=== PATIENT | male | born 1960 | race Caucasian/White ===

== ENCOUNTER → 2016-10-21 | Outpatient (CLI) | payer OTHER ==
--- NOTE | 2016-10-21 14:30 | XR ---
EXAMINATION TYPE: XR Hip Complete LT DATE OF EXAM: 10/21/2016 2:24 PM CLINICAL HISTORY: pain TECHNIQUE: AP and frogleg views of the left hip are obtained. COMPARISON: None. FINDINGS: There is no acute fracture/dislocation evident. The joint space appears within normal li mits. The overlying soft tissue appears unremarkable. IMPRESSION: 1. There is no acute fracture or dislocation.ICD 10 NO FRACTURE, INITIAL EVALUATION
--- NOTE | 2016-10-21 14:31 | XR ---
EXAMINATION TYPE: XR sacroiliac joint comp BILAT DATE OF EXAM: 10/21/2016 2:24 PM COMPARISON: NONE HISTORY: SI joint pain TECHNIQUE: 3 views of the sacroiliac joints are submitted. FINDINGS: The sacroiliac joints are patent bilaterally. There is no evidence for abnormal widening or sclerosis. Sacrum is intact. No sacral fractures evident. IMPRESSION: Negative study of the SI joints.
== END | disposition home or self-care (01) ==
LOC: RADXRMAIN 13:59
PROVIDERS: ATTEND Psychiatry & Neurology Neurology
DX: M25.552 Pain in left hip (principal); M53.3 Sacrococcygeal disorders, not elsewhere classified
CPT/HCPCS: 72202; 73502

== ENCOUNTER → 2016-11-18 | Outpatient (CLI) | payer OTHER ==
--- NOTE | 2016-11-21 11:25 | ECHOF ---
Referral Reason:R01.1 systolic murmur MEASUREMENTS -------- HEIGHT: 175.3 cm WEIGHT: 51.3 kg BP: RVIDd: 2.3 cm (< 3.3) IVSd: 1.2 cm (0.6 - 1.1) LVIDd: 4.4 cm (3.9 - 5.3) LVPWd: 0.8 cm (0.6 - 1.1) IVSs: 1.6 cm LVIDs: 2.7 cm LVPWs: 1.4 cm LAESV Index (A-L): 39.84 ml/m Ao Diam: 3.2 cm (2.0 - 3.7) AV Cusp: 1.6 cm (1.5 - 2.6) LA Diam: 3.8 cm (2.7 - 3.8) MV EXCURSION: 33.275 mm (> 18.000) MV EF SLOPE: 91 mm/s (70 - 150) RAP: 5.00 mmHg RVSP: 39.10 mmHg FINDINGS -------- Sinus rhythm. This was a technically good study. There is mild concentric left ventricular hypertrophy. Overall left ventricular systolic function is normal with, an EF between 55 - 60 %. The right ventricle is normal in size. LA is moderately dilated 34-39 ml/m2 The right atrial size is normal. There is mild aortic valve sclerosis. There is no evidence of aortic regurgitation. The mitral valve leaflets are moderate to severely thickened. Severe mitral regurgitation is present. Severe prolapse of the posterior mitral valve leaflet. Mild tricuspid regurgitation present. There is mild pulmonary hypertension. The right ventricular systolic pressure, as measured by Doppler, is 39.10mmHg. There is no pulmonic regurgitation present. The aortic root size is normal. There is no pericardial effusion. CONCLUSIONS -------- 1. There is mild concentric left ventricular hypertrophy. 2. The right ventricular systolic pressure, as measured by Doppler, is 39.10mmHg. 3. Overall left ventricular systolic function is normal with, an EF between 55 - 60 %. 4. LA is moderately dilated 34-39 ml/m2 5. There is mild aortic valve sclerosis. 6. The mitral valve leaflets are moderate to severely thickened. 7. Severe mitral regurgitation is present. 8. Severe prolapse of the posterior mitral valve leaflet. 9. Mild tricuspid regurgitation present. 10. There is mild pulmonary hypertension. [employer] FABRICATION SUPERVISOR: Saba Barahona RDCS
== END | disposition home or self-care (01) ==
LOC: RADECHMAIN 12:56
PROVIDERS: ATTEND Nurse Practitioner Family
DX: I08.3 Combined rheumatic disorders of mitral, aortic and tricuspid valves (principal); I27.2 Other secondary pulmonary hypertension
CPT/HCPCS: 93306

== ENCOUNTER 2018-04-20 10:23 | Observation (INO) | payer OTHER ==
[2018-04-20] MEDS ORDERED: NITROGLYCERIN OINT 1 INCH/GM PACKET TOPICAL STA (10:47)
[2018-04-20] MEDS ORDERED: ASPIRIN 81 MG PO STA (10:47)
--- NOTE | 2018-04-20 10:51 | ED ---
General Adult HPI - General Chief complaint: Chest Pain Stated complaint: chest pain Time Seen by Provider: 04/20/18 10:25 Source: patient, RN notes reviewed Mode of arrival: ambulatory Limitations: no limitations - History of Present Illness Initial comments: This is a 58-year-old male who has a past medical history significant for smoking and family history for heart disease. Patient comes in today because yesterday he started having chest pain difficult to breathing and pain radiating into the right arm. Patient states that lasted for 3-5 minutes and then it resolved but he continued to have chest pressure and states he has chest pressure today. He states he is also still little short of breath. But the severe pain is no longer there. Patient denies headache patient denies numbness weakness. Patient denies any lightheadedness or dizziness. Patient denies any recent fever chills or cough. Patient denies abdominal pain patient denies nausea vomiting diarrhea. Patient denies any leg swelling or calf pain. - Related Data Home Medications Medication Instructions Recorded Confirmed Baclofen 5 mg PO BID 04/20/18 04/20/18 Cholecalciferol (Vitamin D3) 2,000 unit PO DAILY 04/20/18 04/20/18 [Vitamin D3] HYDROcodone/APAP 7.5-325MG [[place] 1 tab PO BID 04/20/18 04/20/18 7.5-325] Meloxicam [Mobic] 15 mg PO DAILY 04/20/18 04/20/18 Allergies Allergy/AdvReac Type Severity Reaction Status Date / Time No Known Allergies Allergy Verified 04/20/18 11:06 Review of Systems ROS Statement: Those systems with pertinent positive or pertinent negative responses have been documented in the HPI. ROS Other: All systems not noted in ROS Statement are negative. Past Medical History Past Medical History: Osteoarthritis (OA) History of Any Multi-Drug Resistant Organisms: None Reported Past Surgical History: Orthopedic Surgery Past Psychological History: No Psychological Hx Reported Smoking Status: Current every day smoker Past Alcohol Use History: Occasional Past Drug Use History: None Reported General Exam - General Exam Comments Initial Comments: GENERAL: Patient is well-developed and well-nourished. Patient is nontoxic and well- hydrated and is in mild distress. ENT: Neck is soft and supple. No significant lymphadenopathy is noted. Oropharynx is clear. Moist mucous membranes. Neck has full range of motion without eliciting any pain. EYES: The sclera were anicteric and conjunctiva were pink and moist. Extraocular movements were intact and pupils were equal round and reactive to light. Eyelids were unremarkable. PULMONARY: Unlabored respirations. Good breath sounds bilaterally. No audible rales rhonchi or wheezing was noted. CARDIOVASCULAR: There is a regular rate and rhythm patient has a 3/6 murmur. ABDOMEN: Soft and nontender with normal bowel sounds. No palpable organomegaly was noted. There is no palpable pulsatile mass. SKIN: Skin is clear with no lesions or rashes and otherwise unremarkable. NEUROLOGIC: Patient is alert and oriented x3. Cranial nerves II through XII are grossly intact. Motor and sensory are also intact. Normal speech, volume and content. Symmetrical smile. MUSCULOSKELETAL: Normal extremities with adequate strength and full range of motion. No lower extremity swelling or edema. No calf tenderness. LYMPHATICS: No significant lymphadenopathy is noted PSYCHIATRIC: Normal psychiatric evaluation. Limitations: no limitations Course Vital Signs 04/20/18 10:26 Temperature 98.2 F Pulse Rate 84 Respiratory 18 Rate Blood Pressure 129/86 O2 Sat by Pulse 99 Oximetry Medical Decision Making - Medical Decision Making EKG shows normal sinus rhythm at 74 bpm ND interval is on a 38 QRS is 90 QT intervals 376 QTC is 417. Patient's EKG shows no ST segment elevation or depression or T wave abnormalities are noted. Chest x-ray shows no acute abnormality. Patient is having unstable angina/started the patient on heparin. I spoke with Dr. kothari and he agreed to admit the patient admitted the patient wrote admitting orders I consult cardiology. I continued heparin Nitropaste and aspirin on the floor. I repeated cardiac and since. - Lab Data Result diagrams: 04/20/18 10:54 04/20/18 10:54 Lab Results 04/20/18 04/20/18 04/20/18 Range/Units 10:54 10:54 10:54 WBC 5.2 (3.8-10.6) k/uL RBC 5.43 (4.30-5.90) m/uL Hgb 16.3 (13.0-17.5) gm/dL Hct 50.9 (39.0-53.0) % MCV 93.8 (80.0-100.0) fL MCH 30.0 (25.0-35.0) pg MCHC 32.0 (31.0-37.0) g/dL RDW 13.8 (11.5-15.5) % Plt Count 184 (150-450) k/uL Neutrophils % 61 % Lymphocytes % 30 % Monocytes % 5 % Eosinophils % 2 % Basophils % 1 % Neutrophils # 3.1 (1.3-7.7) k/uL Lymphocytes # 1.6 (1.0-4.8) k/uL Monocytes # 0.3 (0-1.0) k/uL Eosinophils # 0.1 (0-0.7) k/uL Basophils # 0.0 (0-0.2) k/uL PT (9.0-12.0) sec INR (<1.2) APTT (22.0-30.0) sec Sodium 142 (137-145) mmol/L Potassium 4.7 (3.5-5.1) mmol/L Chloride 108 H (98-107) mmol/L Carbon Dioxide 28 (22-30) mmol/L Anion Gap 6 mmol/L BUN 13 (9-20) mg/dL Creatinine 0.91 (0.66-1.25) mg/dL Est GFR (CKD-EPI)AfAm >90 (>60 ml/min/1.73 sqM) Est GFR (CKD-EPI)NonAf >90 (>60 ml/min/1.73 sqM) Glucose 84 (74-99) mg/dL Calcium 9.7 (8.4-10.2) mg/dL Magnesium 2.0 (1.6-2.3) mg/dL Total Bilirubin 0.9 (0.2-1.3) mg/dL AST 20 (17-59) U/L ALT 23 (21-72) U/L Alkaline Phosphatase 58 (38-126) U/L Total Creatine Kinase 62 (55-170) U/L CK-MB (CK-2) 0.6 (0.0-2.4) ng/mL CK-MB (CK-2) Rel Index 1.0 Troponin I <0.012 (0.000-0.034) ng/mL Total Protein 6.9 (6.3-8.2) g/dL Albumin 4.1 (3.5-5.0) g/dL 04/20/18 Range/Units 11:12 WBC (3.8-10.6) k/uL RBC (4.30-5.90) m/uL Hgb (13.0-17.5) gm/dL Hct (39.0-53.0) % MCV (80.0-100.0) fL MCH (25.0-35.0) pg MCHC (31.0-37.0) g/dL RDW (11.5-15.5) % Plt Count (150-450) k/uL Neutrophils % % Lymphocytes % % Monocytes % % Eosinophils % % Basophils % % Neutrophils # (1.3-7.7) k/uL Lymphocytes # (1.0-4.8) k/uL Monocytes # (0-1.0) k/uL Eosinophils # (0-0.7) k/uL Basophils # (0-0.2) k/uL PT 10.4 (9.0-12.0) sec INR 1.1 (<1.2) APTT 24.3 (22.0-30.0) sec Sodium (137-145) mmol/L Potassium (3.5-5.1) mmol/L Chloride (98-107) mmol/L Carbon Dioxide (22-30) mmol/L Anion Gap mmol/L BUN (9-20) mg/dL Creatinine (0.66-1.25) mg/dL Est GFR (CKD-EPI)AfAm (>60 ml/min/1.73 sqM) Est GFR (CKD-EPI)NonAf (>60 ml/min/1.73 sqM) Glucose (74-99) mg/dL Calcium (8.4-10.2) mg/dL Magnesium (1.6-2.3) mg/dL Total Bilirubin (0.2-1.3) mg/dL AST (17-59) U/L ALT (21-72) U/L Alkaline Phosphatase (38-126) U/L Total Creatine Kinase (55-170) U/L CK-MB (CK-2) (0.0-2.4) ng/mL CK-MB (CK-2) Rel Index Troponin I (0.000-0.034) ng/mL Total Protein (6.3-8.2) g/dL Albumin (3.5-5.0) g/dL Critical Care Time Critical Care Time: Yes Total Critical Care Time: 35 Disposition Clinical Impression: Unstable angina pectoris Disposition: ADMITTED IP TO THIS HOSP Referrals: Sneha Mantilla MD [Primary Care Provider] - 1-2 days Time of Disposition: 12:06
[2018-04-20 11:03] LABS: Basophils % (A) 1 %; Eosinophils # (A) 0.1 k/uL (0-0.7); Eosinophils % (A) 2 %; HCT 50.9 % (39.0-53.0); HGB 16.3 gm/dL (13.0-17.5); Lymphocytes # (A) 1.6 k/uL (1.0-4.8); Lymphocytes % (A) 30 %; MCV 93.8 fL (80.0-100.0); Monocytes # (A) 0.3 k/uL (0-1.0); Monocytes % (A) 5 %; Neutrophils # (A) 3.1 k/uL (1.3-7.7); Neutrophils % (A) 61 %; Platelet Count 184 k/uL (150-450); RBC 5.43 m/uL (4.30-5.90); RDW 13.8 % (11.5-15.5); WBC 5.2 k/uL (3.8-10.6)
[2018-04-20 11:13] LABS: ALT 23 U/L (21-72); AST 20 U/L (17-59); Albumin 4.1 g/dL (3.5-5.0); Alkaline Phosphatase 58 U/L (38-126); Anion Gap 6 mmol/L; Blood Urea Nitrogen 13 mg/dL (9-20); Calcium 9.7 mg/dL (8.4-10.2); Carbon Dioxide 28 mmol/L (22-30); Chloride 108 mmol/L (98-107); Glucose 84 mg/dL (74-99); Potassium 4.7 mmol/L (3.5-5.1); Sodium 142 mmol/L (137-145); Total Bilirubin 0.9 mg/dL (0.2-1.3); Total Protein 6.9 g/dL (6.3-8.2)
--- NOTE | 2018-04-20 11:23 | XR ---
EXAMINATION TYPE: XR chest 2V DATE OF EXAM: 04/20/2018 COMPARISON: 04/16/2015 HISTORY: Shortness of breath TECHNIQUE: Frontal and lateral views of the chest are obtained. FINDINGS: Scattered senescent parenchymal changes noted. Hyperinflation compatible with COPD. No evidence for infiltrate. No evidence for atelectasis. Heart size is stable. Mediastinal structures are stable and grossly unremarkable. No evidence for hilar prominence. Degenerative changes dorsal spine. IMPRESSION: 1. No evidence for acute pulmonary disease.
[2018-04-20 11:24] LABS: Creatine Kinase 62 U/L (55-170)
[2018-04-20 11:36] LABS: Creatine Kinase MB 0.6 ng/mL (0.0-2.4); Troponin I <0.012 ng/mL (0.000-0.034)
[2018-04-20 11:47] LABS: INR 1.1 (<1.2); Partial Thromboplastin Time 24.3 sec (22.0-30.0); Prothrombin Time 10.4 sec (9.0-12.0)
[2018-04-20] MEDS ORDERED: HEPARIN SODIUM,PORCINE 5,000 UNIT/ML 1 ML VIAL IV ONE (12:06)
[2018-04-20] MEDS ORDERED: NITROGLYCERIN SL TABS 0.4 MG TAB SUBLINGUAL PRN (12:06)
[2018-04-20] MEDS ORDERED: HEPARIN SOD,PORK IN 0.45% NACL 25,000 UNIT in 0.45% NACL 1 500ML.BAG IV SCH (12:15)
--- NOTE | 2018-04-20 14:09 | P.HPIM ---
History of Present Illness This is a pleasant 58 years old male with past medical history of osteoarthritis , vitamin D deficiency multiple musculoskeletal surgery chronic joint pain, multiple joints. Presents because of chest pain. As per patient developed chest pain yesterday central undiluted on the right side, nonradiating. Was fairly severe for about 20 minutes but then is down and since then until today he has some heaviness is his chest but not really pain as per patient. Associated with some dyspnea, however patient is not overtly tachypneic. Complain of some chronic coughing and slight right phlegm, patient is currently heavy smoker about 1.5 PPD. In the emergency room patient got aspirin, and was started on heparin drip. Chest x-ray shows no acute process, first cardiac enzyme is negative. CBC and BMP were unremarkable. EKG shows normal sinus rhythm at [address]-T changes Review of Systems CONSTITUTIONAL: No fever, no malaise, no fatigue. HEENT: No recent visual problems or hearing problems. Denied any sore throat. CARDIOVASCULAR: No orthopnea, PND, no palpitations, no syncope. PULMONARY: No shortness of breath, no cough, no hemoptysis. GASTROINTESTINAL: No diarrhea, no nausea, no vomiting, no abdominal pain. Normoactive bowel sounds. NEUROLOGICAL: No headaches, no weakness, no numbness. HEMATOLOGICAL: Denies any bleeding or petechiae. GENITOURINARY: Denies any burning micturition, frequency, or urgency. MUSCULOSKELETAL/RHEUMATOLOGICAL: Denies any joint pain, swelling, or any muscle pain. ENDOCRINE: Denies any polyuria or polydipsia. Past Medical History Past Medical History: Osteoarthritis (OA) Additional Past Medical History / Comment(s): Chronic pain, arthritis in multiple joints, cervical fractures, L clavicle fracture. History of Any Multi-Drug Resistant Organisms: None Reported Past Surgical History: Orthopedic Surgery Additional Past Surgical History / Comment(s): R index finger tendon repair d/t injury, bilateral knee arthroscopic surgery, bilateral hip arthroscopies, bilateral elbow arthroscopies, bilateral shoulder arthroscopies/fracture repair L clavicle, L/S spine surgery (pt cannot recall what was done), facial reconstruction. Past Anesthesia/Blood Transfusion Reactions: No Reported Reaction Smoking Status: Current every day smoker - Past Family History Mother Family Medical History: Liver Disease, Renal Disease Additional Family Medical History / Comment(s): Mother in her 70s from kidney and liver failure. Medications and Allergies Home Medications Medication Instructions Recorded Confirmed Type Cholecalciferol (Vitamin D3) 2,000 unit PO DAILY 04/20/18 04/20/18 History [Vitamin D3] HYDROcodone/APAP 7.5-325MG [[place] 1 tab PO BID 04/20/18 04/20/18 History 7.5-325] Meloxicam [Mobic] 15 mg PO DAILY 04/20/18 04/20/18 History RX: Baclofen 5 mg PO BID 04/20/18 04/20/18 History Allergies Allergy/AdvReac Type Severity Reaction Status Date / Time No Known Allergies Allergy Verified 04/20/18 11:06 Physical Exam Vitals: Vital Signs Temp Pulse Resp BP Pulse Ox 04/20/18 12:16 59 L 16 127/97 99 04/20/18 10:26 98.2 F 84 18 129/86 99 Intake and Output 04/19/18 04/20/18 04/20/18 22:59 06:59 14:59 Other: Weight 56.699 kg GENERAL: The patient is alert and oriented x3, not in any acute distress. Well developed, well nourished. HEENT: Pupils are round and equally reacting to light. EOMI. No scleral icterus. No conjunctival pallor. Normocephalic, atraumatic. No pharyngeal erythema. No thyromegaly. CARDIOVASCULAR: S1 and S2 present. No murmurs, rubs, or gallops. PULMONARY: Chest is clear to auscultation, no wheezing or crackles. ABDOMEN: Soft, nontender, nondistended, normoactive bowel sounds. No palpable organomegaly. MUSCULOSKELETAL: No joint swelling or deformity. EXTREMITIES: No cyanosis, clubbing, or pedal edema. NEUROLOGICAL: Gross neurological examination did not reveal any focal deficits. SKIN: No rashes. Results CBC & Chem 7: 04/20/18 10:54 04/20/18 10:54 Labs: Abnormal Lab Results - Last 24 Hours (Table) 04/20/18 Range/Units 10:54 Chloride 108 H (98-107) mmol/L Thrombosis Risk Factor Assmnt - Choose All That Apply Any of the Below Risk Factors Present?: Yes Each Factor Represents 1 point: Age 41-60 years Other Risk Factors: No Other congenital or acquired thrombophilia - If yes, enter type in comment: No Thrombosis Risk Factor Assessment Total Risk Factor Score: 1 Thrombosis Risk Factor Assessment Level: Low Risk Assessment and Plan Assessment: Chest pain, rule out cardiac cause History of vitamin D deficiency History of multiple joint disease and pain, status post surgeries Plan: This is a pleasant 58 years old male who presents because of chest pain. Continue same treatment. Continue with symptomatic treatment. Patient started on heparin drip on admission. Cardiology consultation. Serial troponins. DVT and GI prophylaxis. Patient is counseled about smoking and he agrees. He agrees to the nicotine patch. Further recommendation is based on the clinical course of the patient DVT prophylaxis: Patient is already on heparin drip GI prophylaxis: Pepcid
[2018-04-20] MEDS: NICOTINE 21MG/24HR PATCH TRANSDERM SCH (15:15)
[2018-04-20 18:42] LABS: Creatine Kinase 48 U/L (55-170)
[2018-04-20 18:55] LABS: Creatine Kinase MB 0.4 ng/mL (0.0-2.4); Troponin I <0.012 ng/mL (0.000-0.034)
[2018-04-20] MEDS: NITROGLYCERIN OINT 1 INCH/GM PACKET TOPICAL SCH (19:06)
[2018-04-20] MEDS: GABAPENTIN 100 MG CAP PO SCH (20:20)
[2018-04-20] MEDS ORDERED: FAMOTIDINE 20 MG/2 ML VIAL IV SCH (21:00)
[2018-04-21] MEDS: ALPRAZolam 0.5 MG TAB PO PRN ×2 (00:29→20:40)
[2018-04-21 00:39] LABS: Creatine Kinase MB 0.5 ng/mL (0.0-2.4); Troponin I 0.021 ng/mL (0.000-0.034)
[2018-04-21] MEDS: NITROGLYCERIN OINT 1 INCH/GM PACKET TOPICAL SCH ×2 (01:18→05:51)
[2018-04-21 06:47] LABS: Cholesterol 204 mg/dL (<200); HDL Cholesterol 78 mg/dL (40-60); LDL Cholesterol,Calculated 116 mg/dL (0-99); Triglycerides 50 mg/dL (<150)
[2018-04-21] MEDS ORDERED: ASPIRIN 325 MG TAB PO SCH (09:00)
--- NOTE | 2018-04-21 11:10 | ECHOF ---
Referral Reason:cp, murmur, MR MEASUREMENTS -------- HEIGHT: 175.3 cm WEIGHT: 50.3 kg BP: IVSd: 0.7 cm (0.6 - 1.1) LVIDd: 4.6 cm (3.9 - 5.3) LVPWd: 1.0 cm (0.6 - 1.1) IVSs: 1.0 cm LVIDs: 3.7 cm LVPWs: 1.0 cm Ao Diam: 3.2 cm (2.0 - 3.7) AV Cusp: 1.6 cm (1.5 - 2.6) LA Diam: 3.4 cm (2.7 - 3.8) MV EXCURSION: 24.599 mm (> 18.000) MV EF SLOPE: 89 mm/s (70 - 150) EPSS: 0.4 cm MV E Hira: 0.84 m/s MV DecT: 197 ms MV A Hira: 0.65 m/s MV E/A Ratio: 1.29 RAP: 5.00 mmHg RVSP: 27.80 mmHg FINDINGS -------- Sinus rhythm. This was a technically good study. LV size, wall thickness and systolic function are normal, with an EF greater than 55%. The left flash tricular size is normal. The right ventricle is normal in size. The left atrial size is normal. The right atrial size is normal. The aortic valve is trileaflet, and appears structurally normal. No aortic stenosis or regurgitation. The mitral valve leaflets are moderately thickened. Severe mitral regurgitation is present. There is severe mitral valve prolapse. Mild tricuspid regurgitation present. Right ventricular systolic pressure is normal at < 35 mmHg. There is no evidence of pulmonary hypertension. There is no pulmonic regurgitation present. The aortic root size is normal. There is no pericardial effusion. CONCLUSIONS -------- 1. LV size, wall thickness and systolic function are normal, with an EF greater than 55%. 2. The left ventricular size is normal. 3. The right ventricle is normal in size. 4. The left atrial size is normal. 5. The right atrial size is normal. 6. The aortic valve is trileaflet, and appears structurally normal. No aortic stenosis or regurgitati on. 7. Severe mitral regurgitation is present. 8. There is severe mitral valve prolapse. 9. Mild tricuspid regurgitation present. 10. Right ventricular systolic pressure is normal at < 35 mmHg. 11. There is no evidence of pulmonary hypertension. 12. There is no pulmonic regurgitation present. 13. The aortic root size is normal. 14. There is no pericardial effusion. ECOLOGY TEACHER: Saba Barahona RDCS
--- NOTE | 2018-04-21 11:21 | P.CRDCN ---
History of Present Illness History of present illness: Mrs. Chacko is a pleasant 58-year-old male past medical history significant for chronic nicotine dependence, daily marijuana use and chronic pain. He denies history of coronary artery disease, hypertension or dyslipidemia. We have been asked to see him in consultation for chest pain. He states Friday evening while driving in the car started feeling a heavy squeezing pain in the mid-sternal region with radiation up into the neck and jaw. He states he was short of breath and mildly dizzy as well. His daughter was in the car with him and told him that his face was drooping on the right side and his speech was slurred. The pain in his chest last approximately 90 seconds and seemed to subside on its own. He also states the facial drooping and slurred speech subsided on its own as well. Through the day yesterday he continued to have intermittent episodes of chest pain off and on with no specific aggravating or alleviating factors. He had no further facial drooping or slurred speech but did feel light headed at times with ongoing shortness of breath. He denies ever having palpitations, nausea, vomiting or diaphoresis. He states he was told to follow up with a farm mechanic apprentice last year for a heart murmur but never made an appointment. Echo obtained last year revealed preserved LV systolic function with EF 55-60%, left ventricular hypertrophy, thickened mitral valve with severe MR, moderately dilated LA and pulmonary hypertension with RVSP 39 mmHg. EKG reveals sinus mechanism with no acute ST or T-wave abnormalities. Chest xray negative for an acute cardiopulmonary process. Laboratory data reviewed, hemoglobin 16.3, platelets 184, sodium 142, potassium 4.7, magnesium 2.0, creatinine 0.91, cardiac enzymes negative 3, LDL 116, HDL 78. He takes no daily cardiac medications. Review of Systems At the time of my exam: CONSTITUTIONAL: Denies fever. Denies chills. EYES: Denies blurred vision. Denies vision changes. Denies eye pain. EARS, NOSE, MOUTH & THROAT: Denies headache. Denies sore throat. Denies ear pain. CARDIOVASCULAR: Denies chest pain. Denies shortness of breath. Denies orthopnea. Denies PND. Denies palpitations. RESPIRATORY: Denies cough. GASTROINTESTINAL: Denies abdominal pain. Denies diarrhea. Denies constipation. Denies nausea. Denies vomiting. MUSCULOSKELETAL: Denies myalgias. INTEGUMENTARY: Denies pruitis. Denies rash. NEUROLOGIC: Denies numbness. Denies tingling. Denies weakness. PSYCHIATRIC: Denies anxiety. Denies depression. ENDOCRINE: Denies fatigue. Denies weight change. Denies polydipsia. Denies polyurina. GENITOURINARY: Denies burning, hematuria or urgency with micturation. HEMATOLOGIC: Denies history of anemia. Denies bleeding. Past Medical History Past Medical History: Osteoarthritis (OA) Additional Past Medical History / Comment(s): Chronic pain, arthritis in multiple joints, cervical fractures, L clavicle fracture. History of Any Multi-Drug Resistant Organisms: None Reported Past Surgical History: Orthopedic Surgery Additional Past Surgical History / Comment(s): R index finger tendon repair d/t injury, bilateral knee arthroscopic surgery, bilateral hip arthroscopies, bilateral elbow arthroscopies, bilateral shoulder arthroscopies/fracture repair L clavicle, L/S spine surgery (pt cannot recall what was done), facial reconstruction. Past Anesthesia/Blood Transfusion Reactions: No Reported Reaction Smoking Status: Current every day smoker - Past Family History Mother Family Medical History: Liver Disease, Renal Disease Additional Family Medical History / Comment(s): Mother in her 70s from kidney and liver failure. Medications and Allergies Home Medications Medication Instructions Recorded Confirmed Type Baclofen 5 mg PO BID 04/20/18 04/20/18 History Cholecalciferol (Vitamin D3) 2,000 unit PO DAILY 04/20/18 04/20/18 History [Vitamin D3] HYDROcodone/APAP 7.5-325MG [[place] 1 tab PO BID 04/20/18 04/20/18 History 7.5-325] Meloxicam [Mobic] 15 mg PO DAILY 04/20/18 04/20/18 History Allergies Allergy/AdvReac Type Severity Reaction Status Date / Time No Known Allergies Allergy Verified 04/20/18 11:06 Physical Exam Vitals: Vital Signs Temp Pulse Pulse Resp BP BP BP 04/21/18 07:53 97.7 F 66 16 117/68 04/21/18 03:45 16 04/21/18 03:43 97.5 F L 57 L 16 107/66 04/20/18 23:45 16 04/20/18 23:40 97.7 F 65 16 114/71 04/20/18 20:01 98 F 69 18 108/73 04/20/18 20:00 98.1 F 61 18 108/71 04/20/18 19:08 63 18 107/63 04/20/18 18:00 66 18 116/61 04/20/18 14:36 69 16 124/73 04/20/18 12:16 59 L 16 127/97 04/20/18 10:26 98.2 F 84 18 129/86 Pulse Ox 04/21/18 07:53 99 04/21/18 03:45 04/21/18 03:43 97 04/20/18 23:45 04/20/18 23:40 96 04/20/18 20:01 99 04/20/18 20:00 99 04/20/18 19:08 98 04/20/18 18:00 98 04/20/18 14:36 98 04/20/18 12:16 99 04/20/18 10:26 99 Intake and Output 04/20/18 04/21/18 04/21/18 22:59 06:59 14:59 Intake Total 91.347 88.967 Balance 91.347 88.967 Intake: Intake, IV Titration 91.347 88.967 Amount Heparin Sod,Pork in 0.45% 91.347 88.967 NaCl 25,000 unit In 0.45 % NaCl 1 500ml.bag @ 12 UNITS/KG/HR 13.6 mls/hr IV .Q24H [facility] Rx#: [id number] Other: Voiding Method Toilet Toilet # Voids 2 Weight 50.8 kg Blood pressure 117/68 heart rate 66 afebrile maintaining oxygen saturation on room air GENERAL: This is a 58-year-old male in no apparent distress at the time of my examination. Frail. HEENT: Head is atraumatic, normocephalic. Pupils are equal, round. Sclerae anicteric. Conjunctivae are clear. Mucous membranes of the mouth are moist. Neck is supple. There is no jugular venous distention. No carotid bruit is heard. LUNGS: Clear to auscultation no wheezes, rales or rhonchi. No chest wall tenderness is noted on palpation or with deep breathing. Diminished bilaterally. HEART: Regular rate and rhythm with holosystolic murmur throughout the precordium, no rubs or gallops. S1 and S2 heard. ABDOMEN: Soft, nontender. Bowel sounds are heard. No organomegaly noted. EXTREMITIES: No evidence of peripheral edema and no calf tenderness noted. VASCULAR: Radial and dorsalis pedis pulses palpated, no evidence of clubbing. NEUROLOGIC: Patient is awake, alert and oriented x3. Results 04/20/18 10:54 04/20/18 10:54 Cardiac Enzymes 04/20/18 04/20/18 04/20/18 Range/Units 10:54 10:54 17:48 AST 20 (17-59) U/L CK-MB (CK-2) 0.6 0.4 (0.0-2.4) ng/mL Troponin I <0.012 <0.012 (0.000-0.034) ng/mL 04/20/18 Range/Units 23:51 AST (17-59) U/L CK-MB (CK-2) 0.5 (0.0-2.4) ng/mL Troponin I 0.021 (0.000-0.034) ng/mL Coagulation 04/20/18 04/20/18 04/20/18 Range/Units 11:12 17:48 23:51 PT 10.4 (9.0-12.0) sec APTT 24.3 43.3 H 44.2 H (22.0-30.0) sec 04/21/18 Range/Units 06:17 PT (9.0-12.0) sec APTT 57.1 H (22.0-30.0) sec Lipids 04/20/18 Range/Units 10:54 Triglycerides 50 (<150) mg/dL Cholesterol 204 H (<200) mg/dL HDL Cholesterol 78 H (40-60) mg/dL CBC 04/20/18 Range/Units 10:54 WBC 5.2 (3.8-10.6) k/uL RBC 5.43 (4.30-5.90) m/uL Hgb 16.3 (13.0-17.5) gm/dL Hct 50.9 (39.0-53.0) % Plt Count 184 (150-450) k/uL Comprehensive Metabolic Panel 04/20/18 Range/Units 10:54 Sodium 142 (137-145) mmol/L Potassium 4.7 (3.5-5.1) mmol/L Chloride 108 H (98-107) mmol/L Carbon Dioxide 28 (22-30) mmol/L BUN 13 (9-20) mg/dL Creatinine 0.91 (0.66-1.25) mg/dL Glucose 84 (74-99) mg/dL Calcium 9.7 (8.4-10.2) mg/dL AST 20 (17-59) U/L ALT 23 (21-72) U/L Alkaline Phosphatase 58 (38-126) U/L Total Protein 6.9 (6.3-8.2) g/dL Albumin 4.1 (3.5-5.0) g/dL Current Medications Generic Name Dose Route Start Last Admin Trade Name Freq PRN Reason Stop Dose Admin Alprazolam 0.5 mg 04/20/18 14:05 04/21/18 00:29 Xanax PO 0.5 mg BID PRN Administration Anxiety Aspirin 325 mg 04/21/18 09:00 Aspirin PO DAILY [facility] Famotidine 20 mg 04/20/18 21:00 04/20/18 20:20 Pepcid IV 20 mg Q12HR [facility] Administration Gabapentin 200 mg 04/20/18 21:00 04/20/18 20:20 Neurontin PO 200 mg BID [facility]EL[facility] Administration Nicotine 1 patch 04/20/18 14:15 04/20/18 15:15 Habitrol 21mg/24hr Patch TRANSDERM 1 patch DAILY [facility] Administration Nitroglycerin 0.4 mg 04/20/18 12:06 Nitrostat SUBLINGUAL Q5M PRN Chest Pain Intake and Output 04/20/18 04/21/18 04/21/18 22:59 06:59 14:59 Intake Total 91.347 88.967 Balance 91.347 88.967 Intake: Intake, IV Titration 91.347 88.967 Amount Heparin Sod,Pork in 0.45% 91.347 88.967 NaCl 25,000 unit In 0.45 % NaCl 1 500ml.bag @ 12 UNITS/KG/HR 13.6 mls/hr IV .Q24H [facility] Rx#: [id number] Other: Voiding Method Toilet Toilet # Voids 2 Weight 50.8 kg 04/20/18 10:54 04/20/18 10:54 Assessment and Plan Assessment: ASSESSMENT Chest pain, atypical. An acute coronary event has been ruled out. Facial drooping and slurred speech, pt will need neurologic evaluation. Mitral regurgitation Pulmonary hypertension, RVSP 39 mmHg Dyslipidemia Chronic nicotine dependence PLAN Obtain 2D echocardiogram and doppler study to assess cardiac structure and function. May require JOSEPH as well. Check d-dimer. Perform stress echocardiogram to assess for stress induced cardiac ischemia. Recommend possibly CT of brain for symptoms of facial drooping and slurred speech. Lifestyle modifications recommended for lowering of LDL cholesterol as well as smoking cessation, tobacco and marijuana. Further recommendations to follow based on clinical course. Thank you kindly for this consultation. Nurse Practitioner note has been reviewed, I agree with a documented findings and plan of care. Patient was seen and examined.
[2018-04-21] MEDS: FAMOTIDINE 20 MG TAB PO SCH ×2 (11:22→20:34)
[2018-04-21] MEDS: NICOTINE 21MG/24HR PATCH TRANSDERM SCH (11:22)
[2018-04-21] MEDS: GABAPENTIN 100 MG CAP PO SCH ×2 (11:22→20:34)
--- NOTE | 2018-04-21 12:21 | ECHOS ---
STRESS ECHOCARDIOGRAM DATE OF SERVICE: 04/21/2018 INDICATIONS: Chest pain. MEDICATIONS: BASELINE HEART RATE: 62 BASELINE BLOOD PRESSURE: 112/76 MAXIMUM HEART RATE: 114 MAXIMUM BLOOD PRESSURE: 175/90 85% MPHR: 139 100% MPHR: 164 METS: 8.6 MAXIMUM STAGE REACHED: III TOTAL EXERCISE TIME: 7 minutes CLINICAL INFORMATION: Patient was exercised for a total period of 7 minutes. A peak heart rate of 114 was achieved. Maximum blood pressure of 175/90 mmHg was noted. Test was terminated because patient got short of breath. The resting EKG shows normal sinus rhythm with normal WA interval and QRS duration and normal ST-T waves. No ST-segment depression suggestive of ischemia is noted. The baseline echocardiographic images reveal a normal left ventricular chamber size with normal left ventricular systolic function. In the immediate postexercise period, normal increase in the wall thickness and contractility is noted. FINAL IMPRESSION: This stress echocardiographic study is inconclusive to diagnose ischemia because only 70% of age predicted heart rate was achieved, however, normal increase in the wall thickness and contractility was noted in the immediate postexercise period. MMODL / IJN: [id number] /
[2018-04-21] MEDS: CHOLECALCIFEROL 1,000 UNIT TAB PO SCH (12:39)
[2018-04-21] MEDS: HYDROcodone/APAP 7.5-325MG 1 EACH TAB PO SCH ×2 (12:40→20:35)
[2018-04-21] MEDS: BACLOFEN 10 MG TAB PO SCH ×2 (12:40→20:35)
--- NOTE | 2018-04-21 13:59 | US ---
EXAMINATION TYPE: US venous doppler duplex LE RT DATE OF EXAM: 04/21/2018 1:50 PM COMPARISON: NONE CLINICAL HISTORY: r/o DVT. Right leg cramps; no prior DVT or PE per patient SIDE PERFORMED: Right TECHNIQUE: The lower extremity deep venous system is examined utilizing real time linear array sonog booker with graded compression, doppler sonography and color-flow sonography. VESSELS IMAGED: Common Femoral Vein Deep Femoral Vein Greater Saphenous Vein * Femoral Vein Popliteal Vein Small Saphenous Vein * Proximal Calf Veins (* superficial vessels) Right Leg: Negative for DVT. Possible hyperechoic valve wall thickening noted upper calf veins and i n upper peroneal vein trunk on images #[id number] and [id number], but veins compress here. Grayscale, color doppler, spectral doppler imaging performed of the deep veins of the right lower ex tremity. There is normal flow, compressibility, vascular waveforms. IMPRESSION: No convincing evidence for acute DVT in the right lower extremity.
--- NOTE | 2018-04-21 14:29 | P.PN ---
Subjective [place]: This is a pleasant 58 years old male with past medical history of osteoarthritis , vitamin D deficiency multiple musculoskeletal surgery chronic joint pain, multiple joints. Presents because of chest pain. As per patient developed chest pain yesterday central undiluted on the right side, nonradiating. Was fairly severe for about 20 minutes but then is down and since then until today he has some heaviness is his chest but not really pain as per patient. Associated with some dyspnea, however patient is not overtly tachypneic. Complain of some chronic coughing and slight right phlegm, patient is currently heavy smoker about 1.5 PPD. In the emergency room patient got aspirin, and was started on heparin drip. Chest x-ray shows no acute process, first cardiac enzyme is negative. CBC and BMP were unremarkable. EKG shows normal sinus rhythm at [address]-T changes 04/21/2018 Patient still have chest heaviness and dyspnea, he denies overt chest pain. No dizziness. Patient has been evaluated by cardiology team and undergone stress test: Not conclusive for ischemia, target heart rate was not achieved. Cartilage team are planning to do a JOSEPH . D-dimer is negative. Patient today gave her statement of last week left facial numbness and drooping, which is resolved now. Also states that certain point he has numbness on his left side of the body. We will do CT of the head and call neurology consult. However it was not noticed for any weakness in his extremities or headache. No slurred speech was noticed. Heparin drip was stopped Patient complains of some pain in his right leg, Doppler study rule out DVT in the right leg and lower extremity. Objective - Vital Signs Vital signs: Vital Signs Temp 98 F 04/21/18 11:58 Pulse 62 04/21/18 11:58 Resp 16 04/21/18 11:58 BP 114/80 04/21/18 11:58 Pulse Ox 99 04/21/18 11:58 Intake & Output 04/20/18 04/21/18 04/21/18 18:59 06:59 18:59 Intake Total 180.314 Balance 180.314 Weight 56.699 kg 50.8 kg Intake: Intake, IV Titration 180.314 Amount Heparin Sod,Pork in 0.45% 180.314 NaCl 25,000 unit In 0.45 % NaCl 1 500ml.bag @ 12 UNITS/KG/HR 13.6 mls/hr IV .Q24H [facility] Rx#: [id number] Other: Voiding Method Toilet Toilet # Voids 2 1 - Exam GENERAL: The patient is alert and oriented x3, not in any acute distress. Thin built male HEENT: Pupils are round and equally reacting to light. EOMI. No scleral icterus. No conjunctival pallor. Normocephalic, atraumatic. No pharyngeal erythema. No thyromegaly. CARDIOVASCULAR: S1 and S2 present. No murmurs, rubs, or gallops. PULMONARY: Chest is clear to auscultation, no wheezing or crackles. ABDOMEN: Soft, nontender, nondistended, normoactive bowel sounds. No palpable organomegaly. MUSCULOSKELETAL: No joint swelling or deformity. EXTREMITIES: No cyanosis, clubbing, or pedal edema. NEUROLOGICAL: Gross neurological examination did not reveal any focal deficits. no facial deviation is noted , no slurred speech, no weakness in ext both upper and lower. SKIN: No rashes. - Labs CBC & Chem 7: 04/20/18 10:54 04/20/18 10:54 Labs: Abnormal Lab Results - Last 24 Hours (Table) 04/20/18 04/20/18 04/20/18 Range/Units 10:54 17:48 17:48 APTT 43.3 H (22.0-30.0) sec Chloride 108 H (98-107) mmol/L Total Creatine Kinase 48 L (55-170) U/L Cholesterol 204 H (<200) mg/dL LDL Cholesterol, Calc 116 H (0-99) mg/dL HDL Cholesterol 78 H (40-60) mg/dL 04/20/18 04/21/18 Range/Units 23:51 06:17 APTT 44.2 H 57.1 H (22.0-30.0) sec Chloride (98-107) mmol/L Total Creatine Kinase (55-170) U/L Cholesterol (<200) mg/dL LDL Cholesterol, Calc (0-99) mg/dL HDL Cholesterol (40-60) mg/dL Assessment and Plan Assessment: Chest pain, rule out cardiac cause History of vitamin D deficiency History of multiple joint disease and pain, status post surgeries Plan: This is a pleasant 58 years old male who presents because of chest pain. Continue same treatment. Continue with symptomatic treatment. Patient started on heparin drip on admission.changed to sc heparin. Cardiology consultation. Serial troponins. Stress echo was inconclusive for ischemia and achieved 70% of the target heart rate. JOSEPH is requested by cardiology. CT of the head and neurology consult . DVT and GI prophylaxis. Patient is counseled about smoking and he agrees. He agrees to the nicotine patch. Further recommendation is based on the clinical course of the patient DVT prophylaxis: Patient is already on heparin drip GI prophylaxis: Pepcid
[2018-04-21 15:14] VITALS: BMI 16.5
--- NOTE | 2018-04-21 16:15 | CT ---
EXAMINATION TYPE: CT brain wo con DATE OF EXAM: 04/21/2018 HISTORY: Facial weakness. Poor historian. CT DLP: 775.5 mGycm. Automated Exposure Control for Dose Reduction was Utilized. TECHNIQUE: CT scan of the head is performed without contrast. COMPARISON: CT brain April 16, 2015. FINDINGS: There is no acute intracranial hemorrhage or midline shift identified. Ventricles and sul ci are within normal limits in size for patient's age. There are mild areas of low-attenuation in t he periventricular white matter redemonstrated most likely on basis of product of chronic small vesse l ischemic change. Mild mucosal thickening involving ethmoid sinuses is significantly improved from p rior. The globes are intact bilaterally. Surgical change at level of left zygoma is redemonstrated. IMPRESSION: No acute intracranial hemorrhage or midline shift. There is mild nonspecific white varun er changes most likely on basis of product of chronic small vessel ischemic change redemonstrated.
--- NOTE | 2018-04-21 16:49 | P.CNNES ---
History of Present Illness Consult date: 04/21/18 Reason for Consult: Patient admitted for left sided numbness and slurred speech. History of Present Illness: This patient is a 58-year-old right-handed white male who was admitted to [facility] for evaluation of chest pain. Patient developed severe chest pain yesterday mostly involving his right side and sternum area. It was nonradiating in nature. He was very severe for about 20 minutes before he felt some relief. The patient also did describe some heaviness in the retrosternal area. He was getting some shortness of breath as well associated with the symptoms. The patient states he suffers from chronic pain and does use marijuana as well as nicotine patches for smoking cessation. He states he does have issues with chronic pain over the years and does use Narco. He follows with pain specialty clinic as well. During his episodes of chest pain he was also experiencing lightheadedness and at some point began showing signs of left-sided facial droop and slurred speech. These findings were suggesting possibility of TIA. Patient is not a very good historian but states he has been worked up for TIA and strokes in the past. As far as he can recollect he has no previous history of stroke. He was evaluated by cardiology during this admission. He has been diagnosed as having atypical chest pain. He is being considered for further cardiac workup including 2-D echocardiogram and JOSEPH procedure which is scheduled to be done tomorrow. Patient denies any focal weakness at this time. We are waiting results of his cardiac workup. We will continue to monitor this patient for any further episodes of slurred speech or facial weakness. Patient states that his left-sided facial droop is related to history of having had major surgery on the left side of his face. This was a very extensive surgery and left him with some residual weakness on the left side of the face. The patient was sent for a computed tomography scan of the brain earlier today and we are waiting the final report. At this time he does not appear to have evidence of an acute stroke but could be TIA symptoms. We will continue close neurological follow-up for the patient during this admission. We will await further recommendations from cardiology regarding his further workup. This patient's overall prognosis at this time remains guarded. Review of Systems Constitutional: Reports as per HPI Eyes: denies blurred vision, denies pain Ears, nose, mouth and throat: Denies headache, Denies sore throat Cardiovascular: Denies chest pain, Denies shortness of breath Respiratory: Denies cough Gastrointestinal: Denies abdominal pain, Denies diarrhea, Denies nausea, Denies vomiting Musculoskeletal: Denies myalgias Integumentary: Denies pruritus, Denies rash Neurological: Reports balance difficulties, Reports change in speech, Reports confusion, Reports tingling, Denies numbness, Denies weakness Psychiatric: Reports confusion, Reports irritability, Reports memory loss, Denies anxiety, Denies depression Endocrine: Denies fatigue, Denies weight change Past Medical History Past Medical History: Osteoarthritis (OA) Additional Past Medical History / Comment(s): Chronic pain, arthritis in multiple joints, cervical fractures, L clavicle fracture. History of Any Multi-Drug Resistant Organisms: None Reported Past Surgical History: Orthopedic Surgery Additional Past Surgical History / Comment(s): R index finger tendon repair d/t injury, bilateral knee arthroscopic surgery, bilateral hip arthroscopies, bilateral elbow arthroscopies, bilateral shoulder arthroscopies/fracture repair L clavicle, L/S spine surgery (pt cannot recall what was done), facial reconstruction. Past Anesthesia/Blood Transfusion Reactions: No Reported Reaction Smoking Status: Current every day smoker - Past Family History Mother Family Medical History: Liver Disease, Renal Disease Additional Family Medical History / Comment(s): Mother in her 70s from kidney and liver failure. Medications and Allergies Home Medications Medication Instructions Recorded Confirmed Type Baclofen 5 mg PO BID 04/20/18 04/20/18 History Cholecalciferol (Vitamin D3) 2,000 unit PO DAILY 04/20/18 04/20/18 History [Vitamin D3] HYDROcodone/APAP 7.5-325MG [Gibson 1 tab PO BID 04/20/18 04/20/18 History 7.5-325] Meloxicam [Mobic] 15 mg PO DAILY 04/20/18 04/20/18 History Allergies Allergy/AdvReac Type Severity Reaction Status Date / Time No Known Allergies Allergy Verified 04/20/18 11:06 Physical Examination - Vital Signs Vital Signs: Vital Signs Temp Pulse Pulse Resp BP BP BP 04/21/18 11:58 98 F 62 16 114/80 04/21/18 07:53 97.7 F 66 16 117/68 04/21/18 03:45 16 09/11/18 03:43 97.5 F L 57 L 16 107/66 04/20/18 23:45 16 04/20/18 23:40 97.7 F 65 16 114/71 04/20/18 20:01 98 F 69 18 108/73 04/20/18 20:00 98.1 F 61 18 108/71 04/20/18 19:08 63 18 107/63 04/20/18 18:00 66 18 116/61 Pulse Ox 04/21/18 11:58 99 04/21/18 07:53 99 04/21/18 03:45 04/21/18 03:43 97 04/20/18 23:45 04/20/18 23:40 96 04/20/18 20:01 99 04/20/18 20:00 99 04/20/18 19:08 98 04/20/18 18:00 98 Intake and Output 04/21/18 04/21/18 04/21/18 06:59 14:59 22:59 Intake Total 88.967 Balance 88.967 Intake: Intake, IV Titration 88.967 Amount Heparin Sod,Pork in 0.45% 88.967 NaCl 25,000 unit In 0.45 % NaCl 1 500ml.bag @ 12 UNITS/KG/HR 13.6 mls/hr IV .Q24H [facility] Rx#: [id number] Other: Voiding Method Toilet Toilet # Voids 2 1 Weight 50.8 kg - Constitutional General appearance: average body habitus, cooperative - EENT EENT: PERRL, mucous membranes moist - Respiratory Respiratory: lungs clear, normal breath sounds - Cardiovascular Cardiovascular: regular rate, normal S1, normal S2 Extremities: no peripheral edema bilaterally - Gastrointestinal Gastrointestinal: normoactive bowel sounds - Integumentary Integumentary: normal - Neurologic Cranial nerve examination: PERRL, EOMI, V1/V2/V3 grossly intact, face symmetric , tongue midline, intact shoulder shrug, intact gag reflex, intact corneal reflex, normal palatal elevation Speech examination: intact Sensorimotor examination: intact Motor examination - right side: 3: biceps, triceps, wrist flexion, wrist extension, marketing and development coordinator, hip flexors, knee extensors, dorsiflexion, toe extension (EHL) , plantarflexion Motor examination - left side: 35: biceps, triceps, wrist flexion, wrist extension, marketing and development coordinator, hip flexors, knee extensors, dorsiflexion, toe extension (EHL) , plantarflexion Detailed sensory examination: intact Reflex and gait examination: intact Reflexes: 1+: ankle, bicep, knee, tricep - Musculoskeletal Musculoskeletal: no pain - Psychiatric Psychiatric: mood/affect appropriate, cooperative Results - Laboratory Findings CBC and BMP: 04/20/18 10:54 04/20/18 10:54 Abnormal Lab Findings: Abnormal Labs 04/20/18 04/20/18 04/20/18 10:54 17:48 17:48 APTT 43.3 H Chloride 108 H Total Creatine Kinase 48 L Cholesterol 204 H LDL Cholesterol, Calc 116 H HDL Cholesterol 78 H 04/20/18 04/21/18 23:51 06:17 APTT 44.2 H 57.1 H Chloride Total Creatine Kinase Cholesterol LDL Cholesterol, Calc HDL Cholesterol Assessment and Plan (1) TIA (transient ischemic attack) Current Visit: Yes Status: Acute Code(s): G45.9 - TRANSIENT CEREBRAL ISCHEMIC ATTACK, UNSPECIFIED SNOMED Code(s): 610949118 (2) Vitamin D deficiency Current Visit: Yes Status: Acute Code(s): E55.9 - VITAMIN D DEFICIENCY, UNSPECIFIED SNOMED Code(s): 29084738 (3) Near syncope Current Visit: Yes Status: Acute Code(s): R55 - SYNCOPE AND COLLAPSE SNOMED Code(s): 057159804 (4) Unstable angina pectoris Current Visit: Yes Status: Acute Code(s): I20.0 - UNSTABLE ANGINA SNOMED Code(s): 2766362 Plan: This patient is a 58-year-old male admitted with symptoms of acute onset of chest pain and angina. He was brought into the emergency room and subsequent admitted to Hospital. He had undergone extensive evaluation for his angina symptoms. Cardiology was consulted and they're monitoring him closely. Patient is being scheduled for JOSEPH procedure tomorrow for further assessment and evaluation. Neurology was consulted for evaluation of left-sided facial numbness and slurred speech. Clinical history is consistent with possible right hemispheric TIA. He underwent a computed tomography scan of the brain today and we're waiting the final result. Would recommend carotid Doppler ultrasound as well as EEG for further evaluation. He is being followed closely by cardiology and is scheduled to undergo JOSEPH procedure tomorrow and we will await those results. This patient's overall prognosis at this time remains very guarded. Time with Patient: Greater than 30
[2018-04-21] MEDS: HEPARIN SODIUM,PORCINE 5,000 UNIT/ML 1 ML VIAL SQ SCH ×2 (17:45→20:36)
[2018-04-22] MEDS ORDERED: ONDANSETRON 4 MG/2 ML VIAL IVP PRN (01:09)
[2018-04-22 07:49] LABS: Basophils % (A) 0 %; Eosinophils # (A) 0.1 k/uL (0-0.7); Eosinophils % (A) 2 %; HCT 47.4 % (39.0-53.0); HGB 14.6 gm/dL (13.0-17.5); Lymphocytes # (A) 1.7 k/uL (1.0-4.8); Lymphocytes % (A) 34 %; MCH 29.6 pg (25.0-35.0); MCHC 30.8 g/dL (31.0-37.0); MCV 96.1 fL (80.0-100.0); Mean Platelet Volume 7.4; Monocytes # (A) 0.3 k/uL (0-1.0); Monocytes % (A) 6 %; Neutrophils # (A) 2.9 k/uL (1.3-7.7); Neutrophils % (A) 56 %; Platelet Count 152 k/uL (150-450); RBC 4.93 m/uL (4.30-5.90); RDW 13.8 % (11.5-15.5); WBC 5.1 k/uL (3.8-10.6)
[2018-04-22 08:02] LABS: Anion Gap 5 mmol/L; Blood Urea Nitrogen 22 mg/dL (9-20); Calcium 9.3 mg/dL (8.4-10.2); Carbon Dioxide 29 mmol/L (22-30); Chloride 107 mmol/L (98-107); Glucose 89 mg/dL (74-99); Potassium 4.4 mmol/L (3.5-5.1); Sodium 141 mmol/L (137-145)
[2018-04-22] MEDS: NICOTINE 21MG/24HR PATCH TRANSDERM SCH (08:09)
[2018-04-22] MEDS: CHOLECALCIFEROL 1,000 UNIT TAB PO SCH (08:09)
[2018-04-22] MEDS: GABAPENTIN 100 MG CAP PO SCH ×2 (08:10→19:42)
[2018-04-22] MEDS: HYDROcodone/APAP 7.5-325MG 1 EACH TAB PO SCH ×2 (08:10→19:42)
[2018-04-22] MEDS: BACLOFEN 10 MG TAB PO SCH ×2 (08:11→19:42)
[2018-04-22] MEDS: FAMOTIDINE 20 MG TAB PO SCH ×2 (08:11→19:42)
[2018-04-22] MEDS: HEPARIN SODIUM,PORCINE 5,000 UNIT/ML 1 ML VIAL SQ SCH ×2 (08:11→19:44)
[2018-04-22 08:31] LABS: Hemoglobin A1C 4.9 % (4.0-6.0)
[2018-04-22] MEDS ORDERED: ASPIRIN 81 MG PO SCH (09:00)
[2018-04-22] MEDS ORDERED: MELOXICAM 7.5 MG TAB PO SCH (09:00)
[2018-04-22] MEDS ORDERED: fentaNYL (PF) 50 MCG/ML 2 ML AMP ONE (10:32)
[2018-04-22] MEDS ORDERED: MIDAZOLAM 2 MG/2 ML VIAL ONE (10:32)
[2018-04-22] MEDS ORDERED: SODIUM CHLORIDE 0.9% 500 ML IV ONE (10:56)
[2018-04-22] MEDS ORDERED: fentaNYL (PF) 50 MCG/ML 2 ML AMP IVP ONE (11:07)
[2018-04-22] MEDS ORDERED: MIDAZOLAM 2 MG/2 ML VIAL IVP ONE (11:07)
[2018-04-22] MEDS ORDERED: BENZOCAINE SPRAY 1 CAN MUCOUS MEM ONE (11:11)
[2018-04-22 11:43] VITALS: RESP 18
[2018-04-22] MEDS: ALPRAZolam 0.5 MG TAB PO PRN (15:20)
--- NOTE | 2018-04-22 16:28 | ECHOT ---
TRANSESOPHAGEAL ECHOCARDIOGRAM This transesophageal echocardiogram was performed to evaluate the patient's mitral regurgitation. The patient was given intravenous sedation with Versed and fentanyl and transesophageal echocardiogram was performed without any complications. The left ventricular chamber is normal in size with normal left ventricular systolic functions. Right ventricle and right atrial chamber is normal in size. Left atrium is mild-to- moderately enlarged. 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 There is evidence of severe eccentric mitral regurgitation. There is a possible reversal of flow noted in the pulmonary veins. There is no evidence of thrombus in left atrial appendage. Interatrial septum is intact. There is no evidence of any PFO. FINAL IMPRESSION: 1. 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 2. There is a severe eccentric mitral regurgitation. 3. The left atrium is moderately enlarged. 4. There is no evidence of PFO or atrial septal defect. 5. There is no evidence of thrombus in left atrial appendage. MMODL / IJN: [id number] /
[2018-04-22 19:56] VITALS: BP 138/80; PULSE 75; TEMP 98.1
--- NOTE | 2018-04-22 21:04 | EEG ---
ELECTROENCEPHALOGRAM REPORT DATE OF EE04/22/2018 REFERRING PHYSICIAN: Dr. Ventura CONSULTING/REFERRING PHYSICIAN: Ness Perea M.D. ELECTROENCEPHALOGRAPHIC EXAMINATION REPORT: INDICATION FOR EXAMINATION: This patient is a 58-year-old male being evaluated for left-sided facial numbness and facial droop. Patient also with symptoms of slurred speech and possible TIA like symptoms. AGE: [age]. EEG FINDINGS: A routine 21 channel awake digital EEG recording was accomplished utilizing the 10-20 international system with bipolar and referential montages. The background activity in the most alert resting state consists of a low to medium amplitude, fairly well- developed and well-sustained 7-8 Hz activity over the posterior head regions. This posterior rhythm attenuates to eye opening. There is a small amount of low amplitude 18-20 Hz beta activity seen maximally over the anterior head regions. Muscle and movement artifact was observed on a few occasions during the tracing. Hyperventilation was not performed. Photic stimulation at flash frequencies of 2-30 Hz produced a minimal occipital driving response. No epileptiform discharges were seen. IMPRESSION: This EEG is within normal limits for the patient's age. The EEG failed to reveal any focal, lateralized, or epileptiform abnormalities. Clinical correlation is recommended. MMODL / IJN: [id number] /
--- NOTE | 2018-05-02 09:32 | P.DS ---
Providers Date of admission: 04/20/18 12:14 Attending physician: Edgar Grubbs MD Consults: 04/20/18 12:06 Consult Physician Urgent Consulting Provider: [facility] Consult Reason/Comments: Unstable angina Do you want consulting provider notified?: Yes 04/21/18 12:42 Consult Physician Routine Consulting Provider: Ness Perea Consult Reason/Comments: left sided numbness/slurred speech Do you want consulting provider notified?: Yes Primary care physician: Sneha [facility] Course: This is a pleasant 58 years old male with past medical history of osteoarthritis , vitamin D deficiency multiple musculoskeletal surgery chronic joint pain, multiple joints. Presents because of chest pain. As per patient developed chest pain yesterday central undiluted on the right side, nonradiating. Was fairly severe for about 20 minutes but then is down and since then until today he has some heaviness is his chest but not really pain as per patient. Associated with some dyspnea, however patient is not overtly tachypneic. Complain of some chronic coughing and slight right phlegm, patient is currently heavy smoker about 1.5 PPD. Patient has been evaluated by sanitizer and he underwent stress test which was inconclusive for ischemia, he had a JOSEPH and it was negative as per staff and cardiology. D-dimer was negative with less than 0.17. Patient showed interval improvement and on the day of discharge his symptoms are completely resolved with no chest pain or coughing. She has been cleared by cardiology for discharge and an appointment for him in the office when which the patient agrees with it and its timing. Patient is counseled to quit smoking and he agrees to have nicotine patch and try to quit. Also patient complains from left side facial droop about one week ago which is resolved. Admission to the hospital. Patient has been evaluated by neurologist. CT of the brain was unremarkable for acute process. EEG was done and results is within normal limits as per report. pt was cleared by neurologist for discharge Problems and management plan was discussed with the patient and he verbalized understanding and agreement Patient is found stable and can be discharged home however he needs follow-up as an outpatient. Patient states he will call and make his on appointments with Dr. jung and the neurologist office. GENERAL: The patient is alert and oriented x3, not in any acute distress. Thin built male HEENT: Pupils are round and equally reacting to light. EOMI. No scleral icterus. No conjunctival pallor. Normocephalic, atraumatic. No pharyngeal erythema. No thyromegaly. CARDIOVASCULAR: S1 and S2 present. No murmurs, rubs, or gallops. PULMONARY: Chest is clear to auscultation, no wheezing or crackles. ABDOMEN: Soft, nontender, nondistended, normoactive bowel sounds. No palpable organomegaly. MUSCULOSKELETAL: No joint swelling or deformity. EXTREMITIES: No cyanosis, clubbing, or pedal edema. NEUROLOGICAL: Gross neurological examination did not reveal any focal deficits. no facial deviation is noted , no slurred speech, no weakness in ext both upper and lower. SKIN: No rashes. Time spent more than 35 minutes Patient Condition at Discharge: Good Plan - Discharge Summary Discharge Rx Participant: No New Discharge Prescriptions: New Aspirin 81 mg PO DAILY #30 chew Continue Baclofen 5 mg PO BID HYDROcodone/APAP 7.5-325MG [Fossil 7.5-325] 1 tab PO BID Cholecalciferol (Vitamin D3) [Vitamin D3] 2,000 unit PO DAILY Discontinued Meloxicam [Mobic] 15 mg PO DAILY Discharge Medication List Baclofen 5 mg PO BID 04/20/18 [History] Cholecalciferol (Vitamin D3) [Vitamin D3] 2,000 unit PO DAILY 04/20/18 [History] HYDROcodone/APAP 7.5-325MG [Fossil 7.5-325] 1 tab PO BID 04/20/18 [History] Aspirin 81 mg PO DAILY #30 chew 04/22/18 [Rx] Follow up Appointment(s)/Referral(s): Sneha Mantilla MD [Primary Care Provider] - 1-2 days Helga Jurado MD [STAFF PHYSICIAN] - 04/30/18 4:15 pm (Advised to bring family with you to the appointment. ) Ness Perea MD [STAFF PHYSICIAN] - 2 Weeks (right TIA ) Activity/Diet/Wound Care/Special Instructions: Cardiac diet Activity is limited till you s ee your doctor Discharge Disposition: HOME SELF-CARE
== END 2018-04-22 20:20 | disposition home or self-care (01) ==
LOC: EC 10:23 → 3OBS 12:14 → INTOOBSV 04-22 14:48 → OBSVTOIN 04-22 14:48 → UNDODISIN 04-22 20:20
PROVIDERS: ADMIT Internal Medicine; ATTEND Internal Medicine
DX: R07.89 Other chest pain (principal); R06.02 Shortness of breath; R06.00 Dyspnea, unspecified; R05 Cough; R42 Dizziness and giddiness; R29.810 Facial weakness; R47.81 Slurred speech; M79.604 Pain in right leg; E55.9 Vitamin D deficiency, unspecified; E78.5 Hyperlipidemia, unspecified; F17.210 Nicotine dependence, cigarettes, uncomplicated; G89.29 Other chronic pain; I27.20 Pulmonary hypertension, unspecified; M19.90 Unspecified osteoarthritis, unspecified site; M25.50 Pain in unspecified joint; I34.0 Nonrheumatic mitral (valve) insufficiency; Z79.1 Long term (current) use of non-steroidal anti-inflammatories (NSAID); Z79.891 Long term (current) use of opiate analgesic; Z82.49 Family history of ischemic heart disease and other diseases of the circulatory system; Z84.1 Family history of disorders of kidney and ureter; Z79.899 Other long term (current) drug therapy
CPT/HCPCS: 96366 ×3; 96372 ×2; 96375; 96376; 96365; 99291; 36415; 95819; 93312; 93320; 93306; 93325; 93351; 97161; 85379; 80061; 80053; 80048; 82550; 82553; 83735; 84484; 85025 ×2; 85610; 85730 ×2; 83036; 71046; 93971; 70450; G0378 ×4; S4990 ×3; J2250; J1644 ×4; J3010

== ENCOUNTER 2018-05-06 10:02 | Day surgery (SDC) | payer OTHER ==
[2018-05-01 13:10] VITALS: BMI 16.7
[~2018-05-06 10:02] MED LIST: ALPRAZolam 0.25 MG TAB PO PRN; ALPRAZolam 0.5 MG TAB PO PRN; ASPIRIN 325 MG TAB PO STA; ATORVASTATIN 80 MG TAB PO STA; NITROGLYCERIN SL TABS 0.4 MG TAB SUBLINGUAL PRN; SODIUM CHLORIDE 0.9% 1,000 ML in EMPTY BAG 1 BAG IV ONE
[2018-05-06] MEDS ORDERED: ASPIRIN 81 MG ONE (10:26)
[2018-05-06 10:29] VITALS: TEMP 97.9
[2018-05-06] MEDS ORDERED: LIDOCAINE 1% INJ 10MG/ML (20 ML MDV) ONE ×2 (11:22→12:07)
[2018-05-06] MEDS ORDERED: MIDAZOLAM 2 MG/2 ML VIAL ONE (11:23)
[2018-05-06] MEDS ORDERED: fentaNYL (PF) 50 MCG/ML 2 ML AMP ONE (11:23)
[2018-05-06] MEDS ORDERED: fentaNYL (PF) 50 MCG/ML 2 ML AMP IV ONE (11:39)
[2018-05-06] MEDS ORDERED: MIDAZOLAM 2 MG/2 ML VIAL IVP ONE (11:39)
[2018-05-06] MEDS ORDERED: LIDOCAINE 1% INJ 10MG/ML (20 ML MDV) SQ ONE ×2 (11:41→12:08)
[2018-05-06] MEDS ORDERED: IOPAMIDOL-370 125ML BTL INJ ONE (12:05)
[2018-05-06] MEDS ORDERED: IOPAMIDOL-370 50ML BTL INJ ONE (12:05)
[2018-05-06] MEDS ORDERED: RX INFO: IV CONTRAST WAS GIVEN 1 EACH MISC MISCELLANE PRN (12:22)
--- NOTE | 2018-05-06 12:48 | CC ---
CARDIAC CATHETERIZATION REPORT Mr. Chacko was recently seen in the hospital with atypical chest pain. Patient was found to have severe mitral regurgitation. Transesophageal echocardiogram revealed most flail posterior mitral leaflet with severe mitral regurgitation. In view of that, the patient was advised cardiac catheterization. PROCEDURE: The right groin was prepped and draped in the usual manner and skin was infiltrated with 2% Xylocaine. The right femoral artery was entered using Seldinger technique. A #6-Serbian sheath was placed in. Multiple attempts were made to selectively cannulate the right femoral vein but the wire could not be advanced and so the right heart catheterization was terminated. Moderate sedation was used. Total sedation time was 40 minutes. SELECTIVE CORONARY ANGIOGRAPHY: Left main coronary artery was normal and patent. LAD is a good caliber blood vessel and gives good size diagonal branch. LAD and its branches are normal. Circumflex coronary artery is small and non dominant and it is normal. The right coronary artery is a large caliber blood vessel and gives rise to a good- sized PLV and PDA branch and it is normal. Left ventriculography was performed in 30-degree CANALES projection. It reveals normal left ventricular systolic functions and there is 4+ mitral regurgitation. FINAL IMPRESSION: This patient has severe mitral regurgitation with flail posterior mitral leaflet. Coronary arteries are normal. RECOMMENDATION: We will get a surgical opinion for mitral valve repair. MMODL / IJN: [id number] /
[2018-05-06] MEDS ORDERED: HYDROcodone/APAP 7.5-325MG 1 EACH TAB ONE (13:26)
[2018-05-06 13:55] VITALS: RESP 18
[2018-05-06 15:31] VITALS: BP 161/82; PULSE 65
== END 2018-05-06 17:30 | disposition home or self-care (01) ==
LOC: CATHCVL 10:02
PROVIDERS: ATTEND Internal Medicine Cardiovascular Disease
DX: I34.0 Nonrheumatic mitral (valve) insufficiency (principal); I34.1 Nonrheumatic mitral (valve) prolapse; R07.89 Other chest pain; I51.7 Cardiomegaly; F17.210 Nicotine dependence, cigarettes, uncomplicated; Z79.2 Long term (current) use of antibiotics; Z79.82 Long term (current) use of aspirin
CPT/HCPCS: 93458; C1760; C1894 ×2; C1769 ×2; J2250; J2001; J3010; Q9967 ×2

== ENCOUNTER 2018-05-08 10:21 | Observation (INO) | payer OTHER ==
--- NOTE | 2018-05-08 11:08 | ED ---
General Adult HPI - General Chief complaint: Extremity Problem,Nontraumatic Stated complaint: POST HEART CATH GROIN PAIN/SWELLING Time Seen by Provider: 05/08/18 10:47 Source: patient, RN notes reviewed Mode of arrival: ambulatory Limitations: no limitations - History of Present Illness Initial comments: patient is a pleasant 58-year-old male presenting to the emergency Department with right groin pain and swelling. Patient did have heart catheterization done 2 days ago. No stents were placed. Patient states he was told he needed to have open procedure for heart valve repair. Patient states this morning when going from sitting to standing position he noticed swelling and discomfort of his right groin region where heart catheterization procedure was initiated. Patient states symptoms have worsened since onset. Patient states no Complication over the past 2 days prior to this. No chest pain or dyspnea. No history of similar symptoms previously. - Related Data Home Medications Medication Instructions Recorded Confirmed Baclofen 10 mg PO BID 04/20/18 05/08/18 Cholecalciferol (Vitamin D3) 2,000 unit PO DAILY 04/20/18 05/08/18 [Vitamin D3] HYDROcodone/APAP 7.5-325MG [Vashon 1 tab PO BID 04/20/18 05/08/18 7.5-325] Previous Rx's Medication Instructions Recorded Aspirin 81 mg PO DAILY #30 chew 04/22/18 Allergies Allergy/AdvReac Type Severity Reaction Status Date / Time No Known Allergies Allergy Verified 05/08/18 10:39 Review of Systems ROS Statement: Those systems with pertinent positive or pertinent negative responses have been documented in the HPI. ROS Other: All systems not noted in ROS Statement are negative. Constitutional: Denies: fever Eyes: Denies: eye pain ENT: Denies: ear pain Respiratory: Denies: cough, dyspnea Cardiovascular: Denies: chest pain Endocrine: Denies: fatigue Gastrointestinal: Denies: abdominal pain Genitourinary: Denies: dysuria Musculoskeletal: Denies: back pain Skin: Denies: rash Neurological: Denies: weakness Past Medical History Past Medical History: Chest Pain / Angina, CVA/TIA, Hyperlipidemia, Osteoarthritis (OA) Additional Past Medical History / Comment(s): JUVENILE ARTHRITIS, Chronic pain, OA Multiple joints, HX Cervical fractures, HX L Clavicle Fracture. STATES STRESSED OUT, NEEDS XANAX RX AND TRYING TO GET RX. NOT ON NICOTINE PATCH YET, SMOKING MORE THAN USUAL D/T STRESS. POSS TIA RECENTLY. VALVE LEAKAGE. History of Any Multi-Drug Resistant Organisms: None Reported Past Surgical History: Heart Catheterization, Orthopedic Surgery Additional Past Surgical History / Comment(s): R index finger tendon repair d/t injury, bilateral knee arthroscopic surgery, bilateral hip arthroscopies, bilateral elbow arthroscopies, bilateral shoulder arthroscopies/fracture repair L clavicle, L/S spine surgery (pt cannot recall what was done), facial reconstruction. JOSEPH. Past Anesthesia/Blood Transfusion Reactions: No Reported Reaction Past Psychological History: Anxiety, Depression Smoking Status: Current every day smoker Past Alcohol Use History: Rare Past Drug Use History: Marijuana - Past Family History Mother Family Medical History: Liver Disease, Renal Disease Additional Family Medical History / Comment(s): Mother in her 70s from kidney and liver failure. Brother(s) Family Medical History: Cancer Additional Family Medical History / Comment(s): MELANOMA General Exam Limitations: no limitations General appearance: alert, in no apparent distress Head exam: Present: atraumatic Eye exam: Present: normal appearance Respiratory exam: Present: normal lung sounds bilaterally Cardiovascular Exam: Present: regular rate, normal rhythm Expanded Peripheral pulses: 2+: Femoral (R), Dorsalis Pedis (R) GI/Abdominal exam: Present: soft. Absent: distended, tenderness Extremities exam: Present: other (lateral to the right inguinal region patient does have area of approximately 5 x 8 of swelling and mild ecchymosis. Femoral pulse is palpable. Mild discomfort on exam.) Neurological exam: Present: alert Psychiatric exam: Present: normal affect, normal mood Skin exam: Present: other (mild ecchymosis right groin) Course Vital Signs 05/08/18 05/08/18 10:24 12:47 Temperature 97.9 F 97.6 F Pulse Rate 85 75 Respiratory 18 18 Rate Blood Pressure 139/99 125/82 O2 Sat by Pulse 97 95 Oximetry Medical Decision Making - Medical Decision Making Patient reevaluated and updated. Case was discussed with Dr. Leigh who recommended calling interventional radiology. Case was discussed with Dr. Green who will consult on patient and perform procedure. He states patient should stay following this. Dr. Murray has been paged for admission for Dr. Lala Murray. - Radiology Data Radiology results: report reviewed (Ultrasound concerning for pseudoaneurysm) Disposition Clinical Impression: Pseudoaneurysm Disposition: ADMITTED IP TO THIS HOSP Is patient prescribed a controlled substance at d/c from ED?: No Referrals: Sneha Mantilla MD [Primary Care Provider] - 1-2 days Decision Time: 13:16
--- NOTE | 2018-05-08 11:40 | US ---
EXAMINATION TYPE: US lower ext pseudo artery RT DATE OF EXAM: 05/08/2018 COMPARISON: NONE CLINICAL HISTORY: Pain. Rt groin heart cath 2 days ago, pain and swelling today EXAM PERFORMED: Grayscale and color Doppler duplex imaging performed of the groin, post cardiac megha ter to assess for pseudoaneurysm. SIDE PERFORMED: Right Color and Waveform Doppler performed to assess for the presence of pseudoaneurysm; Is there ultrasound evidence of a pseudoaneurysm: Yes Is there evidence of AV shunting: No Is there a fluid collection present: No IMPRESSION: There is a probable pseudoaneurysm in the right groin at the patient's incision site measuring 2.9 x 1.4 x 2.7 cm
[2018-05-08] MEDS ORDERED: NALOXONE 0.4 MG/ML 1 ML VIAL IV PRN (13:17)
[2018-05-08] MEDS ORDERED: NICOTINE 14MG/24HR PATCH TRANSDERM STA (13:18)
[2018-05-08] MEDS: BACLOFEN 10 MG TAB PO SCH ×2 (13:42→20:07)
[2018-05-08] MEDS ORDERED: BACLOFEN 10 MG TAB PO STA (13:43)
[2018-05-08] MEDS ORDERED: HYDROcodone/APAP 7.5-325MG 1 EACH TAB PO ONE (13:44)
[2018-05-08] MEDS ORDERED: THROMBIN (BOVINE) 5,000 UNIT VIAL MISCELLANE STA (15:00)
--- NOTE | 2018-05-08 16:17 | US ---
EXAMINATION TYPE: US inj pseudoaneurysm DATE OF EXAM: 05/08/2018 COMPARISON: Ultrasound right lower extremity same date CLINICAL HISTORY: See IR consult for ordering information. Right groin pseudoaneurysm Maximal barrier technique was utilized. Ultrasound was used to sterile technique. After informed consent the skin overlying the pseudoaneurysm was localized in the right groin with ul trasound. Was prepped and draped and lidocaine used for local anesthesia. 25-gauge needle was advance d into the pseudoaneurysm and approximately 50 units of thrombin injected under direct ultrasound obs ervation. Grayscale and color Doppler imaging performed. Following the procedure no pseudoaneurysm is evident. Patient remained in stable condition. Patient is neurovascularly intact distally. No immedi ate application. IMPRESSION: Status post ultrasound-guided pseudoaneurysm injection with thrombin. Follow-up ultrasoun d be performed 05/09/2018. This procedure performed by the undersigned.
[2018-05-08] MEDS ORDERED: BUTALB/APAP/CAFF 50-325-40MG TAB PO PRN (16:57)
[2018-05-08] MEDS ORDERED: ALPRAZolam 0.25 MG TAB PO PRN (18:24)
[2018-05-08] MEDS ORDERED: TEMAZEPAM 15 MG CAP PO PRN (18:24)
[2018-05-08] MEDS: NICOTINE 21MG/24HR PATCH TRANSDERM SCH (20:06)
[2018-05-08] MEDS: HYDROcodone/APAP 7.5-325MG 1 EACH TAB PO SCH (20:06)
--- NOTE | 2018-05-08 20:06 | HP ---
HISTORY AND PHYSICAL DATE OF SERVICE: 05/08/2018 CHIEF COMPLAINTS: Pain and swelling of the right groin. HISTORY OF PRESENT ILLNESS: This 58-year-old gentleman with a past history of TIA, CVA, DJD, history of severe mitral regurgitation, history of transient ischemic attack, history of anxiety, depression being followed by Dr. Sneha Mantilla in the outpatient setting, recently had a cardiac catheterization. Cardiac catheterization showed severe mitral regurgitation with a flat posterior mitral leaflet and carotid artery was normal. The patient was lying in the bed today and the patient suffered sudden onset of severe pain and swelling in the right groin area. Patient was taken to [facility] and pseudoaneurysm was considered. The patient underwent ultrasound-guided compression and thrombin injection. The patient being closely monitored at this time. There is no history of fever, rigors. No headache, loss of consciousness, seizures. PAST MEDICAL HISTORY: History of CVA, TIA, history of DJD, history of mitral valve regurgitation, severe history of DJD, anxiety and depression. MEDICATIONS: Prior to admission: 1. [place] 7.5 b.i.d. 2. Vitamin D3 2000 daily. 3. Baclofen 10 mg t.i.d. 4. Aspirin 81 mg daily. ALLERGIES: None. FAMILY HISTORY: Liver disease, renal disease. SOCIAL HISTORY: History of smoking, history of THC and history of alcohol occasional. REVIEW OF SYSTEMS: ENT: No diminished hearing or vision. CARDIOVASCULAR: As mentioned earlier. RESPIRATORY: No cough or hemoptysis. GI: No nausea. : No dysuria. NERVOUS SYSTEM: As mentioned. ALLERGY/IMMUNOLOGY: No asthma or hay fever. MUSCULOSKELETAL: As mentioned earlier. HEMATOLOGY: No history of anemia. ENDOCRINE: No history of diabetes or hypothyroidism. CONSTITUTIONAL: As mentioned earlier. DERMATOLOGY: Negative. RHEUMATOLOGY: Negative. PSYCHIATRY: As mentioned earlier. PHYSICAL EXAMINATION: Alert and oriented x3. Pulse 69, blood pressure 135/89, respiration 18, temperature 97.9, pulse ox 98% on room air. HEENT: Conjunctivae normal. Oral mucosa moist. Neck is no jugular venous distention. No carotid bruit. No lymph node enlargement. CARDIOVASCULAR: S1, S2. No S3, no S4. RESPIRATORY: Breath sounds diminished in the bases. No rhonchi. No crackles. ABDOMEN: Soft, nontender. No mass palpable. LEGS: No edema, no swelling. NERVOUS SYSTEM: Higher functions mentioned earlier. Moves all 4 limbs. No focal motor or sensory deficit. LYMPHATICS: No lymphadenopathy in the neck, axillae, groin. SKIN: No ulcer, rash, bleeding. Examination of the right groin: Significant hematoma. No pulsatile masses noted. Minimal tenderness. LAB INVESTIGATIONS: Pending at this time. ASSESSMENT: 1. Right femoral pseudoaneurysm, status post compression and thrombin injection. 2. History of recent cardiac cath. 3. Severe mitral regurgitation. 4. Degenerative joint disease. 5. Cerebrovascular accident, transient ischemic attack. 6. Anxiety, depression. 7. Remote history of nicotine dependence. 8. History of nicotine dependence. RECOMMENDATIONS AND DISCUSSION: In this 58-year-old gentleman who presented with multiple complex medical issues, we will monitor the patient closely. Continue the current management and symptomatic treatment. I would recommend to hold the antiplatelet agents and symptomatic treatment. Cardiology consultation. Guarded prognosis because of multiple complex medical issues. Further recommendations to follow. MMODL / CATRACHON: [id number] /
[2018-05-08] MEDS ORDERED: MORPHINE SULFATE 4 MG/ML SYRINGE IVP STA (20:48)
[2018-05-09 07:35] LABS: Basophils % (A) 0 %; Eosinophils # (A) 0.2 k/uL (0-0.7); Eosinophils % (A) 3 %; HCT 48.7 % (39.0-53.0); HGB 15.3 gm/dL (13.0-17.5); Lymphocytes # (A) 1.8 k/uL (1.0-4.8); Lymphocytes % (A) 25 %; MCH 29.8 pg (25.0-35.0); MCHC 31.4 g/dL (31.0-37.0); MCV 95.1 fL (80.0-100.0); Mean Platelet Volume 7.2; Monocytes # (A) 0.5 k/uL (0-1.0); Monocytes % (A) 7 %; Neutrophils # (A) 4.7 k/uL (1.3-7.7); Neutrophils % (A) 64 %; Platelet Count 164 k/uL (150-450); RBC 5.12 m/uL (4.30-5.90); RDW 13.4 % (11.5-15.5); WBC 7.4 k/uL (3.8-10.6)
[2018-05-09 07:48] LABS: Anion Gap 5 mmol/L; Blood Urea Nitrogen 19 mg/dL (9-20); Calcium 9.4 mg/dL (8.4-10.2); Carbon Dioxide 30 mmol/L (22-30); Chloride 103 mmol/L (98-107); Glucose 96 mg/dL (74-99); Potassium 4.2 mmol/L (3.5-5.1); Sodium 138 mmol/L (137-145)
[2018-05-09] MEDS ORDERED: CHOLECALCIFEROL 1,000 UNIT TAB PO SCH (09:00)
[2018-05-09] MEDS: BACLOFEN 10 MG TAB PO SCH (09:10)
[2018-05-09] MEDS: HYDROcodone/APAP 7.5-325MG 1 EACH TAB PO SCH (09:10)
[2018-05-09] MEDS: NICOTINE 21MG/24HR PATCH TRANSDERM SCH (09:11)
[2018-05-09 09:57] VITALS: BMI 16.1
--- NOTE | 2018-05-09 10:16 | US ---
EXAMINATION TYPE: US lower ext pseudo artery RT DATE OF EXAM: 05/09/2018 COMPARISON: Previous study dated 05/08/2018 CLINICAL HISTORY: pseudoaneurysm. Recheck after thrombin injection. EXAM PERFORMED: Grayscale and color Doppler duplex imaging performed of the groin, post cardiac megha ter to assess for pseudoaneurysm. SIDE PERFORMED: right Color and Waveform Doppler performed to assess for the presence of pseudoaneurysm; Is there ultrasound evidence of a pseudoaneurysm: no Is there evidence of AV shunting: no Is there a fluid collection present: anechoic area measures 0.8 x 1.8, no flow seen. IMPRESSION: RESOLUTION OF THE PATIENT'S RIGHT GROIN PSEUDOANEURYSM.
--- NOTE | 2018-05-09 11:13 | CONS ---
CONSULTATION CHIEF COMPLAINT: Right groin pain. Richie is a 58-year-old gentleman with history of mitral regurgitation who recently underwent evaluation by Dr. José Miguel Jurado his primary retail account representative as part of which he underwent a cardiac catheterization that revealed normal coronary arteries and severe mitral regurgitation. He was to undergo mitral valve repair as outpatient. He came to hospital with sudden onset right groin pain and was found to have pseudoaneurysm. He underwent an ultrasound duplex and has had thrombin injection with successful resolution of the pseudoaneurysm. At the time of my evaluation this morning, he appears comfortable at rest. Groin discomfort is improved significantly. PAST MEDICAL HISTORY: Significant for mitral regurgitation. MEDICATIONS: At home include aspirin, vitamin D, and [place]. ALLERGIES: There are no known drug allergies. FAMILY HISTORY: Negative for premature coronary artery disease. SOCIAL HISTORY: Significant for smoking. There is no history of EtOH abuse or drug abuse. REVIEW OF SYSTEMS: HEENT is unremarkable. CARDIAC: As described above. RESPIRATORY: Negative. GI: Negative. GENITOURINARY: Negative. ALLERGY:IMMUNOLOGY: Negative. SKIN: Negative. MUSCULOSKELETAL: Significant for pseudoaneurysm. PSYCHOSOCIAL: Negative. ENDOCRINE: Negative. DERM: Negative. CONSTITUTIONAL: Negative. ONCOLOGICAL: Negative. Rest of the system review is not relevant. PHYSICAL EXAM: Patient is comfortable at rest. There is no jugular venous distention. Carotid upstroke is normal. There is no bruit. Chest exam reveals good air entry bilaterally. Heart exam reveals first and second heart sounds, a grade 4 x 6 systolic murmur at the apex. Abdomen is soft. Exam of extremities did not reveal any edema. Peripheral pulses are felt. Left groin is status post pseudoaneurysm repair with mild discomfort. I do not hear any bruit. There is no hematoma. ASSESSMENT: 1. Pseudoaneurysm, status post thrombin injection. 2. Severe mitral regurgitation. PLAN: Patient will have an ultrasound of the left leg. If this looks normal, he will be discharged home and follow up with Dr. Jurado. He already has an outpatient appointment, which he is going to keep within the next one week. MMODL / IJN: [id number] /
[2018-05-09 12:15] VITALS: BP 98/64; PULSE 89; RESP 18; TEMP 98.1
--- NOTE | 2018-05-09 21:07 | DS ---
DISCHARGE SUMMARY FINAL DIAGNOSES: 1. Right femoral pseudoaneurysm status post compression and thrombin injection. 2. History of recent cardiac cath. 3. Severe mitral regurgitation. 4. Degenerative joint disease. 5. Cerebrovascular accident, transient ischemic attack. 6. Anxiety and depression. 7. Remote history of nicotine dependence. DISCHARGE DISPOSITION: The patient has been discharged in stable condition with guarded prognosis. Discharge cleared by Cardiology. HISTORY OF PRESENT ISSUE: This 58-year-old gentleman with a past medical history of multiple medical problems had a recent cardiac catheterization. Patient admitted with pain and swelling and features of pseudoaneurysm of the right femoral area. The patient underwent compression and thrombin injection by the Radiology. Patient improved significantly. Cardiology saw the patient and cleared the patient for discharge. On exam, vitals signs are stable. CARDIOVASCULAR: S1, S2. ABDOMEN: Soft. NERVOUS SYSTEM: No focal deficits. Exam of the right groin: No pulsatile mass. Some ecchymosis present. LABS: The labs are at this time CBC and BMP normal. The patient has been discharged in stable condition with guarded prognosis. DISCHARGE ADVICE: 1. Diet cardiac. 2. Activity limited until followup. 3. Follow Dr. Sneha Mantilla in 2-3 days. 4. Follow up with Dr. Jurado as recommended. MEDICATIONS: 1. Baclofen 10 mg p.o. b.i.d. 2. Vitamin D3 2000 daily. 3. [place] 7.5 b.i.d. p.r.n. 4. Aspirin 81 mg p.o. daily. 5. Habitrol 21 daily. MMODL / IJN: [id number] / MTDD
== END 2018-05-09 12:17 | disposition home or self-care (01) ==
LOC: EC 10:21 → 3OBS 13:18 → 3SUR 19:26
PROVIDERS: ADMIT Hospitalist; ATTEND Hospitalist
DX: I97.89 Other postprocedural complications and disorders of the circulatory system, not elsewhere classified (principal); I72.4 Aneurysm of artery of lower extremity; I34.0 Nonrheumatic mitral (valve) insufficiency; F32.9 Major depressive disorder, single episode, unspecified; M15.9 Polyosteoarthritis, unspecified; E78.5 Hyperlipidemia, unspecified; M08.90 Juvenile arthritis, unspecified, unspecified site; G89.29 Other chronic pain; F17.200 Nicotine dependence, unspecified, uncomplicated; F41.9 Anxiety disorder, unspecified; Z79.82 Long term (current) use of aspirin; Z79.891 Long term (current) use of opiate analgesic; Z79.899 Other long term (current) drug therapy; Z87.81 Personal history of (healed) traumatic fracture; Z86.73 Personal history of transient ischemic attack (TIA), and cerebral infarction without residual deficits; Z80.8 Family history of malignant neoplasm of other organs or systems; Z84.1 Family history of disorders of kidney and ureter; Z83.79 Family history of other diseases of the digestive system
CPT/HCPCS: 96374; 99285; 80048; 85025; 93975 ×2; 93926 ×2; 36002; G0378 ×2; S4990 ×3; J2270

== ENCOUNTER 2018-08-19 11:48 | Emergency (ER) | payer OTHER ==
[2018-08-19 12:11] VITALS: TEMP 97.8
--- NOTE | 2018-08-19 12:57 | ED ---
Lower Extremity Injury HPI - General Chief Complaint: Extremity Injury, Lower Stated Complaint: Leg Injury Time Seen by Provider: 08/19/18 12:35 Source: patient, RN notes reviewed, old records reviewed Mode of arrival: ambulatory Limitations: no limitations - History of Present Illness Initial Comments: This is a 58-year-old male the ER for evaluation. Patient resents today for evaluation of leg pain. Patient does have significant right extremity right lower extremity pain. He states he went to jump over a puddle and landed on his right leg and experienced significant right leg pain. Pain is worse when he walks. Denies any other injury or trauma MD Complaint: hip injury, knee injury, leg injury, ankle injury, foot injury -: minutes(s) Injury: Hip: Right, Leg: Right, Knee: Right, Ankle: Right Type of Injury: blunt Place: street/outdoors Severity: moderate Severity scale (1-10): 4 Improves With: nothing Worsens With: weight bearing Context: jumping Associated Symptoms: able to partially bear weight - Related Data Home Medications Medication Instructions Recorded Confirmed Baclofen 10 mg PO BID 04/20/18 05/08/18 Cholecalciferol (Vitamin D3) 2,000 unit PO DAILY 04/20/18 05/08/18 [Vitamin D3] HYDROcodone/APAP 7.5-325MG [[place] 1 tab PO BID 04/20/18 05/08/18 7.5-325] Previous Rx's Medication Instructions Recorded Aspirin 81 mg PO DAILY #30 chew 04/22/18 Nicotine 21Mg/24Hr Patch [Habitrol] 1 patch TRANSDERM DAILY #30 patch 05/09/18 Allergies Allergy/AdvReac Type Severity Reaction Status Date / Time No Known Allergies Allergy Verified 05/08/18 10:39 Review of Systems ROS Statement: Those systems with pertinent positive or pertinent negative responses have been documented in the HPI. ROS Other: All systems not noted in ROS Statement are negative. 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 History of Any Multi-Drug Resistant Organisms: None Reported Past Surgical History: Heart Catheterization, Orthopedic Surgery Additional Past Surgical History / Comment(s): 05/06/18 cardiac cath-normal coronaries but severe mitral regurgitation, JOSEPH, R index finger tendon repair d/ t injury, bilateral knee arthroscopic surgery, bilateral hip arthroscopies, bilateral elbow arthroscopies, bilateral shoulder arthroscopies/fracture repair L clavicle, L/S spine surgery (pt cannot recall what was done), facial reconstruction. Past Anesthesia/Blood Transfusion Reactions: No Reported Reaction Past Psychological History: Anxiety, Depression Smoking Status: Current every day smoker Past Alcohol Use History: Occasional Past Drug Use History: Marijuana - Past Family History Mother Family Medical History: Liver Disease, Renal Disease Additional Family Medical History / Comment(s): Mother in her 70s from kidney and liver failure. Brother(s) Family Medical History: Cancer Additional Family Medical History / Comment(s): MELANOMA General Exam Limitations: no limitations General appearance: alert, in no apparent distress Head exam: Present: atraumatic, normocephalic, normal inspection Eye exam: Present: normal appearance, PERRL, EOMI. Absent: scleral icterus, conjunctival injection, periorbital swelling ENT exam: Present: normal exam, mucous membranes moist Neck exam: Present: normal inspection. Absent: tenderness, meningismus, lymphadenopathy Respiratory exam: Present: normal lung sounds bilaterally. Absent: respiratory distress, wheezes, rales, rhonchi, stridor Cardiovascular Exam: Present: regular rate, normal rhythm, normal heart sounds. Absent: systolic murmur, diastolic murmur, rubs, gallop, clicks GI/Abdominal exam: Present: soft, normal bowel sounds. Absent: distended, tenderness, guarding, rebound, rigid Extremities exam: Present: normal inspection, full ROM, normal capillary refill. Absent: tenderness, pedal edema, joint swelling, calf tenderness Back exam: Present: normal inspection Neurological exam: Present: alert, oriented X3, CN II-XII intact Psychiatric exam: Present: normal affect, normal mood Skin exam: Present: warm, dry, intact, normal color. Absent: rash Course Vital Signs 08/19/18 08/19/18 12:09 15:46 Temperature 97.8 F 97.8 F Pulse Rate 73 78 Respiratory 18 16 Rate Blood Pressure 137/81 134/74 O2 Sat by Pulse 98 95 Oximetry - Reevaluation(s) Reevaluation #1: Medical record is reviewed Patient has pain with ambulation will check computed tomography scan Patient has pain control was able to ambulate, can be discharged home Medical Decision Making - Medical Decision Making 38 male the ER for evaluation low mechanism trauma. Right lower extremity pain. Patient is right lower extremity x-rays followed by right lower extremity computed tomography scan which are both negative. Patient can be discharged home - Radiology Data Radiology results: report reviewed (X-ray right lower extremity and computed tomography scan right lower extremity are negative for acute disease), image reviewed Disposition Clinical Impression: Fall, Right hip pain Disposition: HOME SELF-CARE Condition: Good Instructions: Fall Prevention for Older Adults (ED), Hip Pain (ED) Is patient prescribed a controlled substance at d/c from ED?: No Referrals: Sneha Mantilla MD [Primary Care Provider] - 1-2 days
--- NOTE | 2018-08-19 13:46 | XR ---
EXAMINATION TYPE: XR knee limited RT DATE OF EXAM: 08/19/2018 CLINICAL HISTORY: Pain after jumping injury TECHNIQUE: Frontal and lateral views of the right knee were obtained. COMPARISON: None. FINDINGS: There is no acute fracture/dislocation evident in right knee. The tri-compartment joint s paces appear within normal limits. The overlying soft tissue appears unremarkable. IMPRESSION: There is no acute fracture or dislocation in the right knee.
--- NOTE | 2018-08-19 13:51 | XR ---
EXAMINATION TYPE: XR Hip RT and AP Pelvis DATE OF EXAM: 08/19/2018 COMPARISON: Pelvic x-ray April 16, 2015. HISTORY: Pain after jumping injury. TECHNIQUE: A single AP view of the pelvis is obtained. Two views of the right hip are obtained. FINDINGS: There is no acute fracture/dislocation evident in the pelvis. The sacroiliac joints appea r symmetric and unremarkable. Symmetric mild superior joint space loss in both hips is present. The o verlying soft tissue appears unremarkable. Two views of right hip show no acute fracture or dislocation. No focal lytic or sclerotic lesion see n in the proximal right femur. On frog-leg view superior prominence near the head neck junction is ac ggestive of pistol-landscape and yardwork laborer deformity or old pincher type JOSH. The overlying soft tissue is unremarkable. IMPRESSION: There is no acute fracture or dislocation in the pelvis or right hip.
--- NOTE | 2018-08-19 13:52 | XR ---
EXAMINATION TYPE: XR ankle complete RT DATE OF EXAM: 08/19/2018 CLINICAL HISTORY: Pain after jumping injury TECHNIQUE: Frontal, lateral and oblique images of the right ankle are obtained. COMPARISON: None. FINDINGS: There is no acute fracture/dislocation evident in the right ankle. The ankle mortise appe ars within normal limits. The overlying soft tissue appears unremarkable. IMPRESSION: There is no acute fracture or dislocation in the right ankle.
[2018-08-19] MEDS ORDERED: IBUPROFEN 800 MG TAB PO STA (14:35)
[2018-08-19] MEDS ORDERED: HYDROcodone/APAP 5-325MG 1 EACH TAB PO STA (14:35)
--- NOTE | 2018-08-19 15:16 | CT ---
EXAMINATION TYPE: CT lower extremity RT wo con DATE OF EXAM: 08/19/2018 COMPARISON: Right hip and knee x-rays earlier today. HISTORY: Right sided leg pain after jumping over a puddle CT DLP: 376.7 mGycm Automated exposure control for dose reduction was used. FINDINGS: Visualized portion of right hip and nearly entire right femur show no acute fracture or dislocation. Mild to moderate axial joint space loss and right hip is redemonstrated. There is some subchondral cy stic change in the superior acetabulum. No significant spurring is seen. Some subchondral cystic frankel ges seen in the anterior aspect of the right femoral neck. Muscle bulk right thigh is preserved. No suspicious groin adenopathy is seen. No groin hernia is pres ent. Bladder is poorly distended with moderate abnormal wall thickening. Prostate gland is prominent. Christiane elate clinically for outlet obstruction related to BPH. No significant suprapatellar joint effusion is seen. Distal quadriceps tendon is intact. Knee joint i s incompletely imaged. IMPRESSION: NO ACUTE FRACTURE OR DISLOCATION IN RIGHT HIP OR FEMUR.
[2018-08-19 15:48] VITALS: BP 134/74; PULSE 78; RESP 16
== END 2018-08-19 15:49 | disposition home or self-care (01) ==
LOC: EC 11:48
DX: M25.551 Pain in right hip (principal); M79.604 Pain in right leg; M25.561 Pain in right knee; M25.571 Pain in right ankle and joints of right foot; M79.671 Pain in right foot; M08.99 Juvenile arthritis, unspecified, multiple sites; F17.200 Nicotine dependence, unspecified, uncomplicated; Z79.891 Long term (current) use of opiate analgesic; Z79.899 Other long term (current) drug therapy; Z86.79 Personal history of other diseases of the circulatory system; Z95.5 Presence of coronary angioplasty implant and graft; Z98.890 Other specified postprocedural states; X50.9XXA Other and unspecified overexertion or strenuous movements or postures, initial encounter; Y93.39 Activity, other involving climbing, rappelling and jumping off; Y92.89 Other specified places as the place of occurrence of the external cause
CPT/HCPCS: 73502; 99284

== ENCOUNTER → 2019-03-12 | Outpatient (CLI) | payer OTHER ==
--- NOTE | 2019-03-12 16:27 | XR ---
EXAMINATION TYPE: XR chest 2V DATE OF EXAM: 03/12/2019 COMPARISON: Prior chest x-ray dated 04/20/2018 HISTORY: Shortness of breath, smoking history TECHNIQUE: Frontal and lateral views of the chest are obtained. FINDINGS: Biapical pleural thickening, scarring is present as on prior. The heart is small. Aorta is dense. Hyperinflation is suggestive of underlying COPD. Pulmonary vascularity and lamont are unchanged . IMPRESSION: No acute cardiopulmonary process.
== END | disposition home or self-care (01) ==
LOC: RADXRMAIN 15:54
PROVIDERS: ATTEND Psychiatry & Neurology Neurology
DX: R06.02 Shortness of breath (principal); Z87.891 Personal history of nicotine dependence
CPT/HCPCS: 71046

== ENCOUNTER 2020-03-15 21:19 | Emergency (ER) | payer OTHER ==
[2020-03-15 21:39] VITALS: RESP 18; TEMP 98.7
[2020-03-15] MEDS ORDERED: MORPHINE SULFATE 4 MG/ML SYRINGE IM STA (21:46)
--- NOTE | 2020-03-15 22:13 | XR ---
EXAMINATION TYPE: XR ankle complete RT DATE OF EXAM: 03/15/2020 COMPARISON: NONE HISTORY: Fall. Pain. TECHNIQUE: 3 views FINDINGS: There is transverse fracture of the medial malleolus with separation up to 1 cm of the frag ment. There is comminuted transverse fracture through the lateral malleolus. There is 5 mm lateral di splacement of the talus. There is no dislocation. There is soft tissue swelling around the ankle join t. IMPRESSION: Mildly displaced acute transverse fractures of the medial and lateral malleolus. This is a bimalleolar fracture. Soft tissue swelling.
--- NOTE | 2020-03-15 22:14 | XR ---
EXAMINATION TYPE: XR foot complete RT DATE OF EXAM: 03/15/2020 COMPARISON: NONE HISTORY: Pain. TECHNIQUE: 3 views FINDINGS: Metatarsals appear intact. Joint spaces appear normal. There is bimalleolar fracture of the ankle without significant displacement on the oblique view. The toes appear intact. Tarsal bones are intact. IMPRESSION: Acute bimalleolar fracture of the ankle. No evidence of fracture of the foot.
[2020-03-15] MEDS ORDERED: ACET/COD 300 MG/30 MG STARTER PACK 6 TAB BTL PO STA (23:17)
--- NOTE | 2020-03-15 23:18 | ED ---
General Adult HPI - General Chief complaint: Extremity Injury, Lower Stated complaint: R Ankle Injury Time Seen by Provider: 03/15/20 21:42 Source: patient, RN notes reviewed Mode of arrival: wheelchair Limitations: no limitations - History of Present Illness Initial comments: 59-year-old male with a past medical history of chest pain, CVA presents to the emergency department for a chief complaint of right ankle pain. Patient states she [place] walking [place] and the ground was wet. He slipped and fell on his right ankle. States it was stuck out to the side. Patient states his friends carried him out of the [place]. He does not take any blood thinners. He did not have any other injuries. He did not hit his head. Patient has no other comp laints at this time including shortness of breath, chest pain, abdominal pain, nausea or vomiting, headache, or visual changes. - Related Data Home Medications Medication Instructions Recorded Confirmed Baclofen 10 mg PO BID 04/20/18 05/08/18 Cholecalciferol (Vitamin D3) 2,000 unit PO DAILY 04/20/18 05/08/18 [Vitamin D3] HYDROcodone/APAP 7.5-325MG [[place] 1 tab PO BID 04/20/18 05/08/18 7.5-325] Previous Rx's Medication Instructions Recorded Aspirin 81 mg PO DAILY #30 chew 04/22/18 Nicotine 21Mg/24Hr Patch [Habitrol] 1 patch TRANSDERM DAILY #30 patch 05/09/18 HYDROcodone/APAP 5-325MG [[place] 1 tab PO Q6HR PRN #10 tab 03/15/20 5-325] Allergies Allergy/AdvReac Type Severity Reaction Status Date / Time No Known Allergies Allergy Verified 03/15/20 21:38 Review of Systems ROS Statement: Those systems with pertinent positive or pertinent negative responses have been documented in the HPI. ROS Other: All systems not noted in ROS Statement are negative. 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 History of Any Multi-Drug Resistant Organisms: None Reported Past Surgical History: Heart Catheterization, Orthopedic Surgery Additional Past Surgical History / Comment(s): 05/06/18 cardiac cath-normal coronaries but severe mitral regurgitation, JOSEPH, R index finger tendon repair d/t injury, bilateral knee arthroscopic surgery, bilateral hip arthroscopies, bilateral elbow arthroscopies, bilateral shoulder arthroscopies/fracture repair L clavicle, L/S spine surgery (pt cannot recall what was done), facial rec onstruction. Past Anesthesia/Blood Transfusion Reactions: No Reported Reaction Past Psychological History: Anxiety, Depression Smoking Status: Current every day smoker Past Alcohol Use History: Occasional Past Drug Use History: Marijuana - Past Family History Mother Family Medical History: Liver Disease, Renal Disease Additional Family Medical History / Comment(s): Mother in her 70s from kidney and liver failure. Brother(s) Family Medical History: Cancer Additional Family Medical History / Comment(s): MELANOMA General Exam Limitations: no limitations General appearance: alert, in no apparent distress Head exam: Present: atraumatic, normocephalic, normal inspection Eye exam: Present: normal appearance, PERRL, EOMI. Absent: scleral icterus, conjunctival injection, periorbital swelling ENT exam: Present: normal exam, mucous membranes moist Neck exam: Present: normal inspection. Absent: tenderness, meningismus, lymphadenopathy Respiratory exam: Present: normal lung sounds bilaterally. Absent: respiratory distress, wheezes, rales, rhonchi, stridor Cardiovascular Exam: Present: regular rate, normal rhythm, normal heart sounds. Absent: systolic murmur, diastolic murmur, rubs, gallop, clicks GI/Abdominal exam: Present: soft, normal bowel sounds. Absent: distended, tenderness, guarding, rebound, rigid Extremities exam: Present: tenderness (tenderness to both the medial and lateral malleolus of the right ankle.), normal capillary refill (capillary refill less than 2 seconds, DP pulse 2+ in the right lower extremity.), joint swelling (patient does have edema noted over the lateral and medial malleolus.), other (sensation intact in the right lower extremity.). Absent: pedal edema, calf tenderness Course Vital Signs 03/15/20 21:36 Temperature 98.7 F Pulse Rate 80 Respiratory 18 Rate Blood Pressure 107/74 O2 Sat by Pulse 95 Oximetry Procedures - Orthopedic Splinting/Casting Injury #1 Side: right Lower Extremity Injury Location: short leg Lower Extremity Immobilizer: posterior splint Additional Comments: neurovascular status intact after splint applied. Medical Decision Making - Medical Decision Making X-ray of the right ankle shows a mildly displaced acute transverse fracture of the medial and lateral malleolus. This is a bimalleolar fracture. Soft tissue swelling. X-ray of the right foot is negative for acute fracture.I did speak with Poornima Green who is on-call for Dr. Turpin. Patient was placed in a posterior OCL with significant padding including 2 ABD pads.he was discharged home with pain medication. He was discharged home with prescribed crutches and told to remain nonweightbearing. Rest ice and elevate. He'll return here for any worsening symptoms. Disposition Clinical Impression: Bimalleolar fracture of right ankle Disposition: HOME SELF-CARE Condition: Good Instructions (If sedation given, give patient instructions): Ankle Fracture (ED) Additional Instructions: take [place] for pain. Do not drive or operate machinery while taking [place]. Remain nonweightbearing on the right ankle, use crutches. Keep splint dry. Call tomorrow morning to follow-up with orthopedics. If you have worsening symptoms return here to the emergency room. Prescriptions: HYDROcodone/APAP 5-325MG [[place] 5-325] 1 tab PO Q6HR PRN #10 tab PRN Reason: Pain Is patient prescribed a controlled substance at d/c from ED?: No Referrals: Sneha Mantilla MD [Primary Care Provider] - 1-2 days Dami Turpin DO [Doctor of Osteopathic Medicine] - 1-2 days Time of Disposition: 23:15
[2020-03-15 23:32] VITALS: BP 110/72; PULSE 72
== END 2020-03-15 23:31 | disposition home or self-care (01) ==
LOC: EC 21:19
DX: S82.841A Displaced bimalleolar fracture of right lower leg, initial encounter for closed fracture (principal); F17.200 Nicotine dependence, unspecified, uncomplicated; Z86.73 Personal history of transient ischemic attack (TIA), and cerebral infarction without residual deficits; W01.0XXA Fall on same level from slipping, tripping and stumbling without subsequent striking against object, initial encounter; Y93.01 Activity, walking, marching and hiking
CPT/HCPCS: 73610; 73630; 99283; 29515; 96372; J2270

== ENCOUNTER 2020-03-24 11:19 | Day surgery (SDC) | payer OTHER ==
[2020-03-21 16:08] VITALS: BMI 16.8
[~2020-03-24 11:19] MED LIST changes: -ALPRAZolam 0.25 MG TAB PO PRN; -ALPRAZolam 0.5 MG TAB PO PRN; -ASPIRIN 325 MG TAB PO STA; -ATORVASTATIN 80 MG TAB PO STA; +DEXAMETHASONE SOD PHOSPHATE 10 MG/ML 1 ML VIAL IV ONE; +LACTATED RINGERS 1,000 ML IV SCH; +LIDOCAINE 1% (10MG/ML) FOR IV START INTRADERMA PRN; -NITROGLYCERIN SL TABS 0.4 MG TAB SUBLINGUAL PRN; +ONDANSETRON 4 MG/2 ML VIAL IVP ONE; +Pre Op ABX Message 1 EACH MISC MISCELLANE ONE; +SCOPOLAMINE 1.5MG/72HR PATCH TRANSDERM ONE; -SODIUM CHLORIDE 0.9% 1,000 ML in EMPTY BAG 1 BAG IV ONE
[2020-03-24] MEDS ORDERED: ONDANSETRON 4 MG/2 ML VIAL ONE (12:28)
[2020-03-24] MEDS ORDERED: MIDAZOLAM 2 MG/2 ML VIAL IVP ONE (13:16)
--- NOTE | 2020-03-24 13:27 | P.ANPRN ---
Procedure Note - Anesthesia - Nerve Block Performed Right Popliteal Single Date of Procedure: 03/24/20 Procedure Start Time: 13:15 Procedure Stop Time: 13:25 Location of Patient: PreOp Indication: Acute Post-Operative Pain, Analgesia, Dx/Pain Location, Requested by Surgeon Specifically requested for management of pain by DrAbdirashid: Gilbert Holley Sedation Type: Sedate with meaningful contact maintained Preparation: Sterile Prep Position: Left Lateral Catheter: None Needle Types: Pajunk Needle Gauge: 21 Ultrasound used to visualize needle placement: Yes Ultrasound used to observe medication spread: Yes Injectate: 0.5% Ropivacaine (see comment for volume) (30 ml) Blood Aspirated: No Pain Paresthesia on Injection Noted: No Resistance on Injection: Normal Events: Uneventful and Well Tolerated
[2020-03-24] MEDS ORDERED: hydrALAZINE HCL 20 MG/ML 1 ML VIAL ONE (16:25)
[2020-03-24] MEDS ORDERED: LIDOCAINE 1% INJ 10MG/ML (20 ML MDV) ONE (16:25)
[2020-03-24] MEDS ORDERED: SUCCINYLCHOLINE CHLORIDE 100 MG/5 ML SYR IV ONE (16:25)
[2020-03-24] MEDS ORDERED: GLYCOPYRROLATE 0.2 MG/ML 2 ML VIAL ONE (16:25)
[2020-03-24] MEDS ORDERED: fentaNYL (PF) 50 MCG/ML 2 ML AMP ONE (16:25)
[2020-03-24] MEDS ORDERED: ePHEDrine SULFATE/0.9% NACL/PF 50 MG/5 ML SYRINGE IV ONE (16:25)
[2020-03-24] MEDS ORDERED: ETOMIDATE 2 MG/ML 10 ML VIAL ONE (16:25)
[2020-03-24] MEDS ORDERED: ROPIVACAINE 5 MG/ML 30 ML VIAL ONE (16:25)
[2020-03-24] MEDS ORDERED: LACTATED RINGERS 1,000 ML IV ONE (16:53)
[2020-03-24] MEDS ORDERED: ceFAZolin 1,000 MG in SODIUM CHLORIDE 0.9% 1,000 ML IRRIGATION ONE (16:53)
--- NOTE | 2020-03-24 17:46 | P.OP ---
Date of Procedure: 03/24/20 Procedure(s) Performed: PREOPERATIVE DIAGNOSES: 1. Right ankle lateral and medial malleolus fracture, Fagan B bimalleolar fracture POSTOPERATIVE DIAGNOSES: Right ankle lateral and medial malleolus fracture PROCEDURES PERFORMED: 1. Right ankle lateral malleolus fracture open reduction and internal fixation. 2. Right ankle medial malleolus fracture open reduction and internal fixation ANESTHESIA: sales training representative: Poornima Green PA-C (assistance with exposure, hemostasis, retraction, fixation, closure, dressing, splint) COMPLICATIONS: None ESTIMATED BLOOD LOSS: Less than 10 mL. TOURNIQUET: approximately 70 minutes DISPOSITION: To post-anesthesia care unit INDICATIONS: The patient is a 60-year-old male, who presents to the operating room today for fixation of ankle fracture. The fracture is a bimalleolar fracture, with a fracture of the lateral malleolus that is high enough to produce talar instability. I have discussed these issues with the patient, who wishes to proceed with the operative plan. I have explained the details of this surgery thoroughly and also explained the potential risks and complications. These are inclusive of, but not limited to: bleeding, infection, scarring, discomfort, blood vessel and nerve damage, stiffness, weakness, need for further surgery, failure to relieve symptoms, persistence or worsening of problems, , and other risks. The patient is aware of these risks and agrees to proceed with surgery. The consent form has been signed. PROCEDURE: After appropriate consent was obtained, the patient was taken to the operating room and placed supine on the operating table. General anesthesia was initiated. The ankle was removed from the splint and examined for any signs of significant fracture blisters or swelling that would prevent continuation of the surgery. Skin appeared healthy and intact, swellling was moderate but not excessive. The limb was prepped and draped in the usual aseptic fashion with ChloraPrep, and the patient was given IV antibiotics. The tourniquet was then inflated to 350 mmHg after careful exsanguination of the limb. Time out was called, confirming patient identity, side, procedure, and administration of antibiotics. Incision was created laterally, centered over the fracture site, for a length of approximately 6 inches. The incision was carried down through skin and into subcutaneous tissues, and blunt dissection then proceeded down to fascia. Fascia was split in line with the incision and the peroneal muscles were retracted posteriorly. The fracture site was exposed with subperiosteal dissection for as much exposure of the bone as was necessary. Fracture hematoma was evacuated and the interior of the fracture site was meticulously cleansed with irrigation and manual extraction of organizing hematoma and bone debris. The fracture was moderately comminuted and oblique in orientation. The fracture was mobilized using a morales elevator and reduction was accomplished using a bone clamp, which was also used to secure the fracture. Anatomic reduction was accomplished. An interfragmentary screw, anterior to posterior, was unable to be placed due to fairly severe comminution at the fracture site. Next, a precontoured fibular plate from [employer] was selected for size and side. The proximal holes were filled with fully threaded 3.5 mm cortical screws. Distal holes were filled with 4 2.7 mm locking screws. No evidence of joint penetration on the mini-C-arm views was noted. Next, the medial malleolus was evaluated and treated. An incision was created for approximately 1.5 inches on the medial aspect of the ankle, and carried down through skin sharply and then bluntly using a dissecting scissor down to fascia and periosteum. The fracture fragment was able to be mobilized and secured with a [id number] reduction forceps. Subsequently, a guidepin was placed across the fracture site and several adjustments were made of this guidepin so that the position was perfect on C-arm imaging. The outer cortex was reamed, and appropriately sized 4.0 cannulated cancellus screw(s) with long threads were inserted over the guidepin until they were fully deployed. Final C-arm images were then taken, showing anatomic alignment of the mortise and medial malleolar fracture site. The fracture was noted to be in anatomic position and stress testing under C-arm imaging showed no significant migration, shift, or tilt of the talus with external rotation stress, hindfoot inversion or eversion. Screw lengths were noted to be appropriate and the incision was then irrigated thoroughly using normal saline. Tourniquet was deflated and hemostasis was obtained using e lectrocautery. Fascial closure was performed with 0-Vicryl suture, subcutaneous closure with 2-0 Vicryl suture. Skin was closed with kevan. Sterile dressing was applied and well padded, well molded short leg splint was applied with the ankle in neutral. Patient tolerated the procedure well and taken to recovery room in stable condition. Sponge and needle counts were correct.
[2020-03-24] MEDS: HYDROmorphone 0.5 MG/0.5 ML SYRINGE IVP PRN ×3 (18:35→18:45)
[2020-03-24 18:58] VITALS: RESP 16
[2020-03-24] MEDS ORDERED: HYDROcodone/APAP 10-325MG 1 EACH TAB ONE (19:21)
[2020-03-24] MEDS ORDERED: HYDROcodone/APAP 5-325MG 1 EACH TAB PO ONE ×2 (19:23)
[2020-03-24] MEDS ORDERED: HYDROcodone/APAP 10-325MG 1 EACH TAB PO ONE ×2 (19:23)
[2020-03-24 20:31] VITALS: BP 128/80; PULSE 96; TEMP 98.1
--- NOTE | 2020-03-25 05:51 | FL ---
EXAMINATION TYPE: FL guidance operating room, XR ankle limited RT DATE OF EXAM: 03/24/2020 CLINICAL HISTORY: Right ankle fracture. TECHNIQUE: Fluoroscopy. Limited intraoperative views right ankle. COMPARISON: Right ankle x-ray November 13, 2013.. FINDINGS: Fluoroscopic guidance was provided during open reduction internal fixation procedure perfo rmed by Dr. Holley. A total of 17 seconds of fluoroscopic time was utilized during the procedure and 2 spot fluoroscopic intraoperative images are acquired. Fluoroscopic intraoperative images acquired show placement of 2 fixating screws through the displaced medial malleolar fracture and lateral fixating plate through comminuted slightly displaced lateral m alleolar fracture with satisfactory alignment after reduction and fixation. IMPRESSION: As Above.
== END 2020-03-24 21:47 | disposition home or self-care (01) ==
LOC: OR 11:19 → 4SSUR 18:25 → OR 21:47
PROVIDERS: ATTEND Orthopaedic Surgery
DX: S82.841A Displaced bimalleolar fracture of right lower leg, initial encounter for closed fracture (principal); W01.0XXA Fall on same level from slipping, tripping and stumbling without subsequent striking against object, initial encounter; Y93.01 Activity, walking, marching and hiking; Z97.3 Presence of spectacles and contact lenses; Z86.73 Personal history of transient ischemic attack (TIA), and cerebral infarction without residual deficits; I34.0 Nonrheumatic mitral (valve) insufficiency; Z83.3 Family history of diabetes mellitus; Z82.49 Family history of ischemic heart disease and other diseases of the circulatory system; J44.9 Chronic obstructive pulmonary disease, unspecified; K08.109 Complete loss of teeth, unspecified cause, unspecified class; F17.200 Nicotine dependence, unspecified, uncomplicated; Z79.1 Long term (current) use of non-steroidal anti-inflammatories (NSAID); Z79.899 Other long term (current) drug therapy
CPT/HCPCS: 64445; 76942; 73600; 27814; C1713 ×2; J2250; J0360; J1100; J2405; J0690; J2001; J3010; J2795; J0330; J1170

== ENCOUNTER → 2020-11-22 | Outpatient (CLI) | payer OTHER ==
--- NOTE | 2020-11-22 13:51 | US ---
EXAMINATION TYPE: US thyroid st tissue head/neck DATE OF EXAM: 11/22/2020 COMPARISON: NONE CLINICAL HISTORY: R77.8 abnormalities of plasma proteins. low serum thyroglobulin GLAND SIZE: Right Lobe: 4.0 x 1.3 x 1.4 cm Overall Parenchyma: homogenous Left Lobe: 4.1 x 1.4 x 1.2 cm Overall Parenchyma: homogeneous Isthmus Thickness: 0.3 cm NODULES RIGHT: # of nodules measured on right: 0 LEFT: # of nodules measured on left: 0 ISTHMUS: # of nodules measured in the isthmus: 0 Bilateral neck scanned, no evidence of lymphadenopathy. IMPRESSION: 1. Normal thyroid ultrasound 2017 ACR TI-RADS LEVEL: TR-RADS 1 - BENIGN: No FNA *Highest TI-RADS level nodule reported
== END | disposition home or self-care (01) ==
LOC: RADUSWWP 11-20 14:22
PROVIDERS: ATTEND Family Medicine
DX: R77.8 Other specified abnormalities of plasma proteins (principal)
CPT/HCPCS: 76536

== ENCOUNTER 2021-07-09 11:15 | Emergency (ER) | payer OTHER ==
[2021-07-09 11:25] VITALS: RESP 18; TEMP 98.4
[2021-07-09 12:13] LABS: Basophils % (A) 1 %; Eosinophils # (A) 0.2 k/uL (0-0.7); Eosinophils % (A) 3 %; HCT 44.4 % (39.0-53.0); HGB 14.9 gm/dL (13.0-17.5); Lymphocytes # (A) 1.8 k/uL (1.0-4.8); Lymphocytes % (A) 26 %; MCH 30.2 pg (25.0-35.0); MCHC 33.5 g/dL (31.0-37.0); MCV 90.1 fL (80.0-100.0); Mean Platelet Volume 8.8; Monocytes # (A) 0.3 k/uL (0-1.0); Monocytes % (A) 4 %; Neutrophils # (A) 4.5 k/uL (1.3-7.7); Neutrophils % (A) 66 %; Platelet Count 155 k/uL (150-450); RBC 4.92 m/uL (4.30-5.90); RDW 13.7 % (11.5-15.5); WBC 6.9 k/uL (3.8-10.6)
[2021-07-09 12:19] LABS: ALT 9 U/L (4-49); AST 18 U/L (17-59); African American GFR (CKD) >90 (>60 ml/min/1.73 sqM); Albumin 3.7 g/dL (3.5-5.0); Alkaline Phosphatase 60 U/L (38-126); Anion Gap 7 mmol/L; Blood Urea Nitrogen 17 mg/dL (9-20); Calcium 9.2 mg/dL (8.4-10.2); Carbon Dioxide 24 mmol/L (22-30); Chloride 107 mmol/L (98-107); Glucose 126 mg/dL (74-99); Magnesium 1.7 mg/dL (1.6-2.3); Non-African American GFR(CKD) 83 (>60 ml/min/1.73 sqM); Potassium 4.1 mmol/L (3.5-5.1); Sodium 138 mmol/L (137-145); Total Bilirubin 0.5 mg/dL (0.2-1.3); Total Protein 6.5 g/dL (6.3-8.2)
[2021-07-09] MEDS ORDERED: HYDROcodone/APAP 5-325MG 1 EACH TAB PO STA (12:30)
[2021-07-09 12:54] LABS: INR 0.9 (<1.2); Partial Thromboplastin Time 23.4 sec (22.0-30.0)
--- NOTE | 2021-07-09 13:02 | XR ---
EXAMINATION TYPE: XR chest 2V DATE OF EXAM: 07/09/2021 COMPARISON: 03/12/2019 INDICATION: Chest pain TECHNIQUE: Single frontal view of the chest is obtained. FINDINGS: The heart size is normal. The pulmonary vasculature is normal. The lungs are clear. There is hyperinflation and flattening of diaphragms compatible with COPD. IMPRESSION: 1. COPD
[2021-07-09 13:06] VITALS: BP 135/91; PULSE 66
--- NOTE | 2021-07-09 13:28 | ED ---
Chest Pain HPI - General Chief Complaint: Chest Pain Stated Complaint: Chest pain Source: patient Mode of arrival: ambulatory Limitations: no limitations - History of Present Illness Initial Comments: 61-year-old male with past medical history of COPD, CVA presents to the emergency department with right-sided pain. Patient reports its in the right upper quadrant, worse with food intake and intermittent in nature. Pain has been going on for 3 days. States it radiates up into his jaw and he had tingling in his right arm. He has associated nausea and vomiting. Symptoms ex acerbated by food. Denies any palliative factors. No associated shortness of breath. Denies any chest pain. No previous history of heart disease. Patient catheterized in 2018 and found to have severe mitral regurgitation. Patient denies fevers, chills or cough. No changes in his bowel or bladder habits. No other alleviating, presentation marking factors - Related Data Home Medications Medication Instructions Recorded Confirmed Baclofen 10 mg PO BID PRN 04/20/18 07/09/21 Meloxicam [Mobic] 15 mg PO DAILY 03/21/20 07/09/21 Albuterol Sulfate [Proair Hfa] 2 puff INHALATION RT-Q4H 07/09/21 07/09/21 Aspirin EC [Ecotrin Low Dose] 81 mg PO DAILY 07/09/21 07/09/21 Cholecalciferol (Vitamin D3) 75 mcg PO DAILY 07/09/21 07/09/21 [Vitamin D3 (3000 Iu)] Hydrocodone/Acetaminophen [[place] 1 tab PO TID PRN 07/09/21 07/09/21 7.5-325] Pregabalin [Lyrica] 200 mg PO TID 07/09/21 07/09/21 busPIRone HCL 15 mg PO BID 07/09/21 07/09/21 Allergies Allergy/AdvReac Type Severity Reaction Status Date / Time No Known Allergies Allergy Verified 07/09/21 13:02 Review of Systems ROS Statement: Those systems with pertinent positive or pertinent negative responses have been documented in the HPI. ROS Other: All systems not noted in ROS Statement are negative. EKG Findings - EKG Comments: EKG Findings:: EKG answers normal sinus rhythm with a rate of 73. CO interval 138. QRS 84. QTC of 420. No acute ST segment elevations. Inverted T-wave in aVL. 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 History of Any Multi-Drug Resistant Organisms: None Reported Past Surgical History: Heart Catheterization, Orthopedic Surgery Additional Past Surgical History / Comment(s): 05/06/18 cardiac cath-normal coronaries but severe mitral regurgitation, JOSEPH, R index finger tendon repair d/t injury, bilateral knee arthroscopic surgery, bilateral hip arthroscopies, bilateral elbow arthroscopies, bilateral shoulder arthroscopies/fracture repair L clavicle, L/S spine surgery, facial reconstruction. Past Anesthesia/Blood Transfusion Reactions: No Reported Reaction Past Psychological History: Anxiety, Depression Smoking Status: Current every day smoker Past Alcohol Use History: None Reported Past Drug Use History: Marijuana - Past Family History Mother Family Medical History: Liver Disease, Renal Disease Additional Family Medical History / Comment(s): Mother in her 70s from kidney and liver failure. Brother(s) Family Medical History: Cancer Additional Family Medical History / Comment(s): MELANOMA General Exam Limitations: no limitations Course Vital Signs 07/09/21 07/09/21 07/09/21 11:22 13:05 16:03 Temperature 98.4 F 98.4 F Pulse Rate 73 66 66 Respiratory 18 18 18 Rate Blood Pressure 141/87 135/91 135/91 O2 Sat by Pulse 97 97 97 Oximetry Chest Pain MDM - MDM On arrival patient was placed into room 18. Thorough history and physical exam is performed. IV is established and laboratory studies are conducted. Patient is given his morning medications which he missed. Laboratory studies are c onducted and are within normal limits. Chest x-ray demonstrates COPD findings. Gallbladder ultrasound demonstrates mild adenomyomatosis of the gallbladder. 0.2 cm solid-appearing nodule in the right mid renal cortex. Patient is reevaluated and has no active symptoms at this time. I did discuss the diagnosis, differential treatment options. Recommended the patient follow up with his primary care doctor within 2-4 days. Do believe the patient needs a HIDA scan as he does have right upper quadrant pain related to food intake. Patient understood this. Instructed to eat a low-fat diet. He is given Alan's follow-up information. Return to the emergency room for new or worsening symptoms per patient was discharged home in stable condition Disposition Clinical Impression: Right upper quadrant abdominal pain Disposition: HOME SELF-CARE Condition: Stable Instructions (If sedation given, give patient instructions): Acute Abdominal Pain (DC) Additional Instructions: Please follow-up with your primary care doctor or the surgeon for reevaluation. You need a HIDA scan. Please eat foods low in fat. Return to the emergency department for any new or worsening symptoms Is patient prescribed a controlled substance at d/c from ED?: No Referrals: Sneha Mantilla MD [Primary Care Provider] - 1-2 days Kory Phillips MD [STAFF PHYSICIAN] - 1-2 days Time of Disposition: 14:56
[2021-07-09] MEDS ORDERED: BACLOFEN 10 MG TAB PO SCH (14:00)
[2021-07-09] MEDS ORDERED: busPIRone HCl 5 MG TAB PO SCH (14:00)
[2021-07-09] MEDS ORDERED: MELOXICAM 7.5 MG TAB PO SCH (14:00)
--- NOTE | 2021-07-09 14:08 | US ---
EXAMINATION TYPE: US gallbladder DATE OF EXAM: 07/09/2021 COMPARISON: NONE CLINICAL HISTORY: ruq pain. Patient states he recently drank chocolate milk EXAM MEASUREMENTS: Liver Length: 14.5 cm Gallbladder Wall: 0.2 cm CBD: 0.2 cm Right Kidney: 10.4x5.6x4.2 cm Dilated loops of bowel seen mid abdomen in area of pain. Pancreas: wnl Liver: wnl Gallbladder: Slightly contracted. Ringdown artifact suggesting Adenomyomatosis Evidence for sonographic Villanueva's sign: No CBD: wnl Right Kidney: Solid echogenic area in the cortex = 0.2cm IMPRESSION: 1. Mild adenomyomatosis of the gallbladder. 2. There is a 0.2 cm solid-appearing nodule in the right mid renal cortex. Follow-up ultrasound in 3 months is recommended.
== END 2021-07-09 16:05 | disposition home or self-care (01) ==
LOC: EC 11:15
DX: R10.11 Right upper quadrant pain (principal); J44.9 Chronic obstructive pulmonary disease, unspecified; M19.90 Unspecified osteoarthritis, unspecified site; F32.A Depression, unspecified; F41.9 Anxiety disorder, unspecified; F17.200 Nicotine dependence, unspecified, uncomplicated; F12.90 Cannabis use, unspecified, uncomplicated; Z79.1 Long term (current) use of non-steroidal anti-inflammatories (NSAID); Z79.82 Long term (current) use of aspirin; Z79.51 Long term (current) use of inhaled steroids; Z79.899 Other long term (current) drug therapy
CPT/HCPCS: 36415; 71046; 76705; 80053; 83690; 83735; 84484; 85025; 85610; 85730; 93005; 99285

== ENCOUNTER 2023-01-25 10:45 | Observation (INO) | payer OTHER ==
[2023-01-25] MEDS ORDERED: ASPIRIN 81 MG PO STA (11:12)
[2023-01-25] MEDS ORDERED: NITROGLYCERIN OINT 1 INCH/GM PACKET TOPICAL STA (11:12)
--- NOTE | 2023-01-25 11:14 | ED ---
General Adult HPI - General Chief complaint: Chest Pain Stated complaint: chest/back pain Time Seen by Provider: 01/25/23 11:00 Source: patient, RN notes reviewed, old records reviewed Mode of arrival: ambulatory Limitations: no limitations - History of Present Illness Initial comments: This is a 62-year-old male who has a past medical history significant for smoking. Patient states he has a valvular problem that he never got resolved. Patient states he started having chest pain 3 days ago and initially started intermittently and is on the right side of his chest and radiates to his back. Patient states the pain is gotten more constant and so he decided come emergency department. Patient states associated with the pain is shortness of breath.. Patient denies any diaphoretic episodes. Patient denies any nausea. Patient states deep breathing occasionally seems to increase the pain. Patient denies any fever chills or cough per patient denies any abdominal pain. Patient denies any nausea vomiting diarrhea. Patient denies any headache patient denies numbness weakness or lightheadedness. - Related Data Home Medications Medication Instructions Recorded Confirmed Baclofen 10 mg PO BID PRN 04/20/18 07/09/21 Meloxicam [Mobic] 15 mg PO DAILY 03/21/20 07/09/21 Albuterol Sulfate [Proair Hfa] 2 puff INHALATION RT-Q4H 07/09/21 07/09/21 Aspirin EC [Ecotrin Low Dose] 81 mg PO DAILY 07/09/21 07/09/21 Cholecalciferol (Vitamin D3) 75 mcg PO DAILY 07/09/21 07/09/21 [Vitamin D3 (3000 Iu)] Hydrocodone/Acetaminophen [[place] 1 tab PO TID PRN 07/09/21 07/09/21 7.5-325] Pregabalin [Lyrica] 200 mg PO TID 07/09/21 07/09/21 busPIRone HCL 15 mg PO BID 07/09/21 07/09/21 Allergies Allergy/AdvReac Type Severity Reaction Status Date / Time No Known Allergies Allergy Verified 01/25/23 10:52 Review of Systems ROS Statement: Those systems with pertinent positive or pertinent negative responses have been documented in the HPI. ROS Other: All systems not noted in ROS Statement are negative. 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 History of Any Multi-Drug Resistant Organisms: None Reported Past Surgical History: Heart Catheterization, Orthopedic Surgery Additional Past Surgical History / Comment(s): 05/06/18 cardiac cath-normal coronaries but severe mitral regurgitation, JOSEPH, R index finger tendon repair d/t injury, bilateral knee arthroscopic surgery, bilateral hip arthroscopies, bilateral elbow arthroscopies, bilateral shoulder arthroscopies/fracture repair L clavicle, L/S spine surgery, facial reconstruction. Past Anesthesia/Blood Transfusion Reactions: No Reported Reaction Past Psychological History: Anxiety, Depression Smoking Status: Current every day smoker Past Alcohol Use History: None Reported Past Drug Use History: Marijuana - Past Family History Mother Family Medical History: Liver Disease, Renal Disease Additional Family Medical History / Comment(s): Mother in her 70s from kidney and liver failure. Brother(s) Family Medical History: Cancer Additional Family Medical History / Comment(s): MELANOMA General Exam - General Exam Comments Initial Comments: GENERAL: Patient is well-developed and well-nourished. Patient is nontoxic and well- hydrated and is in mild distress. ENT: Neck is soft and supple. No significant lymphadenopathy is noted. Oropharynx is clear. Moist mucous membranes. Neck has full range of motion without eliciting any pain. EYES: The sclera were anicteric and conjunctiva were pink and moist. Extraocular movements were intact and pupils were equal round and reactive to light. Eyelids were unremarkable. PULMONARY: Unlabored respirations. Good breath sounds bilaterally. No audible rales rhonchi or wheezing was noted. CARDIOVASCULAR: There is a regular rate and rhythm without any murmurs gallops or rubs. ABDOMEN: Soft and nontender with normal bowel sounds. SKIN: Skin is clear with no lesions or rashes and otherwise unremarkable. NEUROLOGIC: Patient is alert and oriented x3. Cranial nerves II through XII are grossly intact. Motor and sensory are also intact. Normal speech, volume and content. Symmetrical smile. MUSCULOSKELETAL: Normal extremities with adequate strength and full range of motion. No lower extremity swelling or edema. No calf tenderness. LYMPHATICS: No significant lymphadenopathy is noted PSYCHIATRIC: Normal psychiatric evaluation. Limitations: no limitations Course Vital Signs 01/25/23 01/25/23 10:52 11:36 Temperature 98 F Pulse Rate 73 69 Respiratory 16 18 Rate Blood Pressure 160/83 160/95 O2 Sat by Pulse 99 100 Oximetry Medical Decision Making - Medical Decision Making EKG as interpreted by myself. EKG shows a sinus rhythm at 65 bpm MT interval 246 dresses 81 Q-T intervals 390 QTC is 4. Patient's EKG shows no ST segment elevation or depression. Was pt. sent in by a medical professional or institution (, PA, ERECTING ENGINEER, urgent care, hospital, or custodial...) When possible be specific @ -[No] Did you speak to anyone other than the patient for history (EMS, parent, family, police, friend...)? What history was obtained from this source @ -[No] Did you review nursing and triage notes (agree or disagree)? Why? @ -[I reviewed and agree with nursing and triage notes] Were old charts reviewed (outside hosp., previous admission, EMS record, old EKG, old radiological studies, urgent care reports/EKG's, custodial records)? Report findings @ -I reviewed prior charts and lab work as well as prior radiological studies Differential Diagnosis (chest pain, altered mental status, abdominal pain women, abdominal pain men, vaginal bleeding, weakness, fever, dyspnea, syncope, headache, dizziness, GI bleed, back pain, seizure, CVA, palpatations, mental health, musculoskeletal)? @ -Differential Chest Pain: Stable Angina, Unstable Angina, STEMI, NSTEMI Aortic Dissection, Pneumothorax, Musculoskeletal, Esophageal Spasm GERD, Cholecystitis, Pancreatitis, Zoster, this is not meant to be an all-inclusive list. EKG interpreted by me (3pts min.). @ -[As above] X-rays interpreted by me (1pt min.). @ -Chest x-ray showed no acute abnormality CT interpreted by me (1pt min.). @ -[None done] U/S interpreted by me (1pt. min.). @ -[None done] What testing was considered but not performed or refused? (CT, X-rays, U/S, labs)? Why? @ -[None] What meds were considered but not given or refused? Why? @ -[None] Did you discuss the management of the patient with other professionals (professionals i.e. DrAbdirashid, PA, ERECTING ENGINEER, lab, RT, psych nurse, secondary social studies teacher, dictating machine mechanic, teacher, tactical deception plans officer, medical case worker)? Give summary @ -I spoke with the [facility] hospitalist and they agreed to admit the patient Was smoking cessation discussed for >3mins.? @ -[No] Was critical care preformed (if so, how long)? @ -[No] Were there social determinants of health that impacted care today? How? (Homelessness, low income, unemployed, alcoholism, drug addiction, transportation, low edu. Level, literacy, decrease access to med. care, halfway, rehab)? @ -[No] Was there de-escalation of care discussed even if they declined (Discuss DNR or withdrawal of care, Hospice)? DNR status @ -[No] What co-morbidities impacted this encounter? (DM, HTN, Smoking, COPD, CAD, Cancer, CVA, ARF, Chemo, Hep., AIDS, mental health diagnosis, sleep apnea, morbid obesity)? @ -[None] Was patient admitted / discharged? Hospital course, mention meds given and route, prescriptions, significant lab abnormalities, going to OR and other pertinent info. @ -Patient continued to have intermittent chest pain throughout the ED course. Patient was in agreement to stay. I spoke with [facility] hospitalist and they agreed to admit the patient patient's lab work BACK normal and initially I consulted cardiology Undiagnosed new problem with uncertain prognosis? @ -[No] Drug Therapy requiring intensive monitoring for toxicity (Heparin, Nitro, Insul in, Cardizem)? @ -[No] Were any procedures done? @ -[No] Diagnosis/symptom? @ -Chest pain Acute, or Chronic, or Acute on Chronic? @ -Acute Uncomplicated (without systemic symptoms) or Complicated (systemic symptoms)? @ -Complicated Side effects of treatment? @ -[No] Exacerbation, Progression, or Severe Exacerbation? @ -[No] Poses a threat to life or bodily function? How? (Chest pain, USA, MD, pneumonia, PE, COPD, DKA, ARF, appy, cholecystitis, CVA, Diverticulitis, Homicidal, Suicidal, threat to staff... and all critical care pts) @ -Yes this could lead to MD and this could lead to poor perfusion and end org an dysfunction - Lab Data Result diagrams: 01/25/23 11:29 01/25/23 11:29 Lab Results 01/25/23 01/25/23 01/25/23 Range/Units 11:29 11:29 11:29 WBC 10.5 (3.8-10.6) k/uL RBC 4.82 (4.30-5.90) m/uL Hgb 14.3 (13.0-17.5) gm/dL Hct 43.8 (39.0-53.0) % MCV 91.0 (80.0-100.0) fL MCH 29.8 (25.0-35.0) pg MCHC 32.7 (31.0-37.0) g/dL RDW 14.1 (11.5-15.5) % Plt Count 181 (150-450) k/uL MPV 8.7 Neutrophils % 81 % Lymphocytes % 12 % Monocytes % 6 % Eosinophils % 1 % Basophils % 0 % Neutrophils # 8.5 H (1.3-7.7) k/uL Lymphocytes # 1.3 (1.0-4.8) k/uL Monocytes # 0.6 (0-1.0) k/uL Eosinophils # 0.1 (0-0.7) k/uL Basophils # 0.0 (0-0.2) k/uL PT 9.7 (9.0-12.0) sec INR 0.9 (<1.2) APTT 22.5 (22.0-30.0) sec Sodium 139 (137-145) mmol/L Potassium 4.6 (3.5-5.1) mmol/L Chloride 107 (98-107) mmol/L Carbon Dioxide 26 (22-30) mmol/L Anion Gap 6 mmol/L BUN 21 H (9-20) mg/dL Creatinine 0.83 (0.66-1.25) mg/dL Est GFR (CKD-EPI)AfAm >90 (>60 ml/min/1.73 sqM) Est GFR (CKD-EPI)NonAf >90 (>60 ml/min/1.73 sqM) Glucose 114 H (74-99) mg/dL Calcium 9.7 (8.4-10.2) mg/dL Magnesium 2.0 (1.6-2.3) mg/dL Total Bilirubin 0.6 (0.2-1.3) mg/dL AST 22 (17-59) U/L ALT 12 (4-49) U/L Alkaline Phosphatase 77 (38-126) U/L Troponin I (0.000-0.034) ng/mL Total Protein 6.8 (6.3-8.2) g/dL Albumin 4.1 (3.5-5.0) g/dL 01/25/23 Range/Units 11:29 WBC (3.8-10.6) k/uL RBC (4.30-5.90) m/uL Hgb (13.0-17.5) gm/dL Hct (39.0-53.0) % MCV (80.0-100.0) fL MCH (25.0-35.0) pg MCHC (31.0-37.0) g/dL RDW (11.5-15.5) % Plt Count (150-450) k/uL MPV Neutrophils % % Lymphocytes % % Monocytes % % Eosinophils % % Basophils % % Neutrophils # (1.3-7.7) k/uL Lymphocytes # (1.0-4.8) k/uL Monocytes # (0-1.0) k/uL Eosinophils # (0-0.7) k/uL Basophils # (0-0.2) k/uL PT (9.0-12.0) sec INR (<1.2) APTT (22.0-30.0) sec Sodium (137-145) mmol/L Potassium (3.5-5.1) mmol/L Chloride (98-107) mmol/L Carbon Dioxide (22-30) mmol/L Anion Gap mmol/L BUN (9-20) mg/dL Creatinine (0.66-1.25) mg/dL Est GFR (CKD-EPI)AfAm (>60 ml/min/1.73 sqM) Est GFR (CKD-EPI)NonAf (>60 ml/min/1.73 sqM) Glucose (74-99) mg/dL Calcium (8.4-10.2) mg/dL Magnesium (1.6-2.3) mg/dL Total Bilirubin (0.2-1.3) mg/dL AST (17-59) U/L ALT (4-49) U/L Alkaline Phosphatase (38-126) U/L Troponin I 0.024 (0.000-0.034) ng/mL Total Protein (6.3-8.2) g/dL Albumin (3.5-5.0) g/dL Disposition Clinical Impression: Chest pain Disposition: ADMITTED IP TO THIS HOSP Referrals: Sneha Mantilla MD [Primary Care Provider] - 1-2 days Time of Disposition: 13:50
[2023-01-25 11:37] VITALS: RESP 18
--- NOTE | 2023-01-25 11:54 | XR ---
EXAMINATION TYPE: XR chest 2V DATE OF EXAM: 01/25/2023 11:42 AM COMPARISON: Chest radiographs from 07/09/2021 TECHNIQUE: XR chest 2V Frontal and lateral views of the chest. CLINICAL INDICATION:Male, 62 years old with history of Chest Pain; FINDINGS: Lungs/Pleura: There is flattening of the diaphragm with increased lucency of the lungs. No evidence o f pneumothorax, pleural effusion or focal consolidation. Pulmonary vascularity: Unremarkable. Heart/mediastinum: Cardiomediastinal silhouette is unremarkable. Musculoskeletal: No acute osseous pathology. IMPRESSION: 1. No acute cardiopulmonary disease process. 2. COPD changes.
[2023-01-25 11:55] LABS: Basophils % (A) 0 %; Eosinophils # (A) 0.1 k/uL (0-0.7); Eosinophils % (A) 1 %; HCT 43.8 % (39.0-53.0); HGB 14.3 gm/dL (13.0-17.5); Lymphocytes # (A) 1.3 k/uL (1.0-4.8); Lymphocytes % (A) 12 %; MCH 29.8 pg (25.0-35.0); MCHC 32.7 g/dL (31.0-37.0); Mean Platelet Volume 8.7; Monocytes # (A) 0.6 k/uL (0-1.0); Monocytes % (A) 6 %; Neutrophils # (A) 8.5 k/uL (1.3-7.7); Neutrophils % (A) 81 %; Platelet Count 181 k/uL (150-450); RBC 4.82 m/uL (4.30-5.90); RDW 14.1 % (11.5-15.5); WBC 10.5 k/uL (3.8-10.6)
[2023-01-25 12:12] LABS: ALT 12 U/L (4-49); AST 22 U/L (17-59); African American GFR (CKD) >90 (>60 ml/min/1.73 sqM); Albumin 4.1 g/dL (3.5-5.0); Alkaline Phosphatase 77 U/L (38-126); Anion Gap 6 mmol/L; Blood Urea Nitrogen 21 mg/dL (9-20); Calcium 9.7 mg/dL (8.4-10.2); Carbon Dioxide 26 mmol/L (22-30); Chloride 107 mmol/L (98-107); Glucose 114 mg/dL (74-99); Non-African American GFR(CKD) >90 (>60 ml/min/1.73 sqM); Potassium 4.6 mmol/L (3.5-5.1); Sodium 139 mmol/L (137-145); Total Bilirubin 0.6 mg/dL (0.2-1.3); Total Protein 6.8 g/dL (6.3-8.2)
[2023-01-25 12:26] LABS: INR 0.9 (<1.2); Prothrombin Time 9.7 sec (9.0-12.0)
[2023-01-25 12:27] LABS: Partial Thromboplastin Time 22.5 sec (22.0-30.0)
[2023-01-25] MEDS ORDERED: NITROGLYCERIN SL TABS 0.4 MG TAB SUBLINGUAL PRN (13:50)
[2023-01-25] MEDS ORDERED: ALBUTEROL NEBULIZED 2.5 MG/3 ML INHALATION PRN (14:16)
--- NOTE | 2023-01-25 14:22 | P.HPIM ---
History of Present Illness H&P Date: 01/25/23 History of present illness; patient is 62-year-old gentleman with past medical history significant for COPD, tobacco addiction who presented to the ER because of chest pain. Patient stated that chest pain is right-sided, constant feels like a pressure and has been going on for last 3 days. Denies any shortness of breath on exertion. Denies any aggravating or relieving factors associated with this chest pain. Denies any lightheadedness. Because of this chest pain, patient came to the ER Initial lab work done in the ER showed Wbc was 10.5, hemoglobin 14.3, platelet count 181, sodium 139, potassium 4.6, BUN 21, Chest x-ray done in the ER showed no acute cardiopulmonary process Patient was admitted to internal medicine service for further evaluation and treatment REVIEW OF SYSTEMS: CONSTITUTIONAL: No fever, no malaise, no fatigue. HEENT: No recent visual problems or hearing problems. Denied any sore throat. CARDIOVASCULAR: No orthopnea, PND, no palpitations, no syncope. PULMONARY: No shortness of breath, no cough, no hemoptysis. GASTROINTESTINAL: No diarrhea, no nausea, no vomiting, no abdominal pain. NEUROLOGICAL: No headaches, no weakness, no numbness. HEMATOLOGICAL: Denies any bleeding or petechiae. GENITOURINARY: Denies any burning micturition, frequency, or urgency. MUSCULOSKELETAL/RHEUMATOLOGICAL: Denies any joint pain, swelling, or any muscle pain. ENDOCRINE: Denies any polyuria or polydipsia. The rest of the 14-point review of systems is negative. PHYSICAL EXAMINATION: GENERAL: The patient is alert and oriented x3, not in any acute distress. Well developed, well nourished. HEENT: Pupils are round and equally reacting to light. EOMI. No scleral icterus. No conjunctival pallor. Normocephalic, atraumatic. No pharyngeal erythema. No thyromegaly. CARDIOVASCULAR: S1 and S2 present. No murmurs, rubs, or gallops. PULMONARY: Chest is clear to auscultation, no wheezing or crackles. ABDOMEN: Soft, nontender, nondistended, normoactive bowel sounds. No palpable organomegaly. MUSCULOSKELETAL: No joint swelling or deformity. EXTREMITIES: No cyanosis, clubbing, or pedal edema. NEUROLOGICAL: Gross neurological examination did not reveal any focal deficits. SKIN: No rashes. 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 History of Any Multi-Drug Resistant Organisms: None Reported Past Surgical History: Heart Catheterization, Orthopedic Surgery Additional Past Surgical History / Comment(s): 05/06/18 cardiac cath-normal coronaries but severe mitral regurgitation, JOSEPH, R index finger tendon repair d/t injury, bilateral knee arthroscopic surgery, bilateral hip arthroscopies, bilateral elbow arthroscopies, bilateral shoulder arthroscopies/fracture repair L clavicle, L/S spine surgery, facial reconstruction. Past Anesthesia/Blood Transfusion Reactions: No Reported Reaction Past Psychological History: Anxiety, Depression Smoking Status: Current every day smoker Past Alcohol Use History: None Reported Past Drug Use History: Marijuana - Past Family History Mother Family Medical History: Liver Disease, Renal Disease Additional Family Medical History / Comment(s): Mother in her 70s from kidney and liver failure. Brother(s) Family Medical History: Cancer Additional Family Medical History / Comment(s): MELANOMA Medications and Allergies Home Medications Medication Instructions Recorded Confirmed Type Baclofen 10 mg PO BID PRN 04/20/18 07/09/21 History Meloxicam [Mobic] 15 mg PO DAILY 03/21/20 07/09/21 History Albuterol Sulfate [Proair Hfa] 2 puff INHALATION RT-Q4H 07/09/21 07/09/21 History Aspirin EC [Ecotrin Low Dose] 81 mg PO DAILY 07/09/21 07/09/21 History Cholecalciferol (Vitamin D3) 75 mcg PO DAILY 07/09/21 07/09/21 History [Vitamin D3 (3000 Iu)] Hydrocodone/Acetaminophen [[place] 1 tab PO TID PRN 07/09/21 07/09/21 History 7.5-325] Pregabalin [Lyrica] 200 mg PO TID 07/09/21 07/09/21 History busPIRone HCL 15 mg PO BID 07/09/21 07/09/21 History Allergies Allergy/AdvReac Type Severity Reaction Status Date / Time No Known Allergies Allergy Verified 01/25/23 10:52 Physical Exam Vitals: Vital Signs Temp Pulse Resp BP Pulse Ox 01/25/23 13:30 58 L 18 114/63 98 01/25/23 12:30 61 18 134/72 99 01/25/23 11:36 69 18 160/95 100 01/25/23 10:52 98 F 73 16 160/83 99 Intake and Output 01/24/23 01/25/23 01/25/23 22:59 06:59 14:59 Other: Weight 54.431 kg Results CBC & Chem 7: 01/25/23 11:29 01/25/23 11:29 Labs: Abnormal Lab Results - Last 24 Hours (Table) 01/25/23 01/25/23 Range/Units 11:29 11:29 Neutrophils # 8.5 H (1.3-7.7) k/uL BUN 21 H (9-20) mg/dL Glucose 114 H (74-99) mg/dL
[2023-01-25] MEDS ORDERED: busPIRone HCl 5 MG TAB PO PRN (16:42)
[2023-01-25] MEDS: NITROGLYCERIN OINT 1 INCH/GM PACKET TOPICAL SCH (17:04)
[2023-01-25] MEDS: PREGABALIN 100 MG CAP PO SCH ×2 (17:31→21:59)
[2023-01-25] MEDS: HYDROcodone/APAP 7.5-325MG 1 EACH TAB PO SCH ×2 (17:31→21:58)
[2023-01-25] MEDS: NICOTINE 21MG/24HR PATCH TRANSDERM SCH (17:31)
[2023-01-25] MEDS: CYCLOBENZAPRINE 10 MG TAB PO SCH ×2 (17:31→21:59)
[2023-01-25] MEDS ORDERED: NICOTINE 21MG/24HR PATCH TRANSDERM SCH (18:00)
[2023-01-25] MEDS ORDERED: CYCLOBENZAPRINE 10 MG TAB PO SCH (22:00)
[2023-01-25] MEDS ORDERED: HYDROcodone/APAP 7.5-325MG 1 EACH TAB PO SCH (22:00)
[2023-01-25] MEDS ORDERED: PREGABALIN 100 MG CAP PO SCH (22:00)
[2023-01-26] MEDS: NITROGLYCERIN OINT 1 INCH/GM PACKET TOPICAL SCH ×5 (00:40→23:17)
[2023-01-26] MEDS: CYCLOBENZAPRINE 10 MG TAB PO SCH ×3 (08:44→21:41)
[2023-01-26] MEDS: HYDROcodone/APAP 7.5-325MG 1 EACH TAB PO SCH ×3 (08:44→21:41)
[2023-01-26] MEDS: PREGABALIN 100 MG CAP PO SCH ×3 (08:44→21:41)
[2023-01-26] MEDS: NICOTINE 21MG/24HR PATCH TRANSDERM SCH (08:45)
[2023-01-26] MEDS ORDERED: ASPIRIN 325 MG TAB PO SCH (09:00)
--- NOTE | 2023-01-26 09:58 | P.CRDCN ---
History of Present Illness Consult date: 01/26/23 Chief complaint: Chest discomfort and shortness of breath History of present illness: The patient is a 62-year-old gentleman who currently doesn't follow with any manager finance with a past medical history significant for valvular heart disease and no neck supple test mitral valve and severe mitral regurgitation was diagnosed in 2018 where at that point he underwent transesophageal echocardiogram and that showed evidence off flail mitral valve with severe mitral regurgitation and also he underwent a heart catheterization and that showed normal coronaries. Subsequently the patient was seen by a different manager finance for second opinion he was advised conservative medical approach. This time he presented to the hospital complaining of chest discomfort. He does have history of smoking. He has been experiencing chest discomfort on the right side of the chest as a sharp/dull kind of discomfort with radiation to the back. The discomfort is mainly on the right side. No radiation to the arms or neck or shoulders. No associated symptoms of any presyncope or syncope. Beside that he has been short of breath. He stated that the shortness of breath has been the same. The patient underwent further workup including troponin came in to be unremarkable and EKG showed sinus mechanism was no significant ST or T-wave abnormalities. The chest x-ray did not show any acute abnormalities. The examination is remarkable for pansystolic murmur heard at the right upper sternal border as well as at the apical area. 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 History of Any Multi-Drug Resistant Organisms: None Reported Past Surgical History: Heart Catheterization, Orthopedic Surgery Additional Past Surgical History / Comment(s): 05/06/18 cardiac cath-normal coronaries but severe mitral regurgitation, JOSEPH, R index finger tendon repair d/t injury, bilateral knee arthroscopic surgery, bilateral hip arthroscopies, bilateral elbow arthroscopies, bilateral shoulder arthroscopies/fracture repair L clavicle, L/S spine surgery, facial reconstruction. Past Anesthesia/Blood Transfusion Reactions: No Reported Reaction Past Psychological History: Anxiety, Depression Smoking Status: Current every day smoker Past Alcohol Use History: None Reported Past Drug Use History: Marijuana - Past Family History Mother Family Medical History: Liver Disease, Renal Disease Additional Family Medical History / Comment(s): Mother in her 70s from kidney and liver failure. Brother(s) Family Medical History: Cancer Additional Family Medical History / Comment(s): MELANOMA Medications and Allergies Home Medications Medication Instructions Recorded Confirmed Type Hydrocodone/Acetaminophen [[place] 1 tab PO TID 07/09/21 01/25/23 History 7.5-325] Pregabalin [Lyrica] 200 mg PO TID 07/09/21 01/25/23 History busPIRone HCL 15 mg PO BID PRN 07/09/21 01/25/23 History Metaxalone [Skelaxin] 800 mg PO TID 01/25/23 01/25/23 History Allergies Allergy/AdvReac Type Severity Reaction Status Date / Time No Known Allergies Allergy Verified 01/25/23 15:17 Physical Exam Vitals: Vital Signs Temp Pulse Pulse Resp BP BP Pulse Ox 01/26/23 08:41 98 01/26/23 07:30 98.0 F 68 18 166/85 96 01/26/23 04:00 98.1 F 64 18 161/90 97 01/26/23 01:25 67 18 01/26/23 00:00 97.9 F 67 18 111/56 96 01/25/23 20:00 98.1 F 72 18 136/74 99 01/25/23 14:11 97.8 F 18 173/86 99 01/25/23 13:30 58 L 18 114/63 98 01/25/23 12:30 61 18 134/72 99 01/25/23 11:36 69 18 160/95 100 01/25/23 10:52 98 F 73 16 160/83 99 Intake and Output 01/25/23 01/26/23 01/26/23 22:59 06:59 14:59 Intake Total 680 250 358 Balance 680 250 358 Intake: Oral 680 250 358 Results 01/25/23 11:29 01/25/23 11:29 Cardiac Enzymes 06/17/23 06/17/23 06/17/23 Range/Units 11:29 11:29 14:25 AST 22 (17-59) U/L Troponin I 0.024 0.034 (0.000-0.034) ng/mL 01/25/23 Range/Units 17:42 AST (17-59) U/L Troponin I <0.012 (0.000-0.034) ng/mL Coagulation 01/25/23 Range/Units 11:29 PT 9.7 (9.0-12.0) sec APTT 22.5 (22.0-30.0) sec CBC 01/25/23 Range/Units 11:29 WBC 10.5 (3.8-10.6) k/uL RBC 4.82 (4.30-5.90) m/uL Hgb 14.3 (13.0-17.5) gm/dL Hct 43.8 (39.0-53.0) % Plt Count 181 (150-450) k/uL Comprehensive Metabolic Panel 01/25/23 Range/Units 11:29 Sodium 139 (137-145) mmol/L Potassium 4.6 (3.5-5.1) mmol/L Chloride 107 (98-107) mmol/L Carbon Dioxide 26 (22-30) mmol/L BUN 21 H (9-20) mg/dL Creatinine 0.83 (0.66-1.25) mg/dL Glucose 114 H (74-99) mg/dL Calcium 9.7 (8.4-10.2) mg/dL AST 22 (17-59) U/L ALT 12 (4-49) U/L Alkaline Phosphatase 77 (38-126) U/L Total Protein 6.8 (6.3-8.2) g/dL Albumin 4.1 (3.5-5.0) g/dL Current Medications Generic Name Dose Route Start Last Admin Trade Name Freq PRN Reason Stop Dose Admin Hydrocodone Bitart/Acetaminophen 1 each 01/25/23 16:56 01/26/23 08:44 Hydrocodone/Apap 7.5-325mg 1 Each Tab PO 1 each TID JELANI Administration Albuterol Sulfate 2.5 mg 01/25/23 14:16 Albuterol Nebulized 2.5 Mg/3 Ml INHALATION RT-QID PRN Shortness Of Breath Or Wheezing Aspirin 325 mg 01/26/23 09:00 01/26/23 08:44 Aspirin 325 Mg Tab PO 325 mg DAILY JELANI Administration Buspirone HCl 15 mg 01/25/23 16:42 Buspirone Hcl 5 Mg Tab PO BID PRN Anxiety Cyclobenzaprine HCl 10 mg 01/25/23 16:57 01/26/23 08:44 Cyclobenzaprine 10 Mg Tab PO 10 mg TID [facility] Administration Nicotine 1 patch 01/25/23 17:00 01/26/23 08:45 Nicotine 21mg/24hr Patch TRANSDERM 1 patch DAILY [facility] Administration Nitroglycerin 0.4 mg 01/25/23 13:50 Nitroglycerin Sl Tabs 0.4 Mg Tab SUBLINGUAL Q5M PRN Chest Pain Nitroglycerin 1 inch 01/25/23 18:00 01/26/23 06:36 Nitroglycerin Oint 1 Inch/Gm Packet TOPICAL 1 inch Q6HR [facility] Administration Pregabalin 200 mg 01/25/23 17:00 01/26/23 08:44 Pregabalin 100 Mg Cap PO 200 mg TID [facility] Administration Intake and Output 01/25/23 01/26/23 01/26/23 22:59 06:59 14:59 Intake Total 680 250 358 Balance 680 250 358 Intake: Oral 680 250 358 01/25/23 11:29 01/25/23 11:29
[2023-01-26] MEDS ORDERED: amLODIPine 2.5 MG TAB PO SCH (11:00)
--- NOTE | 2023-01-26 13:37 | P.PN ---
Subjective Progress Note Date: 01/26/23 patient is 62-year-old gentleman with past medical history significant for COPD, tobacco addiction who presented to the ER because of chest pain. Patient stated that chest pain is right-sided, constant feels like a pressure and has been going on for last 3 days. Denies any shortness of breath on exertion. Denies any aggravating or relieving factors associated with this chest pain. Denies any lightheadedness. Because of this chest pain, patient came to the ER Initial lab work done in the ER showed Wbc was 10.5, hemoglobin 14.3, platelet count 181, sodium 139, potassium 4.6, BUN 21, Chest x-ray done in the ER showed no acute cardiopulmonary process Patient was admitted to internal medicine service for further evaluation and treatment 01/26. Patient seen and examined. Denies any further episodes of chest pain. Vital signs stable REVIEW OF SYSTEMS: CONSTITUTIONAL: No fever, no malaise,. CARDIOVASCULAR: No chest pain, no palpitations, no syncope. PULMONARY: No shortness of breath, no cough, GASTROINTESTINAL: No diarrhea, no nausea, no vomiting, no abdominal pain. NEUROLOGICAL: No headaches, no weakness, PHYSICAL EXAMINATION: GENERAL: The patient is alert and oriented x3, not in any acute distress. Well developed, well nourished. HEENT: Pupils are round and equally reacting to light. EOMI. No scleral icterus. No conjunctival pallor. Normocephalic, atraumatic. No pharyngeal erythema. No thyromegaly. CARDIOVASCULAR: S1 and S2 present. No murmurs, rubs, or gallops. PULMONARY: Chest is clear to auscultation, no wheezing or crackles. ABDOMEN: Soft, nontender, nondistended, normoactive bowel sounds. No palpable organomegaly. MUSCULOSKELETAL: No joint swelling or deformity. EXTREMITIES: No cyanosis, clubbing, or pedal edema. NEUROLOGICAL: Gross neurological examination did not reveal any focal deficits. SKIN: No rashes. Assessment and plan Chest pain COPD Tobacco addiction Hypertension Severe Mitral regurg Monitor vital signs Monitor CBC Monitor CMP Continue telemetry monitoring Follow-up on 2-D echo Continue Norvasc and aspirin Nicotine patch ordered Continue rest of treatment for now Cardiology on board DVT prophylaxis: Objective - Vital Signs Vital signs: Vital Signs Temp 98.0 F 01/26/23 11:25 Pulse 68 01/26/23 11:25 Resp 18 01/26/23 11:25 BP 140/76 01/26/23 11:25 Pulse Ox 95 01/26/23 11:25 FiO2 Intake & Output 01/25/23 01/26/23 01/26/23 18:59 06:59 18:59 Intake Total 180 750 358 Balance 180 750 358 Weight 54.431 kg Intake: Oral 180 750 358 - Labs CBC & Chem 7: 01/25/23 11:29 01/25/23 11:29
[2023-01-26 13:45] LABS: LDL Cholesterol,Calculated 144.5 mg/dL (0.0-131.0); VLDL Calculation 14.38 mg/dL (5.00-40.00)
[2023-01-27] MEDS: NITROGLYCERIN OINT 1 INCH/GM PACKET TOPICAL SCH ×2 (05:39→12:20)
[2023-01-27 08:39] VITALS: TEMP 97.7
[2023-01-27] MEDS ORDERED: ASPIRIN 81 MG PO SCH (09:00)
[2023-01-27] MEDS ORDERED: amLODIPine 5 MG TAB PO SCH (09:00)
[2023-01-27] MEDS: NICOTINE 21MG/24HR PATCH TRANSDERM SCH (09:05)
[2023-01-27] MEDS: HYDROcodone/APAP 7.5-325MG 1 EACH TAB PO SCH (09:06)
[2023-01-27] MEDS: CYCLOBENZAPRINE 10 MG TAB PO SCH (09:06)
[2023-01-27] MEDS: PREGABALIN 100 MG CAP PO SCH (09:06)
[2023-01-27 12:17] VITALS: BP 161/92; PULSE 79
--- NOTE | 2023-01-27 13:13 | CA ---
Transthoracic Echo Report Name: Richie Chacko Age: 62 Gender: M : 1960 Exam Date: 01/27/2023 07:52 Exam Location: [facility] Ht (in): 69 Wt (lb): 120 Ordering Physician: Tommy Estrada MD Attending/Referring Phys: Puttying And Calking Supervisor Marj Regalado RDCS Procedure CPT: Indications: Mitral Valve Regurgitation Cardiac Hx: Technical Quality: Good Contrast 1: Total Dose (mL): Contrast 2: Total Dose (mL): MEASUREMENTS (Male / Female) Normal Values 2D ECHO LV Diastolic Diameter PLAX 4.0 cm 4.2 - 5.9 / 3.9 - 5.3 cm LV Systolic Diameter PLAX 2.4 cm IVS Diastolic Thickness 1.1 cm 0.6 - 1.0 / 0.6 - 0.9 cm LVPW Diastolic Thickness 1.2 cm 0.6 - 1.0 / 0.6 - 0.9 cm LV Relative Wall Thickness 0.6 RV Internal Dim ED PLAX 2.8 cm LA Systolic Diameter LX 3.6 cm 3.0 - 4.0 / 2.7 - 3.8 cm LV Diastolic Volume MOD 4C 84.6 cm??? LV Systolic Volume MOD 4C 28.1 cm??? LV Ejection Fraction MOD 4C 66.8 % LV Diastolic Length 4C 8.4 cm LV Systolic Length 4C 6.6 cm LV Diastolic Volume MOD 2C 91.8 cm??? LV Systolic Volume MOD 2C 30.7 cm??? LV Ejection Fraction MOD 2C 66.6 % LV Diastolic Length 2C 8.1 cm LV Systolic Length 2C 6.2 cm LA Volume 57.8 cm??? 18 - 58 / 22 - 52 cm??? M-MODE Aortic Root Diameter MM 3.5 cm MV E Point Septal Separation 0.2 cm AV Cusp Separation MM 2.2 cm DOPPLER AV Peak Velocity 168.7 cm/s AV Peak Gradient 11.4 mmHg MV Area PHT 2.6 cm??? MR Peak Velocity 510.8 cm/s MR Peak Gradient 104.4 mmHg Mitral E Point Velocity 106.3 cm/s Mitral A Point Velocity 102.0 cm/s Mitral E to A Ratio 1.0 MV Deceleration Time 294.1 ms MV E' Velocity 6.9 cm/s Mitral E to MV E' Ratio 15.3 TR Peak Velocity 236.4 cm/s TR Peak Gradient 22.4 mmHg Right Ventricular Systolic Press 27.1 mmHg FINDINGS Left Ventricle Left ventricular ejection fraction is estimated at 60-65 %. Left ventricular cavity size normal. Normal left ventricular wall motion. Right Ventricle Normal right ventricular size and function. Right ventricular systolic pressure within normal limits. Right Atrium Normal right atrial size. Left Atrium Normal left atrial size. 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 Moderate mitral regurgitation. Aortic Valve Trileaflet aortic valve. No aortic valve stenosis or regurgitation. Tricuspid Valve Structurally normal tricuspid valve. Mild tricuspid regurgitation. Pulmonic Valve Structurally normal pulmonic valve. Trace pulmonic regurgitation. Pericardium Normal pericardium. No pericardial effusion. Aorta Normal size aortic root and proximal ascending aorta. CONCLUSIONS Left ventricular ejection fraction 60-65% Prolapse of the posterior mitral valve leaflet with moderate mitral regurgitation which is eccentric, anteriorly directed. Mild tricuspid regurgitation RVSP 27 No pericardial effusion Previewed by: Dr. Dharmesh Hernandez DO (Electronically Signed) Final Date: 27 January 2023 13:12
--- NOTE | 2023-01-27 13:14 | P.DS ---
Providers Date of admission: 01/25/23 13:50 Expected date of discharge: 01/27/23 Attending physician: Aly Michael MD Consults: 01/25/23 13:50 Consult Physician Urgent Consulting Provider: [facility] Consult Reason/Comments: Chest pain Do you want consulting provider notified?: Yes Primary care physician: [facility] Hospital Course: Discharge diagnoses; Chest pain COPD Tobacco addiction Hypertension Severe Mitral regurg Hospital course; patient is 62-year-old gentleman with past medical history significant for COPD, tobacco addiction who presented to the ER because of chest pain. Patient stated that chest pain is right-sided, constant feels like a pressure and has been going on for last 3 days. Denies any shortness of breath on exertion. Denies any aggravating or relieving factors associated with this chest pain. Denies any lightheadedness. Because of this chest pain, patient came to the ER Initial lab work done in the ER showed Wbc was 10.5, hemoglobin 14.3, platelet count 181, sodium 139, potassium 4.6, BUN 21, Chest x-ray done in the ER showed no acute cardiopulmonary process Patient was admitted to internal medicine service for further evaluation and treatment 01/26. Patient seen and examined. Denies any further episodes of chest pain. Vital signs stable . Patient seen and examined. Echocardiogram done showed LVEF of 60-65%, prolapse of the posterior mitral valve leaflet with moderate mitral regurg., cardiology cleared the patient for discharge. Being discharged on aspirin and Norvasc PHYSICAL EXAMINATION: GENERAL: The patient is alert and oriented x3, not in any acute distress. Well developed, well nourished. HEENT: Pupils are round and equally reacting to light. EOMI. No scleral icterus. No conjunctival pallor. Normocephalic, atraumatic. No pharyngeal erythema. No thyromegaly. CARDIOVASCULAR: S1 and S2 present. Pansystolic murmur audible. No, rubs, or gallops. PULMONARY: Chest is clear to auscultation, no wheezing or crackles. ABDOMEN: Soft, nontender, nondistended, normoactive bowel sounds. No palpable organomegaly. MUSCULOSKELETAL: No joint swelling or deformity. EXTREMITIES: No cyanosis, clubbing, or pedal edema. NEUROLOGICAL: Gross neurological examination did not reveal any focal deficits. SKIN: No rashes. Patient Condition at Discharge: Good Plan - Discharge Summary Discharge Rx Participant: Yes New Discharge Prescriptions: New Aspirin 81 mg PO DAILY #30 tab amLODIPine [Norvasc] 5 mg PO DAILY #30 tab Continue Hydrocodone/Acetaminophen [Mckenzie 7.5-325] 1 tab PO TID Pregabalin [Lyrica] 200 mg PO TID busPIRone HCL 15 mg PO BID PRN PRN Reason: Anxiety Metaxalone [Skelaxin] 800 mg PO TID Discharge Medication List Hydrocodone/Acetaminophen [Mckenzie 7.5-325] 1 tab PO TID 07/09/21 [History] Pregabalin [Lyrica] 200 mg PO TID 07/09/21 [History] busPIRone HCL 15 mg PO BID PRN 07/09/21 [History] Metaxalone [Skelaxin] 800 mg PO TID 01/25/23 [History] Aspirin 81 mg PO DAILY #30 tab 01/27/23 [Rx] amLODIPine [Norvasc] 5 mg PO DAILY #30 tab 01/27/23 [Rx] Follow up Appointment(s)/Referral(s): Tommy Estrada MD [STAFF PHYSICIAN] - 1 Week (Spoke to medical office receptionist. Office will call with appointment time) Sneha Mantilla MD [Primary Care Provider] - 1-2 days
[2023-01-27 13:43] VITALS: BMI 17.7
--- NOTE | 2023-01-27 14:06 | P.PN ---
Subjective Progress Note Date: 01/27/23 The patient is a 62-year-old gentleman who currently doesn't follow with any announcer with a past medical history significant for valvular heart disease and no neck supple test mitral valve and severe mitral regurgitation was diagnosed in 2018 where at that point he underwent transesophageal echocardi ogram and that showed evidence off flail mitral valve with severe mitral regurgitation and also he underwent a heart catheterization and that showed normal coronaries. Subsequently the patient was seen by a different announcer for second opinion he was advised conservative medical approach. This time he presented to the hospital complaining of chest discomfort. He does have history of smoking. He has been experiencing chest discomfort on the right side of the chest as a sharp/dull kind of discomfort with radiation to the back. The discomfort is mainly on the right side. No radiation to the arms or neck or shoulders. No associated symptoms of any presyncope or syncope. Beside that he has been short of breath. He stated that the shortness of breath has been the same. The patient underwent further workup including troponin came in to be unremarkable and EKG showed sinus mechanism was no significant ST or T-wave abnormalities. The chest x-ray did not show any acute abnormalities. 01/27 Patient is seen today in follow-up. He is complaining of not feeling well with dizziness and lightheadedness. Telemetry is sinus rhythm. Blood pressure 161/92. Heart rate is in the 70s and 80s, pulse ox 97% on room air. Blood pressure was checked manually and is also elevated. The examination is remarkable for pansystolic murmur heard at the right upper sternal border as well as at the apical area. Assessment Atypical versus noncardiac chest discomfort Severe mitral regurgitation History of smoking Uncontrolled hypertension Plan Acute coronary event was ruled out Patient started on amlodipine Smoking cessation Patient is cleared for discharge from a follow-up with Dr. Estrada in the office. Nurse practitioner note has been reviewed, I agree with the documented findings and plan of care. Patient was seen and examined. Objective - Vital Signs Vital signs: Vital Signs Temp 97.7 F 01/27/23 08:20 Pulse 82 01/27/23 08:20 Resp 18 01/27/23 08:20 BP 160/84 01/27/23 08:20 Pulse Ox 97 01/27/23 08:20 FiO2 Intake & Output 01/26/23 01/27/23 01/27/23 18:59 06:59 18:59 Intake Total 1216 920 360 Balance 1216 920 360 Intake: IV 20 Invasive Line 2 20 Oral 1216 900 360 Other: # Voids 2 - Labs CBC & Chem 7: 01/25/23 11:29 01/25/23 11:29 Labs: Abnormal Lab Results - Last 24 Hours (Table) 01/25/23 Range/Units 11:29 Cholesterol 231.00 H (0.00-200.00) mg/dL LDL Cholesterol, Calc 144.5 H (0.0-131.0) mg/dL HDL Cholesterol 72.10 H (40.00-60.00) mg/dL
== END 2023-01-27 14:24 | disposition home or self-care (01) ==
LOC: EC 10:45 → INTOOBSV 13:50 → OBSVTOIN 13:50 → 3SCARD 13:50 → UNDODISOB 01-27 14:24 → UNDODISIN 01-27 14:24
PROVIDERS: ADMIT Internal Medicine; ATTEND Internal Medicine
DX: R07.89 Other chest pain (principal); J44.9 Chronic obstructive pulmonary disease, unspecified; I34.0 Nonrheumatic mitral (valve) insufficiency; I10 Essential (primary) hypertension; M19.90 Unspecified osteoarthritis, unspecified site; G89.29 Other chronic pain; M08.3 Juvenile rheumatoid polyarthritis (seronegative); M54.50 Low back pain, unspecified; F17.200 Nicotine dependence, unspecified, uncomplicated; F10.21 Alcohol dependence, in remission; F32.A Depression, unspecified; F41.9 Anxiety disorder, unspecified; S82.891A Other fracture of right lower leg, initial encounter for closed fracture; Z79.82 Long term (current) use of aspirin; Z79.1 Long term (current) use of non-steroidal anti-inflammatories (NSAID); Z79.899 Other long term (current) drug therapy; Z86.73 Personal history of transient ischemic attack (TIA), and cerebral infarction without residual deficits; Z87.81 Personal history of (healed) traumatic fracture; Z98.890 Other specified postprocedural states; Z80.8 Family history of malignant neoplasm of other organs or systems; Z84.1 Family history of disorders of kidney and ureter; Z83.79 Family history of other diseases of the digestive system; Z71.6 Tobacco abuse counseling
CPT/HCPCS: 99285; 36415; 94760; 93005; 93306; 85379; 80061; 80053; 83735; 84484; 85025; 85610; 85730; 71046; S4990 ×3

== ENCOUNTER 2023-03-20 05:46 | Day surgery (SDC) | payer OTHER ==
[2023-03-20] MEDS ORDERED: ATORVASTATIN 80 MG TAB PO STA (05:59)
[2023-03-20] MEDS ORDERED: ASPIRIN 325 MG TAB PO STA (05:59)
[2023-03-20] MEDS ORDERED: HEPARIN SODIUM,PORCINE (1 ML) 2,500 UNIT in SODIUM CHLORIDE 0.9% 250 ML IRRIGATION PRN (05:59)
[2023-03-20] MEDS ORDERED: ALPRAZolam 0.25 MG TAB PO PRN (05:59)
[2023-03-20] MEDS ORDERED: SODIUM CHLORIDE 0.9% 1,000 ML in EMPTY BAG 1 BAG IV SCH (05:59)
[2023-03-20] MEDS ORDERED: NITROGLYCERIN SL TABS 0.4 MG TAB SUBLINGUAL PRN (05:59)
[2023-03-20] MEDS ORDERED: HEPARIN SODIUM,PORCINE 10,000 UNIT in SODIUM CHLORIDE 0.9% 1,000 ML IRRIGATION PRN (05:59)
[2023-03-20] MEDS ORDERED: ALPRAZolam 0.5 MG TAB PO PRN (05:59)
[2023-03-20] MEDS ORDERED: SODIUM CHLORIDE 0.9% 1,000 ML IV ONE (06:20)
[2023-03-20 06:45] LABS: Basophils % (A) 0 %; Eosinophils # (A) 0.2 k/uL (0-0.7); Eosinophils % (A) 3 %; HCT 46.6 % (39.0-53.0); HGB 15.4 gm/dL (13.0-17.5); Lymphocytes # (A) 2.6 k/uL (1.0-4.8); Lymphocytes % (A) 30 %; MCH 29.9 pg (25.0-35.0); MCHC 32.9 g/dL (31.0-37.0); MCV 90.9 fL (80.0-100.0); Mean Platelet Volume 8.5; Monocytes # (A) 0.5 k/uL (0-1.0); Monocytes % (A) 6 %; Neutrophils # (A) 5.1 k/uL (1.3-7.7); Neutrophils % (A) 59 %; Platelet Count 170 k/uL (150-450); RBC 5.13 m/uL (4.30-5.90); RDW 13.5 % (11.5-15.5); WBC 8.6 k/uL (3.8-10.6)
[2023-03-20 07:08] LABS: African American GFR (CKD) >90 (>60 ml/min/1.73 sqM); Anion Gap 5 mmol/L; Blood Urea Nitrogen 20 mg/dL (9-20); Calcium 9.3 mg/dL (8.4-10.2); Carbon Dioxide 27 mmol/L (22-30); Chloride 106 mmol/L (98-107); Glucose 83 mg/dL (74-99); Non-African American GFR(CKD) 87 (>60 ml/min/1.73 sqM); Potassium 4.2 mmol/L (3.5-5.1); Sodium 138 mmol/L (137-145)
[2023-03-20] MEDS ORDERED: VERAPAMIL 2.5 MG/ML 2 ML AMP ONE (07:15)
[2023-03-20] MEDS ORDERED: LIDOCAINE 1% INJ 10MG/ML (20 ML MDV) ONE (07:15)
[2023-03-20] MEDS ORDERED: IV FLUID CONTINUATION 1,000 ML IV ONE (07:18)
[2023-03-20 07:30] VITALS: RESP 18; TEMP 98.4
[2023-03-20] MEDS ORDERED: BENZOCAINE SPRAY 1 CAN MUCOUS MEM ONE (07:30)
[2023-03-20] MEDS ORDERED: fentaNYL (PF) 50 MCG/ML 2 ML AMP ONE (07:34)
[2023-03-20] MEDS: MIDAZOLAM 2 MG/2 ML VIAL IVP ONE ×2 (07:37→07:47)
[2023-03-20] MEDS ORDERED: fentaNYL (PF) 50 MCG/ML 2 ML AMP IVP ONE (07:47)
[2023-03-20] MEDS ORDERED: MIDAZOLAM 2 MG/2 ML VIAL IVP ONE (07:54)
[2023-03-20] MEDS ORDERED: LIDOCAINE 1% INJ 10MG/ML (5 ML VIAL-PF) SQ ONE (08:18)
[2023-03-20] MEDS ORDERED: VERAPAMIL SYRINGE (5 MG/10 ML) INTRAARTER ONE (08:20)
[2023-03-20] MEDS ORDERED: HEPARIN SODIUM 1,000 UN/ML (10ML VL) ONE (08:21)
[2023-03-20] MEDS ORDERED: HEPARIN SODIUM 1,000 UN/ML (10ML VL) IV ONE (08:22)
[2023-03-20] MEDS ORDERED: RX INFO: IV CONTRAST WAS GIVEN 1 EACH MISC MISCELLANE PRN (08:32)
[2023-03-20] MEDS ORDERED: IOPAMIDOL-370 200ML BTL INJ ONE (08:36)
--- NOTE | 2023-03-20 08:37 | P.PCN ---
Date of Procedure: 03/20/23 Operative Findings: TRANSESOPHAGEAL ECHOCARDIOGRAM PIG CONVEYOR OPERATOR: JODY CROWE MD, RPVI INDICATION: Mitral regurgitation SEDATION: Conscious sedation COMPLICATION: None LEVEL OF SEDATION Moderate to sedation length of 12 minutes PROCEDURE DESCRIPTION: After obtaining an informed consent, the patient was brought to transesophageal echocardiogram room. Pulse oximetry and heart monitors were attached to the patient. The patient throat was sprayed using lidocaine. The patient was turned into left lateral position. After that a bite guard was placed. After an appropriate conscious sedation was initiated, the transesophageal echocardiogram was advanced through a bite guard into the mid esophagus. A 2-D echocardiogram images, color Doppler images, continuous wave images, pulse-wave images, of various cardiac structure were performed. After that the transesophageal echocardiogram probe was advanced into the stomach and fixed to obtain transgastric view was. The probe was brought into the mid esophagus. Inter-atrial septum was interrogated using 2D images, color Doppler images, and then contrast study. After that transesophageal echocardiogram was withdrawn out and upon withdrawing the descending thoracic aorta all the way up to the arch was evaluated. FINDING: The left ventricular dimension and systolic function appeared to be within normal limits with ejection fraction appears to be in the range of 55-60%. The right ventricle appeared to be mildly dilated. The left atrium appears to be dilated as well. The left atrial appendage appeared to be intact. Interatrial septum appeared to be intact was no evidence of PFO or ASD. The mitral valve is thickened with evidence of flail posterior mitral leaflet and severe mitral regurgitation with eccentric jet directed anteriorly. We did quantitative measurements and the radius of the PISA was more than 1 cm. [id number] tricuspid regurgitation was identified. The aortic valve is trileaflet valve with no stenosis or regurgitation. CONCLUSION: 1. Flail posterior mitral leaflet with severe MR. The MR is eccentric and directed anteriorly. The MR is severe by quantitative measurement. The radius of PISA was 1 cm 2. Normal LV dimension and systolic function 3. Trileaflet aortic valve with no stenosis or regurgitation 4. Lcka-lk-wyhqbehp tricuspid regurgitation 5. Intact interatrial septum 6. No evidence of bradycardia effusion
--- NOTE | 2023-03-20 08:40 | P.PCN ---
Date of Procedure: 03/20/23 Operative Findings: CARDIAC CATHETERIZATION PERFORMING PHYSICIAN: Tommy Estrada MD, RPVI PROCEDURE PERFORMED: 1. Selective right and left coronary angiogram 2. Left heart catheterization 3. Ultrasound guided access of the right radial artery INDICATION: Mitral regurgitation COMPLICATION: None APPROACH: Right radial artery LEVEL OF SEDATION: Moderate with a sedation length of 15 minutes PROCEDURE DESCRIPTION: After obtaining an informed consent, the patient was brought to cardiac microbiology lab assistant. Local anesthesia was performed using lidocaine subcutaneously. The right radial artery was cannulated using Seldinger technique, the guidewire passed easily, following that we advanced a 5-Irish sheath dilator assembly, the wire and dilator were removed and sheath was flushed. Following that, 2 mg of verapamil along with 5000 unit heparin were given. Selective right and left coronary angiogram using a 6-Irish JR4 and JL 3.5 catheters. Following that we did left heart catheterization using 6-Irish pigtail catheter. The procedure was completed there was no complication. SELECTIVE CORONARY ANGIOGRAM: The right coronary artery: Large caliber vessel and a dominant vessel and appeared to be angiographically normal. Left main: Is angiographically normal. Bifurcates into an LCx and LAD The left circumflex: Medium caliber vessel and nondominant vessel appears to be angiographically no rmal. The left anterior descending artery: Large caliber vessel. Its angiographically normal. Gives rise into a diagonal branch which seems to be angiographically normal as well HEMODYNAMICS: The LVEDP was 12 mmHg was no significant gradient across aortic valve CONCLUSION: 1. Normal coronary angiogram 2. Normal left-sided filling pressure POSTPROCEDURE MANAGEMENT: Evaluated the patient for mitral valve repair
[2023-03-20] MEDS ORDERED: SODIUM CHLORIDE 0.9% 1,000 ML IV SCH (08:45)
[2023-03-20 10:44] VITALS: BP 125/61; PULSE 68
== END 2023-03-20 11:42 | disposition home or self-care (01) ==
LOC: CATHCVL 05:46
PROVIDERS: ATTEND Internal Medicine Interventional Cardiology
DX: I34.0 Nonrheumatic mitral (valve) insufficiency (principal); I10 Essential (primary) hypertension; E78.5 Hyperlipidemia, unspecified; R06.02 Shortness of breath
CPT/HCPCS: 93312; 93320; 93325; 93458; 76937; 80048; 85025; C1769 ×2; C1894; J2250; J2001; J3010; J1644; Q9967

== ENCOUNTER → 2023-05-21 | Outpatient (CLI) | payer OTHER ==
[2023-05-21 10:49] LABS: INR 0.9 (<1.2); Partial Thromboplastin Time 23.7 sec (22.0-30.0); Prothrombin Time 9.8 sec (9.0-12.0)
--- NOTE | 2023-05-21 12:44 | US ---
EXAMINATION TYPE: US vein mapping BILAT DATE OF EXAM: 05/21/2023 11:15 AM COMPARISON: NONE CLINICAL INDICATION: Male, 63 years old with history of OPEN HEART; SIDE PERFORMED: Bilateral TECHNIQUE: Lower extremity saphenous vein is examined and measured utilizing real time linear array sonography. DUPLEX FINDINGS: Greater Saphenous: Color flow seen Lesser Saphenous: Color flow seen Measurements in mm: Right Greater Saphenous: Groin: 4.9 x 3.1 mm High Thigh: 4.4 x 3.4 mm Mid Thigh: 3.7 x 2.6 mm Above Knee: 4.4 x 3.3 mm Knee: 4.8 x 3.3 mm Below Knee: 4.1 x 2.7 mm Mid Calf: 4.6 x 3.5 mm At Ankle: 4.3 x 3.0 mm Left Greater Saphenous: Groin: 5.6 x 4.1 mm High Thigh: 4.6 x 3.7 mm Mid Thigh: 4.8 x 3.2 mm Above Knee: 4.6 x 3.2 mm Knee: 4.7 x 3.4 mm Below Knee: 4.4 x 3.3 mm Mid Calf: 4.8 x 2.8 mm At Ankle: 4.4 x 3.2 mm IMPRESSION: 1. Bilateral GSV measurements listed above. 2. Performing surgeon to determine viability as conduit.
[2023-05-21 15:38] LABS: HCT 45.9 % (39.6-50.0); MCH 28.8 pg (27.0-32.0); MCHC 32.7 d/dL (32.0-37.0); MCV 88.1 FL (80.0-97.0); Mean Platelet Volume 11.1 FL (9.5-12.2); NRBC Per 100 WBC 0 X 10*3/uL (0.00-0.01); Platelet Count 191 X 10*3/uL (140-440); RBC 5.21 X 10*6/uL (4.40-5.60); WBC 5.16 X 10*3/uL (4.50-10.00)
--- NOTE | 2023-05-21 16:04 | P.PN ---
Progress Note - Text Progress Note Date: 05/21/23 5 meter walk test completed: #1 3.67 sec #2 3.13 sec #3 3.95 sec
[2023-05-21 16:25] LABS: ALT 9 U/L (10-49); AST 20 U/L (14-35); Albumin 4.3 d/dL (3.8-4.9); Albumin/Globulin Ratio 1.79 Ratio (1.60-3.17); Alkaline Phosphatase 76 U/L (41-126); BUN/Creat Ratio 12.82 Ratio (12.00-20.00); Blood Urea Nitrogen 14.1 mg/dL (9.0-27.0); Calcium 9.6 mg/dL (8.7-10.3); Carbon Dioxide 26.3 mmol/L (21.6-31.8); Chloride 105 mmol/L (96-109); Chol/HDL Ratio 2.89 Ratio; Globulin 2.4 d/dL (1.6-3.3); Glucose 101 mg/dL (70-110); LDL Cholesterol,Calculated 125.8 mg/dL (0.0-131.0); Magnesium 1.8 mg/dL (1.5-2.4); Potassium 4.6 mmol/L (3.5-5.5); Sodium 141 mmol/L (135-145); Total Bilirubin 0.4 mg/dL (0.3-1.2); Total Protein 6.7 d/dL (6.2-8.2); VLDL Calculation 14.22 mg/dL (5.00-40.00)
[2023-05-21 17:04] LABS: Appearance,Urine Clear (Clear); Bilirubin,Urine Negative (Negative); Blood,Urine Negative (Negative); Color,Urine Dark Yellow (Yellow); Ketones,Urine Negative (Negative); Nitrite,Urine Negative (Negative); PH, Urine 6.5
[2023-05-21 20:14] LABS: Hepatitis A Antibody IgM Nonreactive; Hepatitis B Core IgM Nonreactive; Hepatitis B Surface Antigen Nonreactive; Hepatitis C IgG Antibody Nonreactive
[2023-05-26 08:59] LABS: ABG Base Excess -2.8 mmol/L; ABG Glucose Whole Blood 86 mg/dL (75-99); ABG HCO3 23 mmol/L (21-25); ABG Hematocrit 41 % (34.0-46.0); ABG Ionized Calcium 4.7 mg/dL (4.5-5.3); ABG Lactic Acid Whole Blood 0.6 mmol/L (0.5-1.6); ABG PCO2 40 mmHg (35-45); ABG PH 7.36 (7.35-7.45); ABG PO2 263 mmHg (83-108); ABG Potassium Whole Blood 4.6 mmol/L (3.4-4.5); ABG Sodium Whole Blood 138 mmol/L (135-146); ABG TCO2 24 mmol/L (19-24)
[2023-05-26 09:21] LABS: ABG Base Excess -3.1 mmol/L; ABG Glucose Whole Blood 97 mg/dL (75-99); ABG HCO3 23 mmol/L (21-25); ABG Hematocrit 40 % (34.0-46.0); ABG Ionized Calcium 4.7 mg/dL (4.5-5.3); ABG Lactic Acid Whole Blood 0.6 mmol/L (0.5-1.6); ABG PCO2 45 mmHg (35-45); ABG PH 7.32 (7.35-7.45); ABG PO2 254 mmHg (83-108); ABG Potassium Whole Blood 4.8 mmol/L (3.4-4.5); ABG Sodium Whole Blood 138 mmol/L (135-146); ABG TCO2 25 mmol/L (19-24)
[2023-05-26 09:58] LABS: ABG Base Excess 0.8 mmol/L; ABG Glucose Whole Blood 82 mg/dL (75-99); ABG HCO3 25 mmol/L (21-25); ABG Hematocrit 26 % (34.0-46.0); ABG Lactic Acid Whole Blood 0.6 mmol/L (0.5-1.6); ABG PCO2 36 mmHg (35-45); ABG PH 7.45 (7.35-7.45); ABG Sodium Whole Blood 137 mmol/L (135-146); ABG TCO2 26 mmol/L (19-24)
[2023-05-26 10:17] LABS: ABG Base Excess 2.3 mmol/L; ABG Glucose Whole Blood 74 mg/dL (75-99); ABG HCO3 26 mmol/L (21-25); ABG Hematocrit 26 % (34.0-46.0); ABG Lactic Acid Whole Blood 0.6 mmol/L (0.5-1.6); ABG PCO2 38 mmHg (35-45); ABG PH 7.45 (7.35-7.45); ABG Sodium Whole Blood 149 mmol/L (135-146); ABG TCO2 28 mmol/L (19-24)
[2023-05-26 10:39] LABS: ABG Base Excess 2.7 mmol/L; ABG Glucose Whole Blood 79 mg/dL (75-99); ABG HCO3 27 mmol/L (21-25); ABG Hematocrit 25 % (34.0-46.0); ABG Lactic Acid Whole Blood 0.6 mmol/L (0.5-1.6); ABG PCO2 41 mmHg (35-45); ABG PH 7.43 (7.35-7.45); ABG Sodium Whole Blood 142 mmol/L (135-146); ABG TCO2 29 mmol/L (19-24)
[2023-05-26 11:05] LABS: ABG Base Excess -0.6 mmol/L; ABG Glucose Whole Blood 158 mg/dL (75-99); ABG HCO3 26 mmol/L (21-25); ABG Hematocrit 25 % (34.0-46.0); ABG Lactic Acid Whole Blood 0.7 mmol/L (0.5-1.6); ABG PCO2 50 mmHg (35-45); ABG PH 7.32 (7.35-7.45); ABG PO2 406 mmHg (83-108); ABG Potassium Whole Blood 5.4 mmol/L (3.4-4.5); ABG Sodium Whole Blood 143 mmol/L (135-146); ABG TCO2 27 mmol/L (19-24)
[2023-05-26 11:58] LABS: ABG PO2 >420 mmHg (83-108); ABG Potassium Whole Blood >8.0 mmol/L (3.4-4.5)
[2023-05-26 11:59] LABS: ABG Ionized Calcium 3.4 mg/dL (4.5-5.3); ABG Ionized Calcium 3.5 mg/dL (4.5-5.3); ABG PO2 >420 mmHg (83-108); ABG Potassium Whole Blood 6.8 mmol/L (3.4-4.5)
[2023-05-26 12:00] LABS: ABG Ionized Calcium 3.3 mg/dL (4.5-5.3); ABG PO2 >420 mmHg (83-108); ABG Potassium Whole Blood 6.5 mmol/L (3.4-4.5)
[2023-05-26 12:01] LABS: ABG Ionized Calcium 3.5 mg/dL (4.5-5.3)
[2023-05-26 12:25] LABS: ABG Base Excess -1.7 mmol/L; ABG Glucose Whole Blood 59 mg/dL (75-99); ABG HCO3 24 mmol/L (21-25); ABG Hematocrit 31 % (34.0-46.0); ABG Ionized Calcium 4.1 mg/dL (4.5-5.3); ABG PCO2 46 mmHg (35-45); ABG PH 7.34 (7.35-7.45); ABG PO2 234 mmHg (83-108); ABG Potassium Whole Blood 3.9 mmol/L (3.4-4.5); ABG Sodium Whole Blood 144 mmol/L (135-146); ABG TCO2 26 mmol/L (19-24)
== END | disposition home or self-care (01) ==
LOC: LABWHC1 09:40
PROVIDERS: ATTEND Surgery
DX: I34.0 Nonrheumatic mitral (valve) insufficiency (principal)
CPT/HCPCS: 36415; 80053; 80061; 80074; 81003; 83036; 83735; 84443; 85027; 85610; 85730; 86850; 86900; 86901; 86920; 87070; 87086; 93005; 93970

== ENCOUNTER 2023-05-26 05:36 | Inpatient (IN) | payer OTHER ==
[~2023-05-26 05:36] MED LIST changes: +ALBUMIN HUMAN 25% 50 ML IV ONE; +ALBUMIN HUMAN 5% 500 ML IVPB ONE; +ASPIRIN 325 MG TAB PO ONE; +ATORVASTATIN 10 MG TAB PO ONE; +CALCIUM CHLORIDE 100 MG/ML 10 ML SYRINGE IV ONE; +CHLORHEXIDINE GLUCONATE 15 ML CUP MUCOUS MEM ONE; +CLEVIDIPINE BUTYRATE 25 MG in EMPTY BAG 1 BAG IV ONE; -DEXAMETHASONE SOD PHOSPHATE 10 MG/ML 1 ML VIAL IV ONE; +ELECTROLYTE-A SOLUTION 1,000 ML with POTASSIUM CHLORIDE 100 MEQ, MAGNESIUM SULFATE 16 M... IV ONE; +ELECTROLYTE-A SOLUTION 1,000 ML with POTASSIUM CHLORIDE 40 MEQ, MAGNESIUM SULFATE 16 ME... IV ONE; +HEPARIN SODIUM 1,000 UN/ML (10ML VL) IV ONE; +HEPARIN SODIUM,PORCINE (1 ML) 5,000 UNIT in SODIUM CHLORIDE 0.9% 500 ML 500 ML IV ONE; +INSULIN REGULAR 100 UNIT in SODIUM CHLORIDE 0.9% 100 ML IV ONE; +LACTATED RINGERS 1,000 ML IV ONE; -LACTATED RINGERS 1,000 ML IV SCH; -LIDOCAINE 1% (10MG/ML) FOR IV START INTRADERMA PRN; +MAGNESIUM SULFATE 16.24 MEQ in EMPTY SYRINGE 1 SYR IV ONE; +MANNITOL 25% 12.5 GM/50 ML VIAL IV ONE; +METOPROLOL TARTRATE 12.5 MG TAB PO ONE; +NITROGLYCERIN SL TABS 0.4 MG TAB SUBLINGUAL ONE; +NITROGLYCERIN-D5W PMX 25 MG/250 ML BTL IV ONE; +NITROGLYCERIN-D5W PMX 50 MG in DEXTROSE/WATER 1 250ML.BAG IV ONE; +NOREPINEPHRINE 4 MG in SODIUM CHLORIDE 0.9% 250 ML IV ONE; -ONDANSETRON 4 MG/2 ML VIAL IVP ONE; +PAPAVERINE 360 MG in SODIUM CHLORIDE 0.9% 90 ML IV ONE; +PHENYLEPHRINE 10 MG/ML VIAL IV ONE; +PHENYLEPHRINE 40 MG in SODIUM CHLORIDE 0.9% 250 ML IV ONE; +PROTAMINE SULFATE 10 MG/ML 25 ML VIAL IV ONE; +PROTAMINE SULFATE 250 MG in EMPTY BAG 1 BAG IV ONE; -Pre Op ABX Message 1 EACH MISC MISCELLANE ONE; -SCOPOLAMINE 1.5MG/72HR PATCH TRANSDERM ONE; +SODIUM BICARB 8.4% 50 ML SYR (1 MEQ/ML) IV ONE; +SODIUM CHLORIDE 0.9% 1,000 ML IV ONE; +TRANEXAMIC ACID 2,000 MG in SODIUM CHLORIDE 0.9% 80 ML IV ONE; +ceFAZolin 1,000 MG in SODIUM CHLORIDE 0.9% IRRIGATIO 1,000 ML IRRIGATION ONE; +propofoL 1,000 MG/100 ML VIAL IV ONE
[2023-05-26 06:24] LABS: Glucose,Whole Blood 83 mg/dL (70-110)
[2023-05-26] MEDS ORDERED: MIDAZOLAM HCL 10 MG/10 ML VIAL ONE (07:50)
[2023-05-26] MEDS ORDERED: PROTAMINE SULFATE 10 MG/ML 25 ML VIAL IV ONE (07:50)
[2023-05-26] MEDS ORDERED: VECURONIUM 10 MG VIAL IV ONE (07:50)
[2023-05-26] MEDS ORDERED: INSULIN REGULAR 100 UNIT/ML VIAL (IV) ONE (07:50)
[2023-05-26] MEDS ORDERED: PROPOFOL 10 MG/ML 20 ML VIAL IV ONE (07:50)
[2023-05-26] MEDS ORDERED: TRANEXAMIC 1,000 MG/100ML-NACL PREMIX BAG ONE (07:50)
[2023-05-26] MEDS ORDERED: HEPARIN SODIUM,PORCINE 10,000 UNIT/ML 1 ML VIAL ONE (07:50)
[2023-05-26] MEDS ORDERED: fentaNYL (PF) 50 MCG/ML 50 ML VIAL ONE (07:50)
[2023-05-26] MEDS ORDERED: HEPARIN SODIUM,PORCINE 5,000 UNIT/ML 1 ML VIAL ONE (07:50)
--- NOTE | 2023-05-26 10:41 | P.ANPRN ---
Procedure Note - Anesthesia - Invasive Line Right Central Line Time Out Performed: Yes ([id number]) Date of Procedure: 05/26/23 Time of Procedure: 07:35 Location of Patient: PreOp Preparation: Sterile Prep, Sterile Dressing Central Line Location: Internal Jugular (right IJ CORDIS) Ultrasound Used: Yes Purpose - Visualization and Identification of Vasculature: Yes Needle Guage: 18g angio Image Stored and Saved: Yes Narrative: Central line placement per sterile protocol utilized. +sterile protocol +angio +cvp +jwire +uneventful dilation and introduction right IJ cordis. Bled and flushed
--- NOTE | 2023-05-26 10:43 | P.ANPRN ---
Procedure Note - Anesthesia - JOSEPH Intraop Pre Bypass JOSEPH Intraop - Anesthesia Indication: severe mitral regurg Date of Procedure: 05/26/23 Pre-operative Diagnosis: Severe MR Post-operative Diagnosis: same Surgeon: Lazara Gandhi Left Ventricle: wnl Ejection Fraction: Normal Regional Wall Motion Abnormalities: None Left Ventricle Hypertrophy: No R. Ventricle Function: Normal Anatomy: Trileaflet Aortic Stenosis: None Aortic Regurgitation: None Mitral Stenosis: None Mitral Regurgitation: Severe Tricuspid Stenosis: None Tricuspid Regurgitation: None Pulmonic Stenosis: None Pulmonic Regurgitation: None R. Atrial Dilation: No R. Atrial PFO: No L. Atrial Dilation: No Aortic Dissection: No Aortic Calcification: None Plural Effusion: None
[2023-05-26] MEDS: SODIUM CHLORIDE 0.9% 1,000 ML IV SCH (13:15)
[2023-05-26 13:25] LABS: Glucose,Whole Blood 70 mg/dL (70-110)
[2023-05-26] MEDS ORDERED: DEXTROSE 5% IN WATER 100 ML with AMIODARONE 150 MG IV PRN (13:28)
[2023-05-26] MEDS ORDERED: CALCIUM GLUCONATE IN NACL 2 GM in SALINE 1 100ML.BAG IVPB PRN (13:28)
[2023-05-26] MEDS ORDERED: DEXTROSE 50% SYRINGE 50 ML IVP PRN ×2 (13:28)
[2023-05-26] MEDS ORDERED: DEXMEDETOMIDINE/0.9% NACL(PMX) 400 MCG in EMPTY BAG 1 BAG IV SCH (13:28)
[2023-05-26] MEDS ORDERED: Magnesium Replacement Protocol 1 EACH MISC MISCELLANE PRN (13:28)
[2023-05-26] MEDS ORDERED: ONDANSETRON 4 MG/2 ML VIAL IVP PRN (13:28)
[2023-05-26] MEDS ORDERED: AMIODARONE 450 MG in DEXTROSE 5% IN WATER 250 ML IV PRN ×2 (13:28)
[2023-05-26] MEDS ORDERED: Phosphorus Replacement Protoco 1 EACH MISC MISCELLANE PRN (13:28)
[2023-05-26] MEDS ORDERED: BENZOCAINE/MENTHOL LOZENG 1 EACH LOZENGE MUCOUS MEM PRN (13:28)
[2023-05-26] MEDS ORDERED: IPRATROPIUM-ALBUTEROL 3 ML NEB INHALATION PRN (13:28)
[2023-05-26] MEDS ORDERED: Potassium Replacement Protocol 1 EACH MISC MISCELLANE PRN ×2 (13:28→14:54)
[2023-05-26] MEDS ORDERED: AMIODARONE 360 MG in DEXTROSE 5% IN WATER 200 ML IV PRN ×2 (13:28)
[2023-05-26] MEDS ORDERED: METOCLOPRAMIDE 5 MG/ML 2 ML VIAL IVP PRN (13:28)
[2023-05-26] MEDS: CLEVIDIPINE BUTYRATE 25 MG in EMPTY BAG 1 BAG IV SCH ×4 (13:38→21:48)
[2023-05-26 13:48] LABS: Ionized Calcium 4.2 mg/dL (4.5-5.3)
[2023-05-26 13:56] LABS: Basophils % (A) 0 %; Eosinophils # (A) 0.1 k/uL (0-0.7); Eosinophils % (A) 1 %; HCT 29.3 % (39.0-53.0); HGB 9.7 gm/dL (13.0-17.5); Lymphocytes % (A) 12 %; MCH 29.6 pg (25.0-35.0); MCHC 33.2 g/dL (31.0-37.0); MCV 89.3 fL (80.0-100.0); Mean Platelet Volume 9.2; Monocytes # (A) 0.3 k/uL (0-1.0); Monocytes % (A) 3 %; Neutrophils # (A) 7.1 k/uL (1.3-7.7); Neutrophils % (A) 84 %; RBC 3.28 m/uL (4.30-5.90); RDW 14.2 % (11.5-15.5); WBC 8.6 k/uL (3.8-10.6)
[2023-05-26 13:57] LABS: ALT 8 U/L (4-49); AST 33 U/L (17-59); African American GFR (CKD) >90 (>60 ml/min/1.73 sqM); Albumin 2.3 g/dL (3.5-5.0); Alkaline Phosphatase 35 U/L (38-126); Anion Gap 6 mmol/L; Blood Urea Nitrogen 18 mg/dL (9-20); Calcium 6.7 mg/dL (8.4-10.2); Carbon Dioxide 22 mmol/L (22-30); Chloride 114 mmol/L (98-107); Glucose 62 mg/dL (74-99); Magnesium 2.8 mg/dL (1.6-2.3); Non-African American GFR(CKD) >90 (>60 ml/min/1.73 sqM); Potassium 3.8 mmol/L (3.5-5.1); Sodium 142 mmol/L (137-145); Total Bilirubin 0.6 mg/dL (0.2-1.3); Total Protein 3.7 g/dL (6.3-8.2)
[2023-05-26 13:57] LABS: Glucose,Whole Blood 85 mg/dL (70-110)
[2023-05-26 13:58] LABS: Allen Test Performed? Yes
[2023-05-26 13:58] LABS: INR 1.3 (<1.2); Partial Thromboplastin Time 56.7 sec (22.0-30.0)
[2023-05-26 13:59] LABS: ABG PCO2 55 mmHg (35-45); ABG PH 7.25 (7.35-7.45)
[2023-05-26 14:00] LABS: ABG Base Excess -3.1 mmol/L; ABG HCO3 24 mmol/L (21-25); ABG PO2 >400 mmHg (83-108); ABG TCO2 26 mmol/L (19-24)
[2023-05-26] MEDS ORDERED: INSULIN REGULAR 100 UNIT in SODIUM CHLORIDE 0.9% 100 ML IV SCH (14:00)
[2023-05-26] MEDS: ALBUMIN HUMAN 5% 250 ML in EMPTY BAG 1 BAG IVPB PRN (14:07)
[2023-05-26 14:13] LABS: Glucose,Whole Blood 100 mg/dL (70-110)
--- NOTE | 2023-05-26 14:18 | XR ---
EXAMINATION TYPE: XR chest 1V portable DATE OF EXAM: 05/26/2023 COMPARISON: 01/25/2023 INDICATION: Postop cardiac surgery TECHNIQUE: Single frontal view of the chest is obtained. FINDINGS: The heart size is normal. The pulmonary vasculature is normal. There is some left apical thickening. Fluid or scarring could be considered. No pneumothorax is evide nt. There is left-sided chest tube present. A right Bergton-Delta catheter is present with the tip in the michael n pulmonary artery region. Endotracheal tube tip is located 1.4 cm above the oksana. Epicardial leads are evident. IMPRESSION: 1. No acute pulmonary process. 2. Multiple lines and catheters discussed above.
[2023-05-26 15:01] LABS: Platelet Count 72 k/uL (150-450)
[2023-05-26 15:09] LABS: Glucose,Whole Blood 112 mg/dL (70-110)
[2023-05-26] MEDS: POTASSIUM CHLORIDE 10 MEQ in WATER FOR INJECTION 1 100ML.BAG IVPB SCH ×2 (15:28→16:20)
[2023-05-26] MEDS ORDERED: IPRATROPIUM-ALBUTEROL 3 ML NEB INHALATION SCH (16:00)
--- NOTE | 2023-05-26 16:03 | P.CNPUL ---
History of Present Illness Consult date: 05/26/23 Requesting physician: Lazara Gandhi Reason for consult: other (Ventilator/critical care management) Chief complaint: Worsening shortness of breath History of present illness: This is a 63-year-old male patient with a known history of 50 years of smoking, hypertension, COPD, hyperlipidemia. He was also found to have severe mitral regurgitation and was brought in today electively for mitral valve repair. He did undergo mitral valve repair and exclusion of left atrial appendage with a 35 mm Atriclip. He is seen in the postoperative period in the intensive care unit. He is currently intubated on mechanical ventilator with assist control rate of 12, tidal volume 350, FiO2 100% and a PEEP of 5. Blood gases revealed a pO2 greater than 400, pCO2 55 and a pH of 7.25. He has mediastinal chest tube x2, left pleural chest tube. He is atrial paced at a rate of 80. Cardiac output 4.8. Cardiac index 3.0. PA pressures 35/15. CVP of 13. Right IJ [place]-Delta catheter in place. He is currently on clevidipine at 5 mg per hour. Normal saline at 50 MLS per hour. Chest x-ray reveals no acute pulmonary process. Tubes and lines an appropriate place. He remains on bronchodilators. He did receive albumin. Propofol is currently being weaned. White count 8.6. Hemoglobin 9.7. Platelets 72,000. INR 1.3. Sodium 142. Potassium 3.8. Bicarb 22. BUN 18. Creatinine 0.87. Glucose 70. AST 33. ALT 8. Albumin 2.3. Magnesium 2.8. Calcium 6.7. 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 skin melanoma removed, urine urgency. seasonal allergies, osteoporosis History of Any Multi-Drug Resistant Organisms: None Reported Past Surgical History: Heart Catheterization, Orthopedic Surgery Additional Past Surgical History / Comment(s): 05/06/18 cardiac cath-normal coronaries but severe mitral regurgitation, JOSEPH, R index finger tendon repair d/t injury, bilateral knee arthroscopic surgery, bilateral hip arthroscopies, bilateral elbow arthroscopies, bilateral shoulder arthroscopies/fracture repair L clavicle, L/S spine surgery, facial reconstruction-left orbital fx. repair, cervical surgeries Past Anesthesia/Blood Transfusion Reactions: No Reported Reaction Smoking Status: Current every day smoker - Past Family History Mother Family Medical History: Liver Disease, Renal Disease Additional Family Medical History / Comment(s): Mother in her 70s from kidney and liver failure. Brother(s) Family Medical History: Cancer Additional Family Medical History / Comment(s): MELANOMA Medications and Allergies Home Medications Medication Instructions Recorded Confirmed Type Hydrocodone/Acetaminophen [[place] 1 tab PO TID 07/09/21 05/26/23 History 7.5-325] Pregabalin [Lyrica] 200 mg PO TID 07/09/21 05/26/23 History Metaxalone [Skelaxin] 800 mg PO TID PRN 01/25/23 05/26/23 History Aspirin 81 mg PO DAILY #30 tab 01/27/23 05/26/23 Rx Albuterol Inhaler [Ventolin Hfa 1 - 2 puff INHALATION Q6H PRN 05/21/23 05/26/23 History Inhaler] Atorvastatin [Lipitor] 40 mg PO 1200 05/21/23 05/26/23 History Allergies Allergy/AdvReac Type Severity Reaction Status Date / Time No Known Allergies Allergy Verified 05/26/23 05:57 Physical Exam Vitals: Vital Signs Temp Pulse Pulse Resp BP BP BP 05/26/23 15:00 80 18 120/75 05/26/23 14:45 96.8 F L 80 18 120/75 05/26/23 14:30 80 18 117/80 05/26/23 14:20 80 18 05/26/23 14:10 80 18 117/80 05/26/23 14:05 05/26/23 14:00 95.5 F L 80 18 05/26/23 13:50 80 18 144/100 05/26/23 13:40 80 12 05/26/23 13:30 12 05/26/23 13:20 80 12 05/26/23 13:17 05/26/23 13:15 95.4 F L 12 05/26/23 06:23 97.7 F 69 142/86 134/87 Pulse Ox FiO2 05/26/23 15:00 98 50 05/26/23 14:45 98 50 05/26/23 14:30 98 50 05/26/23 14:20 100 05/26/23 14:10 100 05/26/23 14:05 50 05/26/23 14:00 99 50 05/26/23 13:50 05/26/23 13:40 05/26/23 13:30 05/26/23 13:20 05/26/23 13:17 100 05/26/23 13:15 100 100 05/26/23 06:23 98 Intake and Output 05/26/23 05/26/23 05/26/23 06:59 14:59 22:59 Intake Total 100 217.333 351.127 Output Total 900 125 Balance 100 -682.667 226.127 Intake: IV 100 200 329 Albumin Human 5% 250 ml 250 In Empty Bag 1 bag @ 250 mls/hr IVPB Q1HR PRN Rx#: [id number] Cardiac Output (0.9 30 20 Sodium Chloride) Pressure Bag (0.9 Sodium 18 9 Chloride) Sodium Chloride 0.9% 1, 100 50 000 ml @ 50 mls/hr IV . Q20H JELANI Rx#:[id number] Intake, IV Titration 17.333 22.127 Amount Clevidipine Butyrate 25 17.333 9.333 mg In Empty Bag 1 bag @ 1 MG/HR 2 mls/hr IV .Q24H JELANI Rx#:[id number] propofoL 1,000 mg In 12.794 Empty Bag 1 bag @ Titrate IV .Q0M JELANI Rx#: [id number] Output: Chest Tube Drainage 120 65 Chest Tube Bilateral 110 60 Mediastinal Chest Tube Left Lateral 10 5 Chest Urine 430 60 Estimated Blood Loss 350 Other: Weight 49.4 kg ABP, PAP, CO, CI - Last 8 Hours Arterial Blood Pressure 115/59 Arterial Blood Pressure 111/58 Arterial Blood Pressure 113/59 Arterial Blood Pressure 115/61 Arterial Blood Pressure 117/62 Arterial Blood Pressure 115/64 Arterial Blood Pressure 166/88 Arterial Blood Pressure 151/85 Arterial Blood Pressure 141/82 Arterial Blood Pressure 139/83 Arterial Blood Pressure 134/81 Pulmonary Artery Pressure 34/14 Pulmonary Artery Pressure 35/15 Pulmonary Artery Pressure 34/15 Pulmonary Artery Pressure 35/16 Pulmonary Artery Pressure 34/15 Pulmonary Artery Pressure 33/17 Pulmonary Artery Pressure 35/19 Pulmonary Artery Pressure 29/15 Pulmonary Artery Pressure 25/14 Pulmonary Artery Pressure 25/16 Pulmonary Artery Pressure 25/15 Cardiac Output 4.8 Cardiac Output 2.7 Cardiac Index 3 Cardiac Index 1.7 GENERAL EXAM: Intubated, sedated 63-year-old male patient on the mechanical ventilator, comfortable in no apparent distress. HEAD: Normocephalic. EYES: Sluggish reaction of pupils, equal size. NOSE: Clear with pink turbinates. THROAT: No erythema or exudates. NECK: Oral endotracheal and gastric tube secured in place No masses, no JVD. CHEST: Sternal dressing dry and intact. Heart Hugger in place. Mediastinal and left pleural chest tubes in place. Pacer wires in place. LUNGS: Equal air entry with no crackles, wheeze, rhonchi or dullness. CVS: S1 and S2 normal with no audible murmur, regular rhythm. ABDOMEN: No hepatosplenomegaly, normal bowel sounds, no guarding or rigidity. SPINE: No scoliosis or deformity SKIN: No rashes CENTRAL NERVOUS SYSTEM: No focal deficits, tone is normal in all 4 extremities. EXTREMITIES: There is no peripheral edema. No clubbing, no cyanosis. Peripheral pulses are intact. Results - Laboratory Findings CBC and BMP: 05/26/23 13:24 05/26/23 13:24 ABG ABG pH 7.25 (7.35-7.45) L 05/26/23 13:38 ABG pCO2 55 mmHg (35-45) H 05/26/23 13:38 ABG pO2 >400 mmHg (83-108) H 05/26/23 13:38 ABG O2 Saturation 100.0 % (94-97) H 05/26/23 13:38 PT/INR, D-dimer PT 14.0 sec (10.0-12.5) H 05/26/23 13:24 INR 1.3 (<1.2) H 05/26/23 13:24 Abnormal lab findings: Abnormal Labs 05/21/23 05/26/23 05/26/23 09:43 13:24 13:24 RBC 3.28 L Hgb 9.7 L Hct 29.3 L Plt Count 72 L PT 14.0 H INR 1.3 H APTT 56.7 H ABG pH ABG pCO2 ABG pO2 ABG Total CO2 ABG O2 Saturation Chloride Glucose POC Glucose (mg/dL) Calcium Ionized Calcium Miah Magnesium Alkaline Phosphatase Total Protein Albumin Crossmatch See Detail 05/26/23 05/26/23 05/26/23 13:24 13:38 15:07 RBC Hgb Hct Plt Count PT INR APTT ABG pH 7.25 L ABG pCO2 55 H ABG pO2 >400 H ABG Total CO2 26 H ABG O2 Saturation 100.0 H Chloride 114 H Glucose 62 L POC Glucose (mg/dL) 112 H Calcium 6.7 L Ionized Calcium Miah 4.2 L Magnesium 2.8 H Alkaline Phosphatase 35 L Total Protein 3.7 L Albumin 2.3 L Crossmatch - Diagnostic Findings Chest x-ray: image reviewed Assessment and Plan Assessment: History of severe mitral regurgitation, status post mitral valve repair. Postoperative day #0 Chronic obstructive pulmonary disease FEV1 value 75% of predicted Chronic and ongoing tobacco dependence of 50 years Hypertension, history of Hyperlipidemia Multiple orthopedic surgeries. Plan: The patient was seen and evaluated Chest x-ray, ABGs, labs and medications reviewed Increase the respiratory rate 18, decrease the FiO2 to 50% Plan for early extubation protocol as tolerated We will continue to monitor closely here in the intensive care unit We will continue to follow and make further recommendations based on his clinical status I have personally seen and examined the patient, performed the documentation and the assessment and plan as written. Number of minutes spent on the visit: 20.
[2023-05-26 16:17] LABS: Glucose,Whole Blood 127 mg/dL (70-110)
[2023-05-26 16:29] LABS: Basophils % (A) 0 %; Eosinophils # (A) 0.1 k/uL (0-0.7); Eosinophils % (A) 1 %; HCT 35.2 % (39.0-53.0); HGB 11.5 gm/dL (13.0-17.5); Lymphocytes # (A) 1.4 k/uL (1.0-4.8); Lymphocytes % (A) 8 %; MCH 29.5 pg (25.0-35.0); MCHC 32.6 g/dL (31.0-37.0); MCV 90.5 fL (80.0-100.0); Monocytes % (A) 6 %; Neutrophils % (A) 84 %; RBC 3.89 m/uL (4.30-5.90); RDW 14.3 % (11.5-15.5); WBC 16.6 k/uL (3.8-10.6)
[2023-05-26 16:42] LABS: Platelet Count 99 k/uL (150-450)
[2023-05-26 17:07] LABS: Glucose,Whole Blood 116 mg/dL (70-110)
[2023-05-26 17:16] LABS: ABG Base Excess -5.3 mmol/L; ABG HCO3 22 mmol/L (21-25); ABG Oxygen Saturation 99.7 % (94-97); ABG PCO2 49 mmHg (35-45); ABG PH 7.26 (7.35-7.45); ABG PO2 225 mmHg (83-108); ABG TCO2 23 mmol/L (19-24); Allen Test Performed? Yes
[2023-05-26] MEDS: HEPARIN SODIUM,PORCINE 5,000 UNIT/ML 1 ML VIAL SQ SCH (17:46)
[2023-05-26] MEDS: ACETAMINOPHEN IVPB SCH ×2 (17:58→23:59)
[2023-05-26 18:08] LABS: Glucose,Whole Blood 114 mg/dL (70-110)
[2023-05-26] MEDS ORDERED: MUPIROCIN 2% OINT 22 GM TUBE NASAL ONE (18:30)
[2023-05-26 18:55] LABS: Glucose,Whole Blood 109 mg/dL (70-110)
[2023-05-26 19:19] LABS: Basophils % (A) 0 %; Eosinophils % (A) 0 %; HCT 36.6 % (39.0-53.0); Lymphocytes # (A) 0.6 k/uL (1.0-4.8); Lymphocytes % (A) 3 %; MCH 29.7 pg (25.0-35.0); MCHC 32.9 g/dL (31.0-37.0); MCV 90.5 fL (80.0-100.0); Mean Platelet Volume 9.5; Monocytes # (A) 0.8 k/uL (0-1.0); Monocytes % (A) 4 %; Neutrophils # (A) 16.9 k/uL (1.3-7.7); Neutrophils % (A) 92 %; RBC 4.05 m/uL (4.30-5.90); RDW 14.3 % (11.5-15.5); WBC 18.3 k/uL (3.8-10.6)
[2023-05-26 19:20] LABS: Platelet Count 91 k/uL (150-450)
--- NOTE | 2023-05-26 19:29 | OP ---
OPERATIVE REPORT DATE OF SERVICE : 05/26/2023 PREOPERATIVE DIAGNOSES: 1. Severe mitral valve regurgitation with prolapse of P2. 2. Hypertension. 3. Hyperlipidemia. 4. Transient ischemic attack. 5. Tobacco abuse. POSTOPERATIVE DIAGNOSES: 1. Severe mitral valve regurgitation with prolapse of P2. 2. Hypertension. 3. Hyperlipidemia. 4. Transient ischemic attack. 5. Tobacco abuse. PROCEDURES PERFORMED: 1. Complex mitral valve repair with construction of 2 pairs of NeoChords to P2, closure of P1-P2 as well as P2-P3 clefts, and posterior annuloplasty using a 34 mm AnnuloFlex. 2. Exclusion of the left atrial appendage using a 35 mm AtriClip. 3. Intraoperative transesophageal echocardiogram and epiaortic scanning. 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 The patient was brought in today for elective mitral valve repair. The risks, benefits, and alternatives were discussed with him as well as the STS risk. He understood them and agreed to proceed. DESCRIPTION OF PROCEDURE: The patient was in supine position. The right internal jugular [place]-Delta catheter and the right radial arterial line were placed in the preoperative holding area. Cardiac index was 1.9, and PA pressure was 20/10. Subsequently, the patient was brought to the operating room, where general endotracheal anesthesia was induced uneventfully. A Larry catheter was inserted. He received 2 g of cefazolin intravenously. The chest, abdomen, and both lower extremities were prepped and draped using ChloraPrep. Ioban was used to cover the skin. 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 Midline sternotomy was performed, and the patient is very thin with a very thin subcutaneous tissue. No bone wax was used. A Susan mitral valve retractor was used. The left pleura was opened and drained with a 19-Luxembourger Melvin drain. Mediastinal fat was transected with the Bovie. Epiaortic scanning revealed no protruding atheroma in the ascending aorta. Pericardium was opened in an inverted T- fashion, and a pericardial cradle was created. Findings included a normal soft aorta and a normal-sized heart. After systemic heparinization and after placement of respective pledgeted pursestring, aortic cannulation with a 21-Luxembourger soft flow cannula, direct SVC cannulation with a right-angle 28-Luxembourger cannula, and IVC cannulation using a 28-Luxembourger cannula via the right atrial appendage were performed. Antegrade as well as retrograde cardioplegia catheters were placed. Cardiopulmonary bypass was initiated, and with the heart empty and beating, we encircled both cava. Subsequently, the aorta was clamped, and during aortic clamping, myocardial protection was achieved with initial dose of 700 mL of antegrade cold blood cardioplegia followed by 300 mL of retrograde cold blood cardioplegia with adequate arrest at around 200 mL. All subsequent doses were given retrograde at 15 minutes interval. The last dose was warm blood via the retrograde route as we were closing the left atriotomy. We started by excluding the left atrial appendage by deploying a 35 mm AtriClip at its base. Subsequently, the interatrial groove was developed, and a standard transverse left atriotomy was performed. Susan mitral retractor was used to achieve excellent visualization of the mitral valve. 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 I started by placing posterior annuloplasty to better open up the valve and examine it using Ti-Cron 2-0 from [id number] posteriorly. A total of 10 sutures were placed. At this point, we were able to assess the mitral valve adequately. The only anomaly was actually a prolapse of the P2 segment, which was thickened. There were no ruptured chords. I elected in view of a definitive P3 to perform a NeoChord repair rather than the resection. Using a [place]-Nehemias 4.0, two pairs of NeoChords were constructed, one from the anterior papillary muscle and the other one from the posterior papillary muscle and placed at the level of the P2 segment. With adjustment, we were able to achieve adequate seal. The mitral valve was measured to 34 mm ring, which was selected. The AnnuloFlex 34 mm ring was used in its posterior band. All sutures were passed in the band that seated in a nice annular level, and the needles were cut, and the sutures were tied using the Cor-Knot device. Testing at this point revealed good seal. However, there appeared to be questionable leak at the level of the clefts between P1-P2 and P2-P3. For that reason, those 2 clefts were closed on each side with an interrupted 5-0 Prolene, and testing at this point revealed excellent seal. At this point, we proceeded at tying the [place]hemias NeoChords with 12 knots. Testing again one more time achieved good seal. CO2 was flowing over the left atrium as long as it was open. Rewarming was started, and we closed the atriotomy in 1 layer using 4-0 Prolene pledgeted on each corner and meeting in the midline. The midline closure, I used a pledget for it. Before fully closing the left atrium, de-airing maneuvers were performed. Warm blood was being given via the retrograde route as we were closing the atriotomy. The patient was placed in Trendelenburg position, and de-airing maneuvers were performed. The patient was given lidocaine and magnesium, and the aorta eventually unclamped with the aortic root vent on maximum. The patient regained spontaneous sinus rhythm, then eventually went into ventricular fibrillation requiring 1 DCC to re- establish a sinus bradycardic rhythm, which was his baseline. Two monopolar atrial pacing wires were affixed to the respective pursing of the right atrium, and one bipolar ventricular pacing wire was driven via the inferior aspect of the right ventricle. After around 10 to 15 minutes of reperfusion and after checking the mitral valve with a JOSEPH showing no mitral valve regurgitation and no MIRIAN and adequate de-airing, we were able to wean off cardiopulmonary bypass without the need of any inotropic or vasopressor support. However, we were atrially paced at 80. I placed an 18-gauge needle via the apex of the left ventricle to aid in de-airing, and that hole was closed with a pledgeted 6-0 Prolene. Test dose and full dose protamine were given after stopping all the suckers. Decannulation followed. Two 19-Luxembourger Melvin drains were left substernally. Pericardium was closed almost completely over the heart and the aorta. After ensuring adequate hemostasis and hemodynamic and after correct sponge, instrument, and needle count, the sternum was closed using 5 [id number] pioneer cable after interposing fibrillar between the sternal edges. Thorough irrigation with cefazolin followed. The rest of the closure proceeded in layers. Skin glue was applied. The patient did not receive any blood bank product, but received 675 mL of Cell Saver blood. He was transferred to the ICU, atrially paced at 80, with good hemodynamics and normal EKG. MMODL / IJN: [id number] /
[2023-05-26 20:04] LABS: Glucose,Whole Blood 128 mg/dL (70-110)
[2023-05-26 21:09] LABS: Glucose,Whole Blood 147 mg/dL (70-110)
[2023-05-26] MEDS: HYDROcodone/APAP 10-325MG 1 EACH TAB PO PRN (21:21)
[2023-05-26] MEDS: IPRATROPIUM-ALBUTEROL 3 ML NEB INHALATION SCH (21:38)
[2023-05-26 22:03] LABS: Glucose,Whole Blood 134 mg/dL (70-110)
[2023-05-26 23:04] LABS: Glucose,Whole Blood 142 mg/dL (70-110)
[2023-05-26 23:51] LABS: Glucose,Whole Blood 128 mg/dL (70-110)
[2023-05-27] MEDS: HEPARIN SODIUM,PORCINE 5,000 UNIT/ML 1 ML VIAL SQ SCH
[2023-05-27 01:05] LABS: Glucose,Whole Blood 125 mg/dL (70-110)
[2023-05-27 03:01] LABS: Glucose,Whole Blood 119 mg/dL (70-110)
[2023-05-27] MEDS: ALBUMIN HUMAN 5% 250 ML in EMPTY BAG 1 BAG IVPB PRN ×2 (03:05→05:45)
[2023-05-27 04:14] LABS: Glucose,Whole Blood 115 mg/dL (70-110)
[2023-05-27 04:27] LABS: Ionized Calcium 4.4 mg/dL (4.5-5.3)
[2023-05-27 04:33] LABS: Basophils % (A) 0 %; Eosinophils % (A) 0 %; HCT 30.5 % (39.0-53.0); HGB 10.1 gm/dL (13.0-17.5); Lymphocytes # (A) 1.4 k/uL (1.0-4.8); Lymphocytes % (A) 12 %; MCH 29.9 pg (25.0-35.0); MCHC 33.2 g/dL (31.0-37.0); Mean Platelet Volume 10.4; Monocytes # (A) 0.7 k/uL (0-1.0); Monocytes % (A) 6 %; Neutrophils # (A) 9.3 k/uL (1.3-7.7); Neutrophils % (A) 81 %; RBC 3.39 m/uL (4.30-5.90); RDW 14.4 % (11.5-15.5); WBC 11.4 k/uL (3.8-10.6)
[2023-05-27 04:35] LABS: ALT 11 U/L (4-49); AST 50 U/L (17-59); African American GFR (CKD) >90 (>60 ml/min/1.73 sqM); Albumin 3.1 g/dL (3.5-5.0); Alkaline Phosphatase 39 U/L (38-126); Anion Gap 7 mmol/L; Blood Urea Nitrogen 15 mg/dL (9-20); Calcium 7.5 mg/dL (8.4-10.2); Carbon Dioxide 20 mmol/L (22-30); Chloride 107 mmol/L (98-107); Glucose 110 mg/dL (74-99); Magnesium 1.8 mg/dL (1.6-2.3); Non-African American GFR(CKD) >90 (>60 ml/min/1.73 sqM); Platelet Count 66 k/uL (150-450); Potassium 4.6 mmol/L (3.5-5.1); Sodium 134 mmol/L (137-145); Total Bilirubin 0.7 mg/dL (0.2-1.3); Total Protein 4.6 g/dL (6.3-8.2)
[2023-05-27] MEDS ORDERED: MAGNESIUM SULFATE-D5W PMX 1 GM in DEXTROSE/WATER 1 100ML.BAG IVPB ONE (04:46)
[2023-05-27] MEDS: CLEVIDIPINE BUTYRATE 25 MG in EMPTY BAG 1 BAG IV SCH (05:47)
[2023-05-27 06:11] LABS: Glucose,Whole Blood 150 mg/dL (70-110)
[2023-05-27 06:58] LABS: Glucose,Whole Blood 145 mg/dL (70-110)
[2023-05-27] MEDS ORDERED: CYCLOBENZAPRINE 10 MG TAB PO PRN (07:27)
--- NOTE | 2023-05-27 07:48 | P.PN ---
Subjective Progress Note Date: 05/27/23 Principal diagnosis: Severe mitral valve regurgitation with prolapse of P2. Past medical history significant for hypertension, hyperlipidemia, transient ischemic attack, COPD with preoperative FEV1 66% of predicted value, osteoarthritis, and chronic ongoing tobacco dependence. POD #1 complex mitral valve repair with construction of P2 pairs of laura-chords to P2, closure of P1P2 as well as P2P3 clefts, and posterior annuloplasty using a 34 mm AnnuloFlex, exclusion of the left atrial appendage using a 35 mm Atriclip, intraoperative transesophageal echocardiogram and epi-aortic scanning. Postoperative acute blood loss anemia, expected given hemodilution and cardiopulmonary bypass. The patient was seen and examined in follow-up today 05/27/2023 at his bedside in the intensive care unit. Currently he is sitting up to the bedside chair, is awake, alert, oriented 3 and is in no acute apparent distress. He denies any complaints of shortness of breath, although he is complaining of some surgical type pain to his chest tube insertion sites and episodes of nausea. He was successfully extubated at 5:23 PM last evening, is currently on room air with oxygen saturation 96% and he is achieving 1250 mL on his incentive spirometry with encouragement. Bedside telemetry showing normal sinus rhythm heart rate 64 BPM. Atrial and ventricular epicardial pacemaker wires remained in place and are connected to a backup bedside pacemaker generator on a VVI 50 BPM. Right IJ Cordis and Wilber-Delta catheter remains in place with current hemodynamic showing a cardiac output of 3.9, cardiac index 2.4, PA pressures 26/11 and CVP 8 mmHg. He is currently on Cleviprex drip at 4 mg per hour for some Hypertension. Mediastinal and left pleural chest tubes remain in place to low continuous wall suction -20 cm H2O. No air leak is present. Draining thin serosanguineous drainage. Mediastinal chest tubes drained 100 mL over the last 8 hours and 450 mL since surgery. Left pleural chest tube drained 200 mL over the last 8 hours and 300 mL output since surgery. Laboratory and chest x-ray results reviewed. Objective - Vital Signs Vital signs: Vital Signs Temp 98.2 F 05/26/23 16:00 Pulse 77 05/27/23 07:00 Resp 24 05/27/23 07:00 BP 133/75 05/27/23 03:00 Pulse Ox 97 05/27/23 07:00 FiO2 50 10/16/23 17:00 Intake & Output 05/26/23 05/27/23 05/27/23 18:59 06:59 18:59 Intake Total 281.435 4216.935 329 Output Total 1600 2390 155 Balance -638.619 -520.065 174 Weight 53.5 kg Intake: IV 896 1248 329 ACETAMINOPHEN IV (For NPO 100 ) 740 mg In Empty Bag 1 bag @ 400 mls/hr IVPB Q6HR JELANI Rx#:[id number] Albumin Human 5% 250 ml 250 250 In Empty Bag 1 bag @ 250 mls/hr IVPB Q1HR PRN Rx#: [id number] Albumin Human 5% 500 ml @ 250 Per Protocol IVPB ONCE ONE Rx#:[id number] Calcium Gluconate in NaCl 100 2 gm In Saline 1 100ml. bag @ 100 mls/hr IVPB ONCE PRN Rx#:[id number] Cardiac Output (0.9 90 140 20 Sodium Chloride) Pressure Bag (0.9 Sodium 54 108 9 Chloride) Sodium Chloride 0.9% 1, 300 600 50 000 ml @ 50 mls/hr IV . Q20H JELANI Rx#:[id number] ceFAZolin 2 gm In Sodium 50 50 Chloride 0.9% 50 ml @ Per Protocol 100 mls/hr IVPB ONCE ONE Rx#:[id number] Intake, IV Titration 65.381 81.935 Amount Clevidipine Butyrate 25 51.333 77.634 mg In Empty Bag 1 bag @ 1 MG/HR 2 mls/hr IV .Q24H JELANI Rx#:[id number] Insulin Regular 100 unit 1.254 4.301 In Sodium Chloride 0.9% 100 ml @ Per Protocol IV .Q0M JELANI Rx#:[id number] propofoL 1,000 mg In 12.794 Empty Bag 1 bag @ Titrate IV .Q0M JELANI Rx#: [id number] Oral 540 Output: Chest Tube Drainage 325 405 80 Chest Tube Bilateral 300 180 0 Mediastinal Chest Tube Left Lateral 25 225 80 Chest Urine 925 1985 75 Estimated Blood Loss 350 Other: Voiding Method Indwelling Catheter Indwelling Catheter ABP, PAP, CO, CI - Last Documented Arterial Blood Pressure 145/48 Pulmonary Artery Pressure 25/4 Cardiac Output 3.9 Cardiac Index 2.4 - Exam CONSTITUTIONAL: Sitting up to the bedside chair in the intensive care unit, appears comfortable, cooperative, no apparent acute distress. HEENT: Neck is supple, no JVD, no lymphadenopathy. Right IJ Cordis and Wilber- Delta catheter in place and functioning. RESPIRATORY: Lungs sounds essentially clear throughout, diminished to his bilateral bases. Respirations are symmetrical and nonlabored. Currently on room air with oxygen saturations 96%. Able to achieve 1250 mL on their incentive spirometry. Strong cough. CARDIOVASCULAR: Regular rhythm and rate. S1 and S2 present, negative for S3, gallop or murmur. Sternum is stable. Palpable peripheral pulses bilaterally, no edema to his bilateral lower extremities. No calf pain or tenderness noted. Heart hugger in place with patient demonstrating appropriate use. Knee-high KIRTI hose and sequential compression devices in place to his bilateral lower extremities. GASTROINTESTINAL: Abdomen soft, nontender, nondistended. Hypoactive bowel sounds present 4 quadrants. Tolerating diet. Denies flatus. No guarding or rigidity. Episodes of nausea. GENITOURINARY: Santos present draining clear, yellow urine. Urine output 980 mL in the last 8 hours. INTEGUMENTARY: Skin is warm and dry with no evidence of clubbing or cyanosis. Midline sternal incision clean dry and well approximated, covered with dry intact dressing. NEUROLOGIC: Cranial nerves II through XII intact. No focal deficits. MUSKULOSKELETAL: Able to move all extremities, strength equal bilaterally. PSYCHIATRIC: Alert and oriented to person place and time, appropriate affect, intact judgment and insight. INVASIVE LINES AND TUBES: Mediastinal/left pleural chest tubes present and connected to low continuous wall suction, no air leaks present. Mediastinal tube with 100 mL of thin serosanguineous drainage overnight, 450 mL output in the last 24 hours. Left pleural chest tube with 200 mL of thin serosanguineous drainage overnight, 300 mL output in the last 24 hours. Atrial and ventricular epicardial pacemaker wires present, connected to generator, VVI backup rate 50 bpm. Right internal jugular Wilber/Cordis, right radial arterial line present. Last CO 3.9, CI 2.4, PA 26/11 and CVP 8 mmHg. - Allied health notes Allied health notes reviewed: nursing - Labs CBC & Chem 7: 05/27/23 04:15 05/27/23 04:15 Labs: Abnormal Lab Results - Last 24 Hours (Table) 05/21/23 05/26/23 05/26/23 Range/Units 09:43 13:24 13:24 WBC (3.8-10.6) k/uL RBC 3.28 L (4.30-5.90) m/uL Hgb 9.7 L (13.0-17.5) gm/dL Hct 29.3 L (39.0-53.0) % Plt Count 72 L (150-450) k/uL Neutrophils # (1.3-7.7) k/uL Lymphocytes # (1.0-4.8) k/uL PT 14.0 H (10.0-12.5) sec INR 1.3 H (<1.2) APTT 56.7 H (22.0-30.0) sec ABG pH (7.35-7.45) ABG pCO2 (35-45) mmHg ABG pO2 (83-108) mmHg ABG Total CO2 (19-24) mmol/L ABG O2 Saturation (94-97) % Sodium (137-145) mmol/L Potassium (3.5-5.1) mmol/L Chloride (98-107) mmol/L Carbon Dioxide (22-30) mmol/L Glucose (74-99) mg/dL POC Glucose (mg/dL) (70-110) mg/dL Calcium (8.4-10.2) mg/dL Ionized Calcium Miah (4.5-5.3) mg/dL Magnesium (1.6-2.3) mg/dL Alkaline Phosphatase (38-126) U/L Total Protein (6.3-8.2) g/dL Albumin (3.5-5.0) g/dL Crossmatch See Detail 05/26/23 05/26/23 05/26/23 Range/Units 13:24 13:38 15:07 WBC (3.8-10.6) k/uL RBC (4.30-5.90) m/uL Hgb (13.0-17.5) gm/dL Hct (39.0-53.0) % Plt Count (150-450) k/uL Neutrophils # (1.3-7.7) k/uL Lymphocytes # (1.0-4.8) k/uL PT (10.0-12.5) sec INR (<1.2) APTT (22.0-30.0) sec ABG pH 7.25 L (7.35-7.45) ABG pCO2 55 H (35-45) mmHg ABG pO2 >400 H (83-108) mmHg ABG Total CO2 26 H (19-24) mmol/L ABG O2 Saturation 100.0 H (94-97) % Sodium (137-145) mmol/L Potassium (3.5-5.1) mmol/L Chloride 114 H (98-107) mmol/L Carbon Dioxide (22-30) mmol/L Glucose 62 L (74-99) mg/dL POC Glucose (mg/dL) 112 H (70-110) mg/dL Calcium 6.7 L (8.4-10.2) mg/dL Ionized Calcium Miah 4.2 L (4.5-5.3) mg/dL Magnesium 2.8 H (1.6-2.3) mg/dL Alkaline Phosphatase 35 L (38-126) U/L Total Protein 3.7 L (6.3-8.2) g/dL Albumin 2.3 L (3.5-5.0) g/dL Crossmatch 05/26/23 05/26/23 05/26/23 Range/Units 16:00 16:15 17:06 WBC 16.6 H (3.8-10.6) k/uL RBC 3.89 L (4.30-5.90) m/uL Hgb 11.5 L (13.0-17.5) gm/dL Hct 35.2 L (39.0-53.0) % Plt Count 99 L (150-450) k/uL Neutrophils # 14.0 H (1.3-7.7) k/uL Lymphocytes # (1.0-4.8) k/uL PT (10.0-12.5) sec INR (<1.2) APTT (22.0-30.0) sec ABG pH (7.35-7.45) ABG pCO2 (35-45) mmHg ABG pO2 (83-108) mmHg ABG Total CO2 (19-24) mmol/L ABG O2 Saturation (94-97) % Sodium (137-145) mmol/L Potassium (3.5-5.1) mmol/L Chloride (98-107) mmol/L Carbon Dioxide (22-30) mmol/L Glucose (74-99) mg/dL POC Glucose (mg/dL) 127 H 116 H (70-110) mg/dL Calcium (8.4-10.2) mg/dL Ionized Calcium Miah (4.5-5.3) mg/dL Magnesium (1.6-2.3) mg/dL Alkaline Phosphatase (38-126) U/L Total Protein (6.3-8.2) g/dL Albumin (3.5-5.0) g/dL Crossmatch 05/26/23 05/26/23 05/26/23 Range/Units 17:12 18:07 18:30 WBC 18.3 H (3.8-10.6) k/uL RBC 4.05 L (4.30-5.90) m/uL Hgb 12.0 L (13.0-17.5) gm/dL Hct 36.6 L (39.0-53.0) % Plt Count 91 L (150-450) k/uL Neutrophils # 16.9 H (1.3-7.7) k/uL Lymphocytes # 0.6 L (1.0-4.8) k/uL PT (10.0-12.5) sec INR (<1.2) APTT (22.0-30.0) sec ABG pH 7.26 L (7.35-7.45) ABG pCO2 49 H (35-45) mmHg ABG pO2 225 H (83-108) mmHg ABG Total CO2 (19-24) mmol/L ABG O2 Saturation 99.7 H (94-97) % Sodium (137-145) mmol/L Potassium (3.5-5.1) mmol/L Chloride (98-107) mmol/L Carbon Dioxide (22-30) mmol/L Glucose (74-99) mg/dL POC Glucose (mg/dL) 114 H (70-110) mg/dL Calcium (8.4-10.2) mg/dL Ionized Calcium Miah (4.5-5.3) mg/dL Magnesium (1.6-2.3) mg/dL Alkaline Phosphatase (38-126) U/L Total Protein (6.3-8.2) g/dL Albumin (3.5-5.0) g/dL Crossmatch 05/26/23 05/26/23 05/26/23 Range/Units 18:30 20:03 21:08 WBC (3.8-10.6) k/uL RBC (4.30-5.90) m/uL Hgb (13.0-17.5) gm/dL Hct (39.0-53.0) % Plt Count (150-450) k/uL Neutrophils # (1.3-7.7) k/uL Lymphocytes # (1.0-4.8) k/uL PT (10.0-12.5) sec INR (<1.2) APTT (22.0-30.0) sec ABG pH (7.35-7.45) ABG pCO2 (35-45) mmHg ABG pO2 (83-108) mmHg ABG Total CO2 (19-24) mmol/L ABG O2 Saturation (94-97) % Sodium (137-145) mmol/L Potassium 5.5 H (3.5-5.1) mmol/L Chloride (98-107) mmol/L Carbon Dioxide (22-30) mmol/L Glucose (74-99) mg/dL POC Glucose (mg/dL) 128 H 147 H (70-110) mg/dL Calcium (8.4-10.2) mg/dL Ionized Calcium Miah (4.5-5.3) mg/dL Magnesium (1.6-2.3) mg/dL Alkaline Phosphatase (38-126) U/L Total Protein (6.3-8.2) g/dL Albumin (3.5-5.0) g/dL Crossmatch 05/26/23 05/26/23 05/26/23 Range/Units 22:01 23:03 23:50 WBC (3.8-10.6) k/uL RBC (4.30-5.90) m/uL Hgb (13.0-17.5) gm/dL Hct (39.0-53.0) % Plt Count (150-450) k/uL Neutrophils # (1.3-7.7) k/uL Lymphocytes # (1.0-4.8) k/uL PT (10.0-12.5) sec INR (<1.2) APTT (22.0-30.0) sec ABG pH (7.35-7.45) ABG pCO2 (35-45) mmHg ABG pO2 (83-108) mmHg ABG Total CO2 (19-24) mmol/L ABG O2 Saturation (94-97) % Sodium (137-145) mmol/L Potassium (3.5-5.1) mmol/L Chloride (98-107) mmol/L Carbon Dioxide (22-30) mmol/L Glucose (74-99) mg/dL POC Glucose (mg/dL) 134 H 142 H 128 H (70-110) mg/dL Calcium (8.4-10.2) mg/dL Ionized Calcium Miah (4.5-5.3) mg/dL Magnesium (1.6-2.3) mg/dL Alkaline Phosphatase (38-126) U/L Total Protein (6.3-8.2) g/dL Albumin (3.5-5.0) g/dL Crossmatch 05/27/23 05/27/23 05/27/23 Range/Units 01:04 03:00 04:12 WBC (3.8-10.6) k/uL RBC (4.30-5.90) m/uL Hgb (13.0-17.5) gm/dL Hct (39.0-53.0) % Plt Count (150-450) k/uL Neutrophils # (1.3-7.7) k/uL Lymphocytes # (1.0-4.8) k/uL PT (10.0-12.5) sec INR (<1.2) APTT (22.0-30.0) sec ABG pH (7.35-7.45) ABG pCO2 (35-45) mmHg ABG pO2 (83-108) mmHg ABG Total CO2 (19-24) mmol/L ABG O2 Saturation (94-97) % Sodium (137-145) mmol/L Potassium (3.5-5.1) mmol/L Chloride (98-107) mmol/L Carbon Dioxide (22-30) mmol/L Glucose (74-99) mg/dL POC Glucose (mg/dL) 125 H 119 H 115 H (70-110) mg/dL Calcium (8.4-10.2) mg/dL Ionized Calcium Miah (4.5-5.3) mg/dL Magnesium (1.6-2.3) mg/dL Alkaline Phosphatase (38-126) U/L Total Protein (6.3-8.2) g/dL Albumin (3.5-5.0) g/dL Crossmatch 05/27/23 05/27/23 05/27/23 Range/Units 04:15 04:15 06:10 WBC 11.4 H (3.8-10.6) k/uL RBC 3.39 L (4.30-5.90) m/uL Hgb 10.1 L (13.0-17.5) gm/dL Hct 30.5 L (39.0-53.0) % Plt Count 66 L (150-450) k/uL Neutrophils # 9.3 H (1.3-7.7) k/uL Lymphocytes # (1.0-4.8) k/uL PT (10.0-12.5) sec INR (<1.2) APTT (22.0-30.0) sec ABG pH (7.35-7.45) ABG pCO2 (35-45) mmHg ABG pO2 (83-108) mmHg ABG Total CO2 (19-24) mmol/L ABG O2 Saturation (94-97) % Sodium 134 L (137-145) mmol/L Potassium (3.5-5.1) mmol/L Chloride (98-107) mmol/L Carbon Dioxide 20 L (22-30) mmol/L Glucose 110 H (74-99) mg/dL POC Glucose (mg/dL) 150 H (70-110) mg/dL Calcium 7.5 L (8.4-10.2) mg/dL Ionized Calcium Miah 4.4 L (4.5-5.3) mg/dL Magnesium (1.6-2.3) mg/dL Alkaline Phosphatase (38-126) U/L Total Protein 4.6 L (6.3-8.2) g/dL Albumin 3.1 L (3.5-5.0) g/dL Crossmatch 05/27/23 Range/Units 06:56 WBC (3.8-10.6) k/uL RBC (4.30-5.90) m/uL Hgb (13.0-17.5) gm/dL Hct (39.0-53.0) % Plt Count (150-450) k/uL Neutrophils # (1.3-7.7) k/uL Lymphocytes # (1.0-4.8) k/uL PT (10.0-12.5) sec INR (<1.2) APTT (22.0-30.0) sec ABG pH (7.35-7.45) ABG pCO2 (35-45) mmHg ABG pO2 (83-108) mmHg ABG Total CO2 (19-24) mmol/L ABG O2 Saturation (94-97) % Sodium (137-145) mmol/L Potassium (3.5-5.1) mmol/L Chloride (98-107) mmol/L Carbon Dioxide (22-30) mmol/L Glucose (74-99) mg/dL POC Glucose (mg/dL) 145 H (70-110) mg/dL Calcium (8.4-10.2) mg/dL Ionized Calcium Miah (4.5-5.3) mg/dL Magnesium (1.6-2.3) mg/dL Alkaline Phosphatase (38-126) U/L Total Protein (6.3-8.2) g/dL Albumin (3.5-5.0) g/dL Crossmatch - Imaging and Cardiology Chest x-ray: report reviewed, image reviewed Assessment and Plan Assessment: Severe mitral valve regurgitation with prolapse of P2, status post complex mitral valve repair using a 34 mm AnnuloFlex Hypertension Hyperlipidemia History of transient ischemic attack COPD with a preoperative FEV1 66% of predicted value Osteoarthritis Chronic ongoing tobacco dependence Postoperative acute blood loss anemia, expected given hemodilution and cardiopulmonary bypass Plan: Continue to maximize medical therapy with low-dose aspirin, statin, Plavix. Continue metoprolol tartrate 12.5 mg by mouth twice a day with hold parameters. Wean Cleviprex drip, start Cozaar 25 mg by mouth daily with hold parameters. Discontinue subcu heparin as the patient's platelets are 66 this a.m. and we will start Arixtra 2.5 mg subcu daily. Wean O2 as tolerated. Encourage incentive spirometry 10 times every hour while awake. Bronchodilators per pulmonology. Start Pulmicort 0.5 mg inhalation twice a day. We will monitor daily labs and chest x-rays. Electrolyte replacement per protocol. 1 g of calcium gluconate IV piggyback 1 now. Increase activity, ambulate as tolerated. PT/OT/cardiac rehab consulted. GI/DVT prophylaxis. Pain control with current medication regimen. Home dose of Lyrica and Skelaxin restarted. No Toradol at this time due to his platelets. Insulin management per internal medicine. Patient should remain on insulin drip for 48 hours for tight blood sugar control, then SQ insulin per protocol. Preoperative hemoglobin A1c was 5.2%. Remove right IJ Wilber-Delta catheter, keep right IJ Cordis and placed to continuous CVP monitoring. Keep mediastinal and left pleural chest tubes in place to low continuous wall suction -20 cm H2O. Keep atrial and ventricular epicardial pacemaker wires in place, currently on VVI backup. Continue santos for another 24 hours for strict accurate intake and output. More recommendations to follow based on patient's clinical course. Time with Patient: Greater than 30
--- NOTE | 2023-05-27 07:52 | P.CRDCN ---
History of Present Illness Consult date: 05/27/23 History of present illness: History of Present Illness: The patient is a 63-year-old male who is followed by Dr. Estrada, underwent mitral valve repair yesterday for severe mitral regurgitation. He is extubated, sitting up in the chair, complaining of mild dyspnea and soreness. He is in sinus mechanism. Hemodynamically he is stable otherwise. He has a long- standing history of mitral valve prolapse and severe mitral regurgitation documented in 2018. He presented again with symptoms few months ago and underwent cardiac catheterization that showed no evidence of obstructive coronary artery disease. He underwent mitral valve repair with posterior annuloplasty with size 34 mm ring. He also had closure of his left atrial appendage. The patient has a known history of chronic tobacco use. He has no history of diabetes or documented hypertension. Medications: As outpatient Lyrica, Lipitor 40 mg daily, aspirin once a day Review of Systems: Respiratory: He has a history of chronic tobacco use and chronic dyspnea on exertion GI: No nausea or vomiting . No history of peptic ulcer disease. No recent GI bleed. : No hematuria or dysuria. Nervous System: prior history of TIA, no seizure. Physical Examination: 63-year-old male, alert, sitting up in the chair in no apparent distress ,Blood pressure 145/50, Heart rate 70 Head: Normocephalic. Eyes: Sclerae nonicteric. Neck: Good carotid upstroke, no bruit, no jugular venous distention. [place]-Delta catheter noted in the right IJ Lungs: Few crackles at the base Heart: Regular rate and rhythm, S1-S2, no S3, plus rub. No murmur. Abdomen: Soft nontender, positive bowel sounds no organomegaly. Extremities: No edema, intact distal pulses. Labs: Hemoglobin 10.1, BUN 15, creatinine 0.9, potassium 4.6 EKG: Pending Impression: 1. Status post mitral valve repair for severe mitral regurgitation 2. History of chronic tobacco use 3. Hyperlipidemia 4. Chronic obstructive lung disease Plan: 1. Continue present therapy 2. Incentive spirometry 3. Follow blood pressure and adjust treatment as needed 4. 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 skin melanoma removed, urine urgency. seasonal allergies, osteoporosis History of Any Multi-Drug Resistant Organisms: None Reported Past Surgical History: Heart Catheterization, Orthopedic Surgery Additional Past Surgical History / Comment(s): 05/06/18 cardiac cath-normal coronaries but severe mitral regurgitation, JOSEPH, R index finger tendon repair d/t injury, bilateral knee arthroscopic surgery, bilateral hip arthroscopies, bilateral elbow arthroscopies, bilateral shoulder arthroscopies/fracture repair L clavicle, L/S spine surgery, facial reconstruction-left orbital fx. repair, cervical surgeries Past Anesthesia/Blood Transfusion Reactions: No Reported Reaction Smoking Status: Current every day smoker - Past Family History Mother Family Medical History: Liver Disease, Renal Disease Additional Family Medical History / Comment(s): Mother in her 70s from kidney and liver failure. Brother(s) Family Medical History: Cancer Additional Family Medical History / Comment(s): MELANOMA Medications and Allergies Home Medications Medication Instructions Recorded Confirmed Type Hydrocodone/Acetaminophen [Sullivan 1 tab PO TID 07/09/21 05/26/23 History 7.5-325] Pregabalin [Lyrica] 200 mg PO TID 07/09/21 05/26/23 History Metaxalone [Skelaxin] 800 mg PO TID PRN 01/25/23 05/26/23 History Aspirin 81 mg PO DAILY #30 tab 01/27/23 05/26/23 Rx Albuterol Inhaler [Ventolin Hfa 1 - 2 puff INHALATION Q6H PRN 05/21/23 05/26/23 History Inhaler] Atorvastatin [Lipitor] 40 mg PO 1200 05/21/23 05/26/23 History Allergies Allergy/AdvReac Type Severity Reaction Status Date / Time No Known Allergies Allergy Verified 05/26/23 05:57 Physical Exam Vitals: Vital Signs Temp Pulse Resp BP Pulse Ox FiO2 05/27/23 07:00 77 24 97 05/27/23 06:45 67 24 95 05/27/23 06:30 64 17 93 L 10/17/23 06:15 71 21 98 05/27/23 06:00 60 18 97 05/27/23 05:45 63 17 98 05/27/23 05:30 70 19 98 05/27/23 05:15 69 24 96 05/27/23 05:00 65 17 97 05/27/23 04:45 63 21 96 05/27/23 04:30 64 16 96 05/27/23 04:15 60 15 97 05/27/23 04:00 64 14 97 05/27/23 03:45 60 15 97 05/27/23 03:30 61 16 96 05/27/23 03:15 65 16 96 05/27/23 03:00 62 17 133/75 97 05/27/23 02:45 64 11 L 133/75 96 05/27/23 02:30 64 16 97 05/27/23 02:15 66 13 96 05/27/23 02:00 63 11 L 96 05/27/23 01:45 64 13 96 05/27/23 01:30 65 12 96 05/27/23 01:15 64 12 97 05/27/23 01:00 68 21 96 05/27/23 00:45 65 12 96 05/27/23 00:30 64 13 96 05/27/23 00:15 67 14 133/75 97 05/27/23 00:00 66 13 97 05/26/23 23:45 64 14 97 05/26/23 23:30 67 13 97 05/26/23 23:15 68 16 97 05/26/23 23:06 65 12 96 05/26/23 23:00 66 9 L 97 05/26/23 22:45 62 10 L 96 05/26/23 22:30 65 14 95 05/26/23 22:15 66 11 L 95 05/26/23 22:00 66 14 95 05/26/23 21:52 65 05/26/23 21:45 62 11 L 100 05/26/23 21:39 62 05/26/23 21:30 62 10 L 96 05/26/23 21:15 55 L 15 98 05/26/23 21:00 56 L 14 98 05/26/23 20:45 80 10 L 96 05/26/23 20:30 80 10 L 99 05/26/23 20:15 91 9 L 98 05/26/23 20:00 82 11 L 126/78 97 05/26/23 19:45 80 9 L 97 05/26/23 19:30 80 15 98 05/26/23 19:15 80 19 96 05/26/23 19:00 80 10 L 155/92 96 05/26/23 18:45 80 15 94 L 05/26/23 18:30 80 10 L 93 L 05/26/23 18:15 80 10 L 93 L 05/26/23 18:00 80 14 94 L 05/26/23 17:45 80 13 97 05/26/23 17:30 80 13 98 05/26/23 17:28 98 05/26/23 17:15 80 19 148/86 99 05/26/23 17:00 80 15 127/83 100 50 05/26/23 16:40 14 50 05/26/23 16:30 80 19 117/72 99 05/26/23 16:21 80 05/26/23 16:04 80 05/26/23 16:00 98.2 F 80 18 121/77 100 50 05/26/23 15:30 80 18 121/75 100 05/26/23 15:00 80 18 120/75 98 50 05/26/23 14:45 96.8 F L 80 18 120/75 98 50 05/26/23 14:30 80 18 117/80 98 50 05/26/23 14:20 80 18 100 05/26/23 14:10 80 18 117/80 100 05/26/23 14:05 50 05/26/23 14:00 95.5 F L 80 18 99 50 05/26/23 13:50 80 18 144/100 05/26/23 13:40 80 12 05/26/23 13:30 12 05/26/23 13:20 80 12 05/26/23 13:17 100 05/26/23 13:15 95.4 F L 12 100 100 Intake and Output 05/26/23 05/27/23 05/27/23 22:59 06:59 14:59 Intake Total 1614.938 999.045 329 Output Total 1806 1284 155 Balance -191.062 -284.955 174 Intake: IV 992 952 329 ACETAMINOPHEN IV (For NPO 100 ) 740 mg In Empty Bag 1 bag @ 400 mls/hr IVPB Q6HR [facility] Rx#:[id number] Albumin Human 5% 250 ml 250 250 In Empty Bag 1 bag @ 250 mls/hr IVPB Q1HR PRN Rx#: [id number] Albumin Human 5% 500 ml @ 250 Per Protocol IVPB ONCE ONE Rx#:[id number] Calcium Gluconate in NaCl 100 2 gm In Saline 1 100ml. bag @ 100 mls/hr IVPB ONCE PRN Rx#:[id number] Cardiac Output (0.9 120 80 20 Sodium Chloride) Pressure Bag (0.9 Sodium 72 72 9 Chloride) Sodium Chloride 0.9% 1, 400 400 50 000 ml @ 50 mls/hr IV . Q20H [facility] Rx#:[id number] ceFAZolin 2 gm In Sodium 50 50 Chloride 0.9% 50 ml @ Per Protocol 100 mls/hr IVPB ONCE ONE Rx#:[id number] Intake, IV Titration 82.938 47.045 Amount Clevidipine Butyrate 25 67.501 44.133 mg In Empty Bag 1 bag @ 1 MG/HR 2 mls/hr IV .Q24H [facility] Rx#:[id number] Insulin Regular 100 unit 2.643 2.912 In Sodium Chloride 0.9% 100 ml @ Per Protocol IV .Q0M [facility] Rx#:[id number] propofoL 1,000 mg In 12.794 Empty Bag 1 bag @ Titrate IV .Q0M [facility] Rx#: [id number] Oral 540 Output: Chest Tube Drainage 306 304 80 Chest Tube Bilateral 270 100 0 Mediastinal Chest Tube Left Lateral 36 204 80 Chest Urine 1500 980 75 Other: Voiding Method Indwelling Catheter Indwelling Catheter Weight 53.5 kg ABP, PAP, CO, CI - Last 8 Hours Arterial Blood Pressure 145/48 Arterial Blood Pressure 128/51 Arterial Blood Pressure 119/48 Arterial Blood Pressure 114/47 Arterial Blood Pressure 116/43 Arterial Blood Pressure 127/47 Arterial Blood Pressure 117/42 Arterial Blood Pressure 130/48 Arterial Blood Pressure 131/51 Arterial Blood Pressure 123/49 Arterial Blood Pressure 124/50 Arterial Blood Pressure 120/50 Arterial Blood Pressure 133/53 Arterial Blood Pressure 119/49 Arterial Blood Pressure 108/47 Arterial Blood Pressure 135/53 Arterial Blood Pressure 106/46 Arterial Blood Pressure 113/47 Arterial Blood Pressure 120/50 Arterial Blood Pressure 111/48 Arterial Blood Pressure 105/46 Arterial Blood Pressure 111/48 Arterial Blood Pressure 107/47 Arterial Blood Pressure 147/64 Arterial Blood Pressure 106/45 Arterial Blood Pressure 109/49 Arterial Blood Pressure 156/66 Arterial Blood Pressure 125/55 Arterial Blood Pressure 131/55 Pulmonary Artery Pressure 25/4 Pulmonary Artery Pressure 24/6 Pulmonary Artery Pressure 22/7 Pulmonary Artery Pressure 23/10 Pulmonary Artery Pressure 23/5 Pulmonary Artery Pressure 19/3 Pulmonary Artery Pressure 31/13 Pulmonary Artery Pressure 30/9 Pulmonary Artery Pressure 29/10 Pulmonary Artery Pressure 30/8 Pulmonary Artery Pressure 31/11 Pulmonary Artery Pressure 32/10 Pulmonary Artery Pressure 30/10 Pulmonary Artery Pressure 28/8 Pulmonary Artery Pressure 31/9 Pulmonary Artery Pressure 25/5 Pulmonary Artery Pressure 27/6 Pulmonary Artery Pressure 24/6 Pulmonary Artery Pressure 29/8 Pulmonary Artery Pressure 26/6 Pulmonary Artery Pressure 26/7 Pulmonary Artery Pressure 27/7 Pulmonary Artery Pressure 26/7 Pulmonary Artery Pressure 32/12 Pulmonary Artery Pressure 28/9 Pulmonary Artery Pressure 29/9 Pulmonary Artery Pressure 29/9 Pulmonary Artery Pressure 27/8 Pulmonary Artery Pressure 30/9 Cardiac Output 3.9 Cardiac Output 4.5 Cardiac Output 3.9 Cardiac Index 2.4 Cardiac Index 2.8 Cardiac Index 2.4 Results 05/27/23 04:15 05/27/23 04:15 Cardiac Enzymes 05/26/23 05/27/23 Range/Units 13:24 04:15 AST 33 50 (17-59) U/L Coagulation 05/26/23 Range/Units 13:24 PT 14.0 H (10.0-12.5) sec APTT 56.7 H (22.0-30.0) sec CBC 05/26/23 05/26/23 05/26/23 Range/Units 13:24 16:00 18:30 WBC 8.6 16.6 H 18.3 H (3.8-10.6) k/uL RBC 3.28 L 3.89 L 4.05 L (4.30-5.90) m/uL Hgb 9.7 L 11.5 L 12.0 L (13.0-17.5) gm/dL Hct 29.3 L 35.2 L 36.6 L (39.0-53.0) % Plt Count 72 L 99 L 91 L (150-450) k/uL 05/27/23 Range/Units 04:15 WBC 11.4 H (3.8-10.6) k/uL RBC 3.39 L (4.30-5.90) m/uL Hgb 10.1 L (13.0-17.5) gm/dL Hct 30.5 L (39.0-53.0) % Plt Count 66 L (150-450) k/uL Comprehensive Metabolic Panel 05/26/23 05/26/23 05/27/23 Range/Units 13:24 18:30 04:15 Sodium 142 134 L (137-145) mmol/L Potassium 3.8 5.5 H 4.6 (3.5-5.1) mmol/L Chloride 114 H 107 (98-107) mmol/L Carbon Dioxide 22 20 L (22-30) mmol/L BUN 18 15 (9-20) mg/dL Creatinine 0.87 0.90 (0.66-1.25) mg/dL Glucose 62 L 110 H (74-99) mg/dL Calcium 6.7 L 7.5 L (8.4-10.2) mg/dL AST 33 50 (17-59) U/L ALT 8 11 (4-49) U/L Alkaline Phosphatase 35 L 39 (38-126) U/L Total Protein 3.7 L 4.6 L (6.3-8.2) g/dL Albumin 2.3 L 3.1 L (3.5-5.0) g/dL Current Medications Generic Name Dose Route Start Last Admin Trade Name Freq PRN Reason Stop Dose Admin Hydrocodone Bitart/Acetaminophen 1 each 05/27/23 01:14 Hydrocodone/Apap 5-325mg 1 Each Tab PO Q4HR PRN Moderate Pain (Scale 4 to 6) Hydrocodone Bitart/Acetaminophen 1 each 05/26/23 13:28 05/26/23 21:21 Hydrocodone/Apap 10-325mg 1 Each Tab PO 1 each Q4HR PRN Administration Severe Pain (Scale 7 to 10) Albuterol/Ipratropium 3 ml 05/26/23 13:28 Ipratropium-Albuterol 3 Ml Neb INHALATION RT-Q2H PRN Shortness Of Breath Or Wheezing Albuterol/Ipratropium 3 ml 05/26/23 20:00 05/26/23 21:38 Ipratropium-Albuterol 3 Ml Neb INHALATION 3 ml RT-QID [facility] Administration Aspirin 81 mg 05/27/23 09:00 Aspirin 81 Mg PO DAILY [facility] Atorvastatin Calcium 40 mg 05/27/23 09:00 Atorvastatin 40 Mg Tab PO DAILY [facility] Benzocaine/Menthol 1 each 05/26/23 13:28 Benzocaine/Menthol Lozeng 1 Each Lozenge MUCOUS MEM Q2H PRN Sore Throat Bisacodyl 10 mg 05/27/23 09:00 Bisacodyl 10 Mg Supp RECTAL DAILY PRN Constipation Budesonide 0.5 mg 05/27/23 08:00 Budesonide 0.5 Mg/2 Ml Nebu INHALATION RT-BID [facility] Clopidogrel Bisulfate 75 mg 05/27/23 09:00 Clopidogrel 75 Mg Tab PO DAILY [facility] Cyclobenzaprine HCl 10 mg 05/27/23 07:27 Cyclobenzaprine 10 Mg Tab PO TID PRN Muscle Spasm Dextrose/Water 25 ml 05/26/23 13:28 Dextrose 50% Syringe 50 Ml IVP PER PROTOCOL PRN Hypoglycemia Protocol Dextrose/Water 50 ml 05/26/23 13:28 Dextrose 50% Syringe 50 Ml IVP PER PROTOCOL PRN Hypoglycemia Protocol Fondaparinux 2.5 mg 05/27/23 09:00 Fondaparinux 2.5 Mg/0.5 Ml Syringe SQ DAILY [facility] Clevidipine 25 mg/ IV Solution 50 mls @ 2 mls/hr 05/26/23 13:28 05/27/23 0 5:47 IV 4 mg/hr .Q24H [facility] 8 mls/hr Administration Protocol 1 MG/HR Albumin Human 250 ml/ IV 250 mls @ 250 mls/hr 05/26/23 13:28 05/27/23 05:45 Solution IVPB 05/28/23 13:29 250 mls/hr Q1HR PRN Administration For Volume Protocol Amiodarone HCl 150 mg/ 103 mls @ 618 mls/hr 05/26/23 13:28 Dextrose/Water IV .Q10M PRN A.FIB/FLUTTER Protocol Amiodarone HCl 360 mg/ 207.2 mls @ 34.533 mls/hr 05/26/23 13:28 Dextrose/Water IV .Q6H PRN A.FIB/FLUTTER Protocol 1 MG/MIN Amiodarone HCl 450 mg/ 250 mls @ 16.667 mls/hr 05/26/23 13:28 Dextrose/Water IV .Q15H PRN A.FIB/FLUTTER Protocol 0.5 MG/MIN Cefazolin Sodium 1,000 mg/ 50 mls @ 100 mls/hr 05/26/23 16:00 05/26/23 23:56 Sodium Chloride IVPB 05/27/23 08:29 100 mls/hr Q8HR [facility] Administration Protocol Insulin Human Regular 100 unit 101 mls @ 0 mls/hr 05/26/23 14:00 05/27/23 06:11 / Sodium Chloride IV 1 unit/hr .Q0M [facility] 1.01 mls/hr Titration Protocol Per Protocol Sodium Chloride 1,000 mls @ 20 mls/hr 05/26/23 13:15 05/26/23 13:15 Saline 0.9% IV 50 mls/hr .Q24H [facility] Administration Calcium Gluconate/Sodium 100 mls @ 100 mls/hr 05/27/23 08:00 Chloride 1 gm/ IV Solution IVPB 05/27/23 08:59 ONCE ONE Losartan Potassium 25 mg 05/27/23 09:00 Losartan 25 Mg Tab PO DAILY [facility] Magnesium Hydroxide 2,400 mg 05/27/23 09:00 Magnesium Hydroxide 2,400 Mg/30 Ml Cup PO BID PRN Constipation Metoclopramide HCl 10 mg 05/26/23 13:28 05/27/23 06:44 Metoclopramide 5 Mg/Ml 2 Ml Vial IVP 10 mg Q4H PRN Administration Nausea And Vomiting Metoprolol Tartrate 12.5 mg 05/27/23 09:00 Metoprolol Tartrate 12.5 Mg Tab PO BID [facility] Miscellaneous Information 1 each 05/26/23 13:28 Magnesium Replacement Protocol 1 Each Misc MISCELLANE DAILY PRN Per Protocol Protocol Miscellaneous Information 1 each 05/26/23 13:28 Potassium Replacement Protocol 1 Each Misc MISCELLANE DAILY PRN Per Protocol Protocol Miscellaneous Information 1 each 05/26/23 13:28 Phosphorus Replacement Protoco 1 Each Misc MISCELLANE DAILY PRN Per Protocol Protocol Miscellaneous Information 1 each 05/26/23 14:54 Potassium Replacement Protocol 1 Each Misc MISCELLANE DAILY PRN Per Protocol Protocol Ondansetron HCl 4 mg 05/26/23 13:28 05/27/23 05:10 Ondansetron 4 Mg/2 Ml Vial IVP 4 mg Q6HR PRN Administration Nausea And Vomiting Pantoprazole Sodium 40 mg 05/27/23 09:00 Pantoprazole 40 Mg/10 Ml Vial IVP DAILY [facility] Pregabalin 200 mg 05/27/23 09:00 Pregabalin 100 Mg Cap PO TID [facility] Senna/Docusate Sodium 2 each 05/27/23 21:00 Sennosides-Docusate Sodium 1 Each Tab PO HS [facility] Sodium Chloride 10 ml 05/26/23 21:00 05/26/23 20:49 Sodium Chloride 0.9% Flush 10 Ml Syringe IV 10 ml BID [facility] Administration Intake and Output 05/26/23 05/27/23 05/27/23 22:59 06:59 14:59 Intake Total 1614.938 999.045 329 Output Total 1806 1284 155 Balance -191.062 -284.955 174 Intake: IV 992 952 329 ACETAMINOPHEN IV (For NPO 100 ) 740 mg In Empty Bag 1 bag @ 400 mls/hr IVPB Q6HR [facility] Rx#:[id number] Albumin Human 5% 250 ml 250 250 In Empty Bag 1 bag @ 250 mls/hr IVPB Q1HR PRN Rx#: [id number] Albumin Human 5% 500 ml @ 250 Per Protocol IVPB ONCE ONE Rx#:[id number] Calcium Gluconate in NaCl 100 2 gm In Saline 1 100ml. bag @ 100 mls/hr IVPB ONCE PRN Rx#:[id number] Cardiac Output (0.9 120 80 20 Sodium Chloride) Pressure Bag (0.9 Sodium 72 72 9 Chloride) Sodium Chloride 0.9% 1, 400 400 50 000 ml @ 50 mls/hr IV . Q20H [facility] Rx#:[id number] ceFAZolin 2 gm In Sodium 50 50 Chloride 0.9% 50 ml @ Per Protocol 100 mls/hr IVPB ONCE ONE Rx#:[id number] Intake, IV Titration 82.938 47.045 Amount Clevidipine Butyrate 25 67.501 44.133 mg In Empty Bag 1 bag @ 1 MG/HR 2 mls/hr IV .Q24H [facility] Rx#:[id number] Insulin Regular 100 unit 2.643 2.912 In Sodium Chloride 0.9% 100 ml @ Per Protocol IV .Q0M [facility] Rx#:[id number] propofoL 1,000 mg In 12.794 Empty Bag 1 bag @ Titrate IV .Q0M [facility] Rx#: [id number] Oral 540 Output: Chest Tube Drainage 306 304 80 Chest Tube Bilateral 270 100 0 Mediastinal Chest Tube Left Lateral 36 204 80 Chest Urine 1500 980 75 Other: Voiding Method Indwelling Catheter Indwelling Catheter Weight 53.5 kg 05/27/23 04:15 05/27/23 04:15
[2023-05-27] MEDS ORDERED: CALCIUM GLUCONATE IN NACL 1 GM in SALINE 1 100ML.BAG IVPB ONE (08:00)
--- NOTE | 2023-05-27 08:09 | XR ---
EXAMINATION TYPE: XR chest 1V portable DATE OF EXAM: 05/27/2023 5:21 AM COMPARISON: Chest radiographs from 05/26/2023 TECHNIQUE: XR chest 1V portable Portable AP radiograph of the chest. CLINICAL INDICATION:Male, 63 years old with history of Post Operative Cardiac Surgery; FINDINGS: Lungs/Pleura: Blunting of the right costophrenic angle. Left apical pleural thickening. No sizable pn eumothorax. Pulmonary vascularity: Unremarkable. Heart/mediastinum: Cardiomediastinal silhouette is stable. Atherosclerotic calcifications are seen i n the aorta. Left atrial appendage occlusion devices present. Musculoskeletal: No acute osseous pathology. Midline sternotomy wires are noted and stable. Other findings: None Lines/Tubes: Stable left chest tube. Stable right IJ [place]-Delta catheter. Stable mediastinal drain. Interval remova l of endotracheal tube. IMPRESSION: 1. Small right pleural effusion. 2. Interval removal of endotracheal tube. Remaining lines and tubes are stable.
[2023-05-27 08:25] LABS: Glucose,Whole Blood 145 mg/dL (70-110)
[2023-05-27] MEDS: PREGABALIN 100 MG CAP PO SCH ×3 (08:41→22:16)
[2023-05-27] MEDS: CLOPIDOGREL 75 MG TAB PO SCH (08:41)
[2023-05-27] MEDS: ATORVASTATIN 40 MG TAB PO SCH (08:41)
[2023-05-27] MEDS: METOPROLOL TARTRATE 12.5 MG TAB PO SCH ×2 (08:41→20:02)
[2023-05-27] MEDS: ASPIRIN 81 MG PO SCH (08:42)
[2023-05-27] MEDS: FONDAPARINUX 2.5 MG/0.5 ML SYRINGE SQ SCH (08:43)
[2023-05-27] MEDS: LOSARTAN 25 MG TAB PO SCH (08:43)
[2023-05-27] MEDS: IPRATROPIUM-ALBUTEROL 3 ML NEB INHALATION SCH ×4 (08:56→21:34)
[2023-05-27] MEDS: BUDESONIDE 0.5 MG/2 ML NEBU INHALATION SCH ×2 (08:56→21:34)
[2023-05-27] MEDS ORDERED: PANTOPRAZOLE 40 MG/10 ML VIAL IVP SCH (09:00)
[2023-05-27] MEDS ORDERED: ASPIRIN 325 MG TAB PO SCH (09:00)
[2023-05-27] MEDS ORDERED: bisacodyL 10 MG SUPP RECTAL PRN (09:00)
[2023-05-27 09:21] LABS: Glucose,Whole Blood 159 mg/dL (70-110)
[2023-05-27 10:19] LABS: Glucose,Whole Blood 138 mg/dL (70-110)
--- NOTE | 2023-05-27 10:27 | P.CONS ---
History of Present Illness - Reason for Consult Mitral valve replacement - History of Present Illness Patient is a pleasant 63-year-old male admitted for mitral valve replacement successfully underwent surgery patient is status post extubation patient has 2 mediastinal left chest tube. Patient is presently on insulin drip was started diabetic. Patient was on amiodarone briefly. Patient has an atrial appendage that was clipped as well. REVIEW OF SYSTEMS: CONSTITUTIONAL: No fever, no malaise, no fatigue. HEENT: No recent visual problems or hearing problems. Denied any sore throat. CARDIOVASCULAR: No chest pain, orthopnea, PND, no palpitations, no syncope. PULMONARY: No shortness of breath, no cough, no hemoptysis. GASTROINTESTINAL: No diarrhea, no nausea, no vomiting, no abdominal pain. NEUROLOGICAL: No headaches, no weakness, no numbness. HEMATOLOGICAL: Denies any bleeding or petechiae. GENITOURINARY: Denies any burning micturition, frequency, or urgency. MUSCULOSKELETAL/RHEUMATOLOGICAL: Denies any joint pain, swelling, or any muscle pain. ENDOCRINE: Denies any polyuria or polydipsia. The rest of the 14-point review of systems is negative. PHYSICAL EXAMINATION: GENERAL: The patient is alert and oriented x3, not in any acute distress. Thin built HEENT: Pupils are round and equally reacting to light. EOMI. No scleral icterus. No conjunctival pallor. Normocephalic, atraumatic. No pharyngeal erythema. No thyromegaly. CARDIOVASCULAR: S1 and S2 present. No murmurs, rubs, or gallops. PULMONARY: Chest is clear to auscultation, no wheezing or crackles. Chest tubes as mentioned above ABDOMEN: Soft, nontender, nondistended, normoactive bowel sounds. No palpable or ganomegaly. MUSCULOSKELETAL: No joint swelling or deformity. EXTREMITIES: No cyanosis, clubbing, or pedal edema. NEUROLOGICAL: Gross neurological examination did not reveal any focal deficits. SKIN: No rashes. Assessment and plan -Status post mitral valve repair, patient is extubated still has chest tubes as mentioned above management as per primary service -IV insulin drip: Can be discontinued as patient is not diabetic and doesn't have any elevated blood sugars -Nicotine use possible COPD without any acute exacerbation at this time -Hyperlipidemia -Hyponatremia: Secondary to hypovolemia -Leukocytosis secondary to surgery which is improving and patient is on perioperative antibiotics. 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 skin melanoma [place], urine urgency. seasonal allergies, osteoporosis History of Any Multi-Drug Resistant Organisms: None Reported Past Surgical History: Heart Catheterization, Orthopedic Surgery Additional Past Surgical History / Comment(s): 05/06/18 cardiac cath-normal coronaries but severe mitral regurgitation, JOSEPH, R index finger tendon repair d/t injury, bilateral knee arthroscopic surgery, bilateral hip arthroscopies, bilateral elbow arthroscopies, bilateral shoulder arthroscopies/fracture repair L clavicle, L/S spine surgery, facial reconstruction-left orbital fx. repair, cervical surgeries Past Anesthesia/Blood Transfusion Reactions: No Reported Reaction Smoking Status: Current every day smoker - Past Family History Mother Family Medical History: Liver Disease, Renal Disease Additional Family Medical History / Comment(s): Mother in her 70s from kidney and liver failure. Brother(s) Family Medical History: Cancer Additional Family Medical History / Comment(s): MELANOMA Medications and Allergies Home Medications Medication Instructions Recorded Confirmed Type Hydrocodone/Acetaminophen [[place] 1 tab PO TID 07/09/21 05/26/23 History 7.5-325] Pregabalin [Lyrica] 200 mg PO TID 07/09/21 05/26/23 History Metaxalone [Skelaxin] 800 mg PO TID PRN 01/25/23 05/26/23 History Aspirin 81 mg PO DAILY #30 tab 01/27/23 05/26/23 Rx Albuterol Inhaler [Ventolin Hfa 1 - 2 puff INHALATION Q6H PRN 05/21/23 05/26/23 History Inhaler] Atorvastatin [Lipitor] 40 mg PO 1200 05/21/23 05/26/23 History Allergies Allergy/AdvReac Type Severity Reaction Status Date / Time No Known Allergies Allergy Verified 05/26/23 05:57 Physical Exam Vitals: Vital Signs Temp Pulse Resp BP Pulse Ox FiO2 10/17/23 09:45 70 15 99 05/27/23 09:15 71 20 96 05/27/23 09:12 72 05/27/23 09:00 70 21 99 05/27/23 08:58 70 95 05/27/23 08:45 68 23 96 05/27/23 08:30 67 18 97 05/27/23 08:15 67 22 97 05/27/23 08:00 98.6 F 66 12 98 05/27/23 07:45 66 21 97 05/27/23 07:30 65 16 97 05/27/23 07:15 66 16 98 05/27/23 07:00 77 24 97 05/27/23 06:45 67 24 95 05/27/23 06:30 64 17 93 L 05/27/23 06:15 71 21 98 05/27/23 06:00 60 18 97 05/27/23 05:45 63 17 98 05/27/23 05:30 70 19 98 05/27/23 05:15 69 24 96 05/27/23 05:00 65 17 97 05/27/23 04:45 63 21 96 05/27/23 04:30 64 16 96 05/27/23 04:15 60 15 97 05/27/23 04:00 64 14 97 05/27/23 03:45 60 15 97 05/27/23 03:30 61 16 96 05/27/23 03:15 65 16 96 05/27/23 03:00 62 17 133/75 97 05/27/23 02:45 64 11 L 133/75 96 05/27/23 02:30 64 16 97 05/27/23 02:15 66 13 96 05/27/23 02:00 63 11 L 96 05/27/23 01:45 64 13 96 05/27/23 01:30 65 12 96 05/27/23 01:15 64 12 97 05/27/23 01:00 68 21 96 05/27/23 00:45 65 12 96 05/27/23 00:30 64 13 96 05/27/23 00:15 67 14 133/75 97 05/27/23 00:00 66 13 97 05/26/23 23:45 64 14 97 05/26/23 23:30 67 13 97 05/26/23 23:15 68 16 97 05/26/23 23:06 65 12 96 05/26/23 23:00 66 9 L 97 05/26/23 22:45 62 10 L 96 05/26/23 22:30 65 14 95 05/26/23 22:15 66 11 L 95 05/26/23 22:00 66 14 95 05/26/23 21:52 65 05/26/23 21:45 62 11 L 100 05/26/23 21:39 62 05/26/23 21:30 62 10 L 96 05/26/23 21:15 55 L 15 98 05/26/23 21:00 56 L 14 98 05/26/23 20:45 80 10 L 96 05/26/23 20:30 80 10 L 99 05/26/23 20:15 91 9 L 98 05/26/23 20:00 82 11 L 126/78 97 05/26/23 19:45 80 9 L 97 05/26/23 19:30 80 15 98 05/26/23 19:15 80 19 96 05/26/23 19:00 80 10 L 155/92 96 05/26/23 18:45 80 15 94 L 05/26/23 18:30 80 10 L 93 L 05/26/23 18:15 80 10 L 93 L 05/26/23 18:00 80 14 94 L 05/26/23 17:45 80 13 97 05/26/23 17:30 80 13 98 05/26/23 17:28 98 05/26/23 17:15 80 19 148/86 99 05/26/23 17:00 80 15 127/83 100 50 05/26/23 16:40 14 50 05/26/23 16:30 80 19 117/72 99 05/26/23 16:21 80 05/26/23 16:04 80 05/26/23 16:00 98.2 F 80 18 121/77 100 50 05/26/23 15:30 80 18 121/75 100 05/26/23 15:00 80 18 120/75 98 50 05/26/23 14:45 96.8 F L 80 18 120/75 98 50 05/26/23 14:30 80 18 117/80 98 50 05/26/23 14:20 80 18 100 05/26/23 14:10 80 18 117/80 100 05/26/23 14:05 50 10/16/23 14:00 95.5 F L 80 18 99 50 05/26/23 13:50 80 18 144/100 05/26/23 13:40 80 12 05/26/23 13:30 12 05/26/23 13:20 80 12 05/26/23 13:17 100 05/26/23 13:15 95.4 F L 12 100 100 Intake and Output 05/26/23 05/27/23 05/27/23 22:59 06:59 14:59 Intake Total 1614.938 999.045 605.816 Output Total 1806 1284 335 Balance -191.062 -284.955 270.816 Intake: IV 992 952 567 ACETAMINOPHEN IV (For NPO 100 ) 740 mg In Empty Bag 1 bag @ 400 mls/hr IVPB Q6HR JELANI Rx#:[id number] Albumin Human 5% 250 ml 250 250 In Empty Bag 1 bag @ 250 mls/hr IVPB Q1HR PRN Rx#: [id number] Albumin Human 5% 500 ml @ 250 Per Protocol IVPB ONCE ONE Rx#:[id number] Calcium Gluconate in NaCl 100 100 2 gm In Saline 1 100ml. bag @ 100 mls/hr IVPB ONCE PRN Rx#:[id number] Cardiac Output (0.9 120 80 40 Sodium Chloride) Pressure Bag (0.9 Sodium 72 72 27 Chloride) Sodium Chloride 0.9% 1, 400 400 150 000 ml @ 20 mls/hr IV . Q24H JELANI Rx#:[id number] ceFAZolin 2 gm In Sodium 50 50 Chloride 0.9% 50 ml @ Per Protocol 100 mls/hr IVPB ONCE ONE Rx#:[id number] Intake, IV Titration 82.938 47.045 38.816 Amount Clevidipine Butyrate 25 67.501 44.133 33.067 mg In Empty Bag 1 bag @ 1 MG/HR 2 mls/hr IV .Q24H JELANI Rx#:[id number] Insulin Regular 100 unit 2.643 2.912 5.749 In Sodium Chloride 0.9% 100 ml @ Per Protocol IV .Q0M JELANI Rx#:[id number] propofoL 1,000 mg In 12.794 Empty Bag 1 bag @ Titrate IV .Q0M JELANI Rx#: [id number] Oral 540 Output: Chest Tube Drainage 306 304 140 Chest Tube Bilateral 270 100 0 Mediastinal Chest Tube Left Lateral 36 204 140 Chest Urine 1500 980 195 Other: Voiding Method Indwelling Catheter Indwelling Catheter Indwelling Catheter Weight 53.5 kg ABP, PAP, CO, CI - Last 8 Hours Arterial Blood Pressure 130/48 Arterial Blood Pressure 136/56 Arterial Blood Pressure 141/51 Arterial Blood Pressure 127/48 Arterial Blood Pressure 145/54 Arterial Blood Pressure 130/50 Arterial Blood Pressure 125/57 Arterial Blood Pressure 122/50 Arterial Blood Pressure 128/49 Arterial Blood Pressure 145/48 Arterial Blood Pressure 128/51 Arterial Blood Pressure 119/48 Arterial Blood Pressure 114/47 Arterial Blood Pressure 116/43 Arterial Blood Pressure 127/47 Arterial Blood Pressure 117/42 Arterial Blood Pressure 130/48 Arterial Blood Pressure 131/51 Arterial Blood Pressure 123/49 Arterial Blood Pressure 124/50 Arterial Blood Pressure 120/50 Arterial Blood Pressure 133/53 Arterial Blood Pressure 119/49 Arterial Blood Pressure 108/47 Arterial Blood Pressure 135/53 Arterial Blood Pressure 106/46 Arterial Blood Pressure 113/47 Pulmonary Artery Pressure 23/4 Pulmonary Artery Pressure 23/5 Pulmonary Artery Pressure 25/6 Pulmonary Artery Pressure 25/8 Pulmonary Artery Pressure 24/7 Pulmonary Artery Pressure 21/3 Pulmonary Artery Pressure 25/4 Pulmonary Artery Pressure 24/6 Pulmonary Artery Pressure 22/7 Pulmonary Artery Pressure 23/10 Pulmonary Artery Pressure 23/5 Pulmonary Artery Pressure 19/3 Pulmonary Artery Pressure 31/13 Pulmonary Artery Pressure 30/9 Pulmonary Artery Pressure 29/10 Pulmonary Artery Pressure 30/8 Pulmonary Artery Pressure 31/11 Pulmonary Artery Pressure 32/10 Pulmonary Artery Pressure 30/10 Pulmonary Artery Pressure 28/8 Pulmonary Artery Pressure 31/9 Pulmonary Artery Pressure 25/5 Pulmonary Artery Pressure 27/6 Pulmonary Artery Pressure 24/6 Cardiac Output 4 Cardiac Output 4 Cardiac Output 3.9 Cardiac Output 3.9 Cardiac Output 4.5 Cardiac Output 3.9 Cardiac Index 2.5 Cardiac Index 2.5 Cardiac Index 2.4 Cardiac Index 2.4 Cardiac Index 2.8 Cardiac Index 2.4 Results CBC & Chem 7: 05/27/23 04:15 05/27/23 04:15 Labs: Abnormal Lab Results - Last 24 Hours (Table) 05/21/23 05/26/23 05/26/23 Range/Units 09:43 13:24 13:24 WBC (3.8-10.6) k/uL RBC 3.28 L (4.30-5.90) m/uL Hgb 9.7 L (13.0-17.5) gm/dL Hct 29.3 L (39.0-53.0) % Plt Count 72 L (150-450) k/uL Neutrophils # (1.3-7.7) k/uL Lymphocytes # (1.0-4.8) k/uL PT 14.0 H (10.0-12.5) sec INR 1.3 H (<1.2) APTT 56.7 H (22.0-30.0) sec ABG pH (7.35-7.45) ABG pCO2 (35-45) mmHg ABG pO2 (83-108) mmHg ABG Total CO2 (19-24) mmol/L ABG O2 Saturation (94-97) % Sodium (137-145) mmol/L Potassium (3.5-5.1) mmol/L Chloride (98-107) mmol/L Carbon Dioxide (22-30) mmol/L Glucose (74-99) mg/dL POC Glucose (mg/dL) (70-110) mg/dL Calcium (8.4-10.2) mg/dL Ionized Calcium Miah (4.5-5.3) mg/dL Magnesium (1.6-2.3) mg/dL Alkaline Phosphatase (38-126) U/L Total Protein (6.3-8.2) g/dL Albumin (3.5-5.0) g/dL Crossmatch See Detail 05/26/23 05/26/23 05/26/23 Range/Units 13:24 13:38 15:07 WBC (3.8-10.6) k/uL RBC (4.30-5.90) m/uL Hgb (13.0-17.5) gm/dL Hct (39.0-53.0) % Plt Count (150-450) k/uL Neutrophils # (1.3-7.7) k/uL Lymphocytes # (1.0-4.8) k/uL PT (10.0-12.5) sec INR (<1.2) APTT (22.0-30.0) sec ABG pH 7.25 L (7.35-7.45) ABG pCO2 55 H (35-45) mmHg ABG pO2 >400 H (83-108) mmHg ABG Total CO2 26 H (19-24) mmol/L ABG O2 Saturation 100.0 H (94-97) % Sodium (137-145) mmol/L Potassium (3.5-5.1) mmol/L Chloride 114 H (98-107) mmol/L Carbon Dioxide (22-30) mmol/L Glucose 62 L (74-99) mg/dL POC Glucose (mg/dL) 112 H (70-110) mg/dL Calcium 6.7 L (8.4-10.2) mg/dL Ionized Calcium Miah 4.2 L (4.5-5.3) mg/dL Magnesium 2.8 H (1.6-2.3) mg/dL Alkaline Phosphatase 35 L (38-126) U/L Total Protein 3.7 L (6.3-8.2) g/dL Albumin 2.3 L (3.5-5.0) g/dL Crossmatch 05/26/23 05/26/23 05/26/23 Range/Units 16:00 16:15 17:06 WBC 16.6 H (3.8-10.6) k/uL RBC 3.89 L (4.30-5.90) m/uL Hgb 11.5 L (13.0-17.5) gm/dL Hct 35.2 L (39.0-53.0) % Plt Count 99 L (150-450) k/uL Neutrophils # 14.0 H (1.3-7.7) k/uL Lymphocytes # (1.0-4.8) k/uL PT (10.0-12.5) sec INR (<1.2) APTT (22.0-30.0) sec ABG pH (7.35-7.45) ABG pCO2 (35-45) mmHg ABG pO2 (83-108) mmHg ABG Total CO2 (19-24) mmol/L ABG O2 Saturation (94-97) % Sodium (137-145) mmol/L Potassium (3.5-5.1) mmol/L Chloride (98-107) mmol/L Carbon Dioxide (22-30) mmol/L Glucose (74-99) mg/dL POC Glucose (mg/dL) 127 H 116 H (70-110) mg/dL Calcium (8.4-10.2) mg/dL Ionized Calcium Miah (4.5-5.3) mg/dL Magnesium (1.6-2.3) mg/dL Alkaline Phosphatase (38-126) U/L Total Protein (6.3-8.2) g/dL Albumin (3.5-5.0) g/dL Crossmatch 05/26/23 05/26/23 05/26/23 Range/Units 17:12 18:07 18:30 WBC 18.3 H (3.8-10.6) k/uL RBC 4.05 L (4.30-5.90) m/uL Hgb 12.0 L (13.0-17.5) gm/dL Hct 36.6 L (39.0-53.0) % Plt Count 91 L (150-450) k/uL Neutrophils # 16.9 H (1.3-7.7) k/uL Lymphocytes # 0.6 L (1.0-4.8) k/uL PT (10.0-12.5) sec INR (<1.2) APTT (22.0-30.0) sec ABG pH 7.26 L (7.35-7.45) ABG pCO2 49 H (35-45) mmHg ABG pO2 225 H (83-108) mmHg ABG Total CO2 (19-24) mmol/L ABG O2 Saturation 99.7 H (94-97) % Sodium (137-145) mmol/L Potassium (3.5-5.1) mmol/L Chloride (98-107) mmol/L Carbon Dioxide (22-30) mmol/L Glucose (74-99) mg/dL POC Glucose (mg/dL) 114 H (70-110) mg/dL Calcium (8.4-10.2) mg/dL Ionized Calcium Miah (4.5-5.3) mg/dL Magnesium (1.6-2.3) mg/dL Alkaline Phosphatase (38-126) U/L Total Protein (6.3-8.2) g/dL Albumin (3.5-5.0) g/dL Crossmatch 05/26/23 05/26/23 05/26/23 Range/Units 18:30 20:03 21:08 WBC (3.8-10.6) k/uL RBC (4.30-5.90) m/uL Hgb (13.0-17.5) gm/dL Hct (39.0-53.0) % Plt Count (150-450) k/uL Neutrophils # (1.3-7.7) k/uL Lymphocytes # (1.0-4.8) k/uL PT (10.0-12.5) sec INR (<1.2) APTT (22.0-30.0) sec ABG pH (7.35-7.45) ABG pCO2 (35-45) mmHg ABG pO2 (83-108) mmHg ABG Total CO2 (19-24) mmol/L ABG O2 Saturation (94-97) % Sodium (137-145) mmol/L Potassium 5.5 H (3.5-5.1) mmol/L Chloride (98-107) mmol/L Carbon Dioxide (22-30) mmol/L Glucose (74-99) mg/dL POC Glucose (mg/dL) 128 H 147 H (70-110) mg/dL Calcium (8.4-10.2) mg/dL Ionized Calcium Miah (4.5-5.3) mg/dL Magnesium (1.6-2.3) mg/dL Alkaline Phosphatase (38-126) U/L Total Protein (6.3-8.2) g/dL Albumin (3.5-5.0) g/dL Crossmatch 05/26/23 05/26/23 05/26/23 Range/Units 22:01 23:03 23:50 WBC (3.8-10.6) k/uL RBC (4.30-5.90) m/uL Hgb (13.0-17.5) gm/dL Hct (39.0-53.0) % Plt Count (150-450) k/uL Neutrophils # (1.3-7.7) k/uL Lymphocytes # (1.0-4.8) k/uL PT (10.0-12.5) sec INR (<1.2) APTT (22.0-30.0) sec ABG pH (7.35-7.45) ABG pCO2 (35-45) mmHg ABG pO2 (83-108) mmHg ABG Total CO2 (19-24) mmol/L ABG O2 Saturation (94-97) % Sodium (137-145) mmol/L Potassium (3.5-5.1) mmol/L Chloride (98-107) mmol/L Carbon Dioxide (22-30) mmol/L Glucose (74-99) mg/dL POC Glucose (mg/dL) 134 H 142 H 128 H (70-110) mg/dL Calcium (8.4-10.2) mg/dL Ionized Calcium Miah (4.5-5.3) mg/dL Magnesium (1.6-2.3) mg/dL Alkaline Phosphatase (38-126) U/L Total Protein (6.3-8.2) g/dL Albumin (3.5-5.0) g/dL Crossmatch 05/27/23 05/27/23 05/27/23 Range/Units 01:04 03:00 04:12 WBC (3.8-10.6) k/uL RBC (4.30-5.90) m/uL Hgb (13.0-17.5) gm/dL Hct (39.0-53.0) % Plt Count (150-450) k/uL Neutrophils # (1.3-7.7) k/uL Lymphocytes # (1.0-4.8) k/uL PT (10.0-12.5) sec INR (<1.2) APTT (22.0-30.0) sec ABG pH (7.35-7.45) ABG pCO2 (35-45) mmHg ABG pO2 (83-108) mmHg ABG Total CO2 (19-24) mmol/L ABG O2 Saturation (94-97) % Sodium (137-145) mmol/L Potassium (3.5-5.1) mmol/L Chloride (98-107) mmol/L Carbon Dioxide (22-30) mmol/L Glucose (74-99) mg/dL POC Glucose (mg/dL) 125 H 119 H 115 H (70-110) mg/dL Calcium (8.4-10.2) mg/dL Ionized Calcium Miah (4.5-5.3) mg/dL Magnesium (1.6-2.3) mg/dL Alkaline Phosphatase (38-126) U/L Total Protein (6.3-8.2) g/dL Albumin (3.5-5.0) g/dL Crossmatch 05/27/23 05/27/23 05/27/23 Range/Units 04:15 04:15 06:10 WBC 11.4 H (3.8-10.6) k/uL RBC 3.39 L (4.30-5.90) m/uL Hgb 10.1 L (13.0-17.5) gm/dL Hct 30.5 L (39.0-53.0) % Plt Count 66 L (150-450) k/uL Neutrophils # 9.3 H (1.3-7.7) k/uL Lymphocytes # (1.0-4.8) k/uL PT (10.0-12.5) sec INR (<1.2) APTT (22.0-30.0) sec ABG pH (7.35-7.45) ABG pCO2 (35-45) mmHg ABG pO2 (83-108) mmHg ABG Total CO2 (19-24) mmol/L ABG O2 Saturation (94-97) % Sodium 134 L (137-145) mmol/L Potassium (3.5-5.1) mmol/L Chloride (98-107) mmol/L Carbon Dioxide 20 L (22-30) mmol/L Glucose 110 H (74-99) mg/dL POC Glucose (mg/dL) 150 H (70-110) mg/dL Calcium 7.5 L (8.4-10.2) mg/dL Ionized Calcium Miah 4.4 L (4.5-5.3) mg/dL Magnesium (1.6-2.3) mg/dL Alkaline Phosphatase (38-126) U/L Total Protein 4.6 L (6.3-8.2) g/dL Albumin 3.1 L (3.5-5.0) g/dL Crossmatch 05/27/23 05/27/23 05/27/23 Range/Units 06:56 08:24 09:20 WBC (3.8-10.6) k/uL RBC (4.30-5.90) m/uL Hgb (13.0-17.5) gm/dL Hct (39.0-53.0) % Plt Count (150-450) k/uL Neutrophils # (1.3-7.7) k/uL Lymphocytes # (1.0-4.8) k/uL PT (10.0-12.5) sec INR (<1.2) APTT (22.0-30.0) sec ABG pH (7.35-7.45) ABG pCO2 (35-45) mmHg ABG pO2 (83-108) mmHg ABG Total CO2 (19-24) mmol/L ABG O2 Saturation (94-97) % Sodium (137-145) mmol/L Potassium (3.5-5.1) mmol/L Chloride (98-107) mmol/L Carbon Dioxide (22-30) mmol/L Glucose (74-99) mg/dL POC Glucose (mg/dL) 145 H 145 H 159 H (70-110) mg/dL Calcium (8.4-10.2) mg/dL Ionized Calcium Miah (4.5-5.3) mg/dL Magnesium (1.6-2.3) mg/dL Alkaline Phosphatase (38-126) U/L Total Protein (6.3-8.2) g/dL Albumin (3.5-5.0) g/dL Crossmatch 05/27/23 Range/Units 10:18 WBC (3.8-10.6) k/uL RBC (4.30-5.90) m/uL Hgb (13.0-17.5) gm/dL Hct (39.0-53.0) % Plt Count (150-450) k/uL Neutrophils # (1.3-7.7) k/uL Lymphocytes # (1.0-4.8) k/uL PT (10.0-12.5) sec INR (<1.2) APTT (22.0-30.0) sec ABG pH (7.35-7.45) ABG pCO2 (35-45) mmHg ABG pO2 (83-108) mmHg ABG Total CO2 (19-24) mmol/L ABG O2 Saturation (94-97) % Sodium (137-145) mmol/L Potassium (3.5-5.1) mmol/L Chloride (98-107) mmol/L Carbon Dioxide (22-30) mmol/L Glucose (74-99) mg/dL POC Glucose (mg/dL) 138 H (70-110) mg/dL Calcium (8.4-10.2) mg/dL Ionized Calcium Miah (4.5-5.3) mg/dL Magnesium (1.6-2.3) mg/dL Alkaline Phosphatase (38-126) U/L Total Protein (6.3-8.2) g/dL Albumin (3.5-5.0) g/dL Crossmatch
[2023-05-27] MEDS ORDERED: DEXTROSE 50% SYRINGE 50 ML IVP PRN ×2 (10:32)
[2023-05-27] MEDS: HYDROcodone/APAP 10-325MG 1 EACH TAB PO PRN ×5 (12:02→23:19)
[2023-05-27 12:20] LABS: Glucose,Whole Blood 139 mg/dL (70-110)
--- NOTE | 2023-05-27 12:28 | P.PN ---
Subjective Progress Note Date: 05/27/23 This is a 63-year-old male patient with a known history of 50 years of smoking, hypertension, COPD, hyperlipidemia. He was also found to have severe mitral regurgitation and was brought in today electively for mitral valve repair. He did undergo mitral valve repair and exclusion of left atrial appendage with a 35 mm Atriclip. He is seen in the postoperative period in the intensive care unit. He is currently intubated on mechanical ventilator with assist control rate of 12, tidal volume 350, FiO2 100% and a PEEP of 5. Blood gases revealed a pO2 greater than 400, pCO2 55 and a pH of 7.25. He has mediastinal chest tube x2, left pleural chest tube. He is atrial paced at a rate of 80. Cardiac output 4.8. Cardiac index 3.0. PA pressures 35/15. CVP of 13. Right IJ [place]-Delta catheter in place. He is currently on clevidipine at 5 mg per hour. Normal saline at 50 MLS per hour. Chest x-ray reveals no acute pulmonary process. Tubes and lines an appropriate place. He remains on bronchodilators. He did receive albumin. Propofol is currently being weaned. White count 8.6. Hemoglobin 9.7. Platelets 72,000. INR 1.3. Sodium 142. Potassium 3.8. Bicarb 22. BUN 18. Creatinine 0.87. Glucose 70. AST 33. ALT 8. Albumin 2.3. Magnesium 2.8. Calcium 6.7. The patient is seen today 05/27/2023 in follow-up in the intensive care unit. He is currently sitting up in a chair at the bedside. Awake and alert in no acute distress. He is maintaining good O2 saturations in the 90s on 2 L/m per nasal cannula. He is in normal sinus rhythm. Cardiac output 4.0. Cardiac index 2.5. CVP of 9. He is requiring Cleviprex at 3 mg/h. Insulin drip at 2 units per hour. Normal saline at 50 MLS per hour. Chest x-ray shows a small right pleural effusion. Chest tubes remain in place. White count 11.4. Hemoglobin 10.1. Platelets 66,000. Sodium 134. Potassium 4.6. Bicarb 20. BUN 15. Creatinine 0.9. Glucose 139. AST 50. ALT 11. He remains on DuoNeb inhalations. Working well with the incentive spirometer. Anticoagulated with Arixtra.` Objective - Vital Signs Vital signs: Vital Signs Temp 98.6 F 05/27/23 08:00 Pulse 64 05/27/23 12:07 Resp 15 05/27/23 11:00 BP 133/75 05/27/23 03:00 Pulse Ox 97 05/27/23 11:00 FiO2 50 05/26/23 17:00 Intake & Output 05/26/23 05/27/23 05/27/23 18:59 06:59 18:59 Intake Total 389.434 7205.935 832.816 Output Total 1600 2390 445 Balance -638.619 -520.065 387.816 Weight 53.5 kg Intake: IV 896 1248 794 ACETAMINOPHEN IV (For NPO 100 ) 740 mg In Empty Bag 1 bag @ 400 mls/hr IVPB Q6HR JELANI Rx#:[id number] Albumin Human 5% 250 ml 250 250 In Empty Bag 1 bag @ 250 mls/hr IVPB Q1HR PRN Rx#: [id number] Albumin Human 5% 500 ml @ 250 Per Protocol IVPB ONCE ONE Rx#:[id number] Calcium Gluconate in NaCl 100 100 2 gm In Saline 1 100ml. bag @ 100 mls/hr IVPB ONCE PRN Rx#:[id number] Cardiac Output (0.9 90 140 40 Sodium Chloride) Pressure Bag (0.9 Sodium 54 108 54 Chloride) Sodium Chloride 0.9% 1, 300 600 300 000 ml @ 20 mls/hr IV . Q24H JELANI Rx#:[id number] ceFAZolin 1,000 mg In 50 Sodium Chloride 0.9% 50 ml @ 100 mls/hr IVPB Q8HR JELANI Rx#:[id number] ceFAZolin 2 gm In Sodium 50 50 Chloride 0.9% 50 ml @ Per Protocol 100 mls/hr IVPB ONCE ONE Rx#:[id number] Intake, IV Titration 65.381 81.935 38.816 Amount Clevidipine Butyrate 25 51.333 77.634 33.067 mg In Empty Bag 1 bag @ 1 MG/HR 2 mls/hr IV .Q24H JELANI Rx#:[id number] Insulin Regular 100 unit 1.254 4.301 5.749 In Sodium Chloride 0.9% 100 ml @ Per Protocol IV .Q0M JELANI Rx#:[id number] propofoL 1,000 mg In 12.794 Empty Bag 1 bag @ Titrate IV .Q0M JELANI Rx#: [id number] Oral 540 Output: Chest Tube Drainage 325 405 170 Chest Tube Bilateral 300 180 10 Mediastinal Chest Tube Left Lateral 25 225 160 Chest Urine 925 1985 275 Estimated Blood Loss 350 Other: Voiding Method Indwelling Catheter Indwelling Catheter Indwelling Catheter ABP, PAP, CO, CI - Last Documented Arterial Blood Pressure 107/57 Pulmonary Artery Pressure 23/4 Cardiac Output 4 Cardiac Index 2.5 - Exam GENERAL EXAM: Alert, pleasant 63-year-old male, up in a chair, on 2 L, fairly comfortable in no apparent distress. HEAD: Normocephalic. EYES: Normal reaction of pupils, equal size. NOSE: Clear with pink turbinates. THROAT: No erythema or exudates. NECK: No masses, no JVD. CHEST: Sternum stable. Heart Hugger in place. Chest tubes in place. LUNGS: Equal air entry with few scattered rhonchi. CVS: S1 and S2 normal with no audible murmur, regular rhythm. ABDOMEN: No hepatosplenomegaly, normal bowel sounds, no guarding or rigidity. SPINE: No scoliosis or deformity SKIN: No rashes CENTRAL NERVOUS SYSTEM: No focal deficits, tone is normal in all 4 extremities. EXTREMITIES: There is no peripheral edema. No clubbing, no cyanosis. Peripheral pulses are intact. - Labs CBC & Chem 7: 05/27/23 04:15 05/27/23 04:15 Labs: Abnormal Lab Results - Last 24 Hours (Table) 05/21/23 05/26/23 05/26/23 Range/Units 09:43 13:24 13:24 WBC (3.8-10.6) k/uL RBC 3.28 L (4.30-5.90) m/uL Hgb 9.7 L (13.0-17.5) gm/dL Hct 29.3 L (39.0-53.0) % Plt Count 72 L (150-450) k/uL Neutrophils # (1.3-7.7) k/uL Lymphocytes # (1.0-4.8) k/uL PT 14.0 H (10.0-12.5) sec INR 1.3 H (<1.2) APTT 56.7 H (22.0-30.0) sec ABG pH (7.35-7.45) ABG pCO2 (35-45) mmHg ABG pO2 (83-108) mmHg ABG Total CO2 (19-24) mmol/L ABG O2 Saturation (94-97) % Sodium (137-145) mmol/L Potassium (3.5-5.1) mmol/L Chloride (98-107) mmol/L Carbon Dioxide (22-30) mmol/L Glucose (74-99) mg/dL POC Glucose (mg/dL) (70-110) mg/dL Calcium (8.4-10.2) mg/dL Ionized Calcium Miah (4.5-5.3) mg/dL Magnesium (1.6-2.3) mg/dL Alkaline Phosphatase (38-126) U/L Total Protein (6.3-8.2) g/dL Albumin (3.5-5.0) g/dL Crossmatch See Detail 05/26/23 05/26/23 05/26/23 Range/Units 13:24 13:38 15:07 WBC (3.8-10.6) k/uL RBC (4.30-5.90) m/uL Hgb (13.0-17.5) gm/dL Hct (39.0-53.0) % Plt Count (150-450) k/uL Neutrophils # (1.3-7.7) k/uL Lymphocytes # (1.0-4.8) k/uL PT (10.0-12.5) sec INR (<1.2) APTT (22.0-30.0) sec ABG pH 7.25 L (7.35-7.45) ABG pCO2 55 H (35-45) mmHg ABG pO2 >400 H (83-108) mmHg ABG Total CO2 26 H (19-24) mmol/L ABG O2 Saturation 100.0 H (94-97) % Sodium (137-145) mmol/L Potassium (3.5-5.1) mmol/L Chloride 114 H (98-107) mmol/L Carbon Dioxide (22-30) mmol/L Glucose 62 L (74-99) mg/dL POC Glucose (mg/dL) 112 H (70-110) mg/dL Calcium 6.7 L (8.4-10.2) mg/dL Ionized Calcium Miah 4.2 L (4.5-5.3) mg/dL Magnesium 2.8 H (1.6-2.3) mg/dL Alkaline Phosphatase 35 L (38-126) U/L Total Protein 3.7 L (6.3-8.2) g/dL Albumin 2.3 L (3.5-5.0) g/dL Crossmatch 05/26/23 05/26/23 05/26/23 Range/Units 16:00 16:15 17:06 WBC 16.6 H (3.8-10.6) k/uL RBC 3.89 L (4.30-5.90) m/uL Hgb 11.5 L (13.0-17.5) gm/dL Hct 35.2 L (39.0-53.0) % Plt Count 99 L (150-450) k/uL Neutrophils # 14.0 H (1.3-7.7) k/uL Lymphocytes # (1.0-4.8) k/uL PT (10.0-12.5) sec INR (<1.2) APTT (22.0-30.0) sec ABG pH (7.35-7.45) ABG pCO2 (35-45) mmHg ABG pO2 (83-108) mmHg ABG Total CO2 (19-24) mmol/L ABG O2 Saturation (94-97) % Sodium (137-145) mmol/L Potassium (3.5-5.1) mmol/L Chloride (98-107) mmol/L Carbon Dioxide (22-30) mmol/L Glucose (74-99) mg/dL POC Glucose (mg/dL) 127 H 116 H (70-110) mg/dL Calcium (8.4-10.2) mg/dL Ionized Calcium Miah (4.5-5.3) mg/dL Magnesium (1.6-2.3) mg/dL Alkaline Phosphatase (38-126) U/L Total Protein (6.3-8.2) g/dL Albumin (3.5-5.0) g/dL Crossmatch 05/26/23 05/26/23 05/26/23 Range/Units 17:12 18:07 18:30 WBC 18.3 H (3.8-10.6) k/uL RBC 4.05 L (4.30-5.90) m/uL Hgb 12.0 L (13.0-17.5) gm/dL Hct 36.6 L (39.0-53.0) % Plt Count 91 L (150-450) k/uL Neutrophils # 16.9 H (1.3-7.7) k/uL Lymphocytes # 0.6 L (1.0-4.8) k/uL PT (10.0-12.5) sec INR (<1.2) APTT (22.0-30.0) sec ABG pH 7.26 L (7.35-7.45) ABG pCO2 49 H (35-45) mmHg ABG pO2 225 H (83-108) mmHg ABG Total CO2 (19-24) mmol/L ABG O2 Saturation 99.7 H (94-97) % Sodium (137-145) mmol/L Potassium (3.5-5.1) mmol/L Chloride (98-107) mmol/L Carbon Dioxide (22-30) mmol/L Glucose (74-99) mg/dL POC Glucose (mg/dL) 114 H (70-110) mg/dL Calcium (8.4-10.2) mg/dL Ionized Calcium Miah (4.5-5.3) mg/dL Magnesium (1.6-2.3) mg/dL Alkaline Phosphatase (38-126) U/L Total Protein (6.3-8.2) g/dL Albumin (3.5-5.0) g/dL Crossmatch 05/26/23 05/26/23 05/26/23 Range/Units 18:30 20:03 21:08 WBC (3.8-10.6) k/uL RBC (4.30-5.90) m/uL Hgb (13.0-17.5) gm/dL Hct (39.0-53.0) % Plt Count (150-450) k/uL Neutrophils # (1.3-7.7) k/uL Lymphocytes # (1.0-4.8) k/uL PT (10.0-12.5) sec INR (<1.2) APTT (22.0-30.0) sec ABG pH (7.35-7.45) ABG pCO2 (35-45) mmHg ABG pO2 (83-108) mmHg ABG Total CO2 (19-24) mmol/L ABG O2 Saturation (94-97) % Sodium (137-145) mmol/L Potassium 5.5 H (3.5-5.1) mmol/L Chloride (98-107) mmol/L Carbon Dioxide (22-30) mmol/L Glucose (74-99) mg/dL POC Glucose (mg/dL) 128 H 147 H (70-110) mg/dL Calcium (8.4-10.2) mg/dL Ionized Calcium Miah (4.5-5.3) mg/dL Magnesium (1.6-2.3) mg/dL Alkaline Phosphatase (38-126) U/L Total Protein (6.3-8.2) g/dL Albumin (3.5-5.0) g/dL Crossmatch 05/26/23 05/26/23 05/26/23 Range/Units 22:01 23:03 23:50 WBC (3.8-10.6) k/uL RBC (4.30-5.90) m/uL Hgb (13.0-17.5) gm/dL Hct (39.0-53.0) % Plt Count (150-450) k/uL Neutrophils # (1.3-7.7) k/uL Lymphocytes # (1.0-4.8) k/uL PT (10.0-12.5) sec INR (<1.2) APTT (22.0-30.0) sec ABG pH (7.35-7.45) ABG pCO2 (35-45) mmHg ABG pO2 (83-108) mmHg ABG Total CO2 (19-24) mmol/L ABG O2 Saturation (94-97) % Sodium (137-145) mmol/L Potassium (3.5-5.1) mmol/L Chloride (98-107) mmol/L Carbon Dioxide (22-30) mmol/L Glucose (74-99) mg/dL POC Glucose (mg/dL) 134 H 142 H 128 H (70-110) mg/dL Calcium (8.4-10.2) mg/dL Ionized Calcium Miah (4.5-5.3) mg/dL Magnesium (1.6-2.3) mg/dL Alkaline Phosphatase (38-126) U/L Total Protein (6.3-8.2) g/dL Albumin (3.5-5.0) g/dL Crossmatch 05/27/23 05/27/23 05/27/23 Range/Units 01:04 03:00 04:12 WBC (3.8-10.6) k/uL RBC (4.30-5.90) m/uL Hgb (13.0-17.5) gm/dL Hct (39.0-53.0) % Plt Count (150-450) k/uL Neutrophils # (1.3-7.7) k/uL Lymphocytes # (1.0-4.8) k/uL PT (10.0-12.5) sec INR (<1.2) APTT (22.0-30.0) sec ABG pH (7.35-7.45) ABG pCO2 (35-45) mmHg ABG pO2 (83-108) mmHg ABG Total CO2 (19-24) mmol/L ABG O2 Saturation (94-97) % Sodium (137-145) mmol/L Potassium (3.5-5.1) mmol/L Chloride (98-107) mmol/L Carbon Dioxide (22-30) mmol/L Glucose (74-99) mg/dL POC Glucose (mg/dL) 125 H 119 H 115 H (70-110) mg/dL Calcium (8.4-10.2) mg/dL Ionized Calcium Miah (4.5-5.3) mg/dL Magnesium (1.6-2.3) mg/dL Alkaline Phosphatase (38-126) U/L Total Protein (6.3-8.2) g/dL Albumin (3.5-5.0) g/dL Crossmatch 05/27/23 05/27/23 05/27/23 Range/Units 04:15 04:15 06:10 WBC 11.4 H (3.8-10.6) k/uL RBC 3.39 L (4.30-5.90) m/uL Hgb 10.1 L (13.0-17.5) gm/dL Hct 30.5 L (39.0-53.0) % Plt Count 66 L (150-450) k/uL Neutrophils # 9.3 H (1.3-7.7) k/uL Lymphocytes # (1.0-4.8) k/uL PT (10.0-12.5) sec INR (<1.2) APTT (22.0-30.0) sec ABG pH (7.35-7.45) ABG pCO2 (35-45) mmHg ABG pO2 (83-108) mmHg ABG Total CO2 (19-24) mmol/L ABG O2 Saturation (94-97) % Sodium 134 L (137-145) mmol/L Potassium (3.5-5.1) mmol/L Chloride (98-107) mmol/L Carbon Dioxide 20 L (22-30) mmol/L Glucose 110 H (74-99) mg/dL POC Glucose (mg/dL) 150 H (70-110) mg/dL Calcium 7.5 L (8.4-10.2) mg/dL Ionized Calcium Miah 4.4 L (4.5-5.3) mg/dL Magnesium (1.6-2.3) mg/dL Alkaline Phosphatase (38-126) U/L Total Protein 4.6 L (6.3-8.2) g/dL Albumin 3.1 L (3.5-5.0) g/dL Crossmatch 05/27/23 05/27/23 05/27/23 Range/Units 06:56 08:24 09:20 WBC (3.8-10.6) k/uL RBC (4.30-5.90) m/uL Hgb (13.0-17.5) gm/dL Hct (39.0-53.0) % Plt Count (150-450) k/uL Neutrophils # (1.3-7.7) k/uL Lymphocytes # (1.0-4.8) k/uL PT (10.0-12.5) sec INR (<1.2) APTT (22.0-30.0) sec ABG pH (7.35-7.45) ABG pCO2 (35-45) mmHg ABG pO2 (83-108) mmHg ABG Total CO2 (19-24) mmol/L ABG O2 Saturation (94-97) % Sodium (137-145) mmol/L Potassium (3.5-5.1) mmol/L Chloride (98-107) mmol/L Carbon Dioxide (22-30) mmol/L Glucose (74-99) mg/dL POC Glucose (mg/dL) 145 H 145 H 159 H (70-110) mg/dL Calcium (8.4-10.2) mg/dL Ionized Calcium Miah (4.5-5.3) mg/dL Magnesium (1.6-2.3) mg/dL Alkaline Phosphatase (38-126) U/L Total Protein (6.3-8.2) g/dL Albumin (3.5-5.0) g/dL Crossmatch 05/27/23 05/27/23 Range/Units 10:18 12:19 WBC (3.8-10.6) k/uL RBC (4.30-5.90) m/uL Hgb (13.0-17.5) gm/dL Hct (39.0-53.0) % Plt Count (150-450) k/uL Neutrophils # (1.3-7.7) k/uL Lymphocytes # (1.0-4.8) k/uL PT (10.0-12.5) sec INR (<1.2) APTT (22.0-30.0) sec ABG pH (7.35-7.45) ABG pCO2 (35-45) mmHg ABG pO2 (83-108) mmHg ABG Total CO2 (19-24) mmol/L ABG O2 Saturation (94-97) % Sodium (137-145) mmol/L Potassium (3.5-5.1) mmol/L Chloride (98-107) mmol/L Carbon Dioxide (22-30) mmol/L Glucose (74-99) mg/dL POC Glucose (mg/dL) 138 H 139 H (70-110) mg/dL Calcium (8.4-10.2) mg/dL Ionized Calcium Miah (4.5-5.3) mg/dL Magnesium (1.6-2.3) mg/dL Alkaline Phosphatase (38-126) U/L Total Protein (6.3-8.2) g/dL Albumin (3.5-5.0) g/dL Crossmatch Assessment and Plan Assessment: History of severe mitral regurgitation, status post mitral valve repair. P ostoperative day #1 Chronic obstructive pulmonary disease FEV1 value 75% of predicted Chronic and ongoing tobacco dependence of 50 years Hypertension, history of Hyperlipidemia Multiple orthopedic surgeries. Plan: The patient was seen and evaluated Chest x-ray, labs and medications reviewed Currently stable and on 2 L nasal cannula Working well with the incentive spirometer Titrate down the FiO2 as tolerated Increase his activity as tolerated We will continue to follow I have personally seen and examined the patient, performed the documentation and the assessment and plan as written. Number of minutes spent on the visit: 10.
[2023-05-27] MEDS: INSULIN ASPART (NovoLOG) 100 UNIT/ML VIAL SQ SCH ×3 (13:24→21:31)
[2023-05-27] MEDS: SODIUM CHLORIDE 0.9% 1,000 ML IV SCH (13:24)
[2023-05-27 16:57] LABS: Glucose,Whole Blood 138 mg/dL (70-110)
[2023-05-27] MEDS ORDERED: hydrALAZINE HCL 20 MG/ML 1 ML VIAL IVP PRN (20:31)
[2023-05-27] MEDS ORDERED: METOPROLOL TARTRATE 12.5 MG TAB PO STA (20:33)
[2023-05-27 20:55] LABS: Glucose,Whole Blood 169 mg/dL (70-110)
[2023-05-27] MEDS: SENNOSIDES-DOCUSATE SODIUM 1 EACH TAB PO SCH (21:32)
[2023-05-28 04:12] LABS: Basophils % (A) 0 %; Eosinophils # (A) 0.1 k/uL (0-0.7); Eosinophils % (A) 1 %; HCT 28.9 % (39.0-53.0); HGB 9.6 gm/dL (13.0-17.5); Lymphocytes # (A) 1.5 k/uL (1.0-4.8); Lymphocytes % (A) 11 %; MCH 29.9 pg (25.0-35.0); MCHC 33.4 g/dL (31.0-37.0); MCV 89.7 fL (80.0-100.0); Mean Platelet Volume 11.1; Monocytes # (A) 0.7 k/uL (0-1.0); Monocytes % (A) 5 %; Neutrophils # (A) 11.4 k/uL (1.3-7.7); Neutrophils % (A) 83 %; Platelet Count 60 k/uL (150-450); RBC 3.22 m/uL (4.30-5.90); RDW 14.5 % (11.5-15.5); WBC 13.8 k/uL (3.8-10.6)
[2023-05-28 04:17] LABS: Ionized Calcium 4.8 mg/dL (4.5-5.3)
[2023-05-28 04:30] LABS: ALT 11 U/L (4-49); AST 40 U/L (17-59); African American GFR (CKD) >90 (>60 ml/min/1.73 sqM); Albumin 2.9 g/dL (3.5-5.0); Alkaline Phosphatase 45 U/L (38-126); Anion Gap 4 mmol/L; Blood Urea Nitrogen 18 mg/dL (9-20); Calcium 8.1 mg/dL (8.4-10.2); Carbon Dioxide 23 mmol/L (22-30); Chloride 104 mmol/L (98-107); Glucose 128 mg/dL (74-99); Non-African American GFR(CKD) 82 (>60 ml/min/1.73 sqM); Potassium 4.7 mmol/L (3.5-5.1); Sodium 131 mmol/L (137-145); Total Bilirubin 0.9 mg/dL (0.2-1.3); Total Protein 4.8 g/dL (6.3-8.2)
[2023-05-28] MEDS: HYDROcodone/APAP 10-325MG 1 EACH TAB PO PRN ×4 (05:58→19:35)
[2023-05-28 06:46] LABS: Glucose,Whole Blood 136 mg/dL (70-110)
[2023-05-28] MEDS: LOSARTAN 25 MG TAB PO SCH (06:49)
[2023-05-28] MEDS: INSULIN ASPART (NovoLOG) 100 UNIT/ML VIAL SQ SCH ×4 (06:50→21:10)
[2023-05-28] MEDS: PANTOPRAZOLE 40 MG TABLET PO SCH (07:18)
--- NOTE | 2023-05-28 07:55 | P.PN ---
Subjective Progress Note Date: 05/28/23 PROGRESS NOTE The patient is a 63-year-old male who is followed by Dr. Estrada, underwent mitral valve repair yesterday for severe mitral regurgitation. He is extubated, sitting up in the chair, complaining of mild dyspnea and soreness. He is in sinus mechanism. Hemodynamically he is stable otherwise. He has a long- standing history of mitral valve prolapse and severe mitral regurgitation documented in 2018. He presented again with symptoms few months ago and underwent cardiac catheterization that showed no evidence of obstructive coronary artery disease. He underwent mitral valve repair with posterior annuloplasty with size 34 mm ring. He also had closure of his left atrial appendage. The patient has a known history of chronic tobacco use. He has no history of diabetes or documented hypertension. May 28: The patient is feeling well this morning, sitting up in chair. Continues to be in sinus mechanism. Has mild soreness in the chest. Denies any dizziness or palpitation, no nausea or vomiting. Hemodynamically stable. He has no evidence of atrial fibrillation or ventricular ectopic activity. He is using his incentive spirometry. Medications: Lipitor 40 mg daily, aspirin once a day, metoprolol 12.5 mg twice a day PHYSICAL EXAMINATION: Blood pressure 142/60 heart rate 70 LUNGS: Mild decrease in the breath sounds at the base HEART: Regular rate and rhythm, S1, S2. No S3. Systolic ejection murmur at the base, plus rub ABDOMEN: Soft, nontender, no organomegaly EXTREMETIES: No edema LAB: Hemoglobin 9.6, BUN 18, creatinine 0.99, potassium 4.7 IMPRESSION: 1. Status post mitral valve repair 2. Hyperlipidemia 3. History of chronic tobacco use 4. Chronic obstructive lung disease PLAN: 1. Continue medical therapy 2. Increase physical activity 3. Follow blood pressure and if elevated start DARREL inhibitor 4. Depending on his progress further recommendations will be made Objective - Vital Signs Vital signs: Vital Signs Temp 98.1 F 05/28/23 04:00 Pulse 76 05/28/23 07:00 Resp 19 05/28/23 07:00 BP 164/84 05/28/23 07:00 Pulse Ox 94 L 05/28/23 07:00 FiO2 2 05/28/23 00:00 Intake & Output 05/27/23 05/28/23 05/28/23 18:59 06:59 18:59 Intake Total 951.816 312 26 Output Total 685 1395 355 Balance 266.816 -1083 -329 Weight 53.5 kg 55.4 kg Intake: IV 913 312 26 Albumin Human 5% 250 ml 250 In Empty Bag 1 bag @ 250 mls/hr IVPB Q1HR PRN Rx#: [id number] Calcium Gluconate in NaCl 100 2 gm In Saline 1 100ml. bag @ 100 mls/hr IVPB ONCE PRN Rx#:[id number] Cardiac Output (0.9 40 Sodium Chloride) Pressure Bag (0.9 Sodium 93 72 6 Chloride) Sodium Chloride 0.9% 1, 380 240 20 000 ml @ 20 mls/hr IV . Q24H JELANI Rx#:[id number] ceFAZolin 1,000 mg In 50 Sodium Chloride 0.9% 50 ml @ 100 mls/hr IVPB Q8HR JELANI Rx#:[id number] Intake, IV Titration 38.816 Amount Clevidipine Butyrate 25 33.067 mg In Empty Bag 1 bag @ 1 MG/HR 2 mls/hr IV .Q24H JELANI Rx#:[id number] Insulin Regular 100 unit 5.749 In Sodium Chloride 0.9% 100 ml @ Per Protocol IV .Q0M JELANI Rx#:[id number] Output: Chest Tube Drainage 210 320 300 Chest Tube Bilateral 20 210 200 Mediastinal Chest Tube Left Lateral 190 110 100 Chest Urine 475 1075 55 Other: Voiding Method Indwelling Catheter Indwelling Catheter ABP, PAP, CO, CI - Last Documented Arterial Blood Pressure 142/60 Pulmonary Artery Pressure 23/4 Cardiac Output 4 Cardiac Index 2.5 - Labs CBC & Chem 7: 05/28/23 03:54 05/28/23 03:54 Labs: Abnormal Lab Results - Last 24 Hours (Table) 05/27/23 05/27/23 05/27/23 Range/Units 08:24 09:20 10:18 WBC (3.8-10.6) k/uL RBC (4.30-5.90) m/uL Hgb (13.0-17.5) gm/dL Hct (39.0-53.0) % Plt Count (150-450) k/uL Neutrophils # (1.3-7.7) k/uL Sodium (137-145) mmol/L Glucose (74-99) mg/dL POC Glucose (mg/dL) 145 H 159 H 138 H (70-110) mg/dL Calcium (8.4-10.2) mg/dL Total Protein (6.3-8.2) g/dL Albumin (3.5-5.0) g/dL 05/27/23 05/27/23 05/27/23 Range/Units 12:19 16:56 20:54 WBC (3.8-10.6) k/uL RBC (4.30-5.90) m/uL Hgb (13.0-17.5) gm/dL Hct (39.0-53.0) % Plt Count (150-450) k/uL Neutrophils # (1.3-7.7) k/uL Sodium (137-145) mmol/L Glucose (74-99) mg/dL POC Glucose (mg/dL) 139 H 138 H 169 H (70-110) mg/dL Calcium (8.4-10.2) mg/dL Total Protein (6.3-8.2) g/dL Albumin (3.5-5.0) g/dL 05/28/23 05/28/23 05/28/23 Range/Units 03:54 03:54 06:44 WBC 13.8 H (3.8-10.6) k/uL RBC 3.22 L (4.30-5.90) m/uL Hgb 9.6 L (13.0-17.5) gm/dL Hct 28.9 L (39.0-53.0) % Plt Count 60 L (150-450) k/uL Neutrophils # 11.4 H (1.3-7.7) k/uL Sodium 131 L (137-145) mmol/L Glucose 128 H (74-99) mg/dL POC Glucose (mg/dL) 136 H (70-110) mg/dL Calcium 8.1 L (8.4-10.2) mg/dL Total Protein 4.8 L (6.3-8.2) g/dL Albumin 2.9 L (3.5-5.0) g/dL Microbiology - Last 24 Hours (Table) 05/26/23 17:10 Gram Stain - Preliminary Sputum
--- NOTE | 2023-05-28 08:18 | XR ---
EXAMINATION TYPE: XR chest 1V portable DATE OF EXAM: 05/28/2023 Comparison: 05/27/2023 Clinical History: 63-year-old male Post Operative Cardiac Surgery Findings: Right IJ sheath remains in place with interval removal of [place]-Delta catheter. Mediastinal drain in pl [place]. Retained epicardial pacer leads. Left-sided chest tube slightly repositioned. A trace left apica l pneumothorax is suspected. Interstitial prominence persists. Ongoing small bilateral pleural effusi ons with patchy bibasilar opacities, slightly increased in the interval. Median sternotomy wires are post surgical changes. Impression: 1. Left chest tube in place, slightly repositioned in the interval. Suspect a trace left apical pneum othorax. 2. COPD with interstitial pulmonary edema. Small bilateral pleural effusions with adjacent atelectasi s and/or consolidation. Both similar to slightly worsened in the interval.
[2023-05-28] MEDS: ATORVASTATIN 40 MG TAB PO SCH (08:49)
[2023-05-28] MEDS: FONDAPARINUX 2.5 MG/0.5 ML SYRINGE SQ SCH (08:49)
[2023-05-28] MEDS: ASPIRIN 81 MG PO SCH (08:49)
[2023-05-28] MEDS: PREGABALIN 100 MG CAP PO SCH ×3 (08:49→21:09)
[2023-05-28] MEDS: METOPROLOL TARTRATE 12.5 MG TAB PO SCH (08:49)
[2023-05-28] MEDS: CLOPIDOGREL 75 MG TAB PO SCH (08:49)
[2023-05-28] MEDS: BUDESONIDE 0.5 MG/2 ML NEBU INHALATION SCH ×2 (09:18→20:30)
[2023-05-28] MEDS: IPRATROPIUM-ALBUTEROL 3 ML NEB INHALATION SCH ×4 (09:18→20:30)
[2023-05-28] MEDS: SODIUM CHLORIDE 0.9% 1,000 ML IV SCH (09:59)
[2023-05-28 10:47] LABS: Glucose,Whole Blood 184 mg/dL (70-110)
--- NOTE | 2023-05-28 12:37 | P.PN ---
Subjective Progress Note Date: 05/28/23 This is a 63-year-old male patient with a known history of 50 years of smoking, hypertension, COPD, hyperlipidemia. He was also found to have severe mitral regurgitation and was brought in today electively for mitral valve repair. He did undergo mitral valve repair and exclusion of left atrial appendage with a 35 mm Atriclip. He is seen in the postoperative period in the intensive care unit. He is currently intubated on mechanical ventilator with assist control rate of 12, tidal volume 350, FiO2 100% and a PEEP of 5. Blood gases revealed a pO2 greater than 400, pCO2 55 and a pH of 7.25. He has mediastinal chest tube x2, left pleural chest tube. He is atrial paced at a rate of 80. Cardiac output 4.8. Cardiac index 3.0. PA pressures 35/15. CVP of 13. Right IJ Ludowici-Delta catheter in place. He is currently on clevidipine at 5 mg per hour. Normal saline at 50 MLS per hour. Chest x-ray reveals no acute pulmonary process. Tubes and lines an appropriate place. He remains on bronchodilators. He did receive albumin. Propofol is currently being weaned. White count 8.6. Hemoglobin 9.7. Platelets 72,000. INR 1.3. Sodium 142. Potassium 3.8. Bicarb 22. BUN 18. Creatinine 0.87. Glucose 70. AST 33. ALT 8. Albumin 2.3. Magnesium 2.8. Calcium 6.7. The patient is seen today 05/27/2023 in follow-up in the intensive care unit. He is currently sitting up in a chair at the bedside. Awake and alert in no acute distress. He is maintaining good O2 saturations in the 90s on 2 L/m per nasal cannula. He is in normal sinus rhythm. Cardiac output 4.0. Cardiac index 2.5. CVP of 9. He is requiring Cleviprex at 3 mg/h. Insulin drip at 2 units per hour. Normal saline at 50 MLS per hour. Chest x-ray shows a small right pleural effusion. Chest tubes remain in place. White count 11.4. Hemoglobin 10.1. Platelets 66,000. Sodium 134. Potassium 4.6. Bicarb 20. BUN 15. Creatinine 0.9. Glucose 139. AST 50. ALT 11. He remains on DuoNeb inhalations. Working well with the incentive spirometer. Anticoagulated with Arixtra.` The patient is seen today 05/28/2023 in follow-up in the intensive care unit. He sitting up in chair at the bedside. Awake and alert in no acute distress. Continue good O2 saturations in the 90s on 2 L/m per nasal cannula. He has normal saline at KVO. Chest x-ray reveals left chest tube in place. Suspected trace left apical pneumothorax. There is evidence of COPD with interstitial pulmonary edema and small bilateral pleural effusions. He is encouraged to increase the use of his incentive spirometer and cough and deep breathing exercises. White count 13.8. Hemoglobin 9.6. Platelets 60,000. Sodium 131. Potassium 4.7. Bicarb 23. BUN 18. Creatinine 0.99. Glucose 128. Ionized calcium 4.8. Albumin 2.9. Magnesium 2.0. Remains on Arixtra. Continue bronchodilators. Objective - Vital Signs Vital signs: Vital Signs Temp 98.4 F 05/28/23 12:00 Pulse 84 05/28/23 12:00 Resp 27 H 05/28/23 12:00 BP 138/81 05/28/23 12:00 Pulse Ox 94 L 05/28/23 12:00 FiO2 2 05/28/23 00:00 Intake & Output 05/27/23 05/28/23 05/28/23 18:59 06:59 18:59 Intake Total 951.816 312 130 Output Total 685 1395 885 Balance 266.816 -1083 -755 Weight 53.5 kg 55.4 kg Intake: IV 913 312 130 Albumin Human 5% 250 ml 250 In Empty Bag 1 bag @ 250 mls/hr IVPB Q1HR PRN Rx#: [id number] Calcium Gluconate in NaCl 100 2 gm In Saline 1 100ml. bag @ 100 mls/hr IVPB ONCE PRN Rx#:[id number] Cardiac Output (0.9 40 Sodium Chloride) Pressure Bag (0.9 Sodium 93 72 30 Chloride) Sodium Chloride 0.9% 1, 380 240 100 000 ml @ 20 mls/hr IV . Q24H JELANI Rx#:[id number] ceFAZolin 1,000 mg In 50 Sodium Chloride 0.9% 50 ml @ 100 mls/hr IVPB Q8HR JELANI Rx#:[id number] Intake, IV Titration 38.816 Amount Clevidipine Butyrate 25 33.067 mg In Empty Bag 1 bag @ 1 MG/HR 2 mls/hr IV .Q24H JELANI Rx#:[id number] Insulin Regular 100 unit 5.749 In Sodium Chloride 0.9% 100 ml @ Per Protocol IV .Q0M JELANI Rx#:[id number] Output: Chest Tube Drainage 210 320 410 Chest Tube Bilateral 20 210 290 Mediastinal Chest Tube Left Lateral 190 110 120 Chest Urine 475 1075 475 Other: Voiding Method Indwelling Catheter Indwelling Catheter Indwelling Catheter ABP, PAP, CO, CI - Last Documented Arterial Blood Pressure 102/55 Pulmonary Artery Pressure 23/4 Cardiac Output 4 Cardiac Index 2.5 - Exam GENERAL EXAM: Alert, oriented 63-year-old male, on 2 L nasal cannula, comfortable in no apparent distress. HEAD: Normocephalic. EYES: Normal reaction of pupils, equal size. NOSE: Clear with pink turbinates. THROAT: No erythema or exudates. NECK: No masses, no JVD. CHEST: Sternum stable. Heart Hugger in place. Chest tubes in place. LUNGS: Equal air entry with few scattered rhonchi. CVS: S1 and S2 normal with no audible murmur, regular rhythm. ABDOMEN: No hepatosplenomegaly, normal bowel sounds, no guarding or rigidity. SPINE: No scoliosis or deformity SKIN: No rashes CENTRAL NERVOUS SYSTEM: No focal deficits, tone is normal in all 4 extremities. EXTREMITIES: There is no peripheral edema. No clubbing, no cyanosis. Peripheral pulses are intact. - Labs CBC & Chem 7: 05/28/23 03:54 05/28/23 03:54 Labs: Abnormal Lab Results - Last 24 Hours (Table) 05/27/23 05/27/23 05/28/23 Range/Units 16:56 20:54 03:54 WBC 13.8 H (3.8-10.6) k/uL RBC 3.22 L (4.30-5.90) m/uL Hgb 9.6 L (13.0-17.5) gm/dL Hct 28.9 L (39.0-53.0) % Plt Count 60 L (150-450) k/uL Neutrophils # 11.4 H (1.3-7.7) k/uL Sodium (137-145) mmol/L Glucose (74-99) mg/dL POC Glucose (mg/dL) 138 H 169 H (70-110) mg/dL Calcium (8.4-10.2) mg/dL Total Protein (6.3-8.2) g/dL Albumin (3.5-5.0) g/dL 05/28/23 05/28/23 05/28/23 Range/Units 03:54 06:44 10:46 WBC (3.8-10.6) k/uL RBC (4.30-5.90) m/uL Hgb (13.0-17.5) gm/dL Hct (39.0-53.0) % Plt Count (150-450) k/uL Neutrophils # (1.3-7.7) k/uL Sodium 131 L (137-145) mmol/L Glucose 128 H (74-99) mg/dL POC Glucose (mg/dL) 136 H 184 H (70-110) mg/dL Calcium 8.1 L (8.4-10.2) mg/dL Total Protein 4.8 L (6.3-8.2) g/dL Albumin 2.9 L (3.5-5.0) g/dL Microbiology - Last 24 Hours (Table) 05/26/23 17:10 Gram Stain - Final Sputum Sputum Culture - Final Assessment and Plan Assessment: History of severe mitral regurgitation, status post mitral valve repair. Postoperative day #2 Chronic obstructive pulmonary disease FEV1 value 75% of predicted Chronic and ongoing tobacco dependence of 50 years Hypertension, history of Hyperlipidemia Multiple orthopedic surgeries Plan: The patient was seen and evaluated Chest x-ray, labs and medications reviewed Encouraged the increased use of the incentive spirometer Titrate down the FiO2 as tolerated We will continue to follow I have personally seen and examined the patient, performed the documentation and the assessment and plan as written. Number of minutes spent on the visit: 10.
--- NOTE | 2023-05-28 14:29 | P.PN ---
Subjective Progress Note Date: 05/28/23 Principal diagnosis: Severe mitral valve regurgitation with prolapse of P2. Past medical history significant for hypertension, hyperlipidemia, transient ischemic attack, COPD with preoperative FEV1 66% of predicted value, osteoarthritis, and chronic ongoing tobacco dependence. POD #2 complex mitral valve repair with construction of P2 pairs of laura-chords to P2, closure of P1P2 as well as P2P3 clefts, and posterior annuloplasty using a 34 mm AnnuloFlex, exclusion of the left atrial appendage using a 35 mm Atriclip, intraoperative transesophageal echocardiogram and epi-aortic scanning. Postoperative acute blood loss anemia, expected given hemodilution and cardiopulmonary bypass. The patient was seen and examined in follow-up today 05/28/2023 at his bedside in the intensive care unit. He is currently sitting up to the bedside chair, is awake, alert, oriented 3 and is in no acute apparent distress. He denies any complaints of shortness of breath, although he is complaining of pain to his left chest tube insertion site. He is currently rating his pain 5-6 out of 10 on the pain scale. Oxygen saturations are 94% on 2 L nasal cannula and he is achieving 1000 mL on his incentive spirometry with encouragement. Bedside telemetry showing normal sinus rhythm heart rate 76 BPM. He remains hemodynamically stable and is currently on no inotropic pressor support. Right IJ cordis remains in place with continuous CVP monitoring, current CVP pressure 9 mmHg. Mediastinal and left pleural chest tubes remain in place to low continuous wall suction -20 cm H2O. No air leak is present. Draining thin serosanguineous drainage. Mediastinal chest tubes drained 90 mL output in the last 8 hours and 250 mL output in the last 24 hours. Left pleural chest tube drained 100 mL output in the last 8 hours and 240 mL output in the last 24 hours. Bedside telemetry showing normal sinus rhythm heart rate 76 BPM. Laboratory and chest x-ray results reviewed. Objective - Vital Signs Vital signs: Vital Signs Temp 98.4 F 05/28/23 12:00 Pulse 79 05/28/23 13:00 Resp 19 05/28/23 13:00 BP 134/77 05/28/23 13:00 Pulse Ox 95 05/28/23 13:00 FiO2 2 05/28/23 00:00 Intake & Output 10/17/23 10/18/23 10/18/23 18:59 06:59 18:59 Intake Total 951.816 312 130 Output Total 685 1395 985 Balance 327.815 -2613 -855 Weight 53.5 kg 55.4 kg Intake: IV 913 312 130 Albumin Human 5% 250 ml 250 In Empty Bag 1 bag @ 250 mls/hr IVPB Q1HR PRN Rx#: [id number] Calcium Gluconate in NaCl 100 2 gm In Saline 1 100ml. bag @ 100 mls/hr IVPB ONCE PRN Rx#:[id number] Cardiac Output (0.9 40 Sodium Chloride) Pressure Bag (0.9 Sodium 93 72 30 Chloride) Sodium Chloride 0.9% 1, 380 240 100 000 ml @ 20 mls/hr IV . Q24H JELANI Rx#:[id number] ceFAZolin 1,000 mg In 50 Sodium Chloride 0.9% 50 ml @ 100 mls/hr IVPB Q8HR JELANI Rx#:[id number] Intake, IV Titration 38.816 Amount Clevidipine Butyrate 25 33.067 mg In Empty Bag 1 bag @ 1 MG/HR 2 mls/hr IV .Q24H JELANI Rx#:[id number] Insulin Regular 100 unit 5.749 In Sodium Chloride 0.9% 100 ml @ Per Protocol IV .Q0M JELANI Rx#:[id number] Output: Chest Tube Drainage 210 320 410 Chest Tube Bilateral 20 210 290 Mediastinal Chest Tube Left Lateral 190 110 120 Chest Urine 475 1075 575 Other: Voiding Method Indwelling Catheter Indwelling Catheter Indwelling Catheter ABP, PAP, CO, CI - Last Documented Arterial Blood Pressure 102/55 Pulmonary Artery Pressure 23/4 Cardiac Output 4 Cardiac Index 2.5 - Exam CONSTITUTIONAL: Sitting up to the bedside chair in the intensive care unit, appears comfortable, cooperative, no apparent acute distress. HEENT: Neck is supple, no JVD, no lymphadenopathy. Right IJ Cordis in place and functioning. RESPIRATORY: Lungs sounds essentially clear throughout, diminished to his bilateral bases. Respirations are symmetrical and nonlabored. Currently on 2 L nasal cannula with oxygen saturations 94%. Able to achieve 1000 mL on their incentive spirometry. Strong cough. CARDIOVASCULAR: Regular rhythm and rate. S1 and S2 present, negative for S3, gallop or murmur. Sternum is stable. Palpable peripheral pulses bilaterally, no edema to his bilateral lower extremities. No calf pain or tenderness noted. Heart hugger in place with patient demonstrating appropriate use. Knee-high KIRTI hose and sequential compression devices in place to his bilateral lower extremities. GASTROINTESTINAL: Abdomen soft, nontender, nondistended. Hypoactive bowel sounds present 4 quadrants. Tolerating diet. Passing flatus. No guarding or rigidity. GENITOURINARY: Larry present draining clear, yellow urine. Urine output 825 mL in the last 8 hours. INTEGUMENTARY: Skin is warm and dry with no evidence of clubbing or cyanosis. Midline sternal incision clean dry and well approximated, covered with dry intact dressing. NEUROLOGIC: Cranial nerves II through XII intact. No focal deficits. MUSKULOSKELETAL: Able to move all extremities, strength equal bilaterally. PSYCHIATRIC: Alert and oriented to person place and time, appropriate affect, intact judgment and insight. INVASIVE LINES AND TUBES: Mediastinal/left pleural chest tubes present and connected to low continuous wall suction, no air leaks present. Mediastinal tube with 90 mL of thin serosanguineous drainage overnight, 250 mL output in the last 24 hours. Left pleural chest tube with 100 mL of thin serosanguineous drainage overnight, 240 mL output in the last 24 hours. Atrial and ventricular epicardial pacemaker wires present, connected to generator, VVI backup rate 50 bpm. Right internal jugular Cordis, right radial arterial line present. Last biopsy whichCVP 9 mmHg. - Allied health notes Allied health notes reviewed: nursing - Labs CBC & Chem 7: 05/28/23 03:54 05/28/23 03:54 Labs: Abnormal Lab Results - Last 24 Hours (Table) 05/27/23 05/27/23 05/28/23 Range/Units 16:56 20:54 03:54 WBC 13.8 H (3.8-10.6) k/uL RBC 3.22 L (4.30-5.90) m/uL Hgb 9.6 L (13.0-17.5) gm/dL Hct 28.9 L (39.0-53.0) % Plt Count 60 L (150-450) k/uL Neutrophils # 11.4 H (1.3-7.7) k/uL Sodium (137-145) mmol/L Glucose (74-99) mg/dL POC Glucose (mg/dL) 138 H 169 H (70-110) mg/dL Calcium (8.4-10.2) mg/dL Total Protein (6.3-8.2) g/dL Albumin (3.5-5.0) g/dL 05/28/23 05/28/23 05/28/23 Range/Units 03:54 06:44 10:46 WBC (3.8-10.6) k/uL RBC (4.30-5.90) m/uL Hgb (13.0-17.5) gm/dL Hct (39.0-53.0) % Plt Count (150-450) k/uL Neutrophils # (1.3-7.7) k/uL Sodium 131 L (137-145) mmol/L Glucose 128 H (74-99) mg/dL POC Glucose (mg/dL) 136 H 184 H (70-110) mg/dL Calcium 8.1 L (8.4-10.2) mg/dL Total Protein 4.8 L (6.3-8.2) g/dL Albumin 2.9 L (3.5-5.0) g/dL Microbiology - Last 24 Hours (Table) 05/26/23 17:10 Gram Stain - Final Sputum Sputum Culture - Final - Imaging and Cardiology Chest x-ray: report reviewed, image reviewed Assessment and Plan Assessment: Severe mitral valve regurgitation with prolapse of P2, status post complex mitral valve repair using a 34 mm AnnuloFlex Hypertension Hyperlipidemia History of transient ischemic attack COPD with a preoperative FEV1 66% of predicted value Osteoarthritis Chronic ongoing tobacco dependence Postoperative acute blood loss anemia, expected given hemodilution and cardiopulmonary bypass Plan: Continue to maximize medical therapy with low-dose aspirin, statin, Plavix. Increase metoprolol tartrate to 25 mg by mouth twice a day with hold parameters. Increase Cozaar to 50 mg by mouth daily with hold parameters. Continue Arixtra 2.5 mg subcu daily. Platelet count 60 today. Wean O2 as tolerated. Encourage incentive spirometry 10 times every hour while awake. Bronchodilators per pulmonology. Continue Pulmicort 0.5 mg inhalation twice a day. We will monitor daily labs and chest x-rays. Electrolyte replacement per protocol. Increase activity, ambulate as tolerated. PT/OT/cardiac rehab following. GI/DVT prophylaxis. Pain control with current medication regimen. Continue home dose of Lyrica and Skelaxin restarted. No Toradol at this time due to his platelets. Insulin management per internal medicine. Patient should remain on insulin drip for 48 hours for tight blood sugar control, then SQ insulin per protocol. Preoperative hemoglobin A1c was 5.2%. Remove right IJ Cordis. Remove mediastinal chest tubes and keep left pleural chest tube in place to low continuous wall suction -20 cm H2O. Keep atrial and ventricular epicardial pacemaker wires in place, pacemaker wires grounded. Remove Larry catheter. Continue to record strict inaccurate I's and O's area to me bladder scan every 6 hours and when necessary residual. More recommendations to follow based on patient's clinical course. Time with Patient: Greater than 30
[2023-05-28 16:00] LABS: Glucose,Whole Blood 127 mg/dL (70-110)
[2023-05-28 20:12] LABS: Glucose,Whole Blood 173 mg/dL (70-110)
[2023-05-28] MEDS: METOPROLOL TARTRATE 25 MG TAB PO SCH (21:09)
[2023-05-28] MEDS: SENNOSIDES-DOCUSATE SODIUM 1 EACH TAB PO SCH (21:09)
--- NOTE | 2023-05-29 06:02 | P.PN ---
Subjective Progress Note Date: 05/28/23 - Reason for Consult Mitral valve replacement - History of Present Illness Patient is a pleasant 63-year-old male admitted for mitral valve replacement s uccessfully underwent surgery patient is status post extubation patient has 2 mediastinal left chest tube. Patient is presently on insulin drip was started diabetic. Patient was on amiodarone briefly. Patient has an atrial appendage that was clipped as well. 05/28/2023 Patient is seen and evaluated and follow-up continues in the ICU with chest tubes noted and is currently maintained on 2 L via nasal cannula. Patient reports her oxygen outpatient. Patient likely to have mediastinal tube and Cordis cath removed. Patient has been up and walking today and per nursing staff did well. Recommend Larry catheter removal and continued physical therapy. Hemoglobin is stable above 9 and other labs reviewed within normal limits. Sodium is 130 and will follow-up with repeat labs. Patient reports is not a diabetic and is continued on Accu-Cheks with sliding scale. Insulin drip has been discontinued. Review of systems: Constitutional: No reports of fatigue, fever, or chills Cardiovascular: No reports of chest pain or palpitations, reports chest wall pain by the chest tubes Respiratory: No reports of shortness of breath or cough GI: No reports of nausea, vomiting, or diarrhea : No reports of dysuria or retention Neurovascular: reports of generalized weakness All medications have been reviewed PHYSICAL EXAMINATION: GENERAL: The patient is alert and oriented x3, not in any acute distress. Thin built HEENT: Pupils are round and equally reacting to light. EOMI. No scleral icterus. No conjunctival pallor. Normocephalic, atraumatic. No pharyngeal erythema. No thyromegaly. CARDIOVASCULAR: S1 and S2 present. No murmurs, rubs, or gallops. PULMONARY: Chest is clear to auscultation, no wheezing or crackles. Chest tubes as mentioned above ABDOMEN: Soft, nontender, nondistended, normoactive bowel sounds. No palpable organomegaly. MUSCULOSKELETAL: No joint swelling or deformity. EXTREMITIES: No cyanosis, clubbing, or pedal edema. NEUROLOGICAL: Gross neurological examination did not reveal any focal deficits. SKIN: No rashes. Assessment: -Status post mitral valve repair -Continued ongoing Nicotine use -COPD without any acute exacerbation at this time -Hyperlipidemia -Hyponatremia: Secondary to hypovolemia -Leukocytosis secondary to surgery, no signs of active infection at this time -DVT prophylaxis: As per primary service -GI prophylaxis -Full code Plan: Patient is continued in ICU with multiple medical consultations following Plans for Cordis cath and mediastinal tube the chest to be removed today Patient has been up and walking and encouraged frequent walking as tolerated and physical therapy Encouraged incentive spirometer at least 10 times every hour while awake Continue with Accu-Cheks before meals and at bedtime and if needed and sliding scale for tight glycemic control to promote healing. Patient is not a diabetic Wean FiO2 as tolerated Follow-up labs in the a.m. ordered along with chest x-ray Chest x-ray reviewed showing bilateral pleural effusions and atelectasis We will continue to follow with cardiothoracic surgery during hospitalization. Thank you kindly for this consultation The impression and plan of care has been dictated by Katey Shaw, Nurse Practitioner as directed. Dr. Javad MD I have performed a history and examination and MDM of this patient, discussed the same with the dictator, and agree with the dictator's assessment and plan as written ,documented as a scribe. Based on total visit time, I have performed more than 50% of the visit. Objective - Vital Signs Vital signs: Vital Signs Temp 98.1 F 05/28/23 08:00 Pulse 82 05/28/23 09:20 Resp 20 05/28/23 09:00 BP 142/78 05/28/23 09:00 Pulse Ox 95 05/28/23 09:20 FiO2 2 05/28/23 00:00 Intake & Output 05/27/23 05/28/23 05/28/23 18:59 06:59 18:59 Intake Total 951.816 312 78 Output Total 685 1395 450 Balance 266.816 -1083 -372 Weight 53.5 kg 55.4 kg Intake: IV 913 312 78 Albumin Human 5% 250 ml 250 In Empty Bag 1 bag @ 250 mls/hr IVPB Q1HR PRN Rx#: [id number] Calcium Gluconate in NaCl 100 2 gm In Saline 1 100ml. bag @ 100 mls/hr IVPB ONCE PRN Rx#:[id number] Cardiac Output (0.9 40 Sodium Chloride) Pressure Bag (0.9 Sodium 93 72 18 Chloride) Sodium Chloride 0.9% 1, 380 240 60 000 ml @ 20 mls/hr IV . Q24H JELANI Rx#:[id number] ceFAZolin 1,000 mg In 50 Sodium Chloride 0.9% 50 ml @ 100 mls/hr IVPB Q8HR JELNAI Rx#:[id number] Intake, IV Titration 38.816 Amount Clevidipine Butyrate 25 33.067 mg In Empty Bag 1 bag @ 1 MG/HR 2 mls/hr IV .Q24H JELANI Rx#:[id number] Insulin Regular 100 unit 5.749 In Sodium Chloride 0.9% 100 ml @ Per Protocol IV .Q0M JELANI Rx#:[id number] Output: Chest Tube Drainage 210 320 300 Chest Tube Bilateral 20 210 200 Mediastinal Chest Tube Left Lateral 190 110 100 Chest Urine 475 1075 150 Other: Voiding Method Indwelling Catheter Indwelling Catheter Indwelling Catheter ABP, PAP, CO, CI - Last Documented Arterial Blood Pressure 147/66 Pulmonary Artery Pressure 23/4 Cardiac Output 4 Cardiac Index 2.5 - Labs CBC & Chem 7: 05/28/23 03:54 05/28/23 03:54 Labs: Abnormal Lab Results - Last 24 Hours (Table) 05/27/23 05/27/23 05/27/23 Range/Units 10: 12:19 16:56 WBC (3.8-10.6) k/uL RBC (4.30-5.90) m/uL Hgb (13.0-17.5) gm/dL Hct (39.0-53.0) % Plt Count (150-450) k/uL Neutrophils # (1.3-7.7) k/uL Sodium (137-145) mmol/L Glucose (74-99) mg/dL POC Glucose (mg/dL) 138 H 139 H 138 H (70-110) mg/dL Calcium (8.4-10.2) mg/dL Total Protein (6.3-8.2) g/dL Albumin (3.5-5.0) g/dL 05/27/23 05/28/23 05/28/23 Range/Units 20:54 03:54 03:54 WBC 13.8 H (3.8-10.6) k/uL RBC 3.22 L (4.30-5.90) m/uL Hgb 9.6 L (13.0-17.5) gm/dL Hct 28.9 L (39.0-53.0) % Plt Count 60 L (150-450) k/uL Neutrophils # 11.4 H (1.3-7.7) k/uL Sodium 131 L (137-145) mmol/L Glucose 128 H (74-99) mg/dL POC Glucose (mg/dL) 169 H (70-110) mg/dL Calcium 8.1 L (8.4-10.2) mg/dL Total Protein 4.8 L (6.3-8.2) g/dL Albumin 2.9 L (3.5-5.0) g/dL 05/28/23 Range/Units 06:44 WBC (3.8-10.6) k/uL RBC (4.30-5.90) m/uL Hgb (13.0-17.5) gm/dL Hct (39.0-53.0) % Plt Count (150-450) k/uL Neutrophils # (1.3-7.7) k/uL Sodium (137-145) mmol/L Glucose (74-99) mg/dL POC Glucose (mg/dL) 136 H (70-110) mg/dL Calcium (8.4-10.2) mg/dL Total Protein (6.3-8.2) g/dL Albumin (3.5-5.0) g/dL Microbiology - Last 24 Hours (Table) 05/26/23 17:10 Gram Stain - Final Sputum Sputum Culture - Final
[2023-05-29 06:08] LABS: Basophils % (A) 0 %; Eosinophils # (A) 0.1 k/uL (0-0.7); Eosinophils % (A) 0 %; HCT 27.6 % (39.0-53.0); HGB 9.1 gm/dL (13.0-17.5); Lymphocytes # (A) 1.2 k/uL (1.0-4.8); Lymphocytes % (A) 8 %; MCH 29.6 pg (25.0-35.0); MCHC 33.1 g/dL (31.0-37.0); MCV 89.6 fL (80.0-100.0); Mean Platelet Volume 11.9; Monocytes % (A) 7 %; Neutrophils # (A) 12.4 k/uL (1.3-7.7); Neutrophils % (A) 84 %; RBC 3.08 m/uL (4.30-5.90); RDW 14.7 % (11.5-15.5); WBC 14.8 k/uL (3.8-10.6)
[2023-05-29 06:11] LABS: ALT 21 U/L (4-49); AST 47 U/L (17-59); African American GFR (CKD) >90 (>60 ml/min/1.73 sqM); Albumin 2.6 g/dL (3.5-5.0); Alkaline Phosphatase 95 U/L (38-126); Anion Gap 8 mmol/L; Blood Urea Nitrogen 20 mg/dL (9-20); Calcium 8.2 mg/dL (8.4-10.2); Carbon Dioxide 22 mmol/L (22-30); Chloride 102 mmol/L (98-107); Glucose 110 mg/dL (74-99); Non-African American GFR(CKD) >90 (>60 ml/min/1.73 sqM); Potassium 4.4 mmol/L (3.5-5.1); Sodium 132 mmol/L (137-145); Total Bilirubin 0.7 mg/dL (0.2-1.3); Total Protein 4.5 g/dL (6.3-8.2)
[2023-05-29 06:15] LABS: Platelet Count 58 k/uL (150-450)
[2023-05-29 06:59] LABS: Glucose,Whole Blood 106 mg/dL (70-110)
[2023-05-29] MEDS: INSULIN ASPART (NovoLOG) 100 UNIT/ML VIAL SQ SCH ×4 (07:09→20:40)
--- NOTE | 2023-05-29 07:33 | P.PN ---
Subjective Progress Note Date: 05/29/23 PROGRESS NOTE The patient is a 63-year-old male who is followed by Dr. Estrada, underwent mitral valve repair yesterday for severe mitral regurgitation. He is extubated, sitting up in the chair, complaining of mild dyspnea and soreness. He is in sinus mechanism. Hemodynamically he is stable otherwise. He has a long- standing history of mitral valve prolapse and severe mitral regurgitation documented in 2018. He presented again with symptoms few months ago and underwent cardiac catheterization that showed no evidence of obstructive coronary artery disease. He underwent mitral valve repair with posterior annuloplasty with size 34 mm ring. He also had closure of his left atrial appendage. The patient has a known history of chronic tobacco use. He has no history of diabetes or documented hypertension. May 28: The patient is feeling well this morning, sitting up in chair. Continues to be in sinus mechanism. Has mild soreness in the chest. Denies any dizziness or palpitation, no nausea or vomiting. Hemodynamically stable. He has no evidence of atrial fibrillation or ventricular ectopic activity. He is using his incentive spirometry. May 29: The patient is doing well this morning, he had soreness in the chest yesterday, better today. He continues to be in sinus mechanism. He denies any dizziness or palpitations. His breathing has been stable. He has been ambulating. He has no nausea or vomiting. Medications: Lipitor 40 mg daily, aspirin once a day, metoprolol 25 mg twice a day, Plavix 75 mg daily PHYSICAL EXAMINATION: Blood pressure 142/76 heart rate 80 LUNGS: Mild decrease in the breath sounds at the base HEART: Regular rate and rhythm, S1, S2. No S3. Systolic ejection murmur at the base, plus rub ABDOMEN: Soft, nontender, no organomegaly EXTREMETIES: No edema LAB: Hemoglobin 9.1, BUN 20, creatinine 0.77, potassium 4.4 IMPRESSION: 1. Status post mitral valve repair 2. Hyperlipidemia 3. History of chronic tobacco use 4. Chronic obstructive lung disease PLAN: 1. Continue medical therapy 2. Increase physical activity 3. Start low dose DARREL inhibitor 4. Depending on his progress further recommendations will be made Objective - Vital Signs Vital signs: Vital Signs Temp 98.6 F 05/29/23 00:00 Pulse 80 05/29/23 03:00 Resp 17 05/29/23 03:00 BP 142/76 05/29/23 03:00 Pulse Ox 94 L 05/29/23 03:00 FiO2 2 05/28/23 00:00 Intake & Output 05/28/23 05/29/23 05/29/23 18:59 06:59 18:59 Intake Total 130 Output Total 1144 815 650 Balance -1015 -815 -650 Weight 55.1 kg Intake: IV 130 Pressure Bag (0.9 Sodium 30 Chloride) Sodium Chloride 0.9% 1, 100 000 ml @ 20 mls/hr IV . Q24H [facility] Rx#:[id number] Output: Chest Tube Drainage 430 300 300 Chest Tube Bilateral 290 Mediastinal Chest Tube Left Lateral 140 300 300 Chest Urine 715 515 350 Other: Voiding Method Urinal Urinal # Voids 1 ABP, PAP, CO, CI - Last Documented Arterial Blood Pressure 102/55 Pulmonary Artery Pressure 23/4 Cardiac Output 4 Cardiac Index 2.5 - Labs CBC & Chem 7: 05/29/23 04:13 05/29/23 04:13 Labs: Abnormal Lab Results - Last 24 Hours (Table) 05/28/23 05/28/23 05/28/23 Range/Units 10:46 15:59 20:10 WBC (3.8-10.6) k/uL RBC (4.30-5.90) m/uL Hgb (13.0-17.5) gm/dL Hct (39.0-53.0) % Plt Count (150-450) k/uL Neutrophils # (1.3-7.7) k/uL Sodium (137-145) mmol/L Glucose (74-99) mg/dL POC Glucose (mg/dL) 184 H 127 H 173 H (70-110) mg/dL Calcium (8.4-10.2) mg/dL Total Protein (6.3-8.2) g/dL Albumin (3.5-5.0) g/dL 05/29/23 05/29/23 Range/Units 04:13 04:13 WBC 14.8 H (3.8-10.6) k/uL RBC 3.08 L (4.30-5.90) m/uL Hgb 9.1 L (13.0-17.5) gm/dL Hct 27.6 L (39.0-53.0) % Plt Count 58 L (150-450) k/uL Neutrophils # 12.4 H (1.3-7.7) k/uL Sodium 132 L (137-145) mmol/L Glucose 110 H (74-99) mg/dL POC Glucose (mg/dL) (70-110) mg/dL Calcium 8.2 L (8.4-10.2) mg/dL Total Protein 4.5 L (6.3-8.2) g/dL Albumin 2.6 L (3.5-5.0) g/dL Microbiology - Last 24 Hours (Table) 05/26/23 17:10 Gram Stain - Final Sputum Sputum Culture - Final
[2023-05-29] MEDS: PANTOPRAZOLE 40 MG TABLET PO SCH (07:42)
--- NOTE | 2023-05-29 07:52 | XR ---
EXAMINATION TYPE: XR chest 1V portable DATE OF EXAM: 05/29/2023 5:56 AM CLINICAL INDICATION:Male, 63 years old with history of Post op MVR; COMPARISON: Chest radiographs from 05/28/2023. TECHNIQUE: XR chest 1V portable Frontal view of the chest. FINDINGS: Lungs/Pleura: There is no evidence of left pleural effusion, focal consolidation, or pneumothorax. B lunting of the right costophrenic angle. Basilar atelectasis bilaterally. Pulmonary vascularity: Unremarkable. Heart/mediastinum: Cardiomediastinal silhouette is unremarkable. Post valve repair changes. Left atr ial appendage occlusion device is present. Musculoskeletal: No acute osseous pathology. Midline sternotomy wires are noted. Other findings: None IMPRESSION: 1. Postsurgical changes with right pleural effusion. 2. Interval removal of left thoracotomy tube without evidence of pneumothorax.
[2023-05-29] MEDS: BUDESONIDE 0.5 MG/2 ML NEBU INHALATION SCH ×2 (07:59→19:47)
[2023-05-29] MEDS: IPRATROPIUM-ALBUTEROL 3 ML NEB INHALATION SCH ×4 (07:59→19:47)
[2023-05-29] MEDS ORDERED: LOSARTAN 50 MG TAB PO SCH (09:00)
[2023-05-29] MEDS: ASPIRIN 81 MG PO SCH (09:08)
[2023-05-29] MEDS: CLOPIDOGREL 75 MG TAB PO SCH (09:08)
[2023-05-29] MEDS: PREGABALIN 100 MG CAP PO SCH ×3 (09:08→20:36)
[2023-05-29] MEDS: METOPROLOL TARTRATE 25 MG TAB PO SCH (09:09)
[2023-05-29] MEDS: guaiFENesin 600 MG TABLET.ER PO SCH ×2 (09:09→20:34)
[2023-05-29] MEDS: ATORVASTATIN 40 MG TAB PO SCH (09:09)
[2023-05-29] MEDS: FONDAPARINUX 2.5 MG/0.5 ML SYRINGE SQ SCH (09:09)
[2023-05-29] MEDS ORDERED: FUROSEMIDE 10 MG/ML 2 ML VIAL IV ONE (09:43)
[2023-05-29] MEDS ORDERED: POTASSIUM CHLORIDE ER 10 MEQ TAB.ER.PRT PO STA (09:43)
[2023-05-29] MEDS: HYDROcodone/APAP 10-325MG 1 EACH TAB PO PRN ×2 (10:12→15:23)
[2023-05-29] MEDS: TAMSULOSIN 0.4 MG CAP.ER.24H PO SCH (10:14)
[2023-05-29] MEDS ORDERED: METOPROLOL TARTRATE 25 MG TAB PO STA (11:01)
--- NOTE | 2023-05-29 11:07 | P.PN ---
Subjective Progress Note Date: 05/29/23 Principal diagnosis: Severe mitral valve regurgitation with prolapse of P2. Past medical history significant for hypertension, hyperlipidemia, transient ischemic attack, COPD with preoperative FEV1 66% of predicted value, osteoarthritis, and chronic ongoing tobacco dependence. POD #3 complex mitral valve repair with construction of P2 pairs of laura-chords to P2, closure of P1P2 as well as P2P3 clefts, and posterior annuloplasty using a 34 mm AnnuloFlex, exclusion of the left atrial appendage using a 35 mm Atriclip, intraoperative transesophageal echocardiogram and epi-aortic scanning. Postoperative acute blood loss anemia, expected given hemodilution and cardiopulmonary bypass. The patient was seen and examined in follow-up today 05/29/2023 at his bedside in the intensive care unit. Currently the patient is sitting up to bedside chair, is awake, oriented 3 and is in no acute distress. He denies any complaints of shortness of breath at this time, although is complaining of some pain to his chest tube insertion site, currently rating his pain 4-5 out of 10 o n the pain scale. He is also stating that he has a productive cough with gomez colored sputum. Oxygen saturation are 95% on room air and he is achieving 1250 mL on his incentive spirometry with encouragement. Bedside telemetry showing normal sinus rhythm heart rate 90 BPM. Left pleural chest tube remains in place to low continuous wall suction -20 cm H2O. No air leak is present. Draining thin serosanguineous drainage with 300 mL output in the last 8 hours and 550 mL output in the last 24 hours. The patient has been up ambulating in the intensive care unit hallway with standby assistance with nursing staff. Atrial and ventricular epicardial pacemaker wires in place under grounded. He remains hemodynamically stable and is currently on no on appropriate pressure support. Laboratory and chest x-ray results reviewed. Objective - Vital Signs Vital signs: Vital Signs Temp 98.4 F 05/29/23 08:00 Pulse 82 05/29/23 10:51 Resp 23 05/29/23 10:00 BP 142/87 05/29/23 10:00 Pulse Ox 94 L 05/29/23 10:00 FiO2 2 05/28/23 00:00 Intake & Output 05/28/23 05/29/23 05/29/23 18:59 06:59 18:59 Intake Total 130 200 Output Total 6416 711 2400 Balance -1015 -815 -3410 Weight 55.1 kg Intake: IV 130 Pressure Bag (0.9 Sodium 30 Chloride) Sodium Chloride 0.9% 1, 100 000 ml @ 20 mls/hr IV . Q24H [facility] Rx#:[id number] Oral 200 Output: Chest Tube Drainage 430 300 580 Chest Tube Bilateral 290 Mediastinal Chest Tube Left Lateral 140 300 580 Chest Urine 715 515 750 Other: Voiding Method Urinal Urinal Urinal # Voids 1 ABP, PAP, CO, CI - Last Documented Arterial Blood Pressure 102/55 Pulmonary Artery Pressure 23/4 Cardiac Output 4 Cardiac Index 2.5 - Exam CONSTITUTIONAL: Sitting up to the bedside chair in the intensive care unit, appears comfortable, cooperative, no apparent acute distress. HEENT: Neck is supple, no JVD, no lymphadenopathy. RESPIRATORY: Lungs sounds essentially clear throughout, diminished to his bilateral bases. Respirations are symmetrical and nonlabored. Currently on room air with oxygen saturations 95%. Able to achieve 1250 mL on their incentive spirometry. Strong cough. CARDIOVASCULAR: Regular rhythm and rate. S1 and S2 present, negative for S3, gallop or murmur. Sternum is stable. Palpable peripheral pulses bilaterally, no edema to his bilateral lower extremities. No calf pain or tenderness noted. Heart hugger in place with patient demonstrating appropriate use. Knee-high KIRTI hose and sequential compression devices in place to his bilateral lower extremit ies. GASTROINTESTINAL: Abdomen soft, nontender, nondistended. Active bowel sounds present 4 quadrants. Tolerating diet. Passing flatus. No guarding or rigidity. GENITOURINARY: Continues to void, some urinary retention requiring straight catheterization. Urine output 500 mL in the last 8 hours. INTEGUMENTARY: Skin is warm and dry with no evidence of clubbing or cyanosis. Midline sternal incision clean dry and well approximated, covered with dry intact dressing. NEUROLOGIC: Cranial nerves II through XII intact. No focal deficits. MUSKULOSKELETAL: Able to move all extremities, strength equal bilaterally. PSYCHIATRIC: Alert and oriented to person place and time, appropriate affect, intact judgment and insight. INVASIVE LINES AND TUBES: Left pleural chest tube present and connected to low continuous wall suction, no air leaks present. Left pleural chest tube with 300 mL of thin serosanguineous drainage overnight, 550 mL output in the last 24 hours. Atrial and ventricular epicardial pacemaker wires present, and are grounded - Allied health notes Allied health notes reviewed: nursing - Labs CBC & Chem 7: 05/29/23 04:13 05/29/23 04:13 Labs: Abnormal Lab Results - Last 24 Hours (Table) 05/28/23 05/28/23 05/29/23 Range/Units 15:59 20:10 04:13 WBC 14.8 H (3.8-10.6) k/uL RBC 3.08 L (4.30-5.90) m/uL Hgb 9.1 L (13.0-17.5) gm/dL Hct 27.6 L (39.0-53.0) % Plt Count 58 L (150-450) k/uL Neutrophils # 12.4 H (1.3-7.7) k/uL Sodium (137-145) mmol/L Glucose (74-99) mg/dL POC Glucose (mg/dL) 127 H 173 H (70-110) mg/dL Calcium (8.4-10.2) mg/dL Total Protein (6.3-8.2) g/dL Albumin (3.5-5.0) g/dL 05/29/23 Range/Units 04:13 WBC (3.8-10.6) k/uL RBC (4.30-5.90) m/uL Hgb (13.0-17.5) gm/dL Hct (39.0-53.0) % Plt Count (150-450) k/uL Neutrophils # (1.3-7.7) k/uL Sodium 132 L (137-145) mmol/L Glucose 110 H (74-99) mg/dL POC Glucose (mg/dL) (70-110) mg/dL Calcium 8.2 L (8.4-10.2) mg/dL Total Protein 4.5 L (6.3-8.2) g/dL Albumin 2.6 L (3.5-5.0) g/dL Microbiology - Last 24 Hours (Table) 05/26/23 17:10 Gram Stain - Final Sputum Sputum Culture - Final - Imaging and Cardiology Chest x-ray: report reviewed, image reviewed Assessment and Plan Assessment: Severe mitral valve regurgitation with prolapse of P2, status post complex mitral valve repair using a 34 mm AnnuloFlex Hypertension Hyperlipidemia History of transient ischemic attack COPD with a preoperative FEV1 66% of predicted value Osteoarthritis Chronic ongoing tobacco dependence Postoperative acute blood loss anemia, expected given hemodilution and cardiopulmonary bypass Plan: Continue to maximize medical therapy with low-dose aspirin, statin, Plavix. Increase metoprolol tartrate to 50 mg by mouth twice a day with hold parameters. Continue Cozaar to 50 mg by mouth daily with hold parameters. Continue Arixtra 2.5 mg subcu daily. Platelet count 58 today. Wean O2 as tolerated. Encourage incentive spirometry 10 times every hour while awake. Bronchodilators per pulmonology. Continue Pulmicort 0.5 mg inhalation twice a day. We will monitor daily labs and chest x-rays. Electrolyte replacement per protocol. Increase activity, ambulate as tolerated. PT/OT/cardiac rehab following. GI/DVT prophylaxis. Pain control with current medication regimen. Continue home dose of Lyrica and Skelaxin restarted. No Toradol at this time due to his platelets. Insulin management per internal medicine. Patient should remain on insulin drip for 48 hours for tight blood sugar control, then SQ insulin per protocol. Preoperative hemoglobin A1c was 5.2%. Keep left pleural chest tube in place to low continuous wall suction -20 cm H2O. Keep atrial and ventricular epicardial pacemaker wires in place, pacemaker wires grounded. Continue to record strict inaccurate I's and O's area to me bladder scan every 6 hours and when necessary residual. Lasix 20 mg IV 1 now and potassium chloride 10 mEq by mouth 1 now. Start Mucinex 1200 mg by mouth twice a day. More recommendations to follow based on patient's clinical course. Time with Patient: Greater than 30
[2023-05-29 11:51] LABS: Glucose,Whole Blood 186 mg/dL (70-110)
--- NOTE | 2023-05-29 12:16 | P.PN ---
Subjective Progress Note Date: 05/29/23 This is a 63-year-old male patient with a known history of 50 years of smoking, hypertension, COPD, hyperlipidemia. He was also found to have severe mitral regurgitation and was brought in today electively for mitral valve repair. He did undergo mitral valve repair and exclusion of left atrial appendage with a 35 mm Atriclip. He is seen in the postoperative period in the intensive care unit. He is currently intubated on mechanical ventilator with assist control rate of 12, tidal volume 350, FiO2 100% and a PEEP of 5. Blood gases revealed a pO2 greater than 400, pCO2 55 and a pH of 7.25. He has mediastinal chest tube x2, left pleural chest tube. He is atrial paced at a rate of 80. Cardiac output 4.8. Cardiac index 3.0. PA pressures 35/15. CVP of 13. Right IJ [place] catheter in place. He is currently on clevidipine at 5 mg per hour. Normal saline at 50 MLS per hour. Chest x-ray reveals no acute pulmonary process. Tubes and lines an appropriate place. He remains on bronchodilators. He did receive albumin. Propofol is currently being weaned. White count 8.6. Hemoglobin 9.7. Platelets 72,000. INR 1.3. Sodium 142. Potassium 3.8. Bicarb 22. BUN 18. Creatinine 0.87. Glucose 70. AST 33. ALT 8. Albumin 2.3. Magnesium 2.8. Calcium 6.7. The patient is seen today 05/27/2023 in follow-up in the intensive care unit. He is currently sitting up in a chair at the bedside. Awake and alert in no acute distress. He is maintaining good O2 saturations in the 90s on 2 L/m per nasal cannula. He is in normal sinus rhythm. Cardiac output 4.0. Cardiac index 2.5. CVP of 9. He is requiring Cleviprex at 3 mg/h. Insulin drip at 2 units per hour. Normal saline at 50 MLS per hour. Chest x-ray shows a small right pleural effusion. Chest tubes remain in place. White count 11.4. Hemoglobin 10.1. Platelets 66,000. Sodium 134. Potassium 4.6. Bicarb 20. BUN 15. Creatinine 0.9. Glucose 139. AST 50. ALT 11. He remains on DuoNeb inhalations. Working well with the incentive spirometer. Anticoagulated with Arixtra.` The patient is seen today 05/28/2023 in follow-up in the intensive care unit. He sitting up in chair at the bedside. Awake and alert in no acute distress. Continue good O2 saturations in the 90s on 2 L/m per nasal cannula. He has normal saline at KVO. Chest x-ray reveals left chest tube in place. Suspected trace left apical pneumothorax. There is evidence of COPD with interstitial pulmonary edema and small bilateral pleural effusions. He is encouraged to increase the use of his incentive spirometer and cough and deep breathing exercises. White count 13.8. Hemoglobin 9.6. Platelets 60,000. Sodium 131. Potassium 4.7. Bicarb 23. BUN 18. Creatinine 0.99. Glucose 128. Ionized calcium 4.8. Albumin 2.9. Magnesium 2.0. Remains on Arixtra. Continue bronchodilators. The patient is seen today 05/29/2023 in follow-up in the intensive care unit. He is resting comfortably in bed. Awake and alert in no acute distress. Postoperative day #3. He is maintaining good O2 saturations in the 90s on 2 L/m per nasal cannula. No IV fluids. White count 14.8. Hemoglobin 9.1. Platelets 58,000. Sodium 132. Potassium 4.4. Bicarb 22. BUN 20. Creatinine 0.77. Glucose 110. Chest x-ray review reveals right pleural effusion. Interval removal of left thoracotomy tube without evidence of pneumothorax. He continues working well with the incentive spirometer. Objective - Vital Signs Vital signs: Vital Signs Temp 98.4 F 05/29/23 08:00 Pulse 117 H 05/29/23 11:00 Resp 29 H 05/29/23 11:00 BP 148/96 05/29/23 11:00 Pulse Ox 94 L 05/29/23 11:00 FiO2 2 05/28/23 00:00 Intake & Output 05/28/23 05/29/23 05/29/23 18:59 06:59 18:59 Intake Total 130 200 Output Total 0005 285 4221 Balance -0642 -929 -5692 Weight 55.1 kg Intake: IV 130 Pressure Bag (0.9 Sodium 30 Chloride) Sodium Chloride 0.9% 1, 100 000 ml @ 20 mls/hr IV . Q24H [facility] Rx#:[id number] Oral 200 Output: Chest Tube Drainage 430 300 580 Chest Tube Bilateral 290 Mediastinal Chest Tube Left Lateral 140 300 580 Chest Urine 343 331 5965 Other: Voiding Method Urinal Urinal Urinal # Voids 1 ABP, PAP, CO, CI - Last Documented Arterial Blood Pressure 102/55 Pulmonary Artery Pressure 23/4 Cardiac Output 4 Cardiac Index 2.5 - Exam GENERAL EXAM: Alert, 63-year-old male, resting in bed, on 2 L nasal cannula, comfortable in no apparent distress. HEAD: Normocephalic. EYES: Normal reaction of pupils, equal size. NOSE: Clear with pink turbinates. THROAT: No erythema or exudates. NECK: No masses, no JVD. CHEST: Sternum stable. Heart Hugger in place. Chest tubes removed. LUNGS: Equal air entry with few scattered rhonchi. CVS: S1 and S2 normal with no audible murmur, regular rhythm. ABDOMEN: No hepatosplenomegaly, normal bowel sounds, no guarding or rigidity. SPINE: No scoliosis or deformity SKIN: No rashes CENTRAL NERVOUS SYSTEM: No focal deficits, tone is normal in all 4 extremities. EXTREMITIES: There is no peripheral edema. No clubbing, no cyanosis. Peripheral pulses are intact. - Labs CBC & Chem 7: 05/29/23 04:13 05/29/23 04:13 Labs: Abnormal Lab Results - Last 24 Hours (Table) 05/28/23 05/28/23 05/29/23 Range/Units 15:59 20:10 04:13 WBC 14.8 H (3.8-10.6) k/uL RBC 3.08 L (4.30-5.90) m/uL Hgb 9.1 L (13.0-17.5) gm/dL Hct 27.6 L (39.0-53.0) % Plt Count 58 L (150-450) k/uL Neutrophils # 12.4 H (1.3-7.7) k/uL Sodium (137-145) mmol/L Glucose (74-99) mg/dL POC Glucose (mg/dL) 127 H 173 H (70-110) mg/dL Calcium (8.4-10.2) mg/dL Total Protein (6.3-8.2) g/dL Albumin (3.5-5.0) g/dL 05/29/23 05/29/23 Range/Units 04:13 11:49 WBC (3.8-10.6) k/uL RBC (4.30-5.90) m/uL Hgb (13.0-17.5) gm/dL Hct (39.0-53.0) % Plt Count (150-450) k/uL Neutrophils # (1.3-7.7) k/uL Sodium 132 L (137-145) mmol/L Glucose 110 H (74-99) mg/dL POC Glucose (mg/dL) 186 H (70-110) mg/dL Calcium 8.2 L (8.4-10.2) mg/dL Total Protein 4.5 L (6.3-8.2) g/dL Albumin 2.6 L (3.5-5.0) g/dL Assessment and Plan Assessment: History of severe mitral regurgitation, status post mitral valve repair. Postoperative day #3 Chronic obstructive pulmonary disease FEV1 value 75% of predicted Chronic and ongoing tobacco dependence of 50 years Hypertension, history of Hyperlipidemia Multiple orthopedic surgeries Plan: The patient was seen and evaluated Chest x-ray, labs and medications reviewed Titrate down the FiO2 as tolerated Increase his activity as tolerated We will continue to follow I have personally seen and examined the patient, performed the documentation and the assessment and plan as written. Number of minutes spent on the visit: 10.
[2023-05-29 17:09] LABS: Glucose,Whole Blood 130 mg/dL (70-110)
[2023-05-29] MEDS: HYDROcodone/APAP 5-325MG 1 EACH TAB PO PRN (20:34)
[2023-05-29] MEDS: AMIODARONE 200 MG TAB PO SCH (20:35)
[2023-05-29] MEDS: SENNOSIDES-DOCUSATE SODIUM 1 EACH TAB PO SCH (20:35)
[2023-05-29] MEDS: LOSARTAN 50 MG TAB PO SCH (20:36)
[2023-05-29] MEDS: METOPROLOL TARTRATE 50 MG TAB PO SCH (20:36)
[2023-05-29 20:40] LABS: Glucose,Whole Blood 141 mg/dL (70-110)
[2023-05-30] MEDS: HYDROcodone/APAP 10-325MG 1 EACH TAB PO PRN ×2 (02:31→22:01)
[2023-05-30 05:29] LABS: HCT 25.5 % (39.0-53.0); HGB 8.7 gm/dL (13.0-17.5); MCH 30.2 pg (25.0-35.0); MCHC 34.1 g/dL (31.0-37.0); MCV 88.6 fL (80.0-100.0); Mean Platelet Volume 12.5; Platelet Count 63 k/uL (150-450); RBC 2.87 m/uL (4.30-5.90); RDW 14.7 % (11.5-15.5); WBC 12.9 k/uL (3.8-10.6)
[2023-05-30 05:34] LABS: ALT 25 U/L (4-49); AST 39 U/L (17-59); African American GFR (CKD) >90 (>60 ml/min/1.73 sqM); Albumin 2.5 g/dL (3.5-5.0); Alkaline Phosphatase 102 U/L (38-126); Anion Gap 6 mmol/L; Blood Urea Nitrogen 24 mg/dL (9-20); Calcium 8.1 mg/dL (8.4-10.2); Carbon Dioxide 25 mmol/L (22-30); Chloride 101 mmol/L (98-107); Glucose 106 mg/dL (74-99); Magnesium 1.6 mg/dL (1.6-2.3); Non-African American GFR(CKD) >90 (>60 ml/min/1.73 sqM); Potassium 4.2 mmol/L (3.5-5.1); Sodium 132 mmol/L (137-145); Total Bilirubin 0.8 mg/dL (0.2-1.3); Total Protein 4.4 g/dL (6.3-8.2)
--- NOTE | 2023-05-30 05:35 | P.PN ---
Subjective Progress Note Date: 05/29/23 - Reason for Consult Mitral valve replacement - History of Present Illness Patient is a pleasant 63-year-old male admitted for mitral valve replacement s uccessfully underwent surgery patient is status post extubation patient has 2 mediastinal left chest tube. Patient is presently on insulin drip was started diabetic. Patient was on amiodarone briefly. Patient has an atrial appendage that was clipped as well. 05/28/2023 Patient is seen and evaluated and follow-up continues in the ICU with chest tubes noted and is currently maintained on 2 L via nasal cannula. Patient reports her oxygen outpatient. Patient likely to have mediastinal tube and Cordis cath removed. Patient has been up and walking today and per nursing staff did well. Recommend Larry catheter removal and continued physical therapy. Hemoglobin is stable above 9 and other labs reviewed within normal limits. Sodium is 130 and will follow-up with repeat labs. Patient reports is not a diabetic and is continued on Accu-Cheks with sliding scale. Insulin drip has been discontinued. 05/29/2023 Patient is seen and evaluated in follow-up this morning continues in the ICU being closely monitored. Patient had mediastinal chest tube removed along with Cordis cath and Larry catheter. Patient is voiding and has been up and walking. Encouraged increase activity sitting up out of bed more often. Patient reports the chair is uncomfortable and hurts is positive in his back and prefers laying in the bed and walking frequently. Nursing staff has been assisting with wal yoana the unit multiple times. White count is slightly elevated will follow-up with repeat labs, most likely reactive there is no active signs of infection at this time. Patient is afebrile denies chest pains or palpitations. Patient did have a brief episode of A. fib and is given amiodarone bolus and continued on telemetry monitoring. Patient is tolerating diet with no reported nausea or vomiting noted. Review of systems: Constitutional: No reports of fatigue, fever, or chills Cardiovascular: No reports of chest pain or palpitations, reports chest wall pain by the chest tubes Respiratory: No reports of shortness of breath or cough GI: No reports of nausea, vomiting, or diarrhea : No reports of dysuria or retention Neurovascular: reports of generalized weakness All medications have been reviewed PHYSICAL EXAMINATION: GENERAL: The patient is alert and oriented x3, not in any acute distress. Thin built HEENT: Pupils are round and equally reacting to light. EOMI. No scleral icterus. No conjunctival pallor. Normocephalic, atraumatic. No pharyngeal erythema. No thyromegaly. CARDIOVASCULAR: S1 and S2 present. No murmurs, rubs, or gallops. PULMONARY: Chest is clear to auscultation, no wheezing or crackles. one Chest tube remains ABDOMEN: Soft, nontender, nondistended, normoactive bowel sounds. No palpable organomegaly. MUSCULOSKELETAL: No joint swelling or deformity. EXTREMITIES: No cyanosis, clubbing, or pedal edema. NEUROLOGICAL: Gross neurological examination did not reveal any focal deficits. SKIN: No rashes. Assessment: -Status post mitral valve repair -Continued ongoing Nicotine use -COPD without any acute exacerbation at this time -Hyperlipidemia -Hyponatremia: Secondary to hypovolemia -Leukocytosis secondary to surgery, no signs of active infection at this time -DVT prophylaxis: As per primary service -GI prophylaxis -Full code Plan: Patient is continued in ICU with multiple medical consultations following Patient has had mediastinal chest tube removed along with Larry and Cordis cath with one chest tube remaining, possible removal tomorrow. Chest x-ray stable Patient has been up and walking and encouraged frequent walking as tolerated and physical therapy Encouraged incentive spirometer at least 10 times every hour while awake Continue with Accu-Cheks before meals and at bedtime and if needed and sliding scale for tight glycemic control to promote healing. Patient is not a diabetic Wean FiO2 as tolerated Follow-up labs in the a.m. ordered We will continue to follow with cardiothoracic surgery during hospitalization. Thank you kindly for this consultation The impression and plan of care has been dictated by Katey Shaw, Nurse Practitioner as directed. Dr. Javad MD I have performed a history and examination and MDM of this patient, discussed the same with the dictator, and agree with the dictator's assessment and plan as written ,documented as a scribe. Based on total visit time, I have performed more than 50% of the visit. Objective - Vital Signs Vital signs: Vital Signs Temp 98.9 F 05/28/23 20:00 Pulse 77 05/28/23 23:00 Resp 17 05/28/23 23:00 BP 106/64 05/28/23 23:00 Pulse Ox 93 L 05/28/23 23:00 FiO2 2 05/28/23 00:00 Intake & Output 05/28/23 05/28/23 05/29/23 06:59 18:59 06:59 Intake Total 312 130 Output Total 1395 1145 515 Balance -1083 -1015 -515 Weight 55.4 kg Intake: IV 312 130 Pressure Bag (0.9 Sodium 72 30 Chloride) Sodium Chloride 0.9% 1, 240 100 000 ml @ 20 mls/hr IV . Q24H [facility] Rx#:[id number] Output: Chest Tube Drainage 320 430 Chest Tube Bilateral 210 290 Mediastinal Chest Tube Left Lateral 110 140 Chest Urine 1075 715 515 Other: Voiding Method Indwelling Catheter Urinal Urinal # Voids 1 ABP, PAP, CO, CI - Last Documented Arterial Blood Pressure 102/55 Pulmonary Artery Pressure 23/4 Cardiac Output 4 Cardiac Index 2.5 - Labs CBC & Chem 7: 05/29/23 04:13 05/29/23 04:13 Labs: Abnormal Lab Results - Last 24 Hours (Table) 05/28/23 05/28/23 05/28/23 Range/Units 06:44 10:46 15:59 POC Glucose (mg/dL) 136 H 184 H 127 H (70-110) mg/dL 05/28/23 Range/Units 20:10 POC Glucose (mg/dL) 173 H (70-110) mg/dL Microbiology - Last 24 Hours (Table) 05/26/23 17:10 Gram Stain - Final Sputum Sputum Culture - Final
[2023-05-30 06:33] LABS: Glucose,Whole Blood 122 mg/dL (70-110)
[2023-05-30] MEDS: INSULIN ASPART (NovoLOG) 100 UNIT/ML VIAL SQ SCH ×4 (07:06→21:53)
[2023-05-30] MEDS: PANTOPRAZOLE 40 MG TABLET PO SCH (07:09)
--- NOTE | 2023-05-30 07:42 | P.PN ---
Subjective Progress Note Date: 05/30/23 PROGRESS NOTE The patient is a 63-year-old male who is followed by Dr. Estrada, underwent mitral valve repair yesterday for severe mitral regurgitation. He is extubated, sitting up in the chair, complaining of mild dyspnea and soreness. He is in sinus mechanism. Hemodynamically he is stable otherwise. He has a long- standing history of mitral valve prolapse and severe mitral regurgitation documented in 2018. He presented again with symptoms few months ago and underwent cardiac catheterization that showed no evidence of obstructive coronary artery disease. He underwent mitral valve repair with posterior annuloplasty with size 34 mm ring. He also had closure of his left atrial appendage. The patient has a known history of chronic tobacco use. He has no history of diabetes or documented hypertension. May 28: The patient is feeling well this morning, sitting up in chair. Continues to be in sinus mechanism. Has mild soreness in the chest. Denies any dizziness or palpitation, no nausea or vomiting. Hemodynamically stable. He has no evidence of atrial fibrillation or ventricular ectopic activity. He is using his incentive spirometry. May 29: The patient is doing well this morning, he had soreness in the chest yesterday, better today. He continues to be in sinus mechanism. He denies any dizziness or palpitations. His breathing has been stable. He has been ambulating. He has no nausea or vomiting. May 30: The patient feels depressed today, does not feel well. He continues to be in sinus mechanism, his blood pressure is stable. He has mild chest soreness. His breathing is stable. He denies any dizziness or palpitations. He has no nausea or vomiting. Hemodynamically stable. Medications: Lipitor 40 mg daily, aspirin once a day, metoprolol 50 mg twice a day, Plavix 75 mg daily, amiodarone 400 mg twice a day, Flomax, losartan 50 mg twice a day PHYSICAL EXAMINATION: Blood pressure 104/60 heart rate 77 LUNGS: Mild decrease in the breath sounds at the base HEART: Regular rate and rhythm, S1, S2. No S3. Systolic ejection murmur at the base, ABDOMEN: Soft, nontender, no organomegaly EXTREMETIES: No edema LAB: Hemoglobin 8.7, BUN 24, creatinine 0.89, potassium 4.2 IMPRESSION: 1. Status post mitral valve repair 2. Hyperlipidemia 3. History of chronic tobacco use 4. Chronic obstructive lung disease PLAN: 1. Continue medical therapy and probably remove chest tube tomorrow 2. Increase physical activity 3. Follow blood pressure 4. Depending on his progress further recommendations will be made Objective - Vital Signs Vital signs: Vital Signs Temp 97.6 F 05/30/23 04:00 Pulse 77 05/30/23 07:00 Resp 18 05/30/23 07:00 BP 104/64 05/30/23 07:00 Pulse Ox 96 05/30/23 07:00 FiO2 2 05/28/23 00:00 Intake & Output 05/29/23 05/30/23 05/30/23 18:59 06:59 18:59 Intake Total 200 150 Output Total 2150 1370 Balance -1950 -1220 Weight 53.9 kg Intake: Oral 200 150 Output: Chest Tube Drainage 600 270 Chest Tube Left Lateral 600 270 Chest Urine 1550 1100 Other: Voiding Method Urinal Urinal # Voids 1 ABP, PAP, CO, CI - Last Documented Arterial Blood Pressure 102/55 Pulmonary Artery Pressure 23/4 Cardiac Output 4 Cardiac Index 2.5 - Labs CBC & Chem 7: 05/30/23 04:37 05/30/23 04:37 Labs: Abnormal Lab Results - Last 24 Hours (Table) 05/29/23 05/29/23 05/29/23 Range/Units 11:49 17:08 20:39 WBC (3.8-10.6) k/uL RBC (4.30-5.90) m/uL Hgb (13.0-17.5) gm/dL Hct (39.0-53.0) % Plt Count (150-450) k/uL Sodium (137-145) mmol/L BUN (9-20) mg/dL Glucose (74-99) mg/dL POC Glucose (mg/dL) 186 H 130 H 141 H (70-110) mg/dL Calcium (8.4-10.2) mg/dL Total Protein (6.3-8.2) g/dL Albumin (3.5-5.0) g/dL 05/30/23 05/30/23 05/30/23 Range/Units 04:37 04:37 06:32 WBC 12.9 H (3.8-10.6) k/uL RBC 2.87 L (4.30-5.90) m/uL Hgb 8.7 L (13.0-17.5) gm/dL Hct 25.5 L (39.0-53.0) % Plt Count 63 L (150-450) k/uL Sodium 132 L (137-145) mmol/L BUN 24 H (9-20) mg/dL Glucose 106 H (74-99) mg/dL POC Glucose (mg/dL) 122 H (70-110) mg/dL Calcium 8.1 L (8.4-10.2) mg/dL Total Protein 4.4 L (6.3-8.2) g/dL Albumin 2.5 L (3.5-5.0) g/dL
--- NOTE | 2023-05-30 08:22 | XR ---
EXAMINATION TYPE: XR chest 1V portable DATE OF EXAM: 05/30/2023 Comparison: 05/29/2023 Clinical History: 63-year-old male Status post MVR Findings: Median sternotomy wires are present. Annuloplasty ring noted. Heart borderline in size. Retained epic ardial pacer leads. Hyperinflation. Ongoing small right pleural effusion and interstitial densities b ut with increasing opacity at the right lower lung. Slight improvement in aeration at the left base. Impression: Postoperative changes. Correlate for COPD with superimposed ongoing pulmonary vascular congestion. Sm all right pleural effusion with worsening adjacent atelectasis and/or consolidation. Some improvement at the left base.
[2023-05-30] MEDS: CLOPIDOGREL 75 MG TAB PO SCH (08:30)
[2023-05-30] MEDS: AMIODARONE 200 MG TAB PO SCH ×2 (08:30→21:53)
[2023-05-30] MEDS: FONDAPARINUX 2.5 MG/0.5 ML SYRINGE SQ SCH (08:31)
[2023-05-30] MEDS: ASPIRIN 81 MG PO SCH (08:31)
[2023-05-30] MEDS: PREGABALIN 100 MG CAP PO SCH ×3 (08:31→21:57)
[2023-05-30] MEDS: guaiFENesin 600 MG TABLET.ER PO SCH ×2 (08:31→21:50)
[2023-05-30] MEDS: ATORVASTATIN 40 MG TAB PO SCH (08:31)
[2023-05-30] MEDS: METOPROLOL TARTRATE 50 MG TAB PO SCH ×2 (08:31→21:53)
[2023-05-30] MEDS: MAGNESIUM SULFATE-D5W PMX 1 GM in DEXTROSE/WATER 1 100ML.BAG IVPB SCH ×2 (08:32→10:09)
[2023-05-30] MEDS: TAMSULOSIN 0.4 MG CAP.ER.24H PO SCH (08:32)
[2023-05-30] MEDS: BUDESONIDE 0.5 MG/2 ML NEBU INHALATION SCH ×2 (08:34→20:00)
[2023-05-30] MEDS: IPRATROPIUM-ALBUTEROL 3 ML NEB INHALATION SCH ×4 (08:34→20:00)
[2023-05-30] MEDS: LOSARTAN 50 MG TAB PO SCH ×2 (08:40→21:53)
[2023-05-30] MEDS: MAGNESIUM HYDROXIDE 2,400 MG/30 ML CUP PO PRN ×2 (08:51→16:43)
[2023-05-30] MEDS ORDERED: POTASSIUM CHLORIDE ER 20 MEQ TAB.ER PO STA (09:35)
[2023-05-30] MEDS ORDERED: FUROSEMIDE 10 MG/ML 4 ML VIAL IV STA (09:35)
[2023-05-30 11:04] VITALS: BMI 17.5
[2023-05-30 11:34] LABS: Glucose,Whole Blood 146 mg/dL (70-110)
--- NOTE | 2023-05-30 12:52 | P.PN ---
Subjective Progress Note Date: 05/30/23 This is a 63-year-old male patient with a known history of 50 years of smoking, hypertension, COPD, hyperlipidemia. He was also found to have severe mitral regurgitation and was brought in today electively for mitral valve repair. He did undergo mitral valve repair and exclusion of left atrial appendage with a 35 mm Atriclip. He is seen in the postoperative period in the intensive care unit. He is currently intubated on mechanical ventilator with assist control rate of 12, tidal volume 350, FiO2 100% and a PEEP of 5. Blood gases revealed a pO2 greater than 400, pCO2 55 and a pH of 7.25. He has mediastinal chest tube x2, left pleural chest tube. He is atrial paced at a rate of 80. Cardiac output 4.8. Cardiac index 3.0. PA pressures 35/15. CVP of 13. Right IJ [place] catheter in place. He is currently on clevidipine at 5 mg per hour. Normal saline at 50 MLS per hour. Chest x-ray reveals no acute pulmonary process. Tubes and lines an appropriate place. He remains on bronchodilators. He did receive albumin. Propofol is currently being weaned. White count 8.6. Hemoglobin 9.7. Platelets 72,000. INR 1.3. Sodium 142. Potassium 3.8. Bicarb 22. BUN 18. Creatinine 0.87. Glucose 70. AST 33. ALT 8. Albumin 2.3. Magnesium 2.8. Calcium 6.7. The patient is seen today 05/27/2023 in follow-up in the intensive care unit. He is currently sitting up in a chair at the bedside. Awake and alert in no acute distress. He is maintaining good O2 saturations in the 90s on 2 L/m per nasal cannula. He is in normal sinus rhythm. Cardiac output 4.0. Cardiac index 2.5. CVP of 9. He is requiring Cleviprex at 3 mg/h. Insulin drip at 2 units per hour. Normal saline at 50 MLS per hour. Chest x-ray shows a small right pleural effusion. Chest tubes remain in place. White count 11.4. Hemoglobin 10.1. Platelets 66,000. Sodium 134. Potassium 4.6. Bicarb 20. BUN 15. Creatinine 0.9. Glucose 139. AST 50. ALT 11. He remains on DuoNeb inhalations. Working well with the incentive spirometer. Anticoagulated with Arixtra.` The patient is seen today 05/28/2023 in follow-up in the intensive care unit. He sitting up in chair at the bedside. Awake and alert in no acute distress. Continue good O2 saturations in the 90s on 2 L/m per nasal cannula. He has normal saline at KVO. Chest x-ray reveals left chest tube in place. Suspected trace left apical pneumothorax. There is evidence of COPD with interstitial pulmonary edema and small bilateral pleural effusions. He is encouraged to increase the use of his incentive spirometer and cough and deep breathing exercises. White count 13.8. Hemoglobin 9.6. Platelets 60,000. Sodium 131. Potassium 4.7. Bicarb 23. BUN 18. Creatinine 0.99. Glucose 128. Ionized calcium 4.8. Albumin 2.9. Magnesium 2.0. Remains on Arixtra. Continue bronchodilators. The patient is seen today 05/29/2023 in follow-up in the intensive care unit. He is resting comfortably in bed. Awake and alert in no acute distress. Postoperative day #3. He is maintaining good O2 saturations in the 90s on 2 L/m per nasal cannula. No IV fluids. White count 14.8. Hemoglobin 9.1. Platelets 58,000. Sodium 132. Potassium 4.4. Bicarb 22. BUN 20. Creatinine 0.77. Glucose 110. Chest x-ray review reveals right pleural effusion. Interval removal of left thoracotomy tube without evidence of pneumothorax. He continues working well with the incentive spirometer. The patient is seen today 05/30/2023 in follow-up in the intensive care unit. He is currently resting comfortably in bed. Awake and alert in no acute distress. Maintaining O2 saturations in the 90s on room air. Postoperative day #4 for mitral valve replacement. Chest tube remains in place with approximate 400 ML's over the past 12 hours. Chest x-ray showed some right lower lobe collapse. He is pulling approximately 9129-7974 ML's on the incentive spirometer. Pacer wires are in place. He did have issues with atrial fibrillation through the night. White count 12.9. Hemoglobin 8.7. Platelets 63,000. Sodium 132. Potassium 4.2. Bicarb 25. BUN 24. Creatinine 0.89. Glucose 106. AST 39. ALT 25. He remains on bronchodilators. Arixtra for anticoagulation. Objective - Vital Signs Vital signs: Vital Signs Temp 97.6 F 05/30/23 04:00 Pulse 75 05/30/23 10:00 Resp 18 05/30/23 10:00 BP 118/63 05/30/23 10:00 Pulse Ox 95 05/30/23 10:00 FiO2 2 05/28/23 00:00 Intake & Output 05/29/23 05/30/23 05/30/23 18:59 06:59 18:59 Intake Total 200 150 350 Output Total 2150 1370 30 Balance -1950 -1220 320 Weight 53.9 kg 53.9 kg Intake: Intake, IV Titration 100 Amount Magnesium Sulfate-D5w Pmx 100 1 gm In Dextrose/Water 1 100ml.bag @ 100 mls/hr IVPB Q1H [facility] Rx#: [id number] Oral 200 150 250 Output: Chest Tube Drainage 600 270 30 Chest Tube Left Lateral 600 270 30 Chest Urine 1550 1100 0 Other: Voiding Method Urinal Urinal Urinal # Voids 1 ABP, PAP, CO, CI - Last Documented Arterial Blood Pressure 102/55 Pulmonary Artery Pressure 23/4 Cardiac Output 4 Cardiac Index 2.5 - Exam GENERAL EXAM: Alert, 63-year-old male, room air, comfortable in no apparent distress. HEAD: Normocephalic. EYES: Normal reaction of pupils, equal size. NOSE: Clear with pink turbinates. THROAT: No erythema or exudates. NECK: No masses, no JVD. CHEST: Sternum stable. Heart Hugger in place. Chest tubes removed. LUNGS: Equal air entry with few scattered rhonchi. CVS: S1 and S2 normal with no audible murmur, regular rhythm. ABDOMEN: No hepatosplenomegaly, normal bowel sounds, no guarding or rigidity. SPINE: No scoliosis or deformity SKIN: No rashes CENTRAL NERVOUS SYSTEM: No focal deficits, tone is normal in all 4 extremities. EXTREMITIES: There is no peripheral edema. No clubbing, no cyanosis. Peripheral pulses are intact. - Labs CBC & Chem 7: 05/30/23 04:37 05/30/23 04:37 Labs: Abnormal Lab Results - Last 24 Hours (Table) 05/29/23 05/29/23 05/30/23 Range/Units 17:08 20:39 04:37 WBC (3.8-10.6) k/uL RBC (4.30-5.90) m/uL Hgb (13.0-17.5) gm/dL Hct (39.0-53.0) % Plt Count (150-450) k/uL Sodium 132 L (137-145) mmol/L BUN 24 H (9-20) mg/dL Glucose 106 H (74-99) mg/dL POC Glucose (mg/dL) 130 H 141 H (70-110) mg/dL Calcium 8.1 L (8.4-10.2) mg/dL Total Protein 4.4 L (6.3-8.2) g/dL Albumin 2.5 L (3.5-5.0) g/dL 05/30/23 05/30/23 05/30/23 Range/Units 04:37 06:32 11:32 WBC 12.9 H (3.8-10.6) k/uL RBC 2.87 L (4.30-5.90) m/uL Hgb 8.7 L (13.0-17.5) gm/dL Hct 25.5 L (39.0-53.0) % Plt Count 63 L (150-450) k/uL Sodium (137-145) mmol/L BUN (9-20) mg/dL Glucose (74-99) mg/dL POC Glucose (mg/dL) 122 H 146 H (70-110) mg/dL Calcium (8.4-10.2) mg/dL Total Protein (6.3-8.2) g/dL Albumin (3.5-5.0) g/dL Assessment and Plan Assessment: History of severe mitral regurgitation, status post mitral valve repair. Postoperative day #4 Chronic obstructive pulmonary disease FEV1 value 75% of predicted Paroxysmal atrial fibrillation, expected outcome of surgery Chronic and ongoing tobacco dependence of 50 years Hypertension, history of Hyperlipidemia Multiple orthopedic surgeries Plan: The patient was seen and evaluated Chest x-ray, labs and medications reviewed Current increased use the incentive spirometer Increase his activity as tolerated We will continue to follow I have personally seen and examined the patient, performed the documentation and the assessment and plan as written. Number of minutes spent on the visit: 10.
--- NOTE | 2023-05-30 12:57 | P.PN ---
Subjective Progress Note Date: 05/30/23 Principal diagnosis: Severe mitral valve regurgitation with prolapse of P2. Past medical history significant for hypertension, hyperlipidemia, transient ischemic attack, COPD with preoperative FEV1 66% of predicted value, osteoarthritis, and chronic ongoing tobacco dependence. POD #4 complex mitral valve repair with construction of P2 pairs of laura-chords to P2, closure of P1P2 as well as P2P3 clefts, and posterior annuloplasty using a 34 mm AnnuloFlex, exclusion of the left atrial appendage using a 35 mm Atriclip, intraoperative transesophageal echocardiogram and epi-aortic scanning. Postoperative acute blood loss anemia, expected given hemodilution and cardiopulmonary bypass. The patient was seen and examined in follow-up today 05/30/2023 at his bedside in the intensive care unit. Currently he is sitting up to the bedside chair, is awake, alert, oriented 3 in no acute apparent distress. Denies any complaints of shortness of breath at this time, although is complaining of some pain with taking a deep breath to his left chest tube insertion site. Oxygen saturation are 93% on room air and he is achieving 4878-8147 mL on his incentive spirometry with encouragement. Remote telemetry showing normal sinus rhythm heart rate 80 BPM. He remains hemodynamically stable and is currently on no inotropic pressor support. Left pleural chest tube remains in place to low continuous wall suction -20 cm H2O. No air leak is present. Draining thin so sinus drainage with 270 mL output in the last 8 hours and 450 mm output in the last 24 hours. The patient reports he has been up ambulating in the intensive care unit hallway with standby assistance from nursing and therapy staff and tolerating well. Atrial and ventricular epicardial pacemaker wires are in place and a ground. Laboratory results and chest x-ray results reviewed. Objective - Vital Signs Vital signs: Vital Signs Temp 98.2 F 05/30/23 12:00 Pulse 72 05/30/23 12:00 Resp 8 L 05/30/23 12:00 BP 116/86 05/30/23 12:00 Pulse Ox 96 05/30/23 12:00 FiO2 2 05/28/23 00:00 Intake & Output 05/29/23 05/30/23 05/30/23 18:59 06:59 18:59 Intake Total 200 150 650 Output Total 2150 1370 710 Balance -1950 -1220 -60 Weight 53.9 kg 53.9 kg Intake: Intake, IV Titration 200 Amount Magnesium Sulfate-D5w Pmx 200 1 gm In Dextrose/Water 1 100ml.bag @ 100 mls/hr IVPB Q1H [facility] Rx#: [id number] Oral 200 150 450 Output: Chest Tube Drainage 600 270 110 Chest Tube Left Lateral 600 270 110 Chest Urine 1550 1100 600 Other: Voiding Method Urinal Urinal Urinal # Voids 1 ABP, PAP, CO, CI - Last Documented Arterial Blood Pressure 102/55 Pulmonary Artery Pressure 23/4 Cardiac Output 4 Cardiac Index 2.5 - Exam CONSTITUTIONAL: Sitting up to the bedside chair in the intensive care unit, appears comfortable, cooperative, no apparent acute distress. HEENT: Neck is supple, no JVD, no lymphadenopathy. RESPIRATORY: Lungs sounds essentially clear throughout, diminished to his bilateral bases. Respirations are symmetrical and nonlabored. Currently on room air with oxygen saturations 93%. Able to achieve 5096-2769 mL on their incent denae spirometry. Strong cough. CARDIOVASCULAR: Regular rhythm and rate. S1 and S2 present, negative for S3, gallop or murmur. Sternum is stable. Palpable peripheral pulses bilaterally, no edema to his bilateral lower extremities. No calf pain or tenderness noted. Heart hugger in place with patient demonstrating appropriate use. Knee-high KIRTI hose and sequential compression devices in place to his bilateral lower extremities. GASTROINTESTINAL: Abdomen soft, nontender, nondistended. Active bowel sounds present 4 quadrants. Tolerating diet. Passing flatus. No guarding or rigidity. GENITOURINARY: Continues to void. Urine output 700 mL in the last 8 hours. INTEGUMENTARY: Skin is warm and dry with no evidence of clubbing or cyanosis. Midline sternal incision clean dry and well approximated, covered with dry intact dressing. NEUROLOGIC: Cranial nerves II through XII intact. No focal deficits. MUSKULOSKELETAL: Able to move all extremities, strength equal bilaterally. PSYCHIATRIC: Alert and oriented to person place and time, appropriate affect, intact judgment and insight. INVASIVE LINES AND TUBES: Left pleural chest tube present and connected to low continuous wall suction, no air leaks present. Left pleural chest tube with 270 mL of thin serosanguineous drainage overnight, 450 mL output in the last 24 hours. Atrial and ventricular epicardial pacemaker wires present, and are grounded - Allied health notes Allied health notes reviewed: nursing - Labs CBC & Chem 7: 05/30/23 04:37 05/30/23 04:37 Labs: Abnormal Lab Results - Last 24 Hours (Table) 05/29/23 05/29/23 05/30/23 Range/Units 17:08 20:39 04:37 WBC (3.8-10.6) k/uL RBC (4.30-5.90) m/uL Hgb (13.0-17.5) gm/dL Hct (39.0-53.0) % Plt Count (150-450) k/uL Sodium 132 L (137-145) mmol/L BUN 24 H (9-20) mg/dL Glucose 106 H (74-99) mg/dL POC Glucose (mg/dL) 130 H 141 H (70-110) mg/dL Calcium 8.1 L (8.4-10.2) mg/dL Total Protein 4.4 L (6.3-8.2) g/dL Albumin 2.5 L (3.5-5.0) g/dL 05/30/23 05/30/23 05/30/23 Range/Units 04:37 06:32 11:32 WBC 12.9 H (3.8-10.6) k/uL RBC 2.87 L (4.30-5.90) m/uL Hgb 8.7 L (13.0-17.5) gm/dL Hct 25.5 L (39.0-53.0) % Plt Count 63 L (150-450) k/uL Sodium (137-145) mmol/L BUN (9-20) mg/dL Glucose (74-99) mg/dL POC Glucose (mg/dL) 122 H 146 H (70-110) mg/dL Calcium (8.4-10.2) mg/dL Total Protein (6.3-8.2) g/dL Albumin (3.5-5.0) g/dL - Imaging and Cardiology Chest x-ray: report reviewed, image reviewed Assessment and Plan Assessment: Severe mitral valve regurgitation with prolapse of P2, status post complex mitral valve repair using a 34 mm AnnuloFlex Hypertension Hyperlipidemia History of transient ischemic attack COPD with a preoperative FEV1 66% of predicted value Osteoarthritis Chronic ongoing tobacco dependence Postoperative acute blood loss anemia, expected given hemodilution and cardiopulmonary bypass Plan: Continue to maximize medical therapy with low-dose aspirin, statin, Plavix. Continue metoprolol tartrate to 50 mg by mouth twice a day with hold parameters. Cozaar increased yesterday to 50 mg by mouth twice a day with hold parameters. Continue Arixtra 2.5 mg subcu daily. Platelet count 63 today. Wean O2 as tolerated. Encourage incentive spirometry 10 times every hour while awake. Bronchodilators per pulmonology. Continue Pulmicort 0.5 mg inhalation twice a day. We will monitor daily labs and chest x-rays. Electrolyte replacement per protocol. Increase activity, ambulate as tolerated. PT/OT/cardiac rehab following. GI/DVT prophylaxis. Pain control with current medication regimen. Continue home dose of Lyrica and Skelaxin restarted. No Toradol at this time due to his platelets. Insulin management per internal medicine. Preoperative hemoglobin A1c was 5.2%. Keep left pleural chest tube in place to low continuous wall suction -20 cm H2O. Remove atrial and ventricular epicardial pacemaker wires, bedrest for 1 hour post pacemaker wire removal. Continue to record strict inaccurate I's and O's area to me bladder scan every 6 hours and when necessary residual. Lasix 40 mg IV 1 now and potassium chloride 20 mEq by mouth 1 now. Continue Mucinex 1200 mg by mouth twice a day. Importance of smoking cessation was discussed with the patient. Transfer orders placed to the third floor cardiac stepdown unit. Transfer when bed available. More recommendations to follow based on patient's clinical course. Time with Patient: Greater than 30
[2023-05-30] MEDS: HYDROcodone/APAP 5-325MG 1 EACH TAB PO PRN (16:44)
--- NOTE | 2023-05-30 16:51 | P.PN ---
Subjective Progress Note Date: 05/30/23 - Reason for Consult Mitral valve replacement - History of Present Illness Patient is a pleasant 63-year-old male admitted for mitral valve replacement s uccessfully underwent surgery patient is status post extubation patient has 2 mediastinal left chest tube. Patient is presently on insulin drip was started diabetic. Patient was on amiodarone briefly. Patient has an atrial appendage that was clipped as well. 05/28/2023 Patient is seen and evaluated and follow-up continues in the ICU with chest tubes noted and is currently maintained on 2 L via nasal cannula. Patient reports her oxygen outpatient. Patient likely to have mediastinal tube and Cordis cath removed. Patient has been up and walking today and per nursing staff did well. Recommend Larry catheter removal and continued physical therapy. Hemoglobin is stable above 9 and other labs reviewed within normal limits. Sodium is 130 and will follow-up with repeat labs. Patient reports is not a diabetic and is continued on Accu-Cheks with sliding scale. Insulin drip has been discontinued. 05/29/2023 Patient is seen and evaluated in follow-up this morning continues in the ICU being closely monitored. Patient had mediastinal chest tube removed along with Cordis cath and Larry catheter. Patient is voiding and has been up and walking. Encouraged increase activity sitting up out of bed more often. Patient reports the chair is uncomfortable and hurts is positive in his back and prefers laying in the bed and walking frequently. Nursing staff has been assisting with wal yoana the unit multiple times. White count is slightly elevated will follow-up with repeat labs, most likely reactive there is no active signs of infection at this time. Patient is afebrile denies chest pains or palpitations. Patient did have a brief episode of A. fib and is given amiodarone bolus and continued on telemetry monitoring. Patient is tolerating diet with no reported nausea or vomiting noted. 05/30/2023 Patient is seen and evaluated in follow-up today continues with chest tube and there is some noted drainage with CT surgery recommending another day with follow-up chest x-ray and monitor for output with possible removal tomorrow. Patient has been up and walking frequently with nursing staff and doing quite well. Patient tolerating diet with no reported nausea or vomiting. WBC is trending down and currently 12.9 today. Hemoglobin is 8.7 and recommend monitor closely and transfuse if less than 7. Platelets being monitored as well and currently 63. Sodium is 132 with a potassium of 4.2 and kidney function stable with a creatinine of 0.89. Blood sugars being monitored and well controlled on current regimen. Magnesium is 1.6 and being replaced per protocol along with potassium and patient was given another dose of 40 mg IV Lasix today. Currently rate controlled on oral amiodarone and continue telemetry monitoring. Patient is continued on Accu-Cheks before meals and at bedtime and sliding scale although has not been requiring coverage. Patient is not a diabetic. Patient is afebrile with no reports of chest pain although does report some chest wall pain and denies palpitations. Patient denies nausea or vomiting. Review of systems: Constitutional: No reports of fatigue, fever, or chills Cardiovascular: No reports of chest pain or palpitations, reports chest wall pain by the chest tubes Respiratory: No reports of shortness of breath or cough GI: No reports of nausea, vomiting, or diarrhea : No reports of dysuria or retention Neurovascular: reports of generalized weakness All medications have been reviewed PHYSICAL EXAMINATION: GENERAL: The patient is alert and oriented x3, not in any acute distress. Thin built HEENT: Pupils are round and equally reacting to light. EOMI. No scleral icterus. No conjunctival pallor. Normocephalic, atraumatic. No pharyngeal erythema. No thyromegaly. CARDIOVASCULAR: S1 and S2 present. No murmurs, rubs, or gallops. PULMONARY: Chest is clear to auscultation, no wheezing or crackles. one Chest tube remains ABDOMEN: Soft, nontender, nondistended, normoactive bowel sounds. No palpable organomegaly. MUSCULOSKELETAL: No joint swelling or deformity. EXTREMITIES: No cyanosis, clubbing, or pedal edema. NEUROLOGICAL: Gross neurological examination did not reveal any focal deficits. SKIN: No rashes. Assessment: -Status post mitral valve repair for severe mitral valve regurgitation with prolapse -Continued ongoing Nicotine use -History of hypertension -COPD without any acute exacerbation at this time -Hyperlipidemia -Hyponatremia: Secondary to hypovolemia -History of TIA -Leukocytosis secondary to surgery, no signs of active infection at this time -DVT prophylaxis: As per primary service -GI prophylaxis -Full code Plan: Patient is continued in ICU with multiple medical consultations following Cardiology evaluated the patient as well and currently rate controlled on oral amiodarone Patient has had mediastinal chest tube removed along with Larry and Cordis cath with one chest tube remaining, possible removal tomorrow. Chest x-ray stable. Pacemaker wires have been removed Magnesium and potassium slightly low and being replaced per protocol. Patient was given a dose of IV Lasix Patient has been up and walking and encouraged frequent walking as tolerated and physical therapy Encouraged incentive spirometer at least 10 times every hour while awake Continue with Accu-Cheks before meals and at bedtime and if needed and sliding scale for tight glycemic control to promote healing. Patient is not a diabetic Wean FiO2 as tolerated Follow-up labs in the a.m. ordered We will continue to follow with cardiothoracic surgery during hospitalization. Thank you kindly for this consultation The impression and plan of care has been dictated by Katey Shaw, Nurse Practitioner as directed. Dr. Javad MD I have performed a history and examination and MDM of this patient, discussed the same with the dictator, and agree with the dictator's assessment and plan as written ,documented as a scribe. Based on total visit time, I have performed more than 50% of the visit. Objective - Vital Signs Vital signs: Vital Signs Temp 98.5 F 05/30/23 15:00 Pulse 71 05/30/23 15:00 Resp 35 H 05/30/23 15:00 BP 102/64 05/30/23 15:00 Pulse Ox 95 05/30/23 15:00 FiO2 2 05/28/23 00:00 Intake & Output 05/29/23 05/30/23 05/30/23 18:59 06:59 18:59 Intake Total 200 150 700 Output Total 2150 1370 760 Balance -1950 -1220 -60 Weight 53.9 kg 53.9 kg Intake: Intake, IV Titration 200 Amount Magnesium Sulfate-D5w Pmx 200 1 gm In Dextrose/Water 1 100ml.bag @ 100 mls/hr IVPB Q1H [facility] Rx#: [id number] Oral 200 150 500 Output: Chest Tube Drainage 600 270 160 Chest Tube Left Lateral 600 270 160 Chest Urine 1550 1100 600 Other: Voiding Method Urinal Urinal Urinal # Voids 1 ABP, PAP, CO, CI - Last Documented Arterial Blood Pressure 102/55 Pulmonary Artery Pressure 23/4 Cardiac Output 4 Cardiac Index 2.5 - Labs CBC & Chem 7: 05/30/23 04:37 05/30/23 04:37 Labs: Abnormal Lab Results - Last 24 Hours (Table) 05/29/23 05/29/23 05/30/23 Range/Units 17:08 20:39 04:37 WBC (3.8-10.6) k/uL RBC (4.30-5.90) m/uL Hgb (13.0-17.5) gm/dL Hct (39.0-53.0) % Plt Count (150-450) k/uL Sodium 132 L (137-145) mmol/L BUN 24 H (9-20) mg/dL Glucose 106 H (74-99) mg/dL POC Glucose (mg/dL) 130 H 141 H (70-110) mg/dL Calcium 8.1 L (8.4-10.2) mg/dL Total Protein 4.4 L (6.3-8.2) g/dL Albumin 2.5 L (3.5-5.0) g/dL 05/30/23 05/30/23 05/30/23 Range/Units 04:37 06:32 11:32 WBC 12.9 H (3.8-10.6) k/uL RBC 2.87 L (4.30-5.90) m/uL Hgb 8.7 L (13.0-17.5) gm/dL Hct 25.5 L (39.0-53.0) % Plt Count 63 L (150-450) k/uL Sodium (137-145) mmol/L BUN (9-20) mg/dL Glucose (74-99) mg/dL POC Glucose (mg/dL) 122 H 146 H (70-110) mg/dL Calcium (8.4-10.2) mg/dL Total Protein (6.3-8.2) g/dL Albumin (3.5-5.0) g/dL
[2023-05-30 17:02] LABS: Glucose,Whole Blood 159 mg/dL (70-110)
[2023-05-30 20:56] LABS: Glucose,Whole Blood 153 mg/dL (70-110)
[2023-05-30] MEDS: SENNOSIDES-DOCUSATE SODIUM 1 EACH TAB PO SCH (21:52)
[2023-05-31 05:21] LABS: HCT 26.3 % (39.0-53.0); HGB 8.6 gm/dL (13.0-17.5); MCH 29.3 pg (25.0-35.0); MCHC 32.9 g/dL (31.0-37.0); MCV 88.9 fL (80.0-100.0); Mean Platelet Volume 11.8; RBC 2.95 m/uL (4.30-5.90); RDW 14.8 % (11.5-15.5); WBC 9.2 k/uL (3.8-10.6)
[2023-05-31 05:25] LABS: Platelet Count 91 k/uL (150-450)
[2023-05-31 05:38] LABS: ALT 31 U/L (4-49); AST 45 U/L (17-59); African American GFR (CKD) 89 (>60 ml/min/1.73 sqM); Albumin 2.4 g/dL (3.5-5.0); Alkaline Phosphatase 139 U/L (38-126); Anion Gap 7 mmol/L; Blood Urea Nitrogen 30 mg/dL (9-20); Calcium 7.9 mg/dL (8.4-10.2); Carbon Dioxide 26 mmol/L (22-30); Chloride 99 mmol/L (98-107); Glucose 124 mg/dL (74-99); Magnesium 2.2 mg/dL (1.6-2.3); Non-African American GFR(CKD) 77 (>60 ml/min/1.73 sqM); Sodium 132 mmol/L (137-145); Total Bilirubin 0.6 mg/dL (0.2-1.3); Total Protein 4.4 g/dL (6.3-8.2)
[2023-05-31] MEDS: PANTOPRAZOLE 40 MG TABLET PO SCH (07:11)
[2023-05-31 07:19] LABS: Glucose,Whole Blood 144 mg/dL (70-110)
[2023-05-31] MEDS: INSULIN ASPART (NovoLOG) 100 UNIT/ML VIAL SQ SCH ×4 (08:08→21:15)
[2023-05-31] MEDS: IPRATROPIUM-ALBUTEROL 3 ML NEB INHALATION SCH ×4 (08:19→19:55)
[2023-05-31] MEDS: BUDESONIDE 0.5 MG/2 ML NEBU INHALATION SCH ×2 (08:19→19:55)
[2023-05-31] MEDS: PREGABALIN 100 MG CAP PO SCH ×3 (08:57→21:13)
[2023-05-31] MEDS: ATORVASTATIN 40 MG TAB PO SCH (08:57)
[2023-05-31] MEDS: CLOPIDOGREL 75 MG TAB PO SCH ×2 (08:57→08:58)
[2023-05-31] MEDS: guaiFENesin 600 MG TABLET.ER PO SCH ×2 (08:57→21:14)
[2023-05-31] MEDS: ASPIRIN 81 MG PO SCH (08:57)
[2023-05-31] MEDS: METOPROLOL TARTRATE 50 MG TAB PO SCH ×2 (08:57→21:13)
[2023-05-31] MEDS: TAMSULOSIN 0.4 MG CAP.ER.24H PO SCH (08:58)
[2023-05-31] MEDS: AMIODARONE 200 MG TAB PO SCH ×2 (08:59→21:12)
[2023-05-31] MEDS: LOSARTAN 50 MG TAB PO SCH ×2 (08:59→21:12)
[2023-05-31] MEDS: FONDAPARINUX 2.5 MG/0.5 ML SYRINGE SQ SCH (09:05)
[2023-05-31] MEDS: HYDROcodone/APAP 5-325MG 1 EACH TAB PO PRN (09:05)
[2023-05-31] MEDS ORDERED: POTASSIUM CHLORIDE ER 10 MEQ TAB.ER.PRT PO STA (09:52)
[2023-05-31] MEDS ORDERED: FUROSEMIDE 10 MG/ML 2 ML VIAL IV STA (09:52)
[2023-05-31 11:21] LABS: Glucose,Whole Blood 143 mg/dL (70-110)
--- NOTE | 2023-05-31 11:25 | P.PN ---
Subjective Progress Note Date: 05/31/23 Patient is a pleasant 63-year-old male admitted for mitral valve replacement successfully underwent surgery patient is status post extubation patient has 2 mediastinal left chest tube. Patient is presently on insulin drip was started diabetic. Patient was on amiodarone briefly. Patient has an atrial appendage that was clipped as well. 05/28/2023 Patient is seen and evaluated and follow-up continues in the ICU with chest tubes noted and is currently maintained on 2 L via nasal cannula. Patient rep orts her oxygen outpatient. Patient likely to have mediastinal tube and Cordis cath removed. Patient has been up and walking today and per nursing staff did well. Recommend Larry catheter removal and continued physical therapy. Hemoglobin is stable above 9 and other labs reviewed within normal limits. Sodium is 130 and will follow-up with repeat labs. Patient reports is not a diabetic and is continued on Accu-Cheks with sliding scale. Insulin drip has been discontinued. 05/29/2023 Patient is seen and evaluated in follow-up this morning continues in the ICU being closely monitored. Patient had mediastinal chest tube removed along with Cordis cath and Larry catheter. Patient is voiding and has been up and walking. Encouraged increase activity sitting up out of bed more often. Patient reports the chair is uncomfortable and hurts is positive in his back and prefers laying in the bed and walking frequently. Nursing staff has been assisting with walking the unit multiple times. White count is slightly elevated will follow- up with repeat labs, most likely reactive there is no active signs of infection at this time. Patient is afebrile denies chest pains or palpitations. Patient did have a brief episode of A. fib and is given amiodarone bolus and continued on telemetry monitoring. Patient is tolerating diet with no reported nausea or vomiting noted. 05/30/2023 Patient is seen and evaluated in follow-up today continues with chest tube and there is some noted drainage with CT surgery recommending another day with follow-up chest x-ray and monitor for output with possible removal tomorrow. Patient has been up and walking frequently with nursing staff and doing quite well. Patient tolerating diet with no reported nausea or vomiting. WBC is trending down and currently 12.9 today. Hemoglobin is 8.7 and recommend monitor closely and transfuse if less than 7. Platelets being monitored as well and currently 63. Sodium is 132 with a potassium of 4.2 and kidney function stable with a creatinine of 0.89. Blood sugars being monitored and well controlled on current regimen. Magnesium is 1.6 and being replaced per protocol along with potassium and patient was given another dose of 40 mg IV Lasix today. Currently rate controlled on oral amiodarone and continue telemetry monitoring. Patient is continued on Accu-Cheks before meals and at bedtime and sliding scale although has not been requiring coverage. Patient is not a diabetic. Patient is afebrile with no reports of chest pain although does report some chest wall pain and denies palpitations. Patient denies nausea or vomiting. 05/31/2023 Patient is evaluated today in the ICU he is currently sitting up in bed. No acute complaints he states pain is on controlled on currently regimen. He had a follow up chest xray today which is still pending reports possible CT removal today per patient. He has some life stressors going on he was anxious when evaluated in the room today. BP noted to be elevated. White count normal 9.2, hgb 8.6. Patient did receive a dose of IV lasix yesterday, sodium again 132 today. Blood glucose in the 140s. He is on 2L of oxygen saturations of 96%. Remains on PO amiodarone. Review of systems: Constitutional: No reports of fatigue, fever, or chills Cardiovascular: No reports of chest pain or palpitations, reports chest wall pain by the chest tubes is improving. Respiratory: No reports of shortness of breath or cough GI: No reports of nausea, vomiting, or diarrhea : No reports of dysuria or retention Neurovascular: reports of generalized weakness All medications have been reviewed PHYSICAL EXAMINATION: GENERAL: The patient is alert and oriented x3, not in any acute distress. Thin built HEENT: Pupils are round and equally reacting to light. EOMI. No scleral icterus. No conjunctival pallor. Normocephalic, atraumatic. No pharyngeal erythema. No thyromegaly. CARDIOVASCULAR: S1 and S2 present. No murmurs, rubs, or gallops. PULMONARY: Chest is clear to auscultation, no wheezing or crackles. one Chest tube remains ABDOMEN: Soft, nontender, nondistended, normoactive bowel sounds. No palpable organomegaly. MUSCULOSKELETAL: No joint swelling or deformity. EXTREMITIES: No cyanosis, clubbing, or pedal edema. NEUROLOGICAL: Gross neurological examination did not reveal any focal deficits. SKIN: No rashes. Assessment: -Status post mitral valve repair for severe mitral valve regurgitation with prolapse -Continued ongoing Nicotine use -History of hypertension -COPD without any acute exacerbation at this time -Hyperlipidemia -Hyponatremia: Secondary to hypovolemia -History of TIA -Leukocytosis secondary to surgery, no signs of active infection at this time -DVT prophylaxis: As per primary service -GI prophylaxis -Full code Plan: Patient is continued in ICU with multiple medical consultations following Cardiology evaluated the patient as well and currently rate controlled on oral amiodarone Patient has had mediastinal chest tube removed along with Larry and Cordis cath with one chest tube remaining, possible removal tomorrow. Chest x-ray stable. Pacemaker wires have been removed Magnesium and potassium slightly low and being replaced per protocol. Patient was given a dose of IV Lasix Patient has been up and walking and encouraged frequent walking as tolerated and physical therapy Encouraged incentive spirometer at least 10 times every hour while awake Continue with Accu-Cheks before meals and at bedtime and if needed and sliding scale for tight glycemic control to promote healing. Patient is not a diabetic Wean FiO2 as tolerated Follow-up labs in the a.m. ordered We will continue to follow with cardiothoracic surgery during hospitalization. Thank you kindly for this consultation The impression and plan of care has been dictated by Gena Dumont, Nurse Practitioner as directed. Dr. Javad MD I have performed a history and physical examination and medical decision making of this patient, discussed the same with the dictator, and agree with the dictators assessment and plan as written, documented as a scribe. Based on total visit time, I have performed more than 50% of this visit. Objective - Vital Signs Vital signs: Vital Signs Temp 98.9 F 05/31/23 08:00 Pulse 86 05/31/23 11:00 Resp 26 H 05/31/23 11:00 BP 117/78 05/31/23 11:00 Pulse Ox 96 05/31/23 11:00 FiO2 2 05/28/23 00:00 Intake & Output 05/30/23 05/31/23 05/31/23 18:59 06:59 18:59 Intake Total 750 350 Output Total 860 885 200 Balance -110 -885 150 Weight 53.9 kg 58.1 kg Intake: Intake, IV Titration 200 Amount Magnesium Sulfate-D5w Pmx 200 1 gm In Dextrose/Water 1 100ml.bag @ 100 mls/hr IVPB Q1H [facility] Rx#: [id number] Oral 550 350 Output: Chest Tube Drainage 160 55 Chest Tube Left Lateral 160 55 Chest Urine 600 830 200 Other 100 Other: Voiding Method Urinal Urinal Urinal # Voids 1 # Bowel Movements 1 1 ABP, PAP, CO, CI - Last Documented Arterial Blood Pressure 102/55 Pulmonary Artery Pressure 23/4 Cardiac Output 4 Cardiac Index 2.5 - Labs CBC & Chem 7: 05/31/23 04:38 05/31/23 04:38 Labs: Abnormal Lab Results - Last 24 Hours (Table) 05/30/23 05/30/23 05/30/23 Range/Units 11:32 17:01 20:54 RBC (4.30-5.90) m/uL Hgb (13.0-17.5) gm/dL Hct (39.0-53.0) % Plt Count (150-450) k/uL Sodium (137-145) mmol/L BUN (9-20) mg/dL Glucose (74-99) mg/dL POC Glucose (mg/dL) 146 H 159 H 153 H (70-110) mg/dL Calcium (8.4-10.2) mg/dL Alkaline Phosphatase (38-126) U/L Total Protein (6.3-8.2) g/dL Albumin (3.5-5.0) g/dL 05/31/23 05/31/23 05/31/23 Range/Units 04:38 04:38 07:17 RBC 2.95 L (4.30-5.90) m/uL Hgb 8.6 L (13.0-17.5) gm/dL Hct 26.3 L (39.0-53.0) % Plt Count 91 L (150-450) k/uL Sodium 132 L (137-145) mmol/L BUN 30 H (9-20) mg/dL Glucose 124 H (74-99) mg/dL POC Glucose (mg/dL) 144 H (70-110) mg/dL Calcium 7.9 L (8.4-10.2) mg/dL Alkaline Phosphatase 139 H (38-126) U/L Total Protein 4.4 L (6.3-8.2) g/dL Albumin 2.4 L (3.5-5.0) g/dL 05/31/23 Range/Units 11:20 RBC (4.30-5.90) m/uL Hgb (13.0-17.5) gm/dL Hct (39.0-53.0) % Plt Count (150-450) k/uL Sodium (137-145) mmol/L BUN (9-20) mg/dL Glucose (74-99) mg/dL POC Glucose (mg/dL) 143 H (70-110) mg/dL Calcium (8.4-10.2) mg/dL Alkaline Phosphatase (38-126) U/L Total Protein (6.3-8.2) g/dL Albumin (3.5-5.0) g/dL Assessment and Plan Time with Patient: Less than 30
--- NOTE | 2023-05-31 11:37 | P.PN ---
Subjective Progress Note Date: 05/31/23 Principal diagnosis: Severe mitral valve regurgitation with prolapse of P2. Past medical history significant for hypertension, hyperlipidemia, transient ischemic attack, COPD with preoperative FEV1 66% of predicted value, osteoarthritis, and chronic ongoing tobacco dependence. POD #5 complex mitral valve repair with construction of P2 pairs of laura-chords to P2, closure of P1P2 as well as P2P3 clefts, and posterior annuloplasty using a 34 mm AnnuloFlex, exclusion of the left atrial appendage using a 35 mm Atriclip, intraoperative transesophageal echocardiogram and epi-aortic scanning. Postoperative acute blood loss anemia, expected given hemodilution and cardiopulmonary bypass. The patient was seen and examined in follow-up today 05/31/2023 at his bedside in the intensive care unit. Currently sitting up to the bedside edge, is awake, alert, oriented 3 and is in no acute distress. He denies any complaints of pain or shortness of breath at this time. He reports he has been up ambulating in the intensive care unit hallway with standby assistance from nursing and therapy staff. Oxygen saturation are 96% on room air and he is achieving 1500 mL on his incentive spirometry with encouragement. Left pleural chest tube remains in place on low continuous wall suction -20 cm H Juan. Draining thin serosanguineous drainage with 55 mL output in the last 8 hours and 160 mL output in the last 24 hours. Urine output is adequate with 580 mL output in the last 8 hours. Chest x-ray and laboratory results reviewed. Epicardial pacemaker wires were removed yesterday without incident. Objective - Vital Signs Vital signs: Vital Signs Temp 98.9 F 05/31/23 08:00 Pulse 86 05/31/23 11:00 Resp 26 H 05/31/23 11:00 BP 117/78 05/31/23 11:00 Pulse Ox 96 05/31/23 11:00 FiO2 2 05/28/23 00:00 Intake & Output 05/30/23 05/31/23 05/31/23 18:59 06:59 18:59 Intake Total 750 350 Output Total 860 885 200 Balance -110 -885 150 Weight 53.9 kg 58.1 kg Intake: Intake, IV Titration 200 Amount Magnesium Sulfate-D5w Pmx 200 1 gm In Dextrose/Water 1 100ml.bag @ 100 mls/hr IVPB Q1H [facility] Rx#: [id number] Oral 550 350 Output: Chest Tube Drainage 160 55 Chest Tube Left Lateral 160 55 Chest Urine 600 830 200 Other 100 Other: Voiding Method Urinal Urinal Urinal # Voids 1 # Bowel Movements 1 1 ABP, PAP, CO, CI - Last Documented Arterial Blood Pressure 102/55 Pulmonary Artery Pressure 23/4 Cardiac Output 4 Cardiac Index 2.5 - Exam CONSTITUTIONAL: Sitting up to the bedside chair in the intensive care unit, appears comfortable, cooperative, no apparent acute distress. HEENT: Neck is supple, no JVD, no lymphadenopathy. RESPIRATORY: Lungs sounds essentially clear throughout, diminished to his bilateral bases. Respirations are symmetrical and nonlabored. Currently on room air with oxygen saturations 96%. Able to achieve 1500 mL on their incentive spirometry. Strong cough. CARDIOVASCULAR: Regular rhythm and rate. S1 and S2 present, negative for S3, gallop or murmur. Sternum is stable. Palpable peripheral pulses bilaterally, no edema to his bilateral lower extremities. No calf pain or tenderness noted. Heart hugger in place with patient demonstrating appropriate use. Knee-high KIRTI hose and sequential compression devices in place to his bilateral lower extremi ties. GASTROINTESTINAL: Abdomen soft, nontender, nondistended. Active bowel sounds present 4 quadrants. Tolerating diet. Passing flatus. No guarding or rigidity. GENITOURINARY: Continues to void. Urine output 580 mL in the last 8 hours. INTEGUMENTARY: Skin is warm and dry with no evidence of clubbing or cyanosis. Midline sternal incision clean dry and well approximated, covered with dry intact dressing. NEUROLOGIC: Cranial nerves II through XII intact. No focal deficits. MUSKULOSKELETAL: Able to move all extremities, strength equal bilaterally. PSYCHIATRIC: Alert and oriented to person place and time, appropriate affect, intact judgment and insight. INVASIVE LINES AND TUBES: Left pleural chest tube present and connected to low continuous wall suction, no air leaks present. Left pleural chest tube with 55 mL of thin serosanguineous drainage overnight, 160 mL output in the last 24 hours. - Allied health notes Allied health notes reviewed: nursing - Labs CBC & Chem 7: 05/31/23 04:38 05/31/23 04:38 Labs: Abnormal Lab Results - Last 24 Hours (Table) 05/30/23 05/30/23 05/30/23 Range/Units 11:32 17:01 20:54 RBC (4.30-5.90) m/uL Hgb (13.0-17.5) gm/dL Hct (39.0-53.0) % Plt Count (150-450) k/uL Sodium (137-145) mmol/L BUN (9-20) mg/dL Glucose (74-99) mg/dL POC Glucose (mg/dL) 146 H 159 H 153 H (70-110) mg/dL Calcium (8.4-10.2) mg/dL Alkaline Phosphatase (38-126) U/L Total Protein (6.3-8.2) g/dL Albumin (3.5-5.0) g/dL 05/31/23 05/31/23 05/31/23 Range/Units 04:38 04:38 07:17 RBC 2.95 L (4.30-5.90) m/uL Hgb 8.6 L (13.0-17.5) gm/dL Hct 26.3 L (39.0-53.0) % Plt Count 91 L (150-450) k/uL Sodium 132 L (137-145) mmol/L BUN 30 H (9-20) mg/dL Glucose 124 H (74-99) mg/dL POC Glucose (mg/dL) 144 H (70-110) mg/dL Calcium 7.9 L (8.4-10.2) mg/dL Alkaline Phosphatase 139 H (38-126) U/L Total Protein 4.4 L (6.3-8.2) g/dL Albumin 2.4 L (3.5-5.0) g/dL 05/31/23 Range/Units 11:20 RBC (4.30-5.90) m/uL Hgb (13.0-17.5) gm/dL Hct (39.0-53.0) % Plt Count (150-450) k/uL Sodium (137-145) mmol/L BUN (9-20) mg/dL Glucose (74-99) mg/dL POC Glucose (mg/dL) 143 H (70-110) mg/dL Calcium (8.4-10.2) mg/dL Alkaline Phosphatase (38-126) U/L Total Protein (6.3-8.2) g/dL Albumin (3.5-5.0) g/dL - Imaging and Cardiology Chest x-ray: report reviewed, image reviewed Assessment and Plan Assessment: Severe mitral valve regurgitation with prolapse of P2, status post complex mitral valve repair using a 34 mm AnnuloFlex Hypertension Hyperlipidemia History of transient ischemic attack COPD with a preoperative FEV1 66% of predicted value Osteoarthritis Chronic ongoing tobacco dependence Postoperative acute blood loss anemia, expected given hemodilution and cardiopulmonary bypass Plan: Continue to maximize medical therapy with low-dose aspirin, statin, Plavix. Continue metoprolol tartrate 50 mg by mouth twice a day with hold parameters. Continue Cozaar 50 mg by mouth twice a day with hold parameters. Continue Arixtra 2.5 mg subcu daily. Platelet count 91 today. Encourage incentive spirometry 10 times every hour while awake. Bronchodilators per pulmonology. Continue Pulmicort 0.5 mg inhalation twice a day. We will monitor daily labs and chest x-rays. Electrolyte replacement per protocol. Increase activity, ambulate as tolerated. PT/OT/cardiac rehab following. GI/DVT prophylaxis. Pain control with current medication regimen. Continue home dose of Lyrica and Skelaxin restarted. No Toradol at this time due to his platelets. Insulin management per internal medicine. Preoperative hemoglobin A1c was 5.2%. Remove left pleural chest tube today. Continue to record strict inaccurate I's and O's area to me bladder scan every 6 hours and when necessary residual. Lasix 20 mg IV 1 now and potassium chloride 10 mEq by mouth 1 now. Continue Mucinex 1200 mg by mouth twice a day. Importance of smoking cessation was discussed with the patient. Transfer orders placed to the third floor cardiac stepdown unit. Transfer when bed available. More recommendations to follow based on patient's clinical course. Time with Patient: Greater than 30
--- NOTE | 2023-05-31 11:42 | XR ---
EXAM: XR chest 1V portable CLINICAL INDICATION:Male, 63 years old with history of Post op MVR; [facility] COMPARISON: 05/30/2023 and before TECHNIQUE: Chest single view. FINDINGS: Lines/tubes/devices: Stable left basilar chest tube. EKG leads and other extrinsic densities over the chest. Cardiomediastinum: Cardiac silhouette appears stable, mildly enlarged. Stable mediastinal silhouette. Left atrial appendage clip, annuloplasty ring, and sternotomy wires re demonstrated. Vasculature: Similar mild congestion. Lungs/pleura: Similar appearance of pleural/parenchymal opacity at the right lung base. No sizable pneumothorax dem onstrated. Bones/soft tissues: Bony thorax appears grossly stable as seen. Remote healed left clavicle fracture and similar appearan ce of widening of the AC joint. Regional soft tissues appear unremarkable. IMPRESSION: 1. Postoperative changes again noted, with mild pulmonary vascular congestion. 2. Similar opacity towards the right lung base, suggestive of small to moderate pleural effusion wit h adjacent atelectasis and/or airspace disease.
--- NOTE | 2023-05-31 11:47 | P.PN ---
Subjective Progress Note Date: 05/31/23 This is a 63-year-old male patient with a known history of 50 years of smoking, hypertension, COPD, hyperlipidemia. He was also found to have severe mitral regurgitation and was brought in today electively for mitral valve repair. He did undergo mitral valve repair and exclusion of left atrial appendage with a 35 mm Atriclip. He is seen in the postoperative period in the intensive care unit. He is currently intubated on mechanical ventilator with assist control rate of 12, tidal volume 350, FiO2 100% and a PEEP of 5. Blood gases revealed a pO2 greater than 400, pCO2 55 and a pH of 7.25. He has mediastinal chest tube x2, left pleural chest tube. He is atrial paced at a rate of 80. Cardiac output 4.8. Cardiac index 3.0. PA pressures 35/15. CVP of 13. Right IJ [place] catheter in place. He is currently on clevidipine at 5 mg per hour. Normal saline at 50 MLS per hour. Chest x-ray reveals no acute pulmonary process. Tubes and lines an appropriate place. He remains on bronchodilators. He did receive albumin. Propofol is currently being weaned. White count 8.6. Hemoglobin 9.7. Platelets 72,000. INR 1.3. Sodium 142. Potassium 3.8. Bicarb 22. BUN 18. Creatinine 0.87. Glucose 70. AST 33. ALT 8. Albumin 2.3. Magnesium 2.8. Calcium 6.7. The patient is seen today 05/27/2023 in follow-up in the intensive care unit. He is currently sitting up in a chair at the bedside. Awake and alert in no acute distress. He is maintaining good O2 saturations in the 90s on 2 L/m per nasal cannula. He is in normal sinus rhythm. Cardiac output 4.0. Cardiac index 2.5. CVP of 9. He is requiring Cleviprex at 3 mg/h. Insulin drip at 2 units per hour. Normal saline at 50 MLS per hour. Chest x-ray shows a small right pleural effusion. Chest tubes remain in place. White count 11.4. Hemoglobin 10.1. Platelets 66,000. Sodium 134. Potassium 4.6. Bicarb 20. BUN 15. Creatinine 0.9. Glucose 139. AST 50. ALT 11. He remains on DuoNeb inhalations. Working well with the incentive spirometer. Anticoagulated with Arixtra.` The patient is seen today 05/28/2023 in follow-up in the intensive care unit. He sitting up in chair at the bedside. Awake and alert in no acute distress. Continue good O2 saturations in the 90s on 2 L/m per nasal cannula. He has normal saline at KVO. Chest x-ray reveals left chest tube in place. Suspected trace left apical pneumothorax. There is evidence of COPD with interstitial pulmonary edema and small bilateral pleural effusions. He is encouraged to increase the use of his incentive spirometer and cough and deep breathing exercises. White count 13.8. Hemoglobin 9.6. Platelets 60,000. Sodium 131. Potassium 4.7. Bicarb 23. BUN 18. Creatinine 0.99. Glucose 128. Ionized calcium 4.8. Albumin 2.9. Magnesium 2.0. Remains on Arixtra. Continue bronchodilators. The patient is seen today 05/29/2023 in follow-up in the intensive care unit. He is resting comfortably in bed. Awake and alert in no acute distress. Postoperative day #3. He is maintaining good O2 saturations in the 90s on 2 L/m per nasal cannula. No IV fluids. White count 14.8. Hemoglobin 9.1. Platelets 58,000. Sodium 132. Potassium 4.4. Bicarb 22. BUN 20. Creatinine 0.77. Glucose 110. Chest x-ray review reveals right pleural effusion. Interval removal of left thoracotomy tube without evidence of pneumothorax. He continues working well with the incentive spirometer. The patient is seen today 05/30/2023 in follow-up in the intensive care unit. He is currently resting comfortably in bed. Awake and alert in no acute distress. Maintaining O2 saturations in the 90s on room air. Postoperative day #4 for mitral valve replacement. Chest tube remains in place with approximate 400 ML's over the past 12 hours. Chest x-ray showed some right lower lobe collapse. He is pulling approximately 4925-0858 ML's on the incentive spirometer. Pacer wires are in place. He did have issues with atrial fibrillation through the night. White count 12.9. Hemoglobin 8.7. Platelets 63,000. Sodium 132. Potassium 4.2. Bicarb 25. BUN 24. Creatinine 0.89. Glucose 106. AST 39. ALT 25. He remains on bronchodilators. Arixtra for anticoagulation. The patient is seen today 05/31/2023 in follow-up in the intensive care unit. Postoperative day #5 for mitral valve repair. He is currently sitting up in bed. Awake and alert in no acute distress. Maintaining O2 saturations in the 90s on 2 L/m per nasal cannula. Chest x-rays continued to show a right lower lobe opacity/atelectasis. He is encouraged again regarding increased use the incentive spirometer. Currently pulling 1500 ML's. Chest tube remains in place. No IV fluids. White count 9.2. Hemoglobin 8.6. Platelets 91,000. Sodium 132. Potassium 4.0. Bicarb 26. BUN 30. Creatinine 1.04. Glucose 124. He remains on bronchodilators. Anticoagulated with Arixtra. Objective - Vital Signs Vital signs: Vital Signs Temp 98.9 F 05/31/23 08:00 Pulse 86 05/31/23 11:00 Resp 26 H 05/31/23 11:00 BP 117/78 05/31/23 11:00 Pulse Ox 96 05/31/23 11:00 FiO2 2 05/28/23 00:00 Intake & Output 05/30/23 05/31/23 05/31/23 18:59 06:59 18:59 Intake Total 750 350 Output Total 860 885 200 Balance -110 -885 150 Weight 53.9 kg 58.1 kg Intake: Intake, IV Titration 200 Amount Magnesium Sulfate-D5w Pmx 200 1 gm In Dextrose/Water 1 100ml.bag @ 100 mls/hr IVPB Q1H [facility] Rx#: [id number] Oral 550 350 Output: Chest Tube Drainage 160 55 Chest Tube Left Lateral 160 55 Chest Urine 600 830 200 Other 100 Other: Voiding Method Urinal Urinal Urinal # Voids 1 # Bowel Movements 1 1 ABP, PAP, CO, CI - Last Documented Arterial Blood Pressure 102/55 Pulmonary Artery Pressure 23/4 Cardiac Output 4 Cardiac Index 2.5 - Exam GENERAL EXAM: Alert, pleasant 63-year-old male, on room air, in no apparent distress. HEAD: Normocephalic. EYES: Normal reaction of pupils, equal size. NOSE: Clear with pink turbinates. THROAT: No erythema or exudates. NECK: No masses, no JVD. CHEST: Sternum stable. Heart Hugger in place. Chest tubes removed. LUNGS: Equal air entry with few scattered rhonchi. CVS: S1 and S2 normal with no audible murmur, regular rhythm. ABDOMEN: No hepatosplenomegaly, normal bowel sounds, no guarding or rigidity. SPINE: No scoliosis or deformity SKIN: No rashes CENTRAL NERVOUS SYSTEM: No focal deficits, tone is normal in all 4 extremities. EXTREMITIES: There is no peripheral edema. No clubbing, no cyanosis. Peripheral pulses are intact. - Labs CBC & Chem 7: 05/31/23 04:38 05/31/23 04:38 Labs: Abnormal Lab Results - Last 24 Hours (Table) 05/30/23 05/30/23 05/31/23 Range/Units 17:01 20:54 04:38 RBC 2.95 L (4.30-5.90) m/uL Hgb 8.6 L (13.0-17.5) gm/dL Hct 26.3 L (39.0-53.0) % Plt Count 91 L (150-450) k/uL Sodium (137-145) mmol/L BUN (9-20) mg/dL Glucose (74-99) mg/dL POC Glucose (mg/dL) 159 H 153 H (70-110) mg/dL Calcium (8.4-10.2) mg/dL Alkaline Phosphatase (38-126) U/L Total Protein (6.3-8.2) g/dL Albumin (3.5-5.0) g/dL 05/31/23 05/31/23 05/31/23 Range/Units 04:38 07:17 11:20 RBC (4.30-5.90) m/uL Hgb (13.0-17.5) gm/dL Hct (39.0-53.0) % Plt Count (150-450) k/uL Sodium 132 L (137-145) mmol/L BUN 30 H (9-20) mg/dL Glucose 124 H (74-99) mg/dL POC Glucose (mg/dL) 144 H 143 H (70-110) mg/dL Calcium 7.9 L (8.4-10.2) mg/dL Alkaline Phosphatase 139 H (38-126) U/L Total Protein 4.4 L (6.3-8.2) g/dL Albumin 2.4 L (3.5-5.0) g/dL Assessment and Plan Assessment: History of severe mitral regurgitation, status post mitral valve repair. Postoperative day #5 Chronic obstructive pulmonary disease FEV1 value 75% of predicted Paroxysmal atrial fibrillation, expected outcome of surgery Chronic and ongoing tobacco dependence of 50 years Hypertension, history of Hyperlipidemia Multiple orthopedic surgeries Plan: The patient was seen and evaluated Chest x-ray, labs and medications reviewed Right lower lobe with opacity/atelectasis/effusion Encouraged the increased use of the incentive spirometer Remains on bronchodilators Increase his activity as tolerated We will continue to follow I have personally seen and examined the patient, performed the documentation and the assessment and plan as written. Number of minutes spent on the visit: 10.
--- NOTE | 2023-05-31 14:18 | P.PN ---
Subjective Progress Note Date: 05/31/23 PROGRESS NOTE The patient is a 63-year-old male who is followed by Dr. Estrada, underwent mitral valve repair yesterday for severe mitral regurgitation. He is extubated, sitting up in the chair, complaining of mild dyspnea and soreness. He is in sinus mechanism. Hemodynamically he is stable otherwise. He has a long- standing history of mitral valve prolapse and severe mitral regurgitation documented in 2018. He presented again with symptoms few months ago and underwent cardiac catheterization that showed no evidence of obstructive coronary artery disease. He underwent mitral valve repair with posterior annuloplasty with size 34 mm ring. He also had closure of his left atrial appendage. The patient has a known history of chronic tobacco use. He has no history of diabetes or documented hypertension. May 28: The patient is feeling well this morning, sitting up in chair. Continues to be in sinus mechanism. Has mild soreness in the chest. Denies any dizziness or palpitation, no nausea or vomiting. Hemodynamically stable. He has no evidence of atrial fibrillation or ventricular ectopic activity. He is using his incentive spirometry. May 29: The patient is doing well this morning, he had soreness in the chest yesterday, better today. He continues to be in sinus mechanism. He denies any dizziness or palpitations. His breathing has been stable. He has been ambulating. He has no nausea or vomiting. May 30: The patient feels depressed today, does not feel well. He continues to be in sinus mechanism, his blood pressure is stable. He has mild chest soreness. His breathing is stable. He denies any dizziness or palpitations. He has no nausea or vomiting. Hemodynamically stable. 05/31/23 Patient is doing well from cardiac vessel standpoint. He is able to ambulate in the room without any difficulty. His chest tube was removed this morning. He is tolerating oral diet. Blood pressure 126/72, heart rate 74 beats a minute, Labs hemoglobin 8.6, platelets 91, BUN 30, creatinine 1.05, sodium 132 Medications: Lipitor 40 mg daily, aspirin once a day, metoprolol 50 mg twice a day, Plavix 75 mg daily, amiodarone 400 mg twice a day, Flomax, losartan 50 mg twice a day PHYSICAL EXAMINATION: LUNGS: Mild decrease in the breath sounds at the base HEART: Regular rate and rhythm, S1, S2. No S3. Systolic ejection murmur at the base, ABDOMEN: Soft, nontender, no organomegaly EXTREMETIES: No edema IMPRESSION: 1. Status post mitral valve repair 2. Hyperlipidemia 3. History of chronic tobacco use 4. Chronic obstructive lung disease PLAN: 1. Continue medical therapy 2. Increase physical activity 3. Follow blood pressure 4. Depending on his progress further recommendations will be made Objective - Vital Signs Vital signs: Vital Signs Temp 98.3 F 05/31/23 12:00 Pulse 70 05/31/23 12:47 Resp 29 H 05/31/23 12:00 BP 126/72 05/31/23 12:00 Pulse Ox 93 L 05/31/23 12:00 FiO2 2 05/28/23 00:00 Intake & Output 05/30/23 05/31/23 05/31/23 18:59 06:59 18:59 Intake Total 750 450 Output Total 860 885 710 Balance -110 -885 -260 Weight 53.9 kg 58.1 kg Intake: Intake, IV Titration 200 Amount Magnesium Sulfate-D5w Pmx 200 1 gm In Dextrose/Water 1 100ml.bag @ 100 mls/hr IVPB Q1H [facility] Rx#: [id number] Oral 550 450 Output: Chest Tube Drainage 160 55 0 Chest Tube Left Lateral 160 55 0 Chest Urine 600 830 710 Other 100 Other: Voiding Method Urinal Urinal Urinal # Voids 1 # Bowel Movements 1 1 ABP, PAP, CO, CI - Last Documented Arterial Blood Pressure 102/55 Pulmonary Artery Pressure 23/4 Cardiac Output 4 Cardiac Index 2.5 - Labs CBC & Chem 7: 05/31/23 04:38 05/31/23 04:38 Labs: Abnormal Lab Results - Last 24 Hours (Table) 05/30/23 05/30/23 05/31/23 Range/Units 17:01 20:54 04:38 RBC 2.95 L (4.30-5.90) m/uL Hgb 8.6 L (13.0-17.5) gm/dL Hct 26.3 L (39.0-53.0) % Plt Count 91 L (150-450) k/uL Sodium (137-145) mmol/L BUN (9-20) mg/dL Glucose (74-99) mg/dL POC Glucose (mg/dL) 159 H 153 H (70-110) mg/dL Calcium (8.4-10.2) mg/dL Alkaline Phosphatase (38-126) U/L Total Protein (6.3-8.2) g/dL Albumin (3.5-5.0) g/dL 05/31/23 05/31/23 05/31/23 Range/Units 04:38 07:17 11:20 RBC (4.30-5.90) m/uL Hgb (13.0-17.5) gm/dL Hct (39.0-53.0) % Plt Count (150-450) k/uL Sodium 132 L (137-145) mmol/L BUN 30 H (9-20) mg/dL Glucose 124 H (74-99) mg/dL POC Glucose (mg/dL) 144 H 143 H (70-110) mg/dL Calcium 7.9 L (8.4-10.2) mg/dL Alkaline Phosphatase 139 H (38-126) U/L Total Protein 4.4 L (6.3-8.2) g/dL Albumin 2.4 L (3.5-5.0) g/dL
[2023-05-31] MEDS: HYDROcodone/APAP 7.5-325MG 1 EACH TAB PO SCH ×2 (15:42→21:12)
[2023-05-31 16:20] LABS: Glucose,Whole Blood 123 mg/dL (70-110)
[2023-05-31 20:29] LABS: Glucose,Whole Blood 130 mg/dL (70-110)
[2023-05-31] MEDS: SENNOSIDES-DOCUSATE SODIUM 1 EACH TAB PO SCH (21:13)
[2023-06-01 05:46] LABS: Basophils % (A) 0 %; Eosinophils # (A) 0.4 k/uL (0-0.7); Eosinophils % (A) 4 %; HCT 25.6 % (39.0-53.0); HGB 8.2 gm/dL (13.0-17.5); Lymphocytes # (A) 1.5 k/uL (1.0-4.8); Lymphocytes % (A) 18 %; MCH 28.9 pg (25.0-35.0); MCHC 32.2 g/dL (31.0-37.0); MCV 89.9 fL (80.0-100.0); Mean Platelet Volume 10.9; Monocytes # (A) 0.6 k/uL (0-1.0); Monocytes % (A) 7 %; Neutrophils # (A) 6.1 k/uL (1.3-7.7); Neutrophils % (A) 69 %; Platelet Count 119 k/uL (150-450); RBC 2.85 m/uL (4.30-5.90); WBC 8.8 k/uL (3.8-10.6)
[2023-06-01 05:58] LABS: African American GFR (CKD) 69 (>60 ml/min/1.73 sqM); Anion Gap 7 mmol/L; Blood Urea Nitrogen 35 mg/dL (9-20); Carbon Dioxide 27 mmol/L (22-30); Chloride 98 mmol/L (98-107); Glucose 85 mg/dL (74-99); Magnesium 2.1 mg/dL (1.6-2.3); Non-African American GFR(CKD) 60 (>60 ml/min/1.73 sqM); Potassium 4.3 mmol/L (3.5-5.1); Sodium 132 mmol/L (137-145)
[2023-06-01 06:35] LABS: Glucose,Whole Blood 118 mg/dL (70-110)
[2023-06-01] MEDS: INSULIN ASPART (NovoLOG) 100 UNIT/ML VIAL SQ SCH ×4 (07:00→21:31)
[2023-06-01] MEDS: PANTOPRAZOLE 40 MG TABLET PO SCH (07:00)
[2023-06-01] MEDS: IPRATROPIUM-ALBUTEROL 3 ML NEB INHALATION SCH ×4 (07:54→19:37)
[2023-06-01] MEDS: BUDESONIDE 0.5 MG/2 ML NEBU INHALATION SCH ×2 (07:54→19:37)
[2023-06-01] MEDS: HYDROcodone/APAP 7.5-325MG 1 EACH TAB PO SCH ×3 (08:44→21:04)
[2023-06-01] MEDS: TAMSULOSIN 0.4 MG CAP.ER.24H PO SCH (08:44)
[2023-06-01] MEDS: guaiFENesin 600 MG TABLET.ER PO SCH (08:44)
[2023-06-01] MEDS: ATORVASTATIN 40 MG TAB PO SCH (08:45)
[2023-06-01] MEDS: FONDAPARINUX 2.5 MG/0.5 ML SYRINGE SQ SCH (08:45)
[2023-06-01] MEDS: AMIODARONE 200 MG TAB PO SCH ×2 (08:45→21:04)
[2023-06-01] MEDS: ASPIRIN 81 MG PO SCH (08:45)
[2023-06-01] MEDS: METOPROLOL TARTRATE 50 MG TAB PO SCH ×2 (08:47→21:05)
[2023-06-01] MEDS: PREGABALIN 100 MG CAP PO SCH ×3 (08:47→21:05)
[2023-06-01] MEDS: LOSARTAN 50 MG TAB PO SCH ×2 (08:47→21:04)
--- NOTE | 2023-06-01 09:09 | XR ---
EXAMINATION TYPE: XR chest 2V DATE OF EXAM: 06/01/2023 5:28 AM CLINICAL INDICATION:Male, 63 years old with history of Postoperative mvr; [facility] COMPARISON: 05/31/2023 and before TECHNIQUE: XR chest 2V Frontal and lateral views of the chest. FINDINGS: Lines/tubes/devices: Left basilar chest tube removed. EKG leads and other extrinsic densities over th e chest. Cardiomediastinum: Cardiac silhouette appears stable, mildly enlarged. Stable mediastinal silhouette. Left atrial occlusion device, faintly seen annuloplasty ring, and ster notomy wires redemonstrated. Vasculature: Similar mild congestion. Lungs/pleura: Similar appearance of pleural/parenchymal opacity at the right lung base. Probable right apical emphy sematous blebs. No visualized pneumothorax. New mild stranding at the left lung base with slight blunting of the costophrenic angle. Bones/soft tissues: Bony thorax appears grossly stable as seen. Remote healed left clavicle fracture and similar appearan ce of widened AC joint. Mild degenerative changes of the spine. Regional soft tissues appear unremark able. IMPRESSION: 1. Postoperative changes, with stable mild pulmonary vascular congestion. 2. Stable right basilar pleural/parenchymal opacity, suggestive of small to moderate pleural effusio n with adjacent atelectasis or airspace disease. 3. Interval removal of the left basilar chest tube. New small left basilar pleural/parenchymal opaci ty, likely atelectasis with possible small pleural effusion. 4. No visualized pneumothorax.
[2023-06-01] MEDS ORDERED: POTASSIUM CHLORIDE ER 10 MEQ TAB.ER.PRT PO STA (09:20)
[2023-06-01] MEDS ORDERED: FUROSEMIDE 10 MG/ML 2 ML VIAL IV ONE (09:30)
--- NOTE | 2023-06-01 10:00 | P.PN ---
Subjective Progress Note Date: 06/01/23 Principal diagnosis: Severe mitral valve regurgitation with prolapse of P2. Past medical history significant for hypertension, hyperlipidemia, transient ischemic attack, COPD with preoperative FEV1 66% of predicted value, osteoarthritis, and chronic ongoing tobacco dependence. POD #6 complex mitral valve repair with construction of P2 pairs of laura-chords to P2, closure of P1P2 as well as P2P3 clefts, and posterior annuloplasty using a 34 mm AnnuloFlex, exclusion of the left atrial appendage using a 35 mm Atriclip, intraoperative transesophageal echocardiogram and epi-aortic scanning. Postoperative acute blood loss anemia, expected given hemodilution and cardiopulmonary bypass. The patient was seen and examined in follow-up today 06/01/2023 at his bedside in the intensive care unit. He is currently awaiting a bed on the third floor cardiac stepdown unit as he is in place. He is currently lying in bed, is awake, alert, oriented 3 and is in no acute distress. Encourage the patient to be sitting up in the chair, although he states due to his skinny structure it hurts his tailbone to be sitting in the chair. The patient has been ambulating in the intensive care unit hallway several times with standby assistance of nursing and therapy staff. Oxygen saturation are 94% on room air and he is achieving 1500 mL on his incentive spirometry with encouragement. Bedside telemetry showing normal sinus rhythm heart rate 68 BPM. His left pleural chest tube was removed yesterday without incident. Laboratory and chest x-ray results reviewed. Objective - Vital Signs Vital signs: Vital Signs Temp 98 F 06/01/23 08:00 Pulse 86 06/01/23 08:07 Resp 16 06/01/23 08:00 BP 124/71 06/01/23 08:00 Pulse Ox 93 L 06/01/23 08:00 FiO2 2 05/28/23 00:00 Intake & Output 05/31/23 06/01/23 06/01/23 18:59 06:59 18:59 Intake Total 850 300 200 Output Total 710 501 Balance 140 -201 200 Weight 54.9 kg Intake: Oral 850 300 200 Output: Chest Tube Drainage 0 Chest Tube Left Lateral 0 Chest Urine 710 500 Stool 1 Other: Voiding Method Urinal Urinal Urinal # Voids 1 1 # Bowel Movements 1 1 ABP, PAP, CO, CI - Last Documented Arterial Blood Pressure 102/55 Pulmonary Artery Pressure 23/4 Cardiac Output 4 Cardiac Index 2.5 - Exam CONSTITUTIONAL: Sitting up in bed in the intensive care unit, appears comfortable, cooperative, no apparent acute distress. HEENT: Neck is supple, no JVD, no lymphadenopathy. RESPIRATORY: Lungs sounds essentially clear throughout, diminished to his bilateral bases. Respirations are symmetrical and nonlabored. Currently on room air with oxygen saturations 94%. Able to achieve 1500 mL on their incentive spirometry. Strong cough. CARDIOVASCULAR: Regular rhythm and rate. S1 and S2 present, negative for S3, gallop or murmur. Sternum is stable. Palpable peripheral pulses bilaterally, no edema to his bilateral lower extremities. No calf pain or tenderness noted. Heart hugger in place with patient demonstrating appropriate use. Knee-high KIRTI hose and sequential compression devices in place to his bilateral lower extremities. GASTROINTESTINAL: Abdomen soft, nontender, nondistended. Active bowel sounds present 4 quadrants. Tolerating diet. Passing flatus. No guarding or rigi dity. GENITOURINARY: Continues to void. Urine output 500 mL in the last 8 hours. INTEGUMENTARY: Skin is warm and dry with no evidence of clubbing or cyanosis. Midline sternal incision clean dry and well approximated, covered with dry intact dressing. NEUROLOGIC: Cranial nerves II through XII intact. No focal deficits. MUSKULOSKELETAL: Able to move all extremities, strength equal bilaterally. PSYCHIATRIC: Alert and oriented to person place and time, appropriate affect, intact judgment and insight. - Allied health notes Allied health notes reviewed: nursing - Labs CBC & Chem 7: 06/01/23 05:06 06/01/23 05:06 Labs: Abnormal Lab Results - Last 24 Hours (Table) 05/31/23 05/31/23 05/31/23 Range/Units 11:20 16:19 20:28 RBC (4.30-5.90) m/uL Hgb (13.0-17.5) gm/dL Hct (39.0-53.0) % Plt Count (150-450) k/uL Sodium (137-145) mmol/L BUN (9-20) mg/dL Creatinine (0.66-1.25) mg/dL POC Glucose (mg/dL) 143 H 123 H 130 H (70-110) mg/dL Calcium (8.4-10.2) mg/dL 06/01/23 06/01/23 06/01/23 Range/Units 05:06 05:06 06:34 RBC 2.85 L (4.30-5.90) m/uL Hgb 8.2 L (13.0-17.5) gm/dL Hct 25.6 L (39.0-53.0) % Plt Count 119 L (150-450) k/uL Sodium 132 L (137-145) mmol/L BUN 35 H (9-20) mg/dL Creatinine 1.28 H (0.66-1.25) mg/dL POC Glucose (mg/dL) 118 H (70-110) mg/dL Calcium 8.0 L (8.4-10.2) mg/dL - Imaging and Cardiology Chest x-ray: report reviewed, image reviewed Assessment and Plan Assessment: Severe mitral valve regurgitation with prolapse of P2, status post complex mitral valve repair using a 34 mm AnnuloFlex Hypertension Hyperlipidemia History of transient ischemic attack COPD with a preoperative FEV1 66% of predicted value Osteoarthritis Chronic ongoing tobacco dependence Postoperative acute blood loss anemia, expected given hemodilution and cardiopulmonary bypass Plan: Continue to maximize medical therapy with low-dose aspirin, statin, Plavix. Continue metoprolol tartrate 50 mg by mouth twice a day with hold parameters. Continue Cozaar 50 mg by mouth twice a day with hold parameters. Continue Arixtra 2.5 mg subcu daily. Platelet count 119 today. Encourage incentive spirometry 10 times every hour while awake. Bronchodilators per pulmonology. Continue Pulmicort 0.5 mg inhalation twice a day. We will monitor daily labs and chest x-rays. Electrolyte replacement per protocol. Increase activity, ambulate as tolerated. PT/OT/cardiac rehab following. GI/DVT prophylaxis. Pain control with current medication regimen. Continue home dose of Lyrica, Gur[place] and Skelaxin restarted. Insulin management per internal medicine. Preoperative hemoglobin A1c was 5.2%. Continue to record strict inaccurate I's and O's Lasix 20 mg IV 1 now and potassium chloride 10 mEq by mouth 1 now. Importance of smoking cessation was discussed with the patient. Transfer orders placed to the third floor cardiac stepdown unit. Transfer when bed available. Anticipate discharge home within the next 24 hours with home health care. More recommendations to follow based on patient's clinical course. Time with Patient: Greater than 30
--- NOTE | 2023-06-01 10:22 | US ---
EXAMINATION TYPE: US chest DATE OF EXAM: 06/01/2023 COMPARISON: CXR CLINICAL INDICATION: Male, 63 years old with history of US right chest with markings pleural effusion ; Effusion TECHNIQUE: Targeted ultrasound of the posterior lower right hemithorax EXAM MEASUREMENTS: Right Pleural Effusion pocket size: 10.7 cm Right skin surface to fluid distance: 3.4 cm Right side marked for possible thoracentesis outside the dept. Pulmonologists are able to review the images in the patient?s EMR. IMPRESSIONS: Large right pleural effusion.
--- NOTE | 2023-06-01 10:50 | P.PN ---
Subjective Progress Note Date: 06/01/23 This is a 63-year-old male patient with a known history of 50 years of smoking, hypertension, COPD, hyperlipidemia. He was also found to have severe mitral regurgitation and was brought in today electively for mitral valve repair. He did undergo mitral valve repair and exclusion of left atrial appendage with a 35 mm Atriclip. He is seen in the postoperative period in the intensive care unit. He is currently intubated on mechanical ventilator with assist control rate of 12, tidal volume 350, FiO2 100% and a PEEP of 5. Blood gases revealed a pO2 greater than 400, pCO2 55 and a pH of 7.25. He has mediastinal chest tube x2, left pleural chest tube. He is atrial paced at a rate of 80. Cardiac output 4.8. Cardiac index 3.0. PA pressures 35/15. CVP of 13. Right IJ Crowell-Delta catheter in place. He is currently on clevidipine at 5 mg per hour. Normal saline at 50 MLS per hour. Chest x-ray reveals no acute pulmonary process. Tubes and lines an appropriate place. He remains on bronchodilators. He did receive albumin. Propofol is currently being weaned. White count 8.6. Hemoglobin 9.7. Platelets 72,000. INR 1.3. Sodium 142. Potassium 3.8. Bicarb 22. BUN 18. Creatinine 0.87. Glucose 70. AST 33. ALT 8. Albumin 2.3. Magnesium 2.8. Calcium 6.7. The patient is seen today 05/27/2023 in follow-up in the intensive care unit. He is currently sitting up in a chair at the bedside. Awake and alert in no acute distress. He is maintaining good O2 saturations in the 90s on 2 L/m per nasal cannula. He is in normal sinus rhythm. Cardiac output 4.0. Cardiac index 2.5. CVP of 9. He is requiring Cleviprex at 3 mg/h. Insulin drip at 2 units per hour. Normal saline at 50 MLS per hour. Chest x-ray shows a small right pleural effusion. Chest tubes remain in place. White count 11.4. Hemoglobin 10.1. Platelets 66,000. Sodium 134. Potassium 4.6. Bicarb 20. BUN 15. Creatinine 0.9. Glucose 139. AST 50. ALT 11. He remains on DuoNeb inhalations. Working well with the incentive spirometer. Anticoagulated with Arixtra.` The patient is seen today 05/28/2023 in follow-up in the intensive care unit. He sitting up in chair at the bedside. Awake and alert in no acute distress. Continue good O2 saturations in the 90s on 2 L/m per nasal cannula. He has normal saline at KVO. Chest x-ray reveals left chest tube in place. Suspected trace left apical pneumothorax. There is evidence of COPD with interstitial pulmonary edema and small bilateral pleural effusions. He is encouraged to increase the use of his incentive spirometer and cough and deep breathing exercises. White count 13.8. Hemoglobin 9.6. Platelets 60,000. Sodium 131. Potassium 4.7. Bicarb 23. BUN 18. Creatinine 0.99. Glucose 128. Ionized calcium 4.8. Albumin 2.9. Magnesium 2.0. Remains on Arixtra. Continue bronchodilators. The patient is seen today 05/29/2023 in follow-up in the intensive care unit. He is resting comfortably in bed. Awake and alert in no acute distress. Postoperative day #3. He is maintaining good O2 saturations in the 90s on 2 L/m per nasal cannula. No IV fluids. White count 14.8. Hemoglobin 9.1. Platelets 58,000. Sodium 132. Potassium 4.4. Bicarb 22. BUN 20. Creatinine 0.77. Glucose 110. Chest x-ray review reveals right pleural effusion. Interval removal of left thoracotomy tube without evidence of pneumothorax. He continues working well with the incentive spirometer. The patient is seen today 05/30/2023 in follow-up in the intensive care unit. He is currently resting comfortably in bed. Awake and alert in no acute distress. Maintaining O2 saturations in the 90s on room air. Postoperative day #4 for mitral valve replacement. Chest tube remains in place with approximate 400 ML's over the past 12 hours. Chest x-ray showed some right lower lobe collapse. He is pulling approximately 0796-1893 ML's on the incentive spirometer. Pacer wires are in place. He did have issues with atrial fibrillation through the night. White count 12.9. Hemoglobin 8.7. Platelets 63,000. Sodium 132. Potassium 4.2. Bicarb 25. BUN 24. Creatinine 0.89. Glucose 106. AST 39. ALT 25. He remains on bronchodilators. Arixtra for anticoagulation. The patient is seen today 05/31/2023 in follow-up in the intensive care unit. Postoperative day #5 for mitral valve repair. He is currently sitting up in bed. Awake and alert in no acute distress. Maintaining O2 saturations in the 90s on 2 L/m per nasal cannula. Chest x-rays continued to show a right lower lobe opacity/atelectasis. He is encouraged again regarding increased use the incentive spirometer. Currently pulling 1500 ML's. Chest tube remains in place. No IV fluids. White count 9.2. Hemoglobin 8.6. Platelets 91,000. Sodium 132. Potassium 4.0. Bicarb 26. BUN 30. Creatinine 1.04. Glucose 124. He remains on bronchodilators. Anticoagulated with Arixtra. The patient is seen today 06/01/2023 in follow-up in the intensive care unit. Postoperative day #6 for mitral valve repair. He is at 3 S. overflow patient. He is currently sitting up in a chair. He is awake and alert in no acute distress. He is maintaining O2 saturations in the 90s on room air. He is pulling approximately 1500 ML's on the incentive spirometer. No IV fluids. Chest x-ray reveals stable right basilar opacity, suggestive of small to moderate pleural effusion with adjacent atelectasis. Interval removal of the left chest tube. Small left basilar opacity possible effusion. No visualized pneumothorax. Ultrasound of the right chest is reveal a 10.7 cm pocket. The patient is continued on Arixtra. White count 8.8. Hemoglobin 8.2. Platelets 119. Sodium 132. Potassium 4.3. Bicarb 27. BUN 35. Creatinine 1.28. Objective - Vital Signs Vital signs: Vital Signs Temp 98 F 06/01/23 08:00 Pulse 86 06/01/23 08:07 Resp 16 06/01/23 08:00 BP 124/71 06/01/23 08:00 Pulse Ox 93 L 06/01/23 08:00 FiO2 2 05/28/23 00:00 Intake & Output 05/31/23 06/01/23 06/01/23 18:59 06:59 18:59 Intake Total 850 300 200 Output Total 710 501 Balance 140 -201 200 Weight 54.9 kg Intake: Oral 850 300 200 Output: Chest Tube Drainage 0 Chest Tube Left Lateral 0 Chest Urine 710 500 Stool 1 Other: Voiding Method Urinal Urinal Urinal # Voids 1 1 # Bowel Movements 1 1 ABP, PAP, CO, CI - Last Documented Arterial Blood Pressure 102/55 Pulmonary Artery Pressure 23/4 Cardiac Output 4 Cardiac Index 2.5 - Exam GENERAL EXAM: Alert, thin 63-year-old male, up in a chair, on room air, in no apparent distress. HEAD: Normocephalic. EYES: Normal reaction of pupils, equal size. NOSE: Clear with pink turbinates. THROAT: No erythema or exudates. NECK: No masses, no JVD. CHEST: Sternum stable. Heart Hugger in place. Chest tubes removed. LUNGS: Equal air entry with few scattered rhonchi, crackles in the right lung base, diminished. CVS: S1 and S2 normal with no audible murmur, regular rhythm. ABDOMEN: No hepatosplenomegaly, normal bowel sounds, no guarding or rigidity. SPINE: No scoliosis or deformity SKIN: No rashes CENTRAL NERVOUS SYSTEM: No focal deficits, tone is normal in all 4 extremities. EXTREMITIES: There is no peripheral edema. No clubbing, no cyanosis. Peripheral pulses are intact. - Labs CBC & Chem 7: 06/01/23 05:06 06/01/23 05:06 Labs: Abnormal Lab Results - Last 24 Hours (Table) 05/31/23 05/31/23 05/31/23 Range/Units 11:20 16:19 20:28 RBC (4.30-5.90) m/uL Hgb (13.0-17.5) gm/dL Hct (39.0-53.0) % Plt Count (150-450) k/uL Sodium (137-145) mmol/L BUN (9-20) mg/dL Creatinine (0.66-1.25) mg/dL POC Glucose (mg/dL) 143 H 123 H 130 H (70-110) mg/dL Calcium (8.4-10.2) mg/dL 06/01/23 06/01/23 06/01/23 Range/Units 05:06 05:06 06:34 RBC 2.85 L (4.30-5.90) m/uL Hgb 8.2 L (13.0-17.5) gm/dL Hct 25.6 L (39.0-53.0) % Plt Count 119 L (150-450) k/uL Sodium 132 L (137-145) mmol/L BUN 35 H (9-20) mg/dL Creatinine 1.28 H (0.66-1.25) mg/dL POC Glucose (mg/dL) 118 H (70-110) mg/dL Calcium 8.0 L (8.4-10.2) mg/dL Assessment and Plan Assessment: History of severe mitral regurgitation, status post mitral valve repair. Postoperative day #6 Right-sided pleural effusion ultrasound revealing a 10.7 cm pocket, currently on Arixtra Chronic obstructive pulmonary disease FEV1 value 75% of predicted Paroxysmal atrial fibrillation, expected outcome of surgery Chronic and ongoing tobacco dependence of 50 years Hypertension, history of Hyperlipidemia Multiple orthopedic surgeries Plan: The patient was seen and evaluated Chest x-ray, ultrasound of the chest labs and medications reviewed Currently stable and on room air Received IV Lasix today Anticoagulated with Arixtra Encouraged the increased use of the incentive spirometer Remains on bronchodilators Increase his activity as tolerated We will continue to follow I have personally seen and examined the patient, performed the documentation and the assessment and plan as written. Number of minutes spent on the visit: 10.
[2023-06-01 11:30] LABS: Glucose,Whole Blood 136 mg/dL (70-110)
--- NOTE | 2023-06-01 14:30 | P.PN ---
Subjective Progress Note Date: 06/01/23 Patient is a pleasant 63-year-old male admitted for mitral valve replacement successfully underwent surgery patient is status post extubation patient has 2 mediastinal left chest tube. Patient is presently on insulin drip was started diabetic. Patient was on amiodarone briefly. Patient has an atrial appendage that was clipped as well. 05/28/2023 Patient is seen and evaluated and follow-up continues in the ICU with chest tubes noted and is currently maintained on 2 L via nasal cannula. Patient rep orts her oxygen outpatient. Patient likely to have mediastinal tube and Cordis cath removed. Patient has been up and walking today and per nursing staff did well. Recommend Larry catheter removal and continued physical therapy. Hemoglobin is stable above 9 and other labs reviewed within normal limits. Sodium is 130 and will follow-up with repeat labs. Patient reports is not a diabetic and is continued on Accu-Cheks with sliding scale. Insulin drip has been discontinued. 05/29/2023 Patient is seen and evaluated in follow-up this morning continues in the ICU being closely monitored. Patient had mediastinal chest tube removed along with Cordis cath and Larry catheter. Patient is voiding and has been up and walking. Encouraged increase activity sitting up out of bed more often. Patient reports the chair is uncomfortable and hurts is positive in his back and prefers laying in the bed and walking frequently. Nursing staff has been assisting with walking the unit multiple times. White count is slightly elevated will follow- up with repeat labs, most likely reactive there is no active signs of infection at this time. Patient is afebrile denies chest pains or palpitations. Patient did have a brief episode of A. fib and is given amiodarone bolus and continued on telemetry monitoring. Patient is tolerating diet with no reported nausea or vomiting noted. 05/30/2023 Patient is seen and evaluated in follow-up today continues with chest tube and there is some noted drainage with CT surgery recommending another day with follow-up chest x-ray and monitor for output with possible removal tomorrow. Patient has been up and walking frequently with nursing staff and doing quite well. Patient tolerating diet with no reported nausea or vomiting. WBC is trending down and currently 12.9 today. Hemoglobin is 8.7 and recommend monitor closely and transfuse if less than 7. Platelets being monitored as well and currently 63. Sodium is 132 with a potassium of 4.2 and kidney function stable with a creatinine of 0.89. Blood sugars being monitored and well controlled on current regimen. Magnesium is 1.6 and being replaced per protocol along with potassium and patient was given another dose of 40 mg IV Lasix today. Currently rate controlled on oral amiodarone and continue telemetry monitoring. Patient is continued on Accu-Cheks before meals and at bedtime and sliding scale although has not been requiring coverage. Patient is not a diabetic. Patient is afebrile with no reports of chest pain although does report some chest wall pain and denies palpitations. Patient denies nausea or vomiting. 05/31/2023 Patient is evaluated today in the ICU he is currently sitting up in bed. No acute complaints he states pain is on controlled on currently regimen. He had a follow up chest xray today which is still pending reports possible CT removal today per patient. He has some life stressors going on he was anxious when evaluated in the room today. BP noted to be elevated. White count normal 9.2, hgb 8.6. Patient did receive a dose of IV lasix yesterday, sodium again 132 today. Blood glucose in the 140s. He is on 2L of oxygen saturations of 96%. Remains on PO amiodarone. 06/01/2023 Patient remains in the intensive care unit. Postoperative mitral valve repair. All lines have been removed; the left pleural chest tube has been removed. He has been up ambulating in the hallways. He is using the IS, he has been weaned to room air. He states the incisional pain and surgical pain is about a 2/10 and controlled. Chest xray today showing stable pulmonary vascular congestion. Stable right basilar pleural/parenchymal opacity. Suggestive of small to moderate pleural effusions with adjacent atelectasis or airspace disease. Creeatinine 1.28 today. He received a dose of IV lasix. Review of systems: Constitutional: No reports of fatigue, fever, or chills Cardiovascular: No reports of chest pain or palpitations Respiratory: No reports of shortness of breath or cough GI: No reports of nausea, vomiting, or diarrhea : No reports of dysuria or retention Neurovascular: reports of generalized weakness All medications have been reviewed PHYSICAL EXAMINATION: GENERAL: The patient is alert and oriented x3, not in any acute distress. Thin built HEENT: Pupils are round and equally reacting to light. EOMI. No scleral icterus. No conjunctival pallor. Normocephalic, atraumatic. No pharyngeal erythema. No thyromegaly. CARDIOVASCULAR: S1 and S2 present. No murmurs, rubs, or gallops. PULMONARY: Chest is clear to auscultation, no wheezing or crackles. Incisions clean dry approximated. ABDOMEN: Soft, nontender, nondistended, normoactive bowel sounds. No palpable organomegaly. MUSCULOSKELETAL: No joint swelling or deformity. EXTREMITIES: No cyanosis, clubbing, or pedal edema. NEUROLOGICAL: Gross neurological examination did not reveal any focal deficits. SKIN: No rashes. Assessment: -Status post mitral valve repair for severe mitral valve regurgitation with prolapse -Continued ongoing Nicotine use -History of hypertension -COPD without any acute exacerbation at this time -Hyperlipidemia -Hyponatremia: Secondary to hypovolemia -History of TIA -Leukocytosis secondary to surgery, no signs of active infection at this time -DVT prophylaxis: As per primary service -GI prophylaxis -Full code Plan: Patient is continued in ICU with multiple medical consultations following he has been down graded to stepdown unit pending bed placement. Cardiology evaluated the patient as well and currently rate controlled on oral amiodarone All lines have been removed; chest xray shos stable vascular congestion patient has been given IV lasix x 1. Patient has been up and walking and encouraged frequent walking as tolerated and physical therapy Encouraged incentive spirometer at least 10 times every hour while awake Continue with Accu-Cheks before meals and at bedtime and if needed and sliding scale for tight glycemic control to promote healing. Patient is not a diabetic Wean FiO2 as tolerated Follow-up labs in the a.m. ordered We will continue to follow with cardiothoracic surgery during hospitalization. Thank you kindly for this consultation Possible D/C home with homecare in the next 24 hours The impression and plan of care has been dictated by Gena Dumont Nurse Practitioner as directed. Dr. Javad MD I have performed a history and physical examination and medical decision making of this patient, discussed the same with the dictator, and agree with the dictators assessment and plan as written, documented as a scribe. Based on total visit time, I have performed more than 50% of this visit. Objective - Vital Signs Vital signs: Vital Signs Temp 98.2 F 06/01/23 12:00 Pulse 69 06/01/23 12:00 Resp 20 06/01/23 12:00 BP 112/66 06/01/23 12:00 Pulse Ox 84 L 06/01/23 12:00 FiO2 2 05/28/23 00:00 Intake & Output 05/31/23 06/01/23 06/01/23 18:59 06:59 18:59 Intake Total 850 300 440 Output Total 710 501 900 Balance 140 -201 -460 Weight 54.9 kg Intake: Oral 850 300 440 Output: Chest Tube Drainage 0 Chest Tube Left Lateral 0 Chest Urine 710 500 900 Stool 1 Other: Voiding Method Urinal Urinal Urinal # Voids 1 1 # Bowel Movements 1 1 ABP, PAP, CO, CI - Last Documented Arterial Blood Pressure 102/55 Pulmonary Artery Pressure 23/4 Cardiac Output 4 Cardiac Index 2.5 - Labs CBC & Chem 7: 06/01/23 05:06 06/01/23 05:06 Labs: Abnormal Lab Results - Last 24 Hours (Table) 05/31/23 05/31/23 06/01/23 Range/Units 16:19 20:28 05:06 RBC 2.85 L (4.30-5.90) m/uL Hgb 8.2 L (13.0-17.5) gm/dL Hct 25.6 L (39.0-53.0) % Plt Count 119 L (150-450) k/uL Sodium (137-145) mmol/L BUN (9-20) mg/dL Creatinine (0.66-1.25) mg/dL POC Glucose (mg/dL) 123 H 130 H (70-110) mg/dL Calcium (8.4-10.2) mg/dL 06/01/23 06/01/23 06/01/23 Range/Units 05:06 06:34 11:28 RBC (4.30-5.90) m/uL Hgb (13.0-17.5) gm/dL Hct (39.0-53.0) % Plt Count (150-450) k/uL Sodium 132 L (137-145) mmol/L BUN 35 H (9-20) mg/dL Creatinine 1.28 H (0.66-1.25) mg/dL POC Glucose (mg/dL) 118 H 136 H (70-110) mg/dL Calcium 8.0 L (8.4-10.2) mg/dL Assessment and Plan Time with Patient: Less than 30
[2023-06-01 16:30] LABS: Glucose,Whole Blood 111 mg/dL (70-110)
[2023-06-01] MEDS ORDERED: CALCIUM CARBONATE 500 MG CHEWABLE PO PRN (17:12)
--- NOTE | 2023-06-01 18:21 | P.PN ---
Subjective Progress Note Date: 06/01/23 PROGRESS NOTE The patient is a 63-year-old male who is followed by Dr. Estrada, underwent mitral valve repair yesterday for severe mitral regurgitation. He is extubated, sitting up in the chair, complaining of mild dyspnea and soreness. He is in sinus mechanism. Hemodynamically he is stable otherwise. He has a long- standing history of mitral valve prolapse and severe mitral regurgitation documented in 2018. He presented again with symptoms few months ago and underwent cardiac catheterization that showed no evidence of obstructive coronary artery disease. He underwent mitral valve repair with posterior annuloplasty with size 34 mm ring. He also had closure of his left atrial appendage. The patient has a known history of chronic tobacco use. He has no history of diabetes or documented hypertension. May 28: The patient is feeling well this morning, sitting up in chair. Continues to be in sinus mechanism. Has mild soreness in the chest. Denies any dizziness or palpitation, no nausea or vomiting. Hemodynamically stable. He has no evidence of atrial fibrillation or ventricular ectopic activity. He is using his incentive spirometry. May 29: The patient is doing well this morning, he had soreness in the chest yesterday, better today. He continues to be in sinus mechanism. He denies any dizziness or palpitations. His breathing has been stable. He has been ambulating. He has no nausea or vomiting. May 30: The patient feels depressed today, does not feel well. He continues to be in sinus mechanism, his blood pressure is stable. He has mild chest soreness. His breathing is stable. He denies any dizziness or palpitations. He has no nausea or vomiting. Hemodynamically stable. 05/31/23 Patient is doing well from cardiac vessel standpoint. He is able to ambulate in the room without any difficulty. His chest tube was removed this morning. He is tolerating oral diet. Blood pressure 126/72, heart rate 74 beats a minute, Labs hemoglobin 8.6, platelets 91, BUN 30, creatinine 1.05, sodium 132 06/01/23 Patient is doing well from cardiac stand point. Hemodynamically stable, no acute overnight events Medications: Lipitor 40 mg daily, aspirin once a day, metoprolol 50 mg twice a day, Plavix 75 mg daily, amiodarone 400 mg twice a day, Flomax, losartan 50 mg twice a day PHYSICAL EXAMINATION: LUNGS: Mild decrease in the breath sounds at the base HEART: Regular rate and rhythm, S1, S2. No S3. Systolic ejection murmur at the base, ABDOMEN: Soft, nontender, no organomegaly EXTREMETIES: No edema IMPRESSION: 1. Status post mitral valve repair 2. Hyperlipidemia 3. History of chronic tobacco use 4. Chronic obstructive lung disease PLAN: 1. Continue medical therapy 2. Increase physical activity 3. Follow blood pressure 4. Depending on his progress further recommendations will be made Objective - Vital Signs Vital signs: Vital Signs Temp 98.2 F 06/01/23 16:00 Pulse 74 06/01/23 16:00 Resp 20 06/01/23 16:00 BP 117/71 06/01/23 16:00 Pulse Ox 94 L 06/01/23 16:00 FiO2 2 05/28/23 00:00 Intake & Output 05/31/23 06/01/23 06/01/23 18:59 06:59 18:59 Intake Total 850 300 440 Output Total 710 501 900 Balance 140 -201 -460 Weight 54.9 kg Intake: Oral 850 300 440 Output: Chest Tube Drainage 0 Chest Tube Left Lateral 0 Chest Urine 710 500 900 Stool 1 Other: Voiding Method Urinal Urinal Urinal # Voids 1 1 # Bowel Movements 1 1 ABP, PAP, CO, CI - Last Documented Arterial Blood Pressure 102/55 Pulmonary Artery Pressure 23/4 Cardiac Output 4 Cardiac Index 2.5 - Labs CBC & Chem 7: 06/01/23 05:06 06/01/23 05:06 Labs: Abnormal Lab Results - Last 24 Hours (Table) 05/31/23 06/01/23 06/01/23 Range/Units 20:28 05:06 05:06 RBC 2.85 L (4.30-5.90) m/uL Hgb 8.2 L (13.0-17.5) gm/dL Hct 25.6 L (39.0-53.0) % Plt Count 119 L (150-450) k/uL Sodium 132 L (137-145) mmol/L BUN 35 H (9-20) mg/dL Creatinine 1.28 H (0.66-1.25) mg/dL POC Glucose (mg/dL) 130 H (70-110) mg/dL Calcium 8.0 L (8.4-10.2) mg/dL 1006/01/23 06/01/23 Range/Units 06:34 11:28 16:28 RBC (4.30-5.90) m/uL Hgb (13.0-17.5) gm/dL Hct (39.0-53.0) % Plt Count (150-450) k/uL Sodium (137-145) mmol/L BUN (9-20) mg/dL Creatinine (0.66-1.25) mg/dL POC Glucose (mg/dL) 118 H 136 H 111 H (70-110) mg/dL Calcium (8.4-10.2) mg/dL
[2023-06-01 21:00] LABS: Glucose,Whole Blood 144 mg/dL (70-110)
[2023-06-01] MEDS: SENNOSIDES-DOCUSATE SODIUM 1 EACH TAB PO SCH (21:05)
[2023-06-02 05:56] LABS: HCT 26.5 % (39.0-53.0); HGB 8.7 gm/dL (13.0-17.5); MCH 29.3 pg (25.0-35.0); MCHC 32.6 g/dL (31.0-37.0); MCV 89.9 fL (80.0-100.0); Mean Platelet Volume 10.5; Platelet Count 157 k/uL (150-450); RBC 2.95 m/uL (4.30-5.90); WBC 11.6 k/uL (3.8-10.6)
[2023-06-02 06:11] LABS: African American GFR (CKD) 83 (>60 ml/min/1.73 sqM); Anion Gap 8 mmol/L; Blood Urea Nitrogen 35 mg/dL (9-20); Calcium 8.4 mg/dL (8.4-10.2); Carbon Dioxide 24 mmol/L (22-30); Chloride 102 mmol/L (98-107); Glucose 107 mg/dL (74-99); Non-African American GFR(CKD) 72 (>60 ml/min/1.73 sqM); Potassium 4.9 mmol/L (3.5-5.1); Sodium 134 mmol/L (137-145)
[2023-06-02] MEDS: PANTOPRAZOLE 40 MG TABLET PO SCH (06:29)
[2023-06-02 06:33] LABS: Glucose,Whole Blood 134 mg/dL (70-110)
[2023-06-02] MEDS: INSULIN ASPART (NovoLOG) 100 UNIT/ML VIAL SQ SCH ×2 (06:34→11:27)
--- NOTE | 2023-06-02 07:40 | XR ---
EXAMINATION TYPE: XR chest 1V portable DATE OF EXAM: 06/02/2023 5:26 AM COMPARISON: Chest radiographs from 05/31/2023 TECHNIQUE: XR chest 1V portable Portable AP radiograph of the chest. CLINICAL INDICATION:Male, 63 years old with history of Post op MVR; FINDINGS: Lungs/Pleura: Blunting of both costophrenic angles. Trace apical left pneumothorax with left chest tu be in place. Patchy left peripheral basilar opacities redemonstrated consistent with atelectasis. Pulmonary vascularity: Unremarkable. Heart/mediastinum: Cardiomediastinal silhouette is stable. Atherosclerotic calcifications are seen i n the aorta. Left atrial appendage occlusion devices present. Musculoskeletal: No acute osseous pathology. Midline sternotomy wires are noted and stable. IMPRESSION: 1. Trace apical left pneumothorax with chest tube in place. 2. Small to moderate size right pleural effusion and small left pleural effusion redemonstrated.
[2023-06-02] MEDS: HYDROcodone/APAP 7.5-325MG 1 EACH TAB PO SCH (08:07)
[2023-06-02] MEDS: AMIODARONE 200 MG TAB PO SCH (08:07)
[2023-06-02] MEDS: PREGABALIN 100 MG CAP PO SCH (08:08)
[2023-06-02] MEDS: ATORVASTATIN 40 MG TAB PO SCH (08:08)
[2023-06-02] MEDS: TAMSULOSIN 0.4 MG CAP.ER.24H PO SCH (08:08)
[2023-06-02] MEDS: ASPIRIN 81 MG PO SCH (08:08)
[2023-06-02] MEDS: CLOPIDOGREL 75 MG TAB PO SCH (08:08)
[2023-06-02] MEDS: METOPROLOL TARTRATE 50 MG TAB PO SCH (08:08)
[2023-06-02] MEDS: LOSARTAN 50 MG TAB PO SCH (08:09)
[2023-06-02] MEDS: FONDAPARINUX 2.5 MG/0.5 ML SYRINGE SQ SCH (08:09)
--- NOTE | 2023-06-02 09:25 | P.PN ---
Subjective Progress Note Date: 06/02/23 This is a 63-year-old male patient with a known history of 50 years of smoking, hypertension, COPD, hyperlipidemia. He was also found to have severe mitral regurgitation and was brought in today electively for mitral valve repair. He did undergo mitral valve repair and exclusion of left atrial appendage with a 35 mm Atriclip. He is seen in the postoperative period in the intensive care unit. He is currently intubated on mechanical ventilator with assist control rate of 12, tidal volume 350, FiO2 100% and a PEEP of 5. Blood gases revealed a pO2 greater than 400, pCO2 55 and a pH of 7.25. He has mediastinal chest tube x2, left pleural chest tube. He is atrial paced at a rate of 80. Cardiac output 4.8. Cardiac index 3.0. PA pressures 35/15. CVP of 13. Right IJ [place] catheter in place. He is currently on clevidipine at 5 mg per hour. Normal saline at 50 MLS per hour. Chest x-ray reveals no acute pulmonary process. Tubes and lines an appropriate place. He remains on bronchodilators. He did receive albumin. Propofol is currently being weaned. White count 8.6. Hemoglobin 9.7. Platelets 72,000. INR 1.3. Sodium 142. Potassium 3.8. Bicarb 22. BUN 18. Creatinine 0.87. Glucose 70. AST 33. ALT 8. Albumin 2.3. Magnesium 2.8. Calcium 6.7. The patient is seen today 05/27/2023 in follow-up in the intensive care unit. He is currently sitting up in a chair at the bedside. Awake and alert in no acute distress. He is maintaining good O2 saturations in the 90s on 2 L/m per nasal cannula. He is in normal sinus rhythm. Cardiac output 4.0. Cardiac index 2.5. CVP of 9. He is requiring Cleviprex at 3 mg/h. Insulin drip at 2 units per hour. Normal saline at 50 MLS per hour. Chest x-ray shows a small right pleural effusion. Chest tubes remain in place. White count 11.4. Hemoglobin 10.1. Platelets 66,000. Sodium 134. Potassium 4.6. Bicarb 20. BU N 15. Creatinine 0.9. Glucose 139. AST 50. ALT 11. He remains on DuoNeb inhalations. Working well with the incentive spirometer. Anticoagulated with Arixtra.` The patient is seen today 05/28/2023 in follow-up in the intensive care unit. He sitting up in chair at the bedside. Awake and alert in no acute distress. Continue good O2 saturations in the 90s on 2 L/m per nasal cannula. He has normal saline at KVO. Chest x-ray reveals left chest tube in place. Suspected trace left apical pneumothorax. There is evidence of COPD with interstitial pulmonary edema and small bilateral pleural effusions. He is encouraged to increase the use of his incentive spirometer and cough and deep breathing exercises. White count 13.8. Hemoglobin 9.6. Platelets 60,000. Sodium 131. Potassium 4.7. Bicarb 23. BUN 18. Creatinine 0.99. Glucose 128. Ionized calcium 4.8. Albumin 2.9. Magnesium 2.0. Remains on Arixtra. Continue bronchodilators. The patient is seen today 05/29/2023 in follow-up in the intensive care unit. He is resting comfortably in bed. Awake and alert in no acute distress. Postoperative day #3. He is maintaining good O2 saturations in the 90s on 2 L/m per nasal cannula. No IV fluids. White count 14.8. Hemoglobin 9.1. Platelets 58,000. Sodium 132. Potassium 4.4. Bicarb 22. BUN 20. Creatinine 0.77. Glucose 110. Chest x-ray review reveals right pleural effusion. Interval removal of left thoracotomy tube without evidence of pneumothorax. He continues working well with the incentive spirometer. The patient is seen today 05/30/2023 in follow-up in the intensive care unit. He is currently resting comfortably in bed. Awake and alert in no acute distress. Maintaining O2 saturations in the 90s on room air. Postoperative day #4 for mitral valve replacement. Chest tube remains in place with approximate 400 ML's over the past 12 hours. Chest x-ray showed some right lower lobe collapse. He is pulling approximately 4125-3378 ML's on the incentive spirometer. Pacer wires are in place. He did have issues with atrial fibrillation through the night. White count 12.9. Hemoglobin 8.7. Platelets 63,000. Sodium 132. Potassium 4.2. Bicarb 25. BUN 24. Creatinine 0.89. Glucose 106. AST 39. ALT 25. He remains on bronchodilators. Arixtra for anticoagulation. The patient is seen today 05/31/2023 in follow-up in the intensive care unit. Postoperative day #5 for mitral valve repair. He is currently sitting up in bed. Awake and alert in no acute distress. Maintaining O2 saturations in the 90s on 2 L/m per nasal cannula. Chest x-rays continued to show a right lower lobe opacity/atelectasis. He is encouraged again regarding increased use the incentive spirometer. Currently pulling 1500 ML's. Chest tube remains in place . No IV fluids. White count 9.2. Hemoglobin 8.6. Platelets 91,000. Sodium 132. Potassium 4.0. Bicarb 26. BUN 30. Creatinine 1.04. Glucose 124. He remains on bronchodilators. Anticoagulated with Arixtra. The patient is seen today 06/01/2023 in follow-up in the intensive care unit. Postoperative day #6 for mitral valve repair. He is at 3 S. overflow patient. He is currently sitting up in a chair. He is awake and alert in no acute distress. He is maintaining O2 saturations in the 90s on room air. He is pulling approximately 1500 ML's on the incentive spirometer. No IV fluids. Chest x-ray reveals stable right basilar opacity, suggestive of small to moderate pleural effusion with adjacent atelectasis. Interval removal of the left chest tube. Small left basilar opacity possible effusion. No visualized pneumothorax. Ultrasound of the right chest is reveal a 10.7 cm pocket. The patient is continued on Arixtra. White count 8.8. Hemoglobin 8.2. Platelets 119. Sodium 132. Potassium 4.3. Bicarb 27. BUN 35. Creatinine 1.28. 06/02/2023, the patient is postop day #7. He remains on room air oxygen. The patient is postop day #7 following a mitral valve.. The chest x-ray from today showing a moderate-sized right-sided pleural effusion. There is a very tiny l eft apical pneumothorax. Limited atelectatic change and also seen in the left lung base. Ultrasound the chest was also done and the patient was found to have a 10 cm pocket in the left lung. His current cardiac rhythm is sinus. He is using the senna spirometer. The chest tubes have been removed. The potassium levels at 4.2. Platelet count is at157. WBC count of 11.6 with a hemoglobin of 8.7. He has a 35 with a creatinine of 1.1 and sodium levels of 134. Objective - Vital Signs Vital signs: Vital Signs Temp 97.9 F 06/02/23 08:00 Pulse 83 06/02/23 08:00 Resp 26 H 06/02/23 08:00 BP 108/65 06/02/23 08:00 Pulse Ox 93 L 06/02/23 08:00 FiO2 2 05/28/23 00:00 Intake & Output 06/01/23 06/02/23 06/02/23 18:59 06:59 18:59 Intake Total 440 Output Total 900 1500 Balance -460 -1500 Weight 53.1 kg Intake: Oral 440 Output: Urine 900 1500 Other: Voiding Method Urinal Urinal Urinal # Bowel Movements 1 ABP, PAP, CO, CI - Last Documented Arterial Blood Pressure 102/55 Pulmonary Artery Pressure 23/4 Cardiac Output 4 Cardiac Index 2.5 - Exam GENERAL EXAM: Alert, thin 63-year-old male, up in a chair, on room air, in no apparent distress. HEAD: Normocephalic. EYES: Normal reaction of pupils, equal size. NOSE: Clear with pink turbinates. THROAT: No erythema or exudates. NECK: No masses, no JVD. CHEST: Sternum stable. Heart Hugger in place. Chest tubes removed. LUNGS: Equal air entry with few scattered rhonchi, crackles in the right lung base, diminished. CVS: S1 and S2 normal with no audible murmur, regular rhythm. ABDOMEN: No hepatosplenomegaly, normal bowel sounds, no guarding or rigidity. SPINE: No scoliosis or deformity SKIN: No rashes CENTRAL NERVOUS SYSTEM: No focal deficits, tone is normal in all 4 extremities. EXTREMITIES: There is no peripheral edema. No clubbing, no cyanosis. Peripheral pulses are intact. - Labs CBC & Chem 7: 06/02/23 04:30 06/02/23 04:30 Labs: Abnormal Lab Results - Last 24 Hours (Table) 06/01/23 06/01/23 06/01/23 Range/Units 11:28 16:28 20:58 WBC (3.8-10.6) k/uL RBC (4.30-5.90) m/uL Hgb (13.0-17.5) gm/dL Hct (39.0-53.0) % Sodium (137-145) mmol/L BUN (9-20) mg/dL Glucose (74-99) mg/dL POC Glucose (mg/dL) 136 H 111 H 144 H (70-110) mg/dL 06/02/23 06/02/23 06/02/23 Range/Units 04:30 04:30 06:32 WBC 11.6 H (3.8-10.6) k/uL RBC 2.95 L (4.30-5.90) m/uL Hgb 8.7 L (13.0-17.5) gm/dL Hct 26.5 L (39.0-53.0) % Sodium 134 L (137-145) mmol/L BUN 35 H (9-20) mg/dL Glucose 107 H (74-99) mg/dL POC Glucose (mg/dL) 134 H (70-110) mg/dL Assessment and Plan Plan: History of severe mitral regurgitation, status post mitral valve repair. Postoperative day #7 Right-sided pleural effusion ultrasound revealing a 10.7 cm pocket, currently on Arixtra Chronic obstructive pulmonary disease FEV1 value 75% of predicted Paroxysmal atrial fibrillation, expected outcome of surgery Chronic and ongoing tobacco dependence of 50 years Hypertension, history of Hyperlipidemia Multiple orthopedic surgeries Plan: The patient has a small to moderate-sized right-sided pleural effusion. We'll discuss the need for thoracentesis with cardiothoracic surgery. His overall respiratory status is stable. The patient is on room air oxygen. Using incentive spirometer. Clinically stable. Encouraged the increased use of the incentive spirometer Remains on bronchodilators Increase his activity as tolerated We will continue to follow
[2023-06-02] MEDS: BUDESONIDE 0.5 MG/2 ML NEBU INHALATION SCH (09:35)
[2023-06-02] MEDS: IPRATROPIUM-ALBUTEROL 3 ML NEB INHALATION SCH ×2 (09:35→12:25)
--- NOTE | 2023-06-02 09:57 | P.PN ---
Subjective Progress Note Date: 06/02/23 Principal diagnosis: Severe mitral valve regurgitation with prolapse of P2. Past medical history significant for hypertension, hyperlipidemia, transient ischemic attack, COPD with preoperative FEV1 66% of predicted value, osteoarthritis, and chronic ongoing tobacco dependence. POD #7 complex mitral valve repair with construction of P2 pairs of laura-chords to P2, closure of P1P2 as well as P2P3 clefts, and posterior annuloplasty using a 34 mm AnnuloFlex, exclusion of the left atrial appendage using a 35 mm Atriclip, intraoperative transesophageal echocardiogram and epi-aortic scanning. Postoperative acute blood loss anemia, expected given hemodilution and cardiopulmonary bypass. The patient was seen and examined this morning sitting up in bed in no acute distress. Remains in sinus rhythm, hemodynamically stable. Has been ambulatory without difficulty. Does have a moderate right-sided pleural effusion which hopefully will be drained by thoracentesis today. Patient states he's ready to go home. No other new concerns. Objective - Vital Signs Vital signs: Vital Signs Temp 97.9 F 06/02/23 08:00 Pulse 83 06/02/23 08:00 Resp 26 H 06/02/23 08:00 BP 108/65 06/02/23 08:00 Pulse Ox 93 L 06/02/23 08:00 FiO2 2 05/28/23 00:00 Intake & Output 06/01/23 06/02/23 06/02/23 18:59 06:59 18:59 Intake Total 440 Output Total 900 1500 Balance -460 -1500 Weight 53.1 kg Intake: Oral 440 Output: Urine 900 1500 Other: Voiding Method Urinal Urinal Urinal # Bowel Movements 1 ABP, PAP, CO, CI - Last Documented Arterial Blood Pressure 102/55 Pulmonary Artery Pressure 23/4 Cardiac Output 4 Cardiac Index 2.5 - Exam CONSTITUTIONAL: Appears comfortable, cooperative, no acute distress RESPIRATORY: Lungs sounds diminished bilaterally. Respirations even, nonlabored. Currently on room air with oxygen saturation 93%. Able to achieve 2000 mL on incentive spirometry. Strong cough. CARDIOVASCULAR: S1, S2 present. Regular rate and rhythm, sinus rhythm on telemetry. Sternum stable. Palpable peripheral pulses bilaterally. No edema present. No calf pain or tenderness noted. Heart hugger in place with patient demonstrating appropriate use. Antiembolism stockings, SCDs present. GASTROINTESTINAL: Abdomen soft, nontender, nondistended. Active bowel sounds present 4 quadrants. Tolerating diet. Positive bowel movement 06/01 GENITOURINARY: Continues to void, urine output 2400 mL in the last 24 hours INTEGUMENTARY: Skin is warm and dry with evidence of good perfusion. Anterior chest incision well approximated and covered with dry intact dressing NEUROLOGIC: Cranial nerves II through XII intact MUSKULOSKELETAL: Able to move all extremities, strength equal bilaterally, gait normal PSYCHIATRIC: Alert and oriented to person place and time, appropriate affect, intact judgment and insight - Allied health notes Allied health notes reviewed: nursing - Labs CBC & Chem 7: 06/02/23 04:30 06/02/23 04:30 Labs: Abnormal Lab Results - Last 24 Hours (Table) 06/01/23 06/01/23 06/01/23 Range/Units 11:28 16:28 20:58 WBC (3.8-10.6) k/uL RBC (4.30-5.90) m/uL Hgb (13.0-17.5) gm/dL Hct (39.0-53.0) % Sodium (137-145) mmol/L BUN (9-20) mg/dL Glucose (74-99) mg/dL POC Glucose (mg/dL) 136 H 111 H 144 H (70-110) mg/dL 06/02/23 06/02/23 06/02/23 Range/Units 04:30 04:30 06:32 WBC 11.6 H (3.8-10.6) k/uL RBC 2.95 L (4.30-5.90) m/uL Hgb 8.7 L (13.0-17.5) gm/dL Hct 26.5 L (39.0-53.0) % Sodium 134 L (137-145) mmol/L BUN 35 H (9-20) mg/dL Glucose 107 H (74-99) mg/dL POC Glucose (mg/dL) 134 H (70-110) mg/dL - Imaging and Cardiology Chest x-ray: report reviewed, image reviewed Assessment and Plan Assessment: Severe mitral valve regurgitation with prolapse of P2, status post complex mitral valve repair using a 34 mm AnnuloFlex Hypertension Hyperlipidemia History of transient ischemic attack COPD with a preoperative FEV1 66% of predicted value Osteoarthritis Chronic ongoing tobacco dependence Postoperative acute blood loss anemia, expected given hemodilution and cardiopulmonary bypass Right-sided effusion, common after open heart surgery, not a complication Plan: Continue to maximize medical therapy with low-dose aspirin, statin, Plavix. Continue metoprolol tartrate 50 mg by mouth twice a day Continue Cozaar 50 mg by mouth twice a day Encourage incentive spirometry 10 times every hour while awake. Bronchodilators per pulmonology. Continue Pulmicort 0.5 mg inhalation twice a day. Will monitor daily labs and chest x-rays. Electrolyte replacement per protocol. Increase activity, ambulate as tolerated. PT/OT/cardiac rehab following. GI/DVT prophylaxis. Pain control with current medication regimen. Continue home dose of Lyrica, [place] and Skelaxin Insulin management per internal medicine. Preoperative hemoglobin A1c was 5.2%. Continue to record strict inaccurate I's and O's Anticipate right sided thoracentesis by Dr. Camilo today Importance of smoking cessation was discussed with the patient. Transfer orders placed to the third floor cardiac stepdown unit, no beds available Anticipate discharge home with home care today after thoracentesis performed More recommendations to follow based on patient's clinical course.
--- NOTE | 2023-06-02 10:10 | P.PCN ---
Date of Procedure: 06/02/23 Preoperative Diagnosis: right, pleural effusion Postoperative Diagnosis: same Procedure(s) Performed: thoracentesis, right Anesthesia: local Surgeon: Gil Camilo Pathology: none sent Condition: critical Disposition: ICU Operative Findings: A time out was performed and the chest x-ray was reviewed, the appropriate side was confirmed and marked. My hands were washed immediately prior to the procedure. I wore a surgical cap, mask with protective eyewear, sterile gown and sterile gloves throughout the procedure. The patient was prepped and draped in a sterile manner using chlorhexidine scrub after the appropriate level was percussed and confirmed by ultrasound. 1% lidocaine was used to anesthesize the skin, subcutaneous tissue, superior aspect of the rib periosteum and parietal pleura. A finder needle was then introduced over the superior aspect of the rib to locate the pleural fluid; 2colored fluid was aspirated at a depth of approximately 2 cm. A 10-blade scalpel was used to lionel the skin at the insertion site. The [id number] needle was then introduced through the skin incision into the pleural space using negative aspiration pressure and the red colometric indicator to confirm appropriate positioning of the needle. The thoracentesis catheter was then threaded without difficulty. 400 ml of turbid blood tinged fluid was removed without difficulty. The catheter was then removed. No immediate complications were noted during the procedure. A post- procedure chest x-ray is pending at the time of this note. The fluid will not be sent for studies. Estimated blood loss is 0cc
[2023-06-02 11:14] LABS: Glucose,Whole Blood 131 mg/dL (70-110)
[2023-06-02 12:22] VITALS: BP 90/61; PULSE 73; RESP 25; TEMP 97.7
--- NOTE | 2023-06-02 13:44 | XR ---
EXAMINATION TYPE: XR chest 1V portable DATE OF EXAM: 06/02/2023 1:21 PM CLINICAL INDICATION:Male, 63 years old with history of post thoracentesis; [facility] COMPARISON: Chest radiographs from 06/02/2023 TECHNIQUE: XR chest 1V portable Frontal view of the chest. FINDINGS: Lungs/Pleura: Prior left apical pneumothorax not definitively visualized. There is persistent small b ilateral pleural effusions. No evidence of focal consolidation or pneumothorax. Blunting of the costo phrenic angles is present. Pulmonary vascularity: Unremarkable. Heart/mediastinum: Cardiomediastinal silhouette is enlarged and stable. Left atrial appendage occlusi on device is present. Musculoskeletal: No acute osseous pathology. Midline sternotomy wires are noted. IMPRESSION: Small bilateral pleural effusions, No obvious left apical pneumothorax apex not definitively visualiz ed.
--- NOTE | 2023-06-02 16:50 | P.DS ---
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 Severe mitral valve regurgitation with prolapse of P2 2. Hypertension 3. Hyperlipidemia 4. TIA 5. Current tobacco dependence 6. COPD 7. Osteoarthritis, chronic pain on chronic opioids 8. Daily marijuana use 9. Post operative acute blood loss anemia, expected 10. Right-sided pleural effusion, common occurrence with open heart patients, not a complication PRINCIPAL PROCEDURE: 1. Complex mitral valve repair with construction of P2 pairs of new chords to P2, closure of P1-P2 as well as P2-P3 clefts, posterior annuloplasty using a 34 mm AnnuloFlex 2. Exclusion of the left atrial appendage using a 35 mm AtriClip 3. Intraoperative transesophageal echocardiogram and epi-aortic scanning 4. Right-sided thoracentesis HISTORY OF PRESENT ILLNESS: This is a 63-year-old gentleman who follows outpatient with Dr. Stevie Murray for primary care and Dr. Estrada for cardiology. He is a known history of mitral valve regurgitation since 2018 which was discovered during hospitalization for TIA. He has been followed medically, and most recently he has been considered functional class II. Recent updated workup with a 2-D echo and JOSEPH performed in March 2023 demonstrated preserved left ventricular function, severe eccentric mitral valve regurgitation from prolapse/flail of P2 with mild to moderate tricuspid valve regurgitation and a clear left atrial appendage. The patient was referred to Dr. Gandhi from cardiothoracic surgery. He was recommended to undergo mitral valve repair. The usual perioperative course was discussed in detail with the patient, all risks and benefits were explained, all questions were answered, and consent was obtained to proceed with surgery. The patient was referred to pulmonary medicine for evaluation and optimization, and he was encouraged to quit smoking. In addition he needed dental clearance and surgery was scheduled after all of this took place. HOSPITAL COURSE: The patient was brought to the hospital on 05/26/23, taken to the preoperative area, prepared in the usual fashion, and subsequently taken to the operating room where Dr. Gandhi performed complex mitral valve repair. Upon completion of surgery the patient was transferred to the cardiovascular intensive care unit where he was recovered and monitored hemodynamically. He was extubated, all lines, tubes, and drips were discontinued when appropriate, and transfer orders were placed for 3 S. cardiac stepdown unit, however there was no bed availability and the patient remained on ICU as a stepdown patient until discharge. His oxygen was titrated down, he continued to work with physical and occupational therapy, he was tolerating oral diet, his pain was controlled, and he was ready to be discharged to home with [facility] on postoperative day #7. He received written and verbal instruction regarding his medications, activity restrictions, signs and symptoms requiring physician notification, and follow-up appointments. Patient Condition at Discharge: Stable Plan - Discharge Summary Discharge Rx Participant: Yes New Discharge Prescriptions: New Amiodarone [Cordarone] 400 mg PO BID #56 tab Tamsulosin [Flomax] 0.4 mg PO PC-BRKFST #30 cap Pantoprazole [Protonix] 40 mg PO AC-BRKFST #30 tab Losartan [Cozaar] 50 mg PO BID #60 tab Metoprolol Tartrate [Lopressor] 50 mg PO BID #60 tab HYDROcodone/APAP 7.5-325MG [Mode 7.5-325] 1 each PO TID #90 tab Clopidogrel [Plavix] 75 mg PO DAILY #30 tab Sennosides-Docusate Sodium [Senokot-S] 2 each PO HS PRN tab PRN Reason: Constipation Continue Pregabalin [Lyrica] 200 mg PO TID #60 cap Aspirin 81 mg PO DAILY #30 tab Atorvastatin [Lipitor] 40 mg PO 1200 Albuterol Inhaler [Ventolin Hfa Inhaler] 1 - 2 puff INHALATION Q6H PRN PRN Reason: Shortness Of Breath Metaxalone [Skelaxin] 800 mg PO TID PRN #90 tab PRN Reason: Muscle Spasm Discontinued Hydrocodone/Acetaminophen [Mode 7.5-325] 1 tab PO TID Discharge Medication List Aspirin 81 mg PO DAILY #30 tab 01/27/23 [Rx] Albuterol Inhaler [Ventolin Hfa Inhaler] 1 - 2 puff INHALATION Q6H PRN 05/21/23 [History] Atorvastatin [Lipitor] 40 mg PO 1200 05/21/23 [History] Amiodarone [Cordarone] 400 mg PO BID #56 tab 06/02/23 [Rx] Clopidogrel [Plavix] 75 mg PO DAILY #30 tab 06/02/23 [Rx] HYDROcodone/APAP 7.5-325MG [Mode 7.5-325] 1 each PO TID #90 tab 06/02/23 [Rx] Losartan [Cozaar] 50 mg PO BID #60 tab 06/02/23 [Rx] Metaxalone [Skelaxin] 800 mg PO TID PRN #90 tab 06/02/23 [Rx] Metoprolol Tartrate [Lopressor] 50 mg PO BID #60 tab 06/02/23 [Rx] Pantoprazole [Protonix] 40 mg PO AC-BRKFST #30 tab 06/02/23 [Rx] Pregabalin [Lyrica] 200 mg PO TID #60 cap 06/02/23 [Rx] Sennosides-Docusate Sodium [Senokot-S] 2 each PO HS PRN tab 06/02/23 [Rx] Tamsulosin [Flomax] 0.4 mg PO PC-BRKFST #30 cap 06/02/23 [Rx] Follow up Appointment(s)/Referral(s): Fernanda Ortiz MD [STAFF PHYSICIAN] - 06/26/23 8:45 am Poornima Renee NPC [Nurse Practitioner] - 06/11/23 2:30 pm (You will be seen in the surgeon's office behind the hospital in [facility], [address] Office phone number is ) [facility] [NON-STAFF] - 1-2 Days ([facility] will call you to arrange a visit) Rehab Nehal MCARTHUR,Cardiac [NON-STAFF] - 4 Weeks (You will receive a phone call in approximately 4-6 weeks for evaluation for cardiac rehab) Tommy Estrada MD [STAFF PHYSICIAN] - 06/11/23 3:45 pm Lazara Gandhi MD [STAFF PHYSICIAN] - 06/27/23 10:00 am Sneha Mantilla MD [Primary Care Provider] - 06/17/23 10:30 am Ambulatory/Diagnostic Orders: Complete Blood Count w/diff [LAB.AMB] Time Frame: 3 Days, Location: None Selecte d Comprehensive Metabolic Panel [LAB.AMB] Time Frame: 3 Days, Location: None Selected Activity/Diet/Wound Care/Special Instructions: DISCHARGE INSTRUCTIONS: 1. No driving for 4 weeks, or until physician gives their ok. 2. The patient should sleep in their own bed, no medical bed needed. 3. Stairs are not an issue. If the bedroom is upstairs, it is advised that the patient go up at night and down in the morning for the first week. Go slowly, using handrail and take 1 step at a time. 4. KIRTI hose are to be worn for 30 days post surgery or until physician disco ntinues. 5. Heart hugger is to be worn 100% of the time until physician discontinues.(except when showering) 6. No lifting, pushing, or pulling more than 10 pounds for 12 weeks. The physician will advise of any restriction changes. 7. The patient is expected to continue the prescribed walking program. 8. Continue pain control per as needed orders. 9. Continue with incentive spirometry and splinting/heart hugger until otherwise directed by the physician. 10. Must shower daily using liquid antibacterial soap 11. Routine sternal incision care. No powders, lotions, ointments on incisions. No dressings are necessary on incisions unless they are draining. Dermabond tape is to remain on sternal incision until surgeon follow-up. 12. Please call surgeon/AUDIOVISUAL PRODUCTION SPECIALIST for temp greater than 101 F or purulent drainage from incisions. 13. You should weigh yourself daily, record and bring log with you to follow up appointments. 14. All prescriptions given by surgeon for 30 days. Refills need to be filled through sheet manager/primary care physician. 15. A Red armband has been placed on the patient. It should be worn for 30 days post discharge from surgery and will be removed by the cardiac surgeons. If an ER visit is necessary, please make sure the number on the Red armband is called before going to ER. 16. You have been referred to and are expected to begin Cardiac Rehab in approximately 4-6 weeks. 17. Quitting smoking is the most important step you can take to improve your health. For additional information and assistance to quit smoking, please call the [place] tobacco quit line (6-564-KRWF-NOW/ ) or online: [email or web address]-[email or web address] it-[email or web address] HOME HEALTH SERVICES TO PROVIDE: RN SKILLED HOME CARE SERVICES FOR POST-OP SURGICAL PATIENTS WITH THE FOLLOWING: Coronary Artery Bypass Surgery (CABG), Mitral Valve Replacement/Repair ( MVR), Aortic Valve Replacement/Repair (AVR) RN TO CONTINUE EDUCATION FROM ``ROAD TO A HEALTH HEART PATIENT EDUCATION MANUAL (GIVEN TO PATIENT IN THE HOSPITAL) MEDICATION RECONCILIATION WITH EDUCATION NEEDED ON FIRST HOME VISIT EMPHASIZE IMPORTANCE OF WEARING BREAST SUPPORT/HEART HUGGER ENCOURAGE USE OF INCENTIVE SPIROMETER 10 X EVERY HOUR WHILE AWAKE ENCOURAGE UTILIZATION OF LOWER EXTREMITY COMPRESSION STOCKINGS/KIRTI HOSE and ELEVATE LEGS ABOVE LEVEL OF HEART WHILE AT REST. ENCOURAGE AMBULATION 3-5x/day INCREASING TOLERATES, WHILE AVOIDING EXTREMES IN TEMPERATURE FREQUENCY: RN TO OPEN THE PATIENT WITHIN 24 HOURS OF DISCHARGE FROM THE HOSPITAL WITH TELEHEALTH INSTALLED AT [facility] [place], RN TO VISIT 2-3 X A WEEK FOR 4 WEEKS ESTABLISHED BY PATIENT NEEDS. LABORATORY: CBC, CMP TO BE DRAWN ON THE THIRD DAY HOME, (RAN STAT) FAX RESULTS TO [phone]. TELEHEALTH PARAMETERS: WEIGHT: NOTIFY MD OF WEIGHT GAIN OF 2 LBS IN 24 HOURS OR 5 LBS IN ONE WEEK HR: NOTIFY MD OF HR <55 BPM OR HR>100 BPM BP: NOTIFY MD IF BP <90/55 OR BP>140/100 O2 SAT: NOTIFY MD IF PO2<93% ON ROOM AIR SEND TELEHEALTH REPORT TO STAFF RN AND CARDIOVASCULAR SURGEON THE FIRST WEEK OF CARE AND THEN BI-WEEKLY. PLEASE ADDITIONALLY COMMUNICATE ANY ABNORMALS AND NEW FINDINGS TO THE SURGEONS OFFICE. Discharge Disposition: HOME WITH HOME HEALTH SERVICES
--- NOTE | 2023-06-02 18:53 | P.PN ---
Subjective Progress Note Date: 06/02/23 - Reason for Consult Mitral valve replacement - History of Present Illness Patient is a pleasant 63-year-old male admitted for mitral valve replacement s uccessfully underwent surgery patient is status post extubation patient has 2 mediastinal left chest tube. Patient is presently on insulin drip was started diabetic. Patient was on amiodarone briefly. Patient has an atrial appendage that was clipped as well. 05/28/2023 Patient is seen and evaluated and follow-up continues in the ICU with chest tubes noted and is currently maintained on 2 L via nasal cannula. Patient reports her oxygen outpatient. Patient likely to have mediastinal tube and Cordis cath removed. Patient has been up and walking today and per nursing staff did well. Recommend Larry catheter removal and continued physical therapy. Hemoglobin is stable above 9 and other labs reviewed within normal limits. Sodium is 130 and will follow-up with repeat labs. Patient reports is not a diabetic and is continued on Accu-Cheks with sliding scale. Insulin drip has been discontinued. 05/29/2023 Patient is seen and evaluated in follow-up this morning continues in the ICU being closely monitored. Patient had mediastinal chest tube removed along with Cordis cath and Larry catheter. Patient is voiding and has been up and walking. Encouraged increase activity sitting up out of bed more often. Patient reports the chair is uncomfortable and hurts is positive in his back and prefers laying in the bed and walking frequently. Nursing staff has been assisting with wal yoana the unit multiple times. White count is slightly elevated will follow-up with repeat labs, most likely reactive there is no active signs of infection at this time. Patient is afebrile denies chest pains or palpitations. Patient did have a brief episode of A. fib and is given amiodarone bolus and continued on telemetry monitoring. Patient is tolerating diet with no reported nausea or vomiting noted. 05/30/2023 Patient is seen and evaluated in follow-up today continues with chest tube and there is some noted drainage with CT surgery recommending another day with follow-up chest x-ray and monitor for output with possible removal tomorrow. Patient has been up and walking frequently with nursing staff and doing quite well. Patient tolerating diet with no reported nausea or vomiting. WBC is trending down and currently 12.9 today. Hemoglobin is 8.7 and recommend monitor closely and transfuse if less than 7. Platelets being monitored as well and currently 63. Sodium is 132 with a potassium of 4.2 and kidney function stable with a creatinine of 0.89. Blood sugars being monitored and well controlled on current regimen. Magnesium is 1.6 and being replaced per protocol along with potassium and patient was given another dose of 40 mg IV Lasix today. Currently rate controlled on oral amiodarone and continue telemetry monitoring. Patient is continued on Accu-Cheks before meals and at bedtime and sliding scale although has not been requiring coverage. Patient is not a diabetic. Patient is afebrile with no reports of chest pain although does report some chest wall pain and denies palpitations. Patient denies nausea or vomiting. 05/31/2023 Patient is evaluated today in the ICU he is currently sitting up in bed. No acute complaints he states pain is on controlled on currently regimen. He had a follow up chest xray today which is still pending reports possible CT removal today per patient. He has some life stressors going on he was anxious when evaluated in the room today. BP noted to be elevated. White count normal 9.2, hgb 8.6. Patient did receive a dose of IV lasix yesterday, sodium again 132 today. Blood glucose in the 140s. He is on 2L of oxygen saturations of 96%. Remains on PO amiodarone. 06/01/2023 Patient remains in the intensive care unit. Postoperative mitral valve repair. All lines have been removed; the left pleural chest tube has been removed. He has been up ambulating in the hallways. He is using the IS, he has been weaned to room air. He states the incisional pain and surgical pain is about a 2/10 and controlled. Chest xray today showing stable pulmonary vascular congestion. Stable right basilar pleural/parenchymal opacity. Suggestive of small to moderate pleural effusions with adjacent atelectasis or airspace disease. Creeatinine 1.28 today. He received a dose of IV lasix. 06/02/2023 Patient is seen today in the ICU reports awaiting to be discharged possibly later today. Patient being cleared by cardiology along with cardiothoracic and working on discharge planning. Patient is currently afebrile no worsening shor tness of breath noted has been up and walking and reports anxious to go home. Patient is tolerating diet with no reported nausea or vomiting. Patient appears stable for discharge home. Encourage the patient to follow-up with primary care provider as well as cardiology and CT surgery outpatient. Review of systems: Constitutional: No reports of fatigue, fever, or chills Cardiovascular: No reports of chest pain or palpitations, reports chest wall pain improving Respiratory: No reports of shortness of breath or cough GI: No reports of nausea, vomiting, or diarrhea : No reports of dysuria or retention Neurovascular: no reports of generalized weakness All medications have been reviewed PHYSICAL EXAMINATION: GENERAL: The patient is alert and oriented x3, not in any acute distress. Thin built HEENT: Pupils are round and equally reacting to light. EOMI. No scleral icterus. No conjunctival pallor. Normocephalic, atraumatic. No pharyngeal erythema. No thyromegaly. CARDIOVASCULAR: S1 and S2 present. No murmurs, rubs, or gallops. PULMONARY: Chest is clear to auscultation, no wheezing or crackles. ABDOMEN: Soft, nontender, nondistended, normoactive bowel sounds. No palpable organomegaly. MUSCULOSKELETAL: No joint swelling or deformity. EXTREMITIES: No cyanosis, clubbing, or pedal edema. NEUROLOGICAL: Gross neurological examination did not reveal any focal deficits. SKIN: No rashes. Assessment: -Status post mitral valve repair for severe mitral valve regurgitation with prolapse -Continued ongoing Nicotine use -History of hypertension -COPD without any acute exacerbation at this time -Hyperlipidemia -Hyponatremia: Secondary to hypovolemia, improving -History of TIA -Leukocytosis secondary to surgery, no signs of active infection at this time -DVT prophylaxis: As per primary service -GI prophylaxis -Full code Plan: Patient is continued in ICU with multiple medical consultations following and being considered for discharge today Patient is medically stable and has been cleared by cardiology and CT surgery for discharge home Encourage the patient continue using incentive spirometer at least 10 times every hour while awake and take home and continue using Recommend follow-up with primary care provider on discharge Encouraged complete smoking cessation as well as tobacco exposure Patient is medically stable for discharge today. We will continue to follow with cardiothoracic surgery during hospitalization. Thank you kindly for this consultation The impression and plan of care has been dictated by Katey Shaw, Nurse Practitioner as directed. Dr. anabell MD I have performed a history and examination and MDM of this patient, discussed the same with the dictator, and agree with the dictator's assessment and plan as written ,documented as a scribe. Based on total visit time, I have performed more than 50% of the visit. Objective - Vital Signs Vital signs: Vital Signs Temp 97.9 F 06/02/23 08:00 Pulse 83 06/02/23 08:00 Resp 26 H 06/02/23 08:00 BP 108/65 06/02/23 08:00 Pulse Ox 93 L 06/02/23 08:00 FiO2 2 05/28/23 00:00 Intake & Output 06/01/23 06/02/23 06/02/23 18:59 06:59 18:59 Intake Total 440 Output Total 900 1500 Balance -460 -1500 Weight 53.1 kg Intake: Oral 440 Output: Urine 900 1500 Other: Voiding Method Urinal Urinal Urinal # Bowel Movements 1 ABP, PAP, CO, CI - Last Documented Arterial Blood Pressure 102/55 Pulmonary Artery Pressure 23/4 Cardiac Output 4 Cardiac Index 2.5 - Labs CBC & Chem 7: 06/02/23 04:30 06/02/23 04:30 Labs: Abnormal Lab Results - Last 24 Hours (Table) 06/01/23 06/01/23 06/01/23 Range/Units 11:28 16:28 20:58 WBC (3.8-10.6) k/uL RBC (4.30-5.90) m/uL Hgb (13.0-17.5) gm/dL Hct (39.0-53.0) % Sodium (137-145) mmol/L BUN (9-20) mg/dL Glucose (74-99) mg/dL POC Glucose (mg/dL) 136 H 111 H 144 H (70-110) mg/dL 06/02/23 06/02/23 06/02/23 Range/Units 04:30 04:30 06:32 WBC 11.6 H (3.8-10.6) k/uL RBC 2.95 L (4.30-5.90) m/uL Hgb 8.7 L (13.0-17.5) gm/dL Hct 26.5 L (39.0-53.0) % Sodium 134 L (137-145) mmol/L BUN 35 H (9-20) mg/dL Glucose 107 H (74-99) mg/dL POC Glucose (mg/dL) 134 H (70-110) mg/dL
--- NOTE | 2023-06-04 13:25 | CDI ---
Documentation Clarification Form Date: 06/04/2023 01:04:16 PM From: Pia Lincoln RN, CCDS Email: [email or web address] Admit Date: 05/26/2023 05:36:00 AM Patient Name: Richie Chacko Visit Number: [id number] Discharge Date: 06/02/2023 01:28:00 PM ATTENTION: The Clinical Documentation Specialists (CDI) and [facility] Coding Staff appreciate your assistance in clarifying documentation. Please respond to the clarification below the line at the bottom and electronically sign. The CDI & [facility] Coding staff will review the response and follow-up if needed. Please note: Queries are made part of the Legal Health Record. If you have any questions, please contact the author of this message via ITS. Dr. Nani Farnsworth Your patient had low platelets. Based on this information and the findings below, is there an additional diagnosis that is clinically appropriate for this patient? Patient history/risk factors: Severe mitral valve regurgitation with prolapse of P2, s/p complex mitral valve repair this admission; HTN, HLD, TIA, current tobacco dependence and marijuana use. Clinical Indicators: 05/27 CTS: "Discontinue subcutaneous heparin as the patient's platelets are 66 this a.m. and we will start Arixtra 2.5 mg subcutaneous daily. No Toradol at this time due to his platelets." 05/30 IM: "Platelets being monitored as well and currently 63." 05/26-06/02 Platelets: [id number] Treatment: Hold Toradol; hold Heparin; monitor platelets Is there an additional diagnosis that is clinically appropriate for this patient? [ x ] Thrombocytopenia [ ] Unable to determine [ ] Other, please specify MTDD
== END 2023-06-02 13:28 | disposition home health service (06) | DRG 163 ==
LOC: 2ORMAIN 05:36 → 2SICU 13:13
PROVIDERS: ADMIT Surgery; ATTEND Surgery
PROC: B24BZZ4 Ultrasonography of Heart with Aorta, Transesophageal (ICD-10-PCS; 2023-05-26)
PROC: 5A1221Z Performance of Cardiac Output, Continuous (ICD-10-PCS; 2023-05-26)
PROC: 5A2204Z Restoration of Cardiac Rhythm, Single (ICD-10-PCS; 2023-05-26)
PROC: 30233H0 Transfusion of Autologous Whole Blood into Peripheral Vein, Percutaneous Approach (ICD-10-PCS; 2023-05-26)
PROC: 30233J1 Transfusion of Nonautologous Serum Albumin into Peripheral Vein, Percutaneous Approach (ICD-10-PCS; 2023-05-26)
PROC: 02UG0JZ Supplement Mitral Valve with Synthetic Substitute, Open Approach (ICD-10-PCS; principal; 2023-05-26 08:00)
PROC: 02L70CK Occlusion of Left Atrial Appendage with Extraluminal Device, Open Approach (ICD-10-PCS; 2023-05-26 08:00)
PROC: 0W993ZZ Drainage of Right Pleural Cavity, Percutaneous Approach (ICD-10-PCS; 2023-06-02)
DX: I34.1 Nonrheumatic mitral (valve) prolapse (principal); D69.6 Thrombocytopenia, unspecified; J44.9 Chronic obstructive pulmonary disease, unspecified; I34.0 Nonrheumatic mitral (valve) insufficiency; I49.01 Ventricular fibrillation; F10.21 Alcohol dependence, in remission; M08.99 Juvenile arthritis, unspecified, multiple sites; I48.0 Paroxysmal atrial fibrillation; J91.8 Pleural effusion in other conditions classified elsewhere; J81.1 Chronic pulmonary edema; E87.1 Hypo-osmolality and hyponatremia; I10 Essential (primary) hypertension; D62 Acute posthemorrhagic anemia; E86.1 Hypovolemia; E78.5 Hyperlipidemia, unspecified; F17.210 Nicotine dependence, cigarettes, uncomplicated; M81.0 Age-related osteoporosis without current pathological fracture; R06.09 Other forms of dyspnea; G89.29 Other chronic pain; Z86.73 Personal history of transient ischemic attack (TIA), and cerebral infarction without residual deficits; Z79.82 Long term (current) use of aspirin; Z28.310 Unvaccinated for COVID-19; Z79.891 Long term (current) use of opiate analgesic; Z71.6 Tobacco abuse counseling; Z79.899 Other long term (current) drug therapy; Z85.820 Personal history of malignant melanoma of skin
CPT/HCPCS: 71045; 71046; 76604; 80048; 80053; 82330; 82805; 83735; 84132; 85025; 85027; 85610; 85730; 86850; 86891; 86900; 86901; 86920; 87070; 87205; 94002; 94640

== ENCOUNTER 2023-11-17 15:01 | Emergency (ER) | payer OTHER ==
[2023-11-17 15:09] VITALS: TEMP 97.8
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
[2023-11-17 15:51] LABS: Anisocytosis Slight; Basophils % (A) 0 %; Eosinophils # (A) 0.2 k/uL (0-0.7); Eosinophils % (A) 3 %; HCT 41.8 % (39.0-53.0); Hypochromasia Slight; Lymphocytes # (A) 1.2 k/uL (1.0-4.8); Lymphocytes % (A) 15 %; MCH 24.2 pg (25.0-35.0); MCV 78.1 fL (80.0-100.0); Mean Platelet Volume 7.9; Microcytosis Slight; Monocytes # (A) 0.3 k/uL (0-1.0); Monocytes % (A) 4 %; Neutrophils # (A) 6.5 k/uL (1.3-7.7); Neutrophils % (A) 78 %; Platelet Count 182 k/uL (150-450); RBC 5.36 m/uL (4.30-5.90); RDW 17.6 % (11.5-15.5); WBC 8.3 k/uL (3.8-10.6)
[2023-11-17 16:00] LABS: INR 0.9 (<1.2); Partial Thromboplastin Time 22.9 sec (22.0-30.0); Prothrombin Time 10.4 sec (10.0-12.5)
[2023-11-17] MEDS: MORPHINE SULFATE 4 MG/ML SYRINGE IVP STA (16:14)
[2023-11-17] MEDS: SODIUM CHLORIDE 0.9% 1,000 ML IV STA (16:15)
[2023-11-17 16:16] LABS: ALT 10 U/L (4-49); AST 23 U/L (17-59); African American GFR (CKD) >90 (>60 ml/min/1.73 sqM); Albumin 3.9 g/dL (3.5-5.0); Alkaline Phosphatase 73 U/L (38-126); Anion Gap 8 mmol/L; Blood Urea Nitrogen 11 mg/dL (9-20); Calcium 9.2 mg/dL (8.4-10.2); Carbon Dioxide 21 mmol/L (22-30); Chloride 110 mmol/L (98-107); Glucose 96 mg/dL (74-99); Non-African American GFR(CKD) >90 (>60 ml/min/1.73 sqM); Potassium 3.9 mmol/L (3.5-5.1); Sodium 139 mmol/L (137-145); Total Bilirubin 0.9 mg/dL (0.2-1.3); Total Protein 6.7 g/dL (6.3-8.2)
[2023-11-17 16:26] VITALS: PULSE 81
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
[2023-11-17 18:54] VITALS: BP 156/72; RESP 20
== END 2023-11-17 19:02 | disposition home or self-care (01) ==
LOC: EC 15:01
DX: S30.1XXA Contusion of abdominal wall, initial encounter (principal); F17.200 Nicotine dependence, unspecified, uncomplicated; F12.90 Cannabis use, unspecified, uncomplicated; W19.XXXA Unspecified fall, initial encounter
CPT/HCPCS: 36415; 93005; 80053; 85025; 85610; 85730; 74177; 99285; 96374; 96361 ×2; J2270; Q9967

== ENCOUNTER 2023-11-19 13:39 | Emergency (ER) | payer OTHER ==
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
[2023-11-19] MEDS: HYDROmorphone 0.5 MG/0.5 ML SYRINGE IM STA (14:49)
[2023-11-19] MEDS: KETOROLAC 15 MG/ML 1 ML VIAL IM STA (14:50)
--- NOTE | 2023-11-19 15:19 | XR ---
EXAMINATION TYPE: XR ribs RT w pa chest xray DATE OF EXAM: 11/19/2023 COMPARISON: 06/02/2023 HISTORY: Right anterior rib pain TECHNIQUE: AP chest supplemented with 2 views right RIBS. FINDINGS: There are transverse fractures of the anterior ninth and 10th ribs best visualized on the o blique views. Minimal effusion is present. 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 IMPRESSION: 1. Nondisplaced fractures anterior right ninth and 10th ribs
[2023-11-19 15:21] VITALS: PULSE 83
[2023-11-19] MEDS: ACET/COD 300 MG/30 MG STARTER PACK 6 TAB BTL PO STA (15:46)
[2023-11-19 16:01] VITALS: BP 132/90; RESP 16; TEMP 98.1
== END 2023-11-19 15:52 | disposition home or self-care (01) ==
LOC: EC 13:39
DX: S22.41XA Multiple fractures of ribs, right side, initial encounter for closed fracture (principal); F17.200 Nicotine dependence, unspecified, uncomplicated; F12.90 Cannabis use, unspecified, uncomplicated; V18.2XXA Unspecified pedal cyclist injured in noncollision transport accident in nontraffic accident, initial encounter
CPT/HCPCS: 71101; 99284; 96372 ×2; 99406; J1885; J1170

== ENCOUNTER 2023-11-24 15:17 | Emergency (ER) | payer OTHER ==
[2023-11-24 15:31] VITALS: TEMP 97.9
--- NOTE | 2023-11-24 15:56 | ED ---
General Adult HPI - General Chief complaint: Syncope Stated complaint: Syncope Time Seen by Provider: 11/24/23 15:40 Source: patient, EMS, RN notes reviewed, old records reviewed Mode of arrival: EMS - History of Present Illness Initial comments: This is a 63-year-old male who presents to the emergency department with recent history of fractured ribs on the right side. 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 Patient denies hitting his head. Patient states he just became very weak and could not stand any longer. Patient states he never passed out completely. Patient denies any chest pain or palpitation. Patient has any difficulty breathing or shortness of breath though he states when he takes a deep breath he does have pain where the ribs were fractured. Patient denies any abdominal pain patient [place] any nausea vomiting diarrhea. Patient denies being sick recently all. Patient states he does have a bit of a cough but no sputum production. - Related Data Home Medications Medication Instructions Recorded Confirmed Albuterol Inhaler [Ventolin Hfa 1 - 2 puff INHALATION RT-Q6H PRN 05/21/23 11/24/23 Inhaler] Atorvastatin [Lipitor] 40 mg PO DAILY 05/21/23 11/24/23 Amiodarone [Cordarone] 200 mg PO DAILY 11/24/23 11/24/23 Cholecalciferol (Vitamin D3) 50 mcg PO DAILY 11/24/23 11/24/23 [Vitamin D3 (50 Mcg = 2000 Iu)] HYDROcodone/APAP 7.5-325MG [[place] 1 tab PO TID 11/24/23 11/24/23 7.5-325] Previous Rx's Medication Instructions Recorded Aspirin 81 mg PO DAILY #30 tab 01/27/23 Clopidogrel [Plavix] 75 mg PO DAILY #30 tab 06/02/23 Losartan [Cozaar] 50 mg PO BID #60 tab 06/02/23 Metaxalone [Skelaxin] 800 mg PO TID PRN #90 tab 06/02/23 Metoprolol Tartrate [Lopressor] 50 mg PO BID #60 tab 06/02/23 Pregabalin [Lyrica] 200 mg PO TID #60 cap 06/02/23 Tamsulosin [Flomax] 0.4 mg PO PC-BRKFST #30 cap 06/02/23 Allergies Allergy/AdvReac Type Severity Reaction Status Date / Time No Known Allergies Allergy Verified 11/24/23 16:20 Review of Systems ROS Statement: Those systems with pertinent positive or pertinent negative responses have been documented in the HPI. ROS Other: All systems not noted in ROS Statement are negative. 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 skin melanoma removed, urine urgency. seasonal allergies History of Any Multi-Drug Resistant Organisms: None Reported Past Surgical History: Heart Catheterization, Orthopedic Surgery Additional Past Surgical History / Comment(s): 05/06/18 cardiac cath-normal coronaries but severe mitral regurgitation, JOSEPH, R index finger tendon repair d/t injury, bilateral knee arthroscopic surgery, bilateral hip arthroscopies, bilateral elbow arthroscopies, bilateral shoulder arthroscopies/fracture repair L clavicle, L/S spine surgery, facial reconstruction.cervical surgeries Past Anesthesia/Blood Transfusion Reactions: No Reported Reaction Past Psychological History: Anxiety, Depression Smoking Status: Current every day smoker Past Alcohol Use History: None Reported Past Drug Use History: Marijuana - Past Family History Mother Family Medical History: Liver Disease, Renal Disease Additional Family Medical History / Comment(s): Mother in her 70s from kidney and liver failure. Brother(s) Family Medical History: Cancer Additional Family Medical History / Comment(s): MELANOMA General Exam - General Exam Comments Initial Comments: GENERAL: Patient is well-developed and well-nourished. Patient is nontoxic and well- hydrated and is in mild distress. ENT: Neck is soft and supple. No significant lymphadenopathy is noted. Oropharynx is clear. Moist mucous membranes. Neck has full range of motion without eliciting any pain. EYES: The sclera were anicteric and conjunctiva were pink and moist. Extraocular movements were intact and pupils were equal round and reactive to light. Eyelids were unremarkable. PULMONARY: Unlabored respirations. Good breath sounds bilaterally. No audible rales rhonchi or wheezing was noted. CARDIOVASCULAR: There is a regular rate and rhythm without any murmurs gallops or rubs. Patient has right-sided rib tenderness. ABDOMEN: Soft and nontender with normal bowel sounds. SKIN: Skin is clear with no lesions or rashes and otherwise unremarkable. NEUROLOGIC: Patient is alert and oriented x3. Cranial nerves II through XII are grossly intact. Motor and sensory are also intact. Normal speech, volume and content. Symmetrical smile. MUSCULOSKELETAL: Normal extremities with adequate strength and full range of motion. No lower extremity swelling or edema. No calf tenderness. LYMPHATICS: No significant lymphadenopathy is noted PSYCHIATRIC: Normal psychiatric evaluation. Course Vital Signs 11/24/23 11/24/23 15:21 17:14 Temperature 97.9 F Pulse Rate 88 Pulse Rate [ 87 Pulse Oximetery ] Pulse Rate [ 92 Sitting Pulse Oximetery] Pulse Rate [ 98 Standing Pulse Oximetery] Pulse Rate [ 87 Supine Pulse Oximetery] Respiratory 14 Rate Blood Pressure 107/68 Blood Pressure 124/76 [Right Arm Sitting] Blood Pressure 136/91 [Right Arm Standing] Blood Pressure 137/87 [Right Arm Supine] O2 Sat by Pulse 92 L Oximetry Medical Decision Making - Medical Decision Making EKG is interpreted by myself. EKG shows a sinus rhythm at 85 bpm parables 148 QRS is 78 QT interval 361 QTc is 404. Patient's EKG shows no ST segment elevation or depression. Was pt. sent in by a medical professional or institution (CASIE Garza, TRAINING AND DEVELOPMENT OFFICER, urgent care, hospital, or correction...) When possible be specific @ -No Did you speak to anyone other than the patient for history (EMS, parent, family, police, friend...)? What history was obtained from this source @ -No Did you review nursing and triage notes (agree or disagree)? Why? @ -I reviewed and agree with nursing and triage notes Were old charts reviewed (outside hosp., previous admission, EMS record, old EKG, old radiological studies, urgent care reports/EKG's, correction records)? Report findings @ -Patient recently had 2 visits to the emergency department I reviewed both visits I also reviewed the chest x-ray and compare today there is no acute abnormality. Differential Diagnosis (chest pain, altered mental status, abdominal pain women, abdominal pain men, vaginal bleeding, weakness, fever, dyspnea, syncope, headache, dizziness, GI bleed, back pain, seizure, CVA, palpatations, mental health, musculoskeletal)? @ -Differential Syncope: Valvular disease, hypertrophic cardiomyopathy, pulmonary embolism, tamponade, tachycardia, bradycardia, [place], hypovolemia, hemorrhage, dissection, anemia, intracranial hemorrhage, seizure, hypoglycemia, carbon monoxide poisoning, this is not meant to be an all-inclusive list. EKG interpreted by me (3pts min.). @ -As above X-rays interpreted by me (1pt min.). @ -Chest x-ray shows no acute abnormality CT interpreted by me (1pt min.). @ -None done U/S interpreted by me (1pt. min.). @ -None done What testing was considered but not performed or refused? (CT, X-rays, U/S, labs)? Why? @ -None What meds were considered but not given or refused? Why? @ -None Did you discuss the management of the patient with other professionals (professionals i.e. , PA, TRAINING AND DEVELOPMENT OFFICER, lab, RT, psych nurse, social media job titles, cane stripper, teacher, chief analytics officer, housing case manager)? Give summary @ -No Was smoking cessation discussed for >3mins.? @ -No Was critical care preformed (if so, how long)? @ -No Were there social determinants of health that impacted care today? How? (Homelessness, low income, unemployed, alcoholism, drug addiction, transportation, low edu. Level, literacy, decrease access to med. care, longterm, rehab)? @ -No Was there de-escalation of care discussed even if they declined (Discuss DNR or withdrawal of care, Hospice)? DNR status @ -No What co-morbidities impacted this encounter? (DM, HTN, Smoking, COPD, CAD, Cancer, CVA, ARF, Chemo, Hep., AIDS, mental health diagnosis, sleep apnea, morbid obesity)? @ -None Was patient admitted / discharged? Hospital course, mention meds given and route, prescriptions, significant lab abnormalities, going to OR and other pertinent info. @ -Patient has mild dehydration he was given fluids in the emergency department he was not orthostatic. Patient has no symptoms at this time will be discharged home to follow-up as needed patient is taking narcotics 7.5 [place] 3 times a day. Undiagnosed new problem with uncertain prognosis? @ -No Drug Therapy requiring intensive monitoring for toxicity (Heparin, Nitro, Insulin, Cardizem)? @ -No Were any procedures done? @ -No Diagnosis/symptom? @ -Near syncope Acute, or Chronic, or Acute on Chronic? @ -Acute Uncomplicated (without systemic symptoms) or Complicated (systemic symptoms)? @ -Complicated Side effects of treatment? @ -No Exacerbation, Progression, or Severe Exacerbation? @ -No Poses a threat to life or bodily function? How? (Chest pain, [place], [place], pneumonia, PE, COPD, DKA, ARF, appy, cholecystitis, CVA, Diverticulitis, Homicidal, Suicidal, threat to staff... and all critical care pts) @ -No - Lab Data Result diagrams: 11/24/23 16:39 11/24/23 16:39 Lab Results 11/24/23 11/24/23 11/24/23 Range/Units 16:39 16:39 16:39 WBC 11.8 H (3.8-10.6) k/uL RBC 5.69 (4.30-5.90) m/uL Hgb 13.6 (13.0-17.5) gm/dL Hct 44.8 (39.0-53.0) % MCV 78.8 L (80.0-100.0) fL MCH 24.0 L (25.0-35.0) pg MCHC 30.4 L (31.0-37.0) g/dL RDW 17.3 H (11.5-15.5) % Plt Count 191 (150-450) k/uL MPV 8.6 Neutrophils % 89 % Lymphocytes % 6 % Monocytes % 4 % Eosinophils % 1 % Basophils % 0 % Neutrophils # 10.4 H (1.3-7.7) k/uL Lymphocytes # 0.7 L (1.0-4.8) k/uL Monocytes # 0.5 (0-1.0) k/uL Eosinophils # 0.1 (0-0.7) k/uL Basophils # 0.0 (0-0.2) k/uL Hypochromasia Slight Anisocytosis Slight Microcytosis Slight PT 11.3 (10.0-12.5) sec INR 1.0 (<1.2) APTT 22.0 (22.0-30.0) sec Sodium 138 (137-145) mmol/L Potassium 4.1 (3.5-5.1) mmol/L Chloride 112 H (98-107) mmol/L Carbon Dioxide 18 L (22-30) mmol/L Anion Gap 8 mmol/L BUN 15 (9-20) mg/dL Creatinine 0.92 (0.66-1.25) mg/dL Est GFR (CKD-EPI)AfAm >90 (>60 ml/min/1.73 sqM) Est GFR (CKD-EPI)NonAf 90 (>60 ml/min/1.73 sqM) Glucose 90 (74-99) mg/dL Calcium 7.4 L (8.4-10.2) mg/dL Magnesium 1.6 (1.6-2.3) mg/dL Total Bilirubin 0.8 (0.2-1.3) mg/dL AST 22 (17-59) U/L ALT 8 (4-49) U/L Alkaline Phosphatase 70 (38-126) U/L Troponin I (0.000-0.034) ng/mL Total Protein 5.5 L (6.3-8.2) g/dL Albumin 2.9 L (3.5-5.0) g/dL 11/24/23 Range/Units 16:39 WBC (3.8-10.6) k/uL RBC (4.30-5.90) m/uL Hgb (13.0-17.5) gm/dL Hct (39.0-53.0) % MCV (80.0-100.0) fL MCH (25.0-35.0) pg MCHC (31.0-37.0) g/dL RDW (11.5-15.5) % Plt Count (150-450) k/uL MPV Neutrophils % % Lymphocytes % % Monocytes % % Eosinophils % % Basophils % % Neutrophils # (1.3-7.7) k/uL Lymphocytes # (1.0-4.8) k/uL Monocytes # (0-1.0) k/uL Eosinophils # (0-0.7) k/uL Basophils # (0-0.2) k/uL Hypochromasia Anisocytosis Microcytosis PT (10.0-12.5) sec INR (<1.2) APTT (22.0-30.0) sec Sodium (137-145) mmol/L Potassium (3.5-5.1) mmol/L Chloride (98-107) mmol/L Carbon Dioxide (22-30) mmol/L Anion Gap mmol/L BUN (9-20) mg/dL Creatinine (0.66-1.25) mg/dL Est GFR (CKD-EPI)AfAm (>60 ml/min/1.73 sqM) Est GFR (CKD-EPI)NonAf (>60 ml/min/1.73 sqM) Glucose (74-99) mg/dL Calcium (8.4-10.2) mg/dL Magnesium (1.6-2.3) mg/dL Total Bilirubin (0.2-1.3) mg/dL AST (17-59) U/L ALT (4-49) U/L Alkaline Phosphatase (38-126) U/L Troponin I <0.012 (0.000-0.034) ng/mL Total Protein (6.3-8.2) g/dL Albumin (3.5-5.0) g/dL Disposition Clinical Impression: Near syncope Disposition: HOME SELF-CARE Condition: Good Instructions (If sedation given, give patient instructions): Near Syncope (ED) Is patient prescribed a controlled substance at d/c from ED?: No Referrals: Sneha Mantilla MD [Primary Care Provider] - 1-2 days Time of Disposition: 17:51
--- NOTE | 2023-11-24 16:32 | XR ---
EXAMINATION TYPE: XR chest 2V DATE OF EXAM: 11/24/2023 4:27 PM CLINICAL INDICATION:Male, 63 years old with history of Chest Pain; COMPARISON: Chest radiographs from 11/19/2023 TECHNIQUE: XR chest 2V Frontal and lateral views of the chest. FINDINGS: Lungs/Pleura: There is flattening of the diaphragm with increased lucency of the lungs. No evidence o f pneumothorax, pleural effusion or focal consolidation. Pulmonary vascularity: Unremarkable. Heart/mediastinum: Cardiomediastinal silhouette is unremarkable. Left atrial appendage occlusion jame ce is present. Musculoskeletal: No acute osseous pathology. Midline sternotomy wires are noted. Other findings: None IMPRESSION: 1. No acute cardiopulmonary disease process. 2. COPD changes.
[2023-11-24] MEDS: SODIUM CHLORIDE 0.9% 1,000 ML IV STA (16:45)
[2023-11-24] MEDS: KETOROLAC 15 MG/ML 1 ML VIAL IVP STA (16:46)
[2023-11-24 16:53] LABS: Anisocytosis Slight; Basophils % (A) 0 %; Eosinophils # (A) 0.1 k/uL (0-0.7); Eosinophils % (A) 1 %; HCT 44.8 % (39.0-53.0); HGB 13.6 gm/dL (13.0-17.5); Hypochromasia Slight; Lymphocytes # (A) 0.7 k/uL (1.0-4.8); Lymphocytes % (A) 6 %; MCHC 30.4 g/dL (31.0-37.0); MCV 78.8 fL (80.0-100.0); Mean Platelet Volume 8.6; Microcytosis Slight; Monocytes # (A) 0.5 k/uL (0-1.0); Monocytes % (A) 4 %; Neutrophils # (A) 10.4 k/uL (1.3-7.7); Neutrophils % (A) 89 %; Platelet Count 191 k/uL (150-450); RBC 5.69 m/uL (4.30-5.90); RDW 17.3 % (11.5-15.5); WBC 11.8 k/uL (3.8-10.6)
[2023-11-24 16:58] LABS: Prothrombin Time 11.3 sec (10.0-12.5)
[2023-11-24 17:20] LABS: ALT 8 U/L (4-49); AST 22 U/L (17-59); African American GFR (CKD) >90 (>60 ml/min/1.73 sqM); Albumin 2.9 g/dL (3.5-5.0); Alkaline Phosphatase 70 U/L (38-126); Anion Gap 8 mmol/L; Blood Urea Nitrogen 15 mg/dL (9-20); Calcium 7.4 mg/dL (8.4-10.2); Carbon Dioxide 18 mmol/L (22-30); Chloride 112 mmol/L (98-107); Glucose 90 mg/dL (74-99); Magnesium 1.6 mg/dL (1.6-2.3); Non-African American GFR(CKD) 90 (>60 ml/min/1.73 sqM); Potassium 4.1 mmol/L (3.5-5.1); Sodium 138 mmol/L (137-145); Total Bilirubin 0.8 mg/dL (0.2-1.3); Total Protein 5.5 g/dL (6.3-8.2)
[2023-11-24 18:45] VITALS: BP 138/84; PULSE 84; RESP 18
== END 2023-11-24 18:33 | disposition home or self-care (01) ==
LOC: EC 15:17
DX: R55 Syncope and collapse (principal); F17.200 Nicotine dependence, unspecified, uncomplicated; F12.90 Cannabis use, unspecified, uncomplicated
CPT/HCPCS: 36415; 93005; 80053; 83735; 84484; 85025; 85610; 85730; 71046; 99285; 96374; 96361; J1885

== ENCOUNTER 2025-02-13 09:03 | Emergency (ER) | payer OTHER ==
--- NOTE | 2025-02-13 10:01 | ED ---
Back Pain HPI - General Chief Complaint: Back Pain/Injury Stated Complaint: Lower back pain Time Seen by Provider: 02/13/25 09:18 Source: patient, RN notes reviewed Mode of arrival: ambulatory Limitations: no limitations - History of Present Illness Initial Comments: This is a 64-year-old male who presents to the emergency department for right lower back pain. 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 He has since had pain in this area that gets much worse with movement. Denies any radiation of pain. Denies any loss of bowel/bladder control or saddle anesthesia. He is on [place], Lyrica, and meloxicam chronically, however they have not been helping his pain. MD Complaint: back pain - Related Data Home Medications Medication Instructions Recorded Confirmed Albuterol Inhaler [Ventolin Hfa 1 - 2 puff INHALATION RT-Q6H PRN 05/21/23 11/24/23 Inhaler] Atorvastatin [Lipitor] 40 mg PO DAILY 05/21/23 11/24/23 Amiodarone [Cordarone] 200 mg PO DAILY 11/24/23 11/24/23 Cholecalciferol (Vitamin D3) 50 mcg PO DAILY 11/24/23 11/24/23 [Vitamin D3 (50 Mcg = 2000 Iu)] HYDROcodone/APAP 7.5-325MG [[place] 1 tab PO TID 11/24/23 11/24/23 7.5-325] Previous Rx's Medication Instructions Recorded Aspirin 81 mg PO DAILY #30 tab 01/27/23 Clopidogrel [Plavix] 75 mg PO DAILY #30 tab 06/02/23 Losartan [Cozaar] 50 mg PO BID #60 tab 06/02/23 Metaxalone [Skelaxin] 800 mg PO TID PRN #90 tab 06/02/23 Metoprolol Tartrate [Lopressor] 50 mg PO BID #60 tab 06/02/23 Pregabalin [Lyrica] 200 mg PO TID #60 cap 06/02/23 Tamsulosin [Flomax] 0.4 mg PO PC-BRKFST #30 cap 06/02/23 Cyclobenzaprine [Flexeril] 10 mg PO TID PRN #30 tab 02/13/25 Lidocaine 5% Patch [Lidoderm 5% 1 patch TOPICAL DAILY PRN #30 patch 02/13/25 Patch] predniSONE 50 mg PO DAILY 5 Days #5 tab 02/13/25 Allergies Allergy/AdvReac Type Severity Reaction Status Date / Time No Known Allergies Allergy Verified 02/13/25 09:17 Review of Systems ROS Statement: Those systems with pertinent positive or pertinent negative responses have been documented in the HPI. ROS Other: All systems not noted in ROS Statement are negative. 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 skin melanoma removed, urine urgency. seasonal allergies History of Any Multi-Drug Resistant Organisms: None Reported Past Surgical History: Heart Catheterization, Orthopedic Surgery Additional Past Surgical History / Comment(s): 05/06/18 cardiac cath-normal coronaries but severe mitral regurgitation, JOSEPH, R index finger tendon repair d/t injury, bilateral knee arthroscopic surgery, bilateral hip arthroscopies, bilateral elbow arthroscopies, bilateral shoulder arthroscopies/fracture repair L clavicle, L/S spine surgery, facial reconstruction.cervical surgeries/ neck surgery, Past Anesthesia/Blood Transfusion Reactions: No Reported Reaction Past Psychological History: Anxiety, Depression Smoking Status: Current every day smoker Past Alcohol Use History: None Reported Past Drug Use History: Marijuana - Past Family History Mother Family Medical History: Liver Disease, Renal Disease Additional Family Medical History / Comment(s): Mother in her 70s from kidney and liver failure. Brother(s) Family Medical History: Cancer Additional Family Medical History / Comment(s): MELANOMA General Exam Limitations: no limitations General appearance: alert, in no apparent distress Head exam: Present: atraumatic, normocephalic, normal inspection Respiratory exam: Present: normal lung sounds bilaterally. Absent: respiratory distress, wheezes, rales, rhonchi, stridor Cardiovascular Exam: Present: regular rate, normal rhythm Back exam: Present: other (Tenderness over the right lower back) Neurological exam: Present: alert, oriented X3, CN II-XII intact Psychiatric exam: Present: normal affect, normal mood Skin exam: Present: warm, dry, intact, normal color. Absent: rash Course Vital Signs 02/13/25 02/13/25 09:12 11:47 Temperature 98.0 F 98.6 F Pulse Rate 83 80 Respiratory 18 20 Rate Blood Pressure 137/89 155/90 O2 Sat by Pulse 98 96 Oximetry Medical Decision Making - Medical Decision Making This is a 64-year-old male who presents to the emergency department for back pain. Was pt. sent in by a medical professional or institution? @ -No Did you speak to anyone other than the patient for history? @ -No Did you review nursing and triage notes? @ -Yes, and I agree, it is accurate with regards to the patient's symptoms. Were old charts reviewed? @ -No Differential Diagnosis? @ -Differential Back Pain: Strain, zoster, cauda equina syndrome, epidural abscess, vertebral osteomyelitis, discitis, fracture, subluxation, disc herniation, DJD, spinal stenosis, dissection, AAA, pancreatitis, peptic ulcer disease, pyelonephritis, kidney stone, this is not meant to be an all-inclusive list. EKG interpreted by me (3pts min.)? @ -Not obtained X-rays interpreted by me (1pt min.)? @ -Not obtained CT interpreted by me (1pt min.)? @ -Not obtained U/S interpreted by me (1pt. min.)? @ -Not obtained What testing was considered but not performed? (CT, X-rays, U/S, labs)? Why? @ -None What meds were considered but not given? Why? @ -None Did you discuss the management of the patient with other professionals? @ -No Did you reconcile home meds? @ -No Was smoking cessation discussed for >3mins.? @ -I discussed smoking cessation for greater than 3 minutes. The risk of smoking were discussed with the patient including but not limited to risks of cancer, stroke, coronary artery disease and COPD. Also discussed with patient were multiple methods of quitting smoking. Lastly we discussed the financial cost of smoking. Was critical care preformed (if so, how long)? @ -No Were there social determinants of health that impacted care today? How? (Homelessness, low income, unemployed, alcoholism, drug addiction, transportation, low edu. Level, literacy, decrease access to med. care, prison, rehab)? @ -No Was there de-escalation of care discussed even if they declined? (Discuss DNR or withdrawal of care, Hospice)? @ -No What co-morbidities impacted this encounter? (DM, HTN, Smoking, COPD, CAD, Cancer, CVA, Hep., AIDS, mental health diagnosis, sleep apnea, morbid obesity)? @ -Smoking, osteoarthritis Was patient admitted / discharged? @ -Discharged. Given the mechanism of injury and lack of red flag signs/symptoms, no imaging was obtained. Pain was treated in the emergency department. Symptoms likely related to a lumbar strain. Prescription for prednisone, Flexeril, and lidocaine patches provided with dosing instructions reviewed. Patient discharged home in stable condition and advised to follow-up with his PCP. Case discussed with ED attending Dr. العلي. Return precautions reviewed in depth, the patient is instructed to return to the emergency department with any new, worsening, or concerning symptoms. Patient verbalized understanding. Undiagnosed new problem with uncertain prognosis? @ -None Drug Therapy requiring intensive monitoring for toxicity (Heparin, Nitro, Insulin, Cardizem)? @ -None Were any procedures done? @ -None Diagnosis/symptom? @ -Right lumbar strain Acute, or Chronic, or Acute on Chronic? @ -Acute Uncomplicated (without systemic symptoms) or Complicated (systemic symptoms)? @ -Uncomplicated Side effects of treatment? @ -None Exacerbation, Progression, or Severe Exacerbation] @ -Not applicable Poses a threat to life or bodily function? @ -No Disposition Clinical Impression: Strain of lumbar region, Nicotine dependence Disposition: HOME SELF-CARE Instructions (If sedation given, give patient instructions): Low Back Strain (ED), Acute Low Back Pain (ED) Additional Instructions: Return to the emergency department with any new, worsening, or concerning symptoms. Take the prednisone daily for 5 days. Take the Flexeril up to 3 times daily. You can also apply the lidocaine patches daily. Follow up with your primary care provider in 1-2 days. Prescriptions: Cyclobenzaprine [Flexeril] 10 mg PO TID PRN #30 tab PRN Reason: Pain Lidocaine 5% Patch [Lidoderm 5% Patch] 1 patch TOPICAL DAILY PRN #30 patch PRN Reason: Pain predniSONE 50 mg PO DAILY 5 Days #5 tab Is patient prescribed a controlled substance at d/c from ED?: No Referrals: Sneha Mantilla MD [Primary Care Provider] - 1-2 days Time of Disposition: 11:04
[2025-02-13] MEDS: KETOROLAC 15 MG/ML 1 ML VIAL IVP STA ×2 (10:03→11:10)
[2025-02-13] MEDS: LIDOCAINE 4% PATCH TOPICAL ONE (10:04)
[2025-02-13] MEDS: MORPHINE SULFATE 4 MG/ML SYRINGE IVP STA ×2 (10:05→11:10)
[2025-02-13] MEDS: DEXAMETHASONE SOD PHOSPHATE 10 MG/ML 1 ML VIAL IVP STA (10:05)
[2025-02-13] MEDS: ORPHENADRINE 30 MG/ML 2 ML VIAL IVP STA (10:06)
[2025-02-13 11:48] VITALS: BP 155/90; PULSE 80; RESP 20; TEMP 98.6
== END 2025-02-13 11:48 | disposition home or self-care (01) ==
LOC: EC 09:03
DX: S39.012A Strain of muscle, fascia and tendon of lower back, initial encounter (principal); F17.200 Nicotine dependence, unspecified, uncomplicated; M19.90 Unspecified osteoarthritis, unspecified site; Z86.73 Personal history of transient ischemic attack (TIA), and cerebral infarction without residual deficits; X50.1XXA Overexertion from prolonged static or awkward postures, initial encounter
CPT/HCPCS: 99283; 96374; 96375; 96376; J2270; J1100; J2360; J1885; 96361